=== PATIENT | female | born 1935 | race Caucasian/White ===

== ENCOUNTER 2016-12-17 15:59 | Emergency (ER) | payer MEDICARE ==
[~2016-12-17] VITALS: Ht 177.8 cm; Wt 80.3 kg
[~2016-12-17 15:59] MED LIST: DITROPAN XL15 MG PO; FISH OIL 1,2001 EACH PO; HYDROCHLOROTHIA25 MG PO; IBUPROFEN800 MG PO; LISINOPRIL20 MG PO; MACULAR VITAMI1 EACH PO; NORVASC5 MG PO; OXYCODONE HCL10 MG PO; PERCOCET 5-3251 EACH PO; VITAMIN D400 UNI1 PO; WARFARIN SODIUM5 MG PO
[2016-12-17] MEDS ORDERED: HYDROCHLOROTHIA25 MG PO (16:13)
[2016-12-17] MEDS ORDERED: KEFLEX500 MG PO (18:34)
== END 2016-12-17 18:55 | disposition home or self-care (01) ==
LOC: ED 15:59
DX: L03.116 Cellulitis of left lower limb (principal); I10 Essential (primary) hypertension; Z79.899 Other long term (current) drug therapy
CPT/HCPCS: 73590; 99283

== ENCOUNTER 2019-01-19 16:34 | Emergency (ER) | payer MEDICARE ==
[~2019-01-19] VITALS: Ht 177.8 cm; Wt 80.3 kg
--- OUTSIDE RECORDS SUMMARY | ~2019-01-19 | XMS | Encounter Summary ---
Demographics + + + | Address | [address] | | | [place] [address] | + + + | Home Phone | | + + + | Preferred Language | Unknown | + + + | Marital Status | Single | + + + | Pentecostal Affiliation | Unknown | + + + | Race | Unknown | + + + | Ethnic Group | Other Race | + + + Author + + + | Author | [facility] | + + + | Organization | [facility] | + + + | Address | Unknown | + + + | Phone | Unavailable | + + + Care Team Providers + +------+ + | Care Remedial Project Manager Name | Role | Phone | + +------+ + PCP | Unavailable | + +------+ + Encounter Details +--------+ + + + + | Date | Type | Department | Care Team | Description | +--------+ + + + + | 09/07/ | Pharmacy | [facility] | | | | 2014 | Visit | [address] | | | | [address] | [address] | | | | | | [place] [address] | | | | | | [phone] | | | +--------+ + + + + Social History + +-------+ +--------+------+ | Tobacco Use | Types | Packs/Day | Years | Date | | | | | Used | | + +-------+ +--------+------+ | Never Assessed | | | | | + +-------+ +--------+------+ + + + | Sex Assigned at [...] + + documented as of this encounter Plan of Treatment Not on filedocumented as of this encounter Visit Diagnoses Not on filedocumented in this encounter"
--- OUTSIDE RECORDS SUMMARY | ~2019-01-19 | XMS | Encounter Summary ---
Demographics + + + | Address | [address] | | | [place] [address] | + + + | Home Phone | | + + + | Preferred Language | Unknown | + + + | Marital Status | Single | + + + | Bahai Affiliation | Unknown | + + + | Race | Unknown | + + + | Ethnic Group | Other Race | + + + Author + + + | Author | [facility] | + + + | Organization | [facility] | + + + | Address | Unknown | + + + | Phone | Unavailable | + + + Care Team Providers + +------+ + | Care Technology Specialist Name | Role | Phone | + +------+ + PCP | Unavailable | + +------+ + Encounter Details +--------+ + + + + | Date | Type | Department | Care Team | Description | +--------+ + + + + | 07/17/ | Pharmacy | [facility] | | | | 2013 | Visit | [address] | | | | | | [place] [address] | | | | | | [phone] | | | +--------+ + + + [...]
--- OUTSIDE RECORDS SUMMARY | ~2019-01-19 | XMS | Encounter Summary ---
Demographics + + + | Address | [address] | | | [place] [address] | + + + | Home Phone | | + + + | Preferred Language | Unknown | + + + | Marital Status | Single | + + + | Adventist Affiliation | Unknown | + + + | Race | Unknown | + + + | Ethnic Group | Other Race | + + + Author + + + | Author | [facility] | + + + | Organization | [facility] | + + + | Address | Unknown | + + + | Phone | Unavailable | + + + Care Team Providers + +------+ + | Care Kitchen Mechanic Name | Role | Phone | + +------+ + PCP | Unavailable | + +------+ + Encounter Details +--------+ + + + + | Date | Type | Department | Care Team | Description | +--------+ + + + + | 10/02/ | Pharmacy | [facility] | | | | 2015 | Visit | [address] | [address] | | | | | | [place] [address] | | | | | | [phone] | | | +--------+ + + + [...]
--- OUTSIDE RECORDS SUMMARY | ~2019-01-19 | XMS | Encounter Summary ---
Demographics + + + | Address | [address] | | | [place] [address] | + + + | Home Phone | | + + + | Preferred Language | Unknown | + + + | Marital Status | Single | + + + | Caodaism Affiliation | Unknown | + + + | Race | Unknown | + + + | Ethnic Group | Other Race | + + + Author + + + | Author | [facility] | + + + | Organization | [facility] | + + + | Address | Unknown | + + + | Phone | Unavailable | + + + Care Team Providers + +------+ + | Care Test Analyst Name | Role | Phone | + +------+ + PCP | Unavailable | + +------+ + Encounter Details +--------+ + + + + | Date | Type | Department | Care Team | Description | +--------+ + + + + | 11/22/ | Pharmacy | [facility] | | | | 2013 | Visit | [address] | | | | | [address] | | | | | | [place] [address] | | | | | | [phone] | | | +--------+ + + + [...]
--- OUTSIDE RECORDS SUMMARY | ~2019-01-19 | XMS | Encounter Summary ---
Demographics + + + | Address | [address] | | | [place] [address] | + + + | Home Phone | | + + + | Preferred Language | Unknown | + + + | Marital Status | Single | + + + | Judaism Affiliation | Unknown | + + + | Race | Unknown | + + + | Ethnic Group | Other Race | + + + Author + + + | Author | [facility] | + + + | Organization | [facility] | + + + | Address | Unknown | + + + | Phone | Unavailable | + + + Care Team Providers + +------+ + | Care Judicial Law Clerk Name | Role | Phone | + +------+ + PCP | Unavailable | + +------+ + Encounter Details +--------+ + + + + | Date | Type | Department | Care Team | Description | +--------+ + + + + | 04/04/ | Pharmacy | [facility] | | | | 2014 | Visit | [address] | [address] | | [address] | | | | | | [place] [address] | | | | | | [phone] | | | +--------+ + + + [...]
--- OUTSIDE RECORDS SUMMARY | ~2019-01-19 | XMS | Clinical Summary ---
Demographics + + + | Address | [address] | | | [place] [address] | + + + | Home Phone | | + + + | Preferred Language | Unknown | + + + | Marital Status | | + + + | Yazdanism Affiliation | 1041 | + + + | Race | Unknown | + + + | Ethnic Group | Unknown | + + + Author + + + | Author | [facility] (Historical as of | | | 10-15-18) | + + + | Organization | [facility] (Historical as of | | | 10-15-18) | + + + | Address | Unknown | + + + | Phone | Unavailable | + + + Support + + + + + | Name | Relationship | Address | Phone | + + + + + | Jagdeep Girard | ECON | [address] | | | | | [address] [place], | | | | | [place] [address] | | + + + + + Care Team Providers + +------+ + | Care Generation Engineering Technologist Name | Role | Phone | + +------+ + | Dr. Ebonie | PP | Unavailable | + +------+ + Allergies No Known Allergies Current Medications + + +-------+---------+------+------+-------+ | Prescription | Sig. | Disp. | Refills | Star | End | Statu | | | | | | t | Date | s | | | | | | Date | | | + + +-------+---------+------+------+-------+ | lisinopril | Take 20 mg by mouth | | | | | Activ | | (PRINIVIL,ZESTRIL) | daily. | | | | | e | | 20 MG tablet | | | | | | | + + +-------+---------+------+------+-------+ | amlodipine | Take 5 mg by mouth | | | | | Activ | | (NORVASC) 10 MG | daily. | | | | | e | | tablet | | | | | | | + + +-------+---------+------+------+-------+ | oxybutynin | Take 15 mg by mouth | | | | | Activ | | (DITROPAN XL) 15 MG | daily. | | | | | e | | 24 hr tablet | | | | | | | + + +-------+---------+------+------+-------+ | Biotin 1000 MCG | Take 3,000 mcg by | | | | | Activ | | tablet | mouth daily. | | | | | e | + + +-------+---------+------+------+-------+ | fish oil-omega-3 | Take 2 g by mouth | | | | | Activ | | fatty acids 1000 MG | daily. | | | | | e | | capsule | | | | | | | + + +-------+---------+------+------+-------+ Active Problems No known active problems Social History + +-------+ +--------+ + | Tobacco Use | Types | Packs/Day | Years | Date | | | | | Used | | + +-------+ +--------+ + | Former Smoker | | | 25 | Quit: 11/08/1977 | + +-------+ +--------+ + + +---+---+---+ | Smokeless Tobacco: | | | | | Never Used | | | | + +---+---+---+ + + +---------+ + | Alcohol Use | Drinks/We | oz/Week | Comments | | | ek | | | + + +---------+ + | Yes | 1 | 0.6 | | | | Glasses | | | | | of wine | | | + + +---------+ + + + + | Sex Assigned at | Date Recorded | | | | + + + | Not on file | | + + + Last Filed Vital Signs + + + + | Vital Sign | Reading | Time Taken | + + + + | Blood Pressure | 132/73 | 11/25/2012 11:07 AM PDT | + + + + | Pulse | 88 | 11/25/2012 11:07 AM PDT | + + + + | Temperature | 37.7 C (99.9 F) | 11/25/2012 11:07 AM PDT | + + + + | Respiratory Rate | 18 | 11/25/2012 11:07 AM PDT | + + + + | Oxygen Saturation | 96% | 11/25/2012 11:07 AM PDT | + + + + | Inhaled Oxygen | - | - | | Concentration | | | + + + + | Weight | 78.7 kg (173 lb 8 | 11/08/2012 3:25 PM PDT | | | oz) | | + + + + | Height | 177.8 cm (5' 10") | 11/08/2012 3:25 PM PDT | + + + + | Body Mass Index | 24.89 | 11/08/2012 3:25 PM PDT | + + + + Plan of Treatment Not on file Implants + +------+------+ +--------+--------+--------+ | Implanted | Type | Area | Manufacture | Device | Expira | Model | | | | | r | | tion | / | | | | | | Identi | Date | Serial | | | | | | fier | | / Lot | + +------+------+ +--------+--------+--------+ | Global Standard Stem | | | | | 09/27/ | [id number] | | Implanted: Qty: 1 on | | | | | 2022 | 4-050 | | 11/22/2012 by Philip Garner, | | | | | | /[id number] | | MD | | | | | | 4050 | | | | | | | | /[id number] | | | | | | | | 2 | + +------+------+ +--------+--------+--------+ | Global Chester Peg | | | | | 05/28/ | [id number] | | GlenoidImplanted: Qty: 1 on | | | | | 2018 | -026 | | 11/22/2012 by Philip Garner, | | | | | | /[id number] | | MD | | | | | | 026 | | | | | | | | /[id number] | | | | | | | | 7 | + +------+------+ +--------+--------+--------+ | Global Eccentric | | | | | 06/28/ | [id number] | | HeadImplanted: Qty: 1 on | | | | | 2022 | 2-110 | | 11/22/2012 by Philip Garner, | | | | | | /[id number] | | MD | | | | | | 2110 | | | | | | | | /[id number] | | | | | | | | 1412 | + +------+------+ +--------+--------+--------+ Results Not on filefrom Last 3 Months Insurance + +--------+ +--------+-------+---------+ | Payer | Benefi | Subscriber | Type | Phone | Address | | | t Plan | ID | | | | | | / | | | | | | | Group | | | | | + +--------+ +--------+-------+---------+ | [place] - GENERIC | [place]-GEN | [id number] | Medica | | | | | [place] | | re | | | + +--------+ +--------+-------+---------+ + +--------+ +--------+ + + | Guarantor Name | Accoun | Relation to | Date | Phone | Billing Address | | | t Type | Patient | of | | | | | | | | | | + +--------+ +--------+ + + | JAGDEEP GIRARD | Person [birth year] Self [birth year] Home: | [address] | | | al/Fam | | 1936 | [phone] | | | [place] | | | [phone] | [place] | | | | | | | [phone] | + +--------+ +--------+ + +
--- OUTSIDE RECORDS SUMMARY | ~2019-01-19 | XMS | Encounter Summary ---
Demographics + + + | Address | [address] | | | [place] [address] | + + + | Home Phone [...] + + + | Author | [facility] | + + + | Organization | [facility] | + + + | Address | Unknown | + + + | Phone | Unavailable | + + + Care Team Providers + +------+ + | Care Director Trade Name | Role | Phone | + +------+ + PCP | Unavailable | + +------+ + Encounter Details +--------+ + + + + | Date | Type | Department | Care Team | Description | +--------+ + + + + | 10/20/ | Pharmacy | [facility] | | | | 2015 | Visit | [address] | | | | | | [place] [address] | | | | | | [phone] | | | +--------+ + + + [...]
--- OUTSIDE RECORDS SUMMARY | ~2019-01-19 | XMS | Encounter Summary ---
Demographics + + + | Address | [address] | | | [place] [address] | + + + | Home Phone | | + + + | Preferred Language | Unknown | + + + | Marital Status | | + + + | Sabianism Affiliation | 1041 | + + + | Race | Unknown | + + + | Ethnic Group | Unknown | + + + Author + + + | Author | [facility] | | | and [place] | + + + | Organization | [facility] | | | and [place] | + + + | Address | Unknown | + + + | Phone | Unavailable | + + + Support + + + + + | Name | Relationship | Address | Phone | + + + + + | Catrina Florez | ECON | [place] | | | | | [address] | | + + + + + Care Team Providers + +------+ + | Care Wheel Tuner Name | Role | Phone | + +------+ + | Tomas Cai DO | PCP | | + +------+ + Reason for Visit + + + | Reason | Comments | + + + | Hip Pain | left hip radiating down left leg | + + + Encounter Details +--------+---------+ + + + | Date | Type | Department | Care Team | Description | +--------+---------+ + + + | 06/18/ | Office | [facility] [place] | [place], | Left lumbar | | 2016 | Visit | PHYSIATRY [address] | [address] | radiculitis (Primary | | | | [place], | [address] [place], | Dx); Chronic | | | | [place] [address] | [place] [address] | bilateral low back | | | | [phone] | [phone] | pain with | | | | | | right-sided sciatica | +--------+---------+ + + + Social History [...] + + + | Blood Pressure | 157/89 | 06/18/2016 10:41 AM | | | | | PDT | | + + + + + | Pulse | 60 | 06/18/2016 10:41 AM | | | | | PDT | | + + + + + | Temperature | - | - | | + + + + + | Respiratory Rate | - | - | | + + + + + | Oxygen Saturation | - | - | | + + + + + | Inhaled Oxygen | - | - | | | Concentration | | | | + + + + + | Weight | 78.9 kg (174 lb) | 06/18/2016 10:41 AM | | | | | PDT | | + + + + + | Height | 177.8 cm (5' 10") | 06/18/2016 10:41 AM | | | | | PDT | | + + + + + | Body Mass Index | 24.97 | 06/18/2016 10:41 AM | | | | | PDT | | + + + + + documented in this encounter Patient Instructions Patient Instructions Maribel Acevedo PA-C - 06/18/2016 11:15 AM PDT1) Follow-up at the hospital thirty minutes before your scheduled procedure to allow for time to check in. You may eat and drink as usual on the day of the procedure. If you are scheduled for an epidural injection do not take any blood thinning medications f or at least 5-7 days prior to your procedure unless you have been instructed by another phys ician not to discontinue blood thinning medications. If you are having a procedure other than an epidural injection (i.e. facet injection, media l branch block, SI joint injection or other joint injection) it is not absolutely necessary to discontinue blood thinning medications but doing so will decrease the risk of bruising or bleeding. If you have had a prior stroke, DVT or PE or if you are taking blood thinning medication be cause you have atrial fibrillation, a prosthetic cardiac valve replacement or heart stenting do not stop taking your blood thinning medications unless you have permission from your car diologist or primary care provider. All other medications should be taken as usual on the day of the procedure. Common blood thinning medications include: Aspirin (a baby aspirin is o.k.) Ibuprofen (Advil or Motrin) Naproxen (Aleve) Nabumetone (Relafen) Clopidogrel (Plavix) Dipyridamole/ASA (Aggrenox) Warfarin (Coumadin) Dabigatran (Pradaxa) Rivaroxaban (Xarelto) There are many others. If you have questions about your medications and whether or not you should stop any medications please contact our office. If you are having an epidural injection or if you take any medication for relaxation/sedati on on the day of the procedure you must provide a rear load truck driver to take you home. For all procedur es it is recommended that someone else drive you home. documented in this encounter Progress Notes Maribel Acevedo PA-C - 06/18/2016 12:04 PM PDTFormatting of this note might be differe nt from the original. CHIEF COMPLAINT: Chief Complaint Patient presents with Hip Pain left hip radiating down left leg HISTORY OF PRESENT ILLNESS: The patient is a 81 y.o. female being seen today for follow up complaints of left sided low back pain with radiation into the left leg. She reports néstor knowles had this pain for over 20 years but it has always been intermittent. Her symptoms worsened after April of last year when she had a left total knee replacement. She has seen us in the past and under went a left SI joint injection, this was done 05/06/2016 and reports no im mediate or prison improvement of her symptoms. Since the symptoms began, she has noticed that symptoms have been stable and chronic. She d escribes the pain as a burning feeling to the left buttocks region and into the left lastero posterior thigh. She rates the pain as moderate. Her symptoms worsen with sitting, lying laura n, it wakes her at night, she states having this pain all the time. Her symptoms improve wi th changing positions, hanging her left leg over the recliner arm rest, standing and walking . The patient also describes leg symptoms that occur on her left side. The leg symptoms acco unt for 100% of her symptoms. The leg symptoms are constant and the symptoms travels from t he left buttocks down the posterior thigh following L5 and S1 distribution. The patient does describe numbness of the left lower leg but indicates this has been there since her knee surgery but describes it as following the L5 dermatome . She does not repor t weakness of the legs. She does not have bowel and bladder dysfunction. She does not hav e saddle anesthesia. She does have stress incontinence. Treatments for these complaints have included physical therapy, use of NSAIDS, gabapentin, occasional use of oxycodone. Patient's medications, allergies, past medical, surgical, social and family histories were reviewed and updated as appropriate. CURRENT MEDICATIONS: Current Outpatient Prescriptions Medication Sig Dispense Refill amLODIPine (NORVASC) 5 mg tablet Take 5 mg by mouth Daily. cholecalciferol (VITAMIN D-3) 1,000 units capsule Take 1,000 Units by mouth Daily. gabapentin (NEURONTIN) 100 mg capsule Take 100 mg by mouth 3 times daily. lisinopril (PRINIVIL, ZESTRIL) 20 mg tablet Take 20 mg by mouth Daily. melatonin 5 mg tablet Take 5 mg by mouth nightly. Multiple Vitamins-Minerals (PRESERVISION AREDS 2) CAPS Take by mouth. [place]-3 Fatty Acids (FISH OIL) 1200 MG CAPS Take 1,200 mg by mouth Daily. oxybutynin (DITROPAN XL) 15 MG 24 hr tablet Take 15 mg by mouth Daily. oxyCODONE (ROXICODONE) 5 mg tablet Take 5 mg by mouth every 4 hours as needed for Pain. UNCODED MEDICATION Diagnosis: Obstructive Sleep Apnea ICD-9: 327.23 Length of Need: 99 Months 1 Device 0 UNCODED MEDICATION Diagnosis: Obstructive Sleep Apnea ICD-9: 327.23 Length of Need: 99 Months (Patient taking differently: Diagnosis: Obstructive Sleep Apnea ICD-9: 327.23 Length of Need: 99 Months) 1 Device 0 UNCODED MEDICATION Wear at all times while sleeping. 1 Device 0 No current facility-administered medications for this visit. ALLERGIES: No Known Allergies REVIEW OF SYSTEMS: A multisystem review of system checklist was reviewed with the patient and shows only the p ain and/or parasthesias and other complaints as in HPI. All remaining review of systems was negative. PHYSICAL EXAMINATION: Filed Vitals: 06/18/16 1041 BP: 157/89 Pulse: 60 PainSc: 4 PainLoc: Back Body mass index is 24.97 kg/(m^2). GENERAL: The patient is well developed and well nourished. She does appear uncomfortable w hen seated. HEENT: HEAD/FACE: EYES: EARS: NASOPHARNYX: OROPHARNYX: Normocephalic and atraumatic. There are no areas of recent trauma. Normal sclerae without icterus. No drainage or tenderness. Clear without drainage. Clear without erythema. SKIN Limited skin exam shows no significant rashes or lesions. There are not scars in the lumbar region. CHEST: The patient is in no acute respiratory distress with unlabored respirations. HEART: There is not lower extremity edema. ABDOMEN: The patient is not overweight. NEUROLOGIC: The patient is awake, alert, and oriented to time, place, person. She follows simple and complex commands. Her speech is fluent. She comprehends speech well. She has no apparent deficits with short or termite control representative memory. She has appropriate fund of knowledge Cranial nerves 2-12 appear grossly intact. Sensory exam does show diminished sensation to light touch in the left lower extremities. MUSCULOSKELETAL There is no tenderness in the midline of the cervical or thoracic spine. T here is no major palpable deformity of the spine. Straight leg raise and slump-sit are negative but the stretch does feel good. Elias's ma neuver and impingement testing were negative for any groin pain. There was no tenderness t o palpation over the greater trochanters or sacral sulci. The patient localized the majorit y of the pain to the left buttocks region possibly were the L5 nerve root comes out of the s pine before it descends down the left. Lumbar facet loading was negative. Strength testing showed 5/5 strength throughout the lower extremities. The patient was able to heel and toe walk without difficulty. There was no redness, effusion, warmth or joint line tenderness i n the knees or ankles. RADIOGRAPHIC REVIEW: The patient's imaging was reviewed in detail with the patient today during the visit. Lumba r MRI from [facility] shows abnormal signal to the left pedicle which may be relate d to a pseudarthrosis. There is no high grade nerve root impingement or spinal stenosis. S he has really severe left L5/S1 facet arthritis they may be mimiking the pain too. ASSESSMENT: 1. Left lumbar radiculitis 2. Chronic bilateral low back pain with right-sided sciatica PLAN: 1. She is not improve from the left SI joint injection, she has no immediate relief or shazia g term relief. 2. Her MRI shows no high grade nerve root impingement, however her symptoms appear to be fo llowing the L5 dermatome with pain over the left buttocks and left lateral hip down the thig h and associated numbness to the front of the left lower leg and into the top of the left fo ot. I'd like to see how she responds to a left L5/S1 TFESI, this will serve both diagnostic and therapeutic purposes. 3. She will follow up in 3 weeks. She has tried PT, NSAIDS, gabapentin and oxycodone. ELECTRONICALLY SIGNED BY: Maribel Acevedo PA-C, 06/18/2016 CC: Ayala doc umented in this encounter Plan of Treatment Not on filedocumented as of this encounter Results [place] JHOANA Lumbar Transforaminal (07/07/2016 3:51 PM PDT) + + | Specimen | + + | | + + + + + | Narrative | Performed At | + + + | 07/07/2016 Transforaminal Epidural Steroid Injection Diagnosis: | [facility] | | Lumbar radiculopathy ICD-10 Code M54.16 Marianne Gomez | [facility] | | presents to the fluoroscopy suite for a fluoroscopically-guided [facility] | | L5-S1 transforaminal epidural steroid injection as part of | - IMAGING | | conservative management for chronic pain with lumbar radiculopathy | | | and degenerative disk disease. After informed consent was | | | obtained, the patient lay in the prone position on the fluoroscopy | | | table. The area was identified under fluoroscopic guidance. The | | | area was prepped and draped in sterile fashion. A 25-gauge, | | | 1.5-inch needle was inserted into this region and approximately 3 mL | | | of buffered 1% lidocaine was infused. Then, a 22-gauge spinal | | | needle was inserted into the posterior superior transforaminal space | | | and advanced into the epidural space under fluoroscopic guidance. | | | Confirmation into the epidural space was obtained with infusion of | | | approximately 1 mL of Omnipaque contrast which showed epidural flow | | | as well as nerve sheath flow. Then, a combination of 1.5 mL of | | | 1% lidocaine and 1.5 mL of 6 mg/mL Celestone was infused. The | | | patient tolerated the procedure well without complications. Pre- and | | | post-procedure blood pressures were stable. The patient was given | | | verbal as well as written follow-up instructions. Prior to | | | the start of the procedure, the following were performed and/or | | | verified, including correct patient identity, correct site/side marked | | | and visible, agreement on the procedure to be done, correct patient | | | positioning and an accurate procedure consent form. Any safety | | | precautions based on clinical history and/or medication use have been | | | addressed. I personally performed the procedure above. | | | Estimated blood loss: Minimal Complications: None Findings: As | | | expected Anesthesia: Local 1% Lidocaine | | + + + + + + + + | Performing | Address | City[facility] | Phone Number | | Organization | | | | + + + + + | [facility] | [address] | [place] | [phone] | | [facility] | | [address] | | | - IMAGING | | | | + + + + + documented in this encounter Visit Diagnoses + + | Diagnosis | + + | Left lumbar radiculitis - Primary Thoracic or lumbosacral neuritis or radiculitis, | | unspecified | + + | Chronic bilateral low back pain with right-sided sciatica | + + documented in this encounter
--- OUTSIDE RECORDS SUMMARY | ~2019-01-19 | XMS | Clinical Summary ---
Demographics + + + | Address | [address] | | | [place] [address] | + + + | Home Phone | | + + + | Preferred Language | Unknown | + + + | Marital Status | | + + + | Quaker Affiliation | 1041 | + + + | Race | Unknown | + + + | Ethnic Group | Unknown | + + + Author + + + | Author | [facility] (Historical as of | | | 10-15-18) | + + + | Organization | [facility] (Historical as of | | | 10-15-18) [...] [place], | | | | | [place] [address] | | + + + + + Care Team Providers + +------+ + | Care Snaker Driving Horses Name | Role | Phone | + [...] Garner, | | | | | | /[id number] | | MD | | | | | | 4050 | | | | | | | | /[address] | | | | | | | | 2 | + +------+------+ +--------+--------+--------+ | Global Elgin Peg | | | | | 05/28/ | 113-42 | | GlenoidImplanted: Qty: 1 on | | | | | 2018 | -026 | | 11/22/2012 by Philip Garner, | | | | | | /[id number] | | MD | | | | | | 026 | | | | | | | | /[address] | | | | | | | | 7 | + +------+------+ +--------+--------+--------+ | Global Eccentric | | | | | 06/28/ | 1128-5 | | HeadImplanted: Qty: 1 on | | | | | 2022 | 2-110 | | 11/22/2012 by Philip Garner, | | | | | | /[id number] | | MD | | | | [...] | MA - GENERIC | MA-GEN | [id number] | Medica | | | | | [...] | | | | | | | [address] | + +--------+ +--------+ + +
--- OUTSIDE RECORDS SUMMARY | ~2019-01-19 | XMS | Encounter Summary ---
Demographics + + + | Address | [address] | | | [place] [address] | + + + | Home Phone [...] Author + + + | Author | [facility] | + + + | Organization | [facility] | + + + | Address | Unknown | + + + | Phone | Unavailable | + + + Care Team Providers + +------+ + | Care Watch And Clock Maker And Repairer Name | Role | Phone | + +------+ + PCP | Unavailable | + +------+ + Encounter Details +--------+ + + + + | Date | Type | Department | Care Team | Description | +--------+ + + + + | 07/03/ | Pharmacy | [facility] | | | | 2016 | Visit | [address] | | | | | | [address] | | | | | | [place] [address] | | | | | | [phone] | | | +--------+ + + + [...]
--- OUTSIDE RECORDS SUMMARY | ~2019-01-19 | XMS | Encounter Summary ---
Demographics + + + | Address | [address] | | | [place] [address] | + + + | Home Phone | | + + + | Preferred Language | Unknown | + + + | Marital Status | Single | + + + | Jew Affiliation | Unknown | + + + | Race | Unknown | + + + | Ethnic Group | Other Race | + + + Author + + + | Author | [facility] | + + + | Organization | [facility] | + + + | Address | Unknown | + + + | Phone | Unavailable | + + + Care Team Providers + +------+ + | Care Poke In Name | Role | Phone | + +------+ + PCP | Unavailable | + +------+ + Encounter Details +--------+ + + + + | Date | Type | Department | Care Team | Description | +--------+ + + + + | 10/14/ | Pharmacy | [facility] | | | | 2016 | Visit | [address] | | | | | | [address] | | | | | | [place] [address] | | | | | | [phone] | | | +--------+ + + + [...]
--- OUTSIDE RECORDS SUMMARY | ~2019-01-19 | XMS | Encounter Summary ---
Demographics + + + | Address | [address] | | | [place] [address] | + + + | Home Phone | | + + + | Preferred Language | Unknown | + + + | Marital Status | | + + + | Jehovah'S Witness Affiliation | 1041 | + + + | Race | Unknown | + + + | Ethnic Group | Unknown | + + + Author + + + | Author | [facility] | | | and [place] | + + + | Organization | [facility] | | | and [place] | + + + | Address | Unknown | + + + | Phone | Unavailable | + + + Support + + + + + | Name | Relationship | Address | Phone | + + + + + | Catrina Florez | ECON | [place] | | | | | [address] | | + + + + + Care Team Providers + +------+ + | Care Reflow Operator Name | Role | Phone | + [...] | 02/23/ | Refill | [facility] | Boris Meza PA | Medication Refill | | 2011 | | SLEEP DISORDER 401 | [address] | | | | | [address] | [place] | | | | | [place] [address] | [id number] | | | | | [phone] | | | +--------+--------+ + + + [...]
--- OUTSIDE RECORDS SUMMARY | ~2019-01-19 | XMS | Encounter Summary ---
Demographics + + + | Address | [address] | | | [place] [address] | + + + | Home Phone | | + + + | Preferred Language | Unknown | + + + | Marital Status | | + + + | Presybeterian Affiliation | 1041 | + + + | Race | Unknown | + + + | Ethnic Group | Unknown | + + + Author + + + | Author | [facility] | | | and [place] | + + + | Organization | [facility] | | | and [place] | + + + | Address | Unknown | + + + | Phone | Unavailable | + + + Support + + + + + | Name | Relationship | Address | Phone | + + + + + | Catrina Florez | ECON | [place] | | | | | [address] | | + + + + + Care Team Providers + +------+ + | Care Compressor Station Chief Engineer Name | Role | Phone | + +------+ + | Tomas Cai DO | PCP | | + +------+ + Reason for Visit + + + | Reason | Comments | + + + | Back Pain | right sided low back pain | + + + Encounter Details +--------+---------+ + + + | Date | Type | Department | Care Team | Description | +--------+---------+ + + + | 05/13/ | Office | [facility] | [place], | Lumbar radiculopathy | | 2018 | Visit | PHYSIATRY [address] | [address] | (Primary Dx); Facet | | | | [place], | [facility], | arthritis of lumbar | | | | [place] [address] | [place] [address] | region ([facility]LY [facility]); | | | | [phone] | [phone] | Chronic right-sided | | | | | | low back pain | | | | | | without sciatica | +--------+---------+ + + + Social [...] + + + | Blood Pressure | 140/73 | 05/13/2017 8:49 AM | | | | | PDT | | + + + + + | Pulse | 59 | 05/13/2017 8:49 AM | | | [...] Weight | 78.9 kg (174 lb) | 05/13/2017 8:49 AM | | | | | PDT | | + + + + + | Height | 177.8 cm (5' 10") | 05/13/2017 8:49 AM | | | | | PDT | | + + + + + | Body Mass Index | 24.97 | 05/13/2017 8:49 AM | | | | | PDT | | + + + + + documented in this encounter Patient Instructions Patient Instructions Maribel Acevedo PA-C - 05/13/2017 8:40 AM PDTSteroid injection t argeting the right back facet joint, along with left sciatica Foraminal Stenosis/Radicular Pain: Foraminal stenosis is a narrowing of the spinal foramen, the hole through which passes a s amy nerve as it exits the spine. It is usually a form of degenerative spine disease which occurs slowly over time with wear and tear of the spinal column. Arthritic changes of the s pine, a herniated discs, soft tissue swelling and bony growth can all impinge on the formal foramen and compress the nerve. Because the narrowing (stenosis) of the foramen pinches a nerve, the primary symptoms relat ed to this disorder is directly related to that nerve which is affected. This obviously vari es depending on which foramina are involved. The pinched nerve can lead to basically two cl asses of symptoms. Symptoms include pain in the distribution of that nerve as well as numbne ss, tingling and or weakness can occur. Facet Pain: The facet joint is located when the vertebrae (bones of the spine) connect to each other. Pain occurs with extension and rotation of the spine (bending backwards and rotating), bend ing over and lifting a heavy load, standing, first things in the morning. Images of the spi ne show facet arthritis, fluid in the facet joints. Treatment included rest, anti-inflammat ories, physical therapy focusing on core strengthening, facet steroid injections. Steroids are a very strong anti-inflammatory, this helps reduce pain by reducing swelling. Complications of steroids are bleeding, infection, and an increase of blood sugars if you are diabetic. correction risk can lead to osteoporosis which is why we limited the number of injections to 3 times per year. Facet joints are located when the vertebrae (bones of the spine) connect to each other. Typically these joints can have arthritis in this and give a person centralized low back pain. The procedure takes about 20 minutes. You lie on your b ack and x-rays are taken. Once the region is localized, it is numbed and then injected with steroid. Follow-up at the hospital thirty minutes before [...] of the procedure you must provide a driver/merchandiser to take you home. For all procedur es it is recommended that someone else drive you home. documented in this encounter Progress Notes Maribel Acevedo PA-C - 05/13/2017 8:40 AM PDTFormatting of this note might be differe nt from the original. CHIEF COMPLAINT: Chief Complaint Patient presents with Back Pain right sided low back pain HISTORY OF PRESENT ILLNESS: The patient is a 82 y.o. female being seen today to follow-up on complaints of left sided low back pain with radiation into the left leg. She has seen us in the past. A left L5-S1 epidural steroid injection which was performed by Dr Zavala on 07/07/2016. She reports 50% relief after two weeks and after 3 months had even more improve ment. She reports the left leg symptoms returned somewhere around Thanksgiving giving her 6 months of relief. She also has right side low back pain, this is a chronic daily issue, wo rse with activity. She participated in physical therapy at [facility] [place] [facility] this actually worsened her pain, she did 4 visits. Her symptoms on the right worsen with bending, twisting and lifting. Her symptoms on the r ight improve with rest. Interestingly the pain on the left is worse when she is not active and improves with changing positions, standing and walking. The patient does describe leg symptoms that occur on her left side. The leg symptoms accou nt for only a small percentage of her current symptoms. The leg symptoms are intermittent a nd the symptoms travels from the left buttocks down the posterior thigh. The patient does describe numbness of the left lower leg but indicates this has been there since her knee surgery. It does follow an L5 dermatome or peroneal nerve distribution. Juan Antonio fowler does not report weakness of the legs. She does not have bowel and bladder dysfunction oth er than what sounds like stress incontinence. Treatments for these complaints have included physical therapy, use of NSAIDS, gabapentin, occasional use of oxycodone. She has also had the injections as above. Patient's medications, allergies, past medical, surgical, social and family histories were reviewed and updated as appropriate. CURRENT MEDICATIONS: Current Outpatient Prescriptions Medication Sig Dispense Refill cholecalciferol (VITAMIN D-3) 1,000 units capsule Take 1,000 Units by mouth Daily. gabapentin (NEURONTIN) 100 mg capsule Take 100 mg by mouth 3 times daily. hydroCHLOROthiazide (HYDRODIURIL) 12.5 MG tablet Take 12.5 mg by mouth Daily. lisinopril (PRINIVIL, ZESTRIL) 20 mg tablet Take 20 mg by mouth Daily. melatonin 5 mg tablet Take 5 mg by mouth nightly. Multiple Vitamins-Minerals (PRESERVISION AREDS 2) CAPS Take by mouth. [place]-3 Fatty Acids (FISH OIL) 1200 MG CAPS [...] review of systems was negative. PHYSICAL EXAMINATION: Vitals: 05/13/17 0849 BP: 140/73 Pulse: 59 PainSc: 2 PainLoc: Back Body mass index is 24.97 kg/m. GENERAL: The patient is well developed and well nourished. She does appear uncomfortable w hen seated. HEENT: HEAD/FACE: EYES: Normocephalic and atraumatic. There are no areas of recent trauma. Normal sclerae without icterus. SKIN Limited skin exam shows no significant rashes or lesions. There are not scars in the lumbar region. CHEST: The patient is in no acute respiratory distress with unlabored respirations. HEART: There is moderate lower extremity edema on the left. ABDOMEN: The patient is not overweight. NEUROLOGIC: The patient is awake, alert, and oriented to time, place, person. She follows simple and complex commands. Her speech is fluent. She comprehends speech well. She has no apparent deficits with short or correction memory. She has appropriate fund of knowledge Cranial nerves 2-12 appear grossly intact. Sensory exam does show diminished sensation to light touch in the left lower extremity foll owing a peroneal nerve or L5 distribution. MUSCULOSKELETAL There is no tenderness in the midline of the cervical or thoracic spine. T here is no major palpable deformity of the spine. Straight leg raise and slump-sit are negative. Elias's maneuver and impingement testing w ere negative for any groin pain. There was no tenderness to palpation over the greater tro chanters or sacral sulci. The patient localized the majority of the pain to the L5-S1 regio n on the right. Lumbar facet loading was positive on the right. Strength testing showed 5/ 5 strength throughout the lower extremities. The patient was able to heel and toe walk with out difficulty. There was no redness, effusion, warmth or joint line tenderness in the knee s or ankles. RADIOGRAPHIC REVIEW: The patient's imaging was reviewed in detail with the patient today during the visit. Lumba r MRI from [facility] shows transitional lumbosacral anatomy with what appears to b e severe arthritis in the left L5-S1 facet and lesser arthritis on the right. There is also abnormal signal to the left L5 pedicle which may be related to a pseudarthrosis. There is also a lytic appearing lesion in the left side of the sacrum. A CT scan shows these lesions as well which apparently are felt to be consistent with a hemangioma. There is no definite high grade nerve root impingement or spinal stenosis. According to the patient she is sched uled for repeat imaging to see how the lesions telephone exchange operator time. ASSESSMENT: 1. Lumbar radiculopathy 2. Facet arthritis of lumbar region (HCC) 3. Chronic right-sided low back pain without sciatica PLAN: 1. The patient has had significant conservative care including medications (NSAIDS and narc otics), PT (multiple sessions over the years) and care mgr. Unfortunately she frida nues to have significant discomfort. It appears to me that the pain is primarily coming fro m the right L5/S1 facet arthritic joint and the left foraminal stenosis at this same level. I did feel that she would be a good candidate for interventional procedures and I offered r ight L5/S1 facet steroid injection along with a left L5/S1 TFESI as this did help in the pas t. 2. Medications were discussed with the patient today. She is currently taking Advil and Ox ycodone as needed. She is also taking gabapentin 100 mg three times daily. She did not feel a need to change any of her medications at this time. 3. We discussed filling out the post injection pain log for the injection and follow up as needed. ELECTRONICALLY EDITED AND SIGNED BY: Maribel Acevedo PA-C, 05/13/2017 documented in t his encounter Plan of Treatment + +---------+--------+ + + | Name | Type | Priori | Associated Diagnoses | Order Schedule | | | | ty | | | + +---------+--------+ + + | FL JHOANA Lumbar | Imaging | Routin | Lumbar | Expected: | | Transforaminal | | e | radiculopathy | 05/13/2017, Expires: | | | | | | 05/14/2018 | + +---------+--------+ + + documented as of this encounter Results FL Facet Injection Lumbar Sacral (06/17/2017 10:24 AM PDT) + + | Specimen | + + | | + + + + -+ | Narrative | Performed At | + + -+ | 06/17/2017 | [facility] | | Lumbar Facet Steroid Injection Diagnosis: Lumbar Spondylosis ICD-10 | | | Code M47.816 Marianne Gomez presents to the fluoroscopy suite for | | | a fluoroscopically-guided right L5-S1 facet injection as part of | | | conservative management for chronic pain with lumbar spondylosis.Based | | | on the patient's history, physical examination and review of the | | | available imaging the patient has been diagnosed with pain coming | | | primarily from the lumbar facet joint. The patient's pain has been | | | moderate to severe, rated as a 6 or higher usually on a 0-10 scale. | | | The pain is impacting activities of daily living including any | | | activity that requires bending, lifting or twisting. The patient has | | | been dealing with this pain for more than 3 months and has failed | | | conservative treatment with NSAIDs, PT and a home exercise program | | | therefore a therapeutic facet injection was ordered today by Maribel | | | SREE Acevedo targeting the right L5-S1 facet joint. After | | | informed consent was obtained, the patient laid in the prone position | | | on the fluoroscopy table. The areas were identified under fluoroscopic | | | guidance. The area was prepped and draped in sterile fashion. A | | | 25-gauge, 1.5-inch needle was inserted into the region and | | | approximately 3 mL of buffered 1% lidocaine was infused. Then, a | | | 22-gauge spinal needle was inserted into the superior portion of the | | | facet under fluoroscopic guidance. Confirmation into the joint space | | | was obtained with infusion of approximately 0.25 mL of Omnipaque | | | contrast which showed outline of the facet joint. Then, a combination | | | of 0.5 mL of 1% lidocaine and 1 mL of 10 mg/mL dexamethasone was | | | infused into the joint. The patient tolerated the procedure well | | | without complications. Pre- and post-procedure blood pressures were | | | stable. The patient was given verbal as well as written follow-up | | | instructions. The patient was reexamined after the procedure. She | | | reported good improvement of her symptoms after the procedure. The | | | patient's symptoms were improved even with bending and twisting | | | maneuvers. The patient was instructed to keep a detailed pain diary of | | | the response to treatment and will return the pain diary to our | | | office 2 weeks after the procedure. Prior to the start of the | | | procedure, the following were performed and/or verified, including | | | correct patient identity, correct site/side marked and visible, | | | agreement on the procedure to be done, correct patient positioning and | | | an accurate procedure consent form. Any safety precautions based on | | | clinical history and/or medication use have been addressed. I | | | personally performed the procedure above. Estimated blood loss: | | | MinimalComplications: NoneFindings: As expectedAnesthesia: Local 1% | | | Lidocaine | | |the procedure. | | | | | |Prior to the start of the procedure, the following were performed and/or | | |verified, including correct patient identity, correct site/side marked and | | |visible, agreement on the procedure to be done, correct patient | | |positioning and an accurate procedure consent form. Any safety precautions | | |based on clinical history and/or medication use have been addressed. I | | |personally performed the procedure above. | | | | | | | | |Estimated blood loss: Minimal | | |Complications: None | | |Findings: As expected | | |Anesthesia: Local 1% Lidocaine | | | | | + + -+ + +---------+ + + | Performing | Address | City/State/Zipcode | Phone Number | | Organization | | | | + +---------+ + + | [facility] | | | | + +---------+ + + documented in this encounter Visit Diagnoses + + | Diagnosis | + + | Lumbar radiculopathy - Primary Thoracic or lumbosacral neuritis or radiculitis, | | unspecified | + + | Facet arthritis of lumbar region Lumbosacral spondylosis without myelopathy | + + | Chronic right-sided low back pain without sciatica | + + documented in this encounter
--- OUTSIDE RECORDS SUMMARY | ~2019-01-19 | XMS | Clinical Summary ---
Demographics + + + | Address | [address] | | | [place] [address] | + + + | Home Phone | | + + + | Preferred Language | Unknown | + + + | Marital Status | Single | + + + | Synagogue Affiliation | Unknown | + + + | Race | Unknown | + + + | Ethnic Group | Other Race | + + + Author + + + | Author | [facility] | + + + | Organization | NON REVENUE LOCATIONS | + + + | Address | Unknown | + + + | Phone | Unavailable | + + + Care Team Providers + +------+ + | Care Stewardesses Teacher Name | Role | Phone | + +------+ + PCP | Unavailable | + +------+ + Source Comments [facility] is fully live on both EpicCare Ambulatory and EpicCare InPatient.[facility] Allergies No Known Allergies Medications + + + +---------+------+------+-------+ | Medication | Sig | Dispensed | Refills | Star | End | Statu | | | | | | t | Date | s | | | | | | Date | | | + + + +---------+------+------+-------+ | oxybutynin CR 15 | Take 1 tablet by | 90 | 3 | 05/1 | | Activ | | mg oral tablet | mouth once daily. | tablet | | 6/20 | | e | | extended release | | | | 14 | | | | 24hr | | | | | | | + + + +---------+------+------+-------+ | lisinopril 20 mg | Take 1 tablet by | 90 | 4 | 08/0 | | Activ | | oral tablet | mouth once daily. | tablet | | 2/20 | | e | | | | | | 16 | | | + + + +---------+------+------+-------+ | amLODIPine 5 mg | Take 1 tablet by | 90 | 4 | 08/1 | | Activ | | oral tablet | mouth once daily. | tablet | | 6/20 | | e | | | | | | 16 | | | + + + +---------+------+------+-------+ Active Problems Not on file Social History + +-------+ +--------+------+ | Tobacco [...] | + + Last Filed Vital Signs Not on file Plan of Treatment + + + + + | Health Maintenance | Due Date | Last Done | Comments | + + + + + | Pneumococcal | | | | | vaccination (1 of 2 | 0 | | | | - PCV13) | | | | + + + + + | Influenza (Flu) | | | | | vaccination (#1) | 9 | | | + + + + + Results Not on filefrom Last 3 Months"
--- OUTSIDE RECORDS SUMMARY | ~2019-01-19 | XMS | Encounter Summary ---
Demographics + + + | Address | [address] | | | [place] [address] | + + + | Home Phone | | + + + | Preferred Language | Unknown | + + + | Marital Status | Single | + + + | Jainism Affiliation | Unknown | + + + [...] Team Providers + +------+ + | Care Exec. Creative Director Name | Role | Phone | + +------+ + PCP | Unavailable | + +------+ + Encounter Details +--------+ + + + + | Date | Type | Department | Care Team | Description | +--------+ + + + + | 01/06/ | Pharmacy | [facility] | | | | 2015 | Visit | [address] | | | | | | [address] | | | | | | [place] [address] | | | | | | [phone] | | | +--------+ + + + [...]
--- OUTSIDE RECORDS SUMMARY | ~2019-01-19 | XMS | Encounter Summary ---
Demographics + + + | Address | [address] | | | [place] [address] | + + + | Home Phone | | + + + | Preferred Language | Unknown | + + + | Marital Status | Single | + + + | Episcopal Affiliation | Unknown | + + + | Race | Unknown | + + + | Ethnic Group | Other Race | + + + Author + + + | Author | [facility] | + + + | Organization | [facility] | + + + | Address | Unknown | + + + | Phone | Unavailable | + + + Care Team Providers + +------+ + | Care Personnel Quality Assurance Auditor Name | Role | Phone | + +------+ + PCP | Unavailable | + +------+ + Encounter Details +--------+ + + + + | Date | Type | Department | Care Team | Description | +--------+ + + + + | 04/14/ | Pharmacy | [facility] | | | | 2013 | Visit | [address] | [address] | | | | | | [place] [address] | | | | | | [phone] | | | +--------+ + + + [...]
--- OUTSIDE RECORDS SUMMARY | ~2019-01-19 | XMS | Encounter Summary ---
Demographics + + + | Address | [address] | | | [place] [address] | + + + | Home Phone | | + + + | Preferred Language | Unknown | + + + | Marital Status | | + + + | Muslim Affiliation | 1041 | + + + | Race | Unknown | + + + | Ethnic Group | Unknown | + + + Author + + + | Author | [facility] | | | and [place] | + + + | Organization | [facility] | | | and [place] | + + + | Address | Unknown | + + + | Phone | Unavailable | + + + Support + + + + + | Name | Relationship | Address | Phone | + + + + + | Catrina Florez | ECON | [place] | | | | | [address] | | + + + + + Care Team Providers + +------+ + | Care Senior Manager Creative Services Name | Role | Phone | + +------+ + | Tomas Cai DO | PCP | | + +------+ + Reason for Visit + + + | Reason | Comments | + + + | Injections | | + + + Encounter Details +--------+ + + + + | Date | Type | Department | Care Team | Description | +--------+ + + + + | 06/15/ | Telephone | [facility] | Lamont Zavala | Injections | | 2018 | | [address]YSIATRY [address] | | | | | [place], | [place], [place] | | | | | [place] [address] | [address] | | | | | [phone] | | | +--------+ + + + [...]
--- OUTSIDE RECORDS SUMMARY | ~2019-01-19 | XMS | Encounter Summary ---
Demographics + + + | Address | [address] | | | [place] [address] | + + + | Home Phone | | + + + | Preferred Language | Unknown | + + + | Marital Status | | + + + | Scientology Affiliation | 1041 | + + + [...] [place] | | | | | [address] | | + + + + + Care Team Providers + +------+ + | Care Knowledge Analyst Name | Role | Phone | [...] | 02/23/ | Refill | [facility] | Boris Meza PA | Medication Refill | | 2011 | | SLEEP DISORDER [address] | [address] | | | | | [address] | [place] | | | | | [place] [address] | [id number] | | | | | [phone] | | | +--------+--------+ + + + [...]
--- OUTSIDE RECORDS SUMMARY | ~2019-01-19 | XMS | Encounter Summary ---
Demographics + + + | Address | [address] | | | [place] [address] | + + + | Home Phone | | + + + | Preferred Language | Unknown | + + + | Marital Status | Single | + + + | Gnosticist Affiliation | Unknown | + + + [...] Team Providers + +------+ + | Care Soda Room Operator Name | Role | Phone | + +------+ + PCP | Unavailable | + +------+ + Encounter Details +--------+ + + + + | Date | Type | Department | Care Team | Description | +--------+ + + + + | 07/10/ | Pharmacy | [facility] | | | | 2014 | Visit | [address] | [address] | | | | | | [place] [address] | | | | | | [phone] | | | +--------+ + + + [...]
--- OUTSIDE RECORDS SUMMARY | ~2019-01-19 | XMS | Encounter Summary ---
Demographics + + + | Address | [address] | | | [place] [address] | + + + | Home Phone | | + + + | Preferred Language | Unknown | + + + | Marital Status | Single | + + + | Cheondoism Affiliation | Unknown | + + + | Race | Unknown | + + + | Ethnic Group | Other Race | + + + Author + + + | Author | [facility] | + + + | Organization | [facility] | + + + | Address | Unknown | + + + | Phone | Unavailable | + + + Care Team Providers + +------+ + | Care Matchbook Maker Name | Role | Phone | + +------+ + PCP | Unavailable | + +------+ + Encounter Details +--------+ + + + + | Date | Type | Department | Care Team | Description | +--------+ + + + + | 01/06/ | Pharmacy | [facility] | | | | 2015 | Visit | [address] | [address] | [address] | | | | | | [place] [address] | | | | | | [phone] | | | +--------+ + + + [...]
--- OUTSIDE RECORDS SUMMARY | ~2019-01-19 | XMS | Encounter Summary ---
Demographics + + + | Address | [address] | | | [place] [address] | + + + | Home Phone | | + + + | Preferred Language | Unknown | + + + | Marital Status | Single | + + + | Moravian Affiliation | Unknown | + + + [...] Team Providers + +------+ + | Care Regulatory Associate Name | Role | Phone | + +------+ + PCP | Unavailable | + +------+ + Encounter Details +--------+ + + + + | Date | Type | Department | Care Team | Description | +--------+ + + + + | 11/20/ | Pharmacy | [facility] | | | | 2013 | Visit | [address] [facility] [address] [address] | | | | | [address] | | | | | | [place] [address] | | | | | | [phone] | | | +--------+ + + + [...]
--- OUTSIDE RECORDS SUMMARY | ~2019-01-19 | XMS | Encounter Summary ---
Demographics + + + | Address | [address] | | | [place] [address] | + + + | Home Phone | | + + + | Preferred Language | Unknown | + + + | Marital Status | | + + + | Orthodox Affiliation | 1041 | + + + [...] [place] | | | | | [address] | | + + + + + Care Team Providers + +------+ + | Care Wood Scrap Handler Name | Role | Phone | + +------+ + | Tomas Cai DO | PCP | | + +------+ + Reason for Visit +--------+ + | Reason | Comments | +--------+ + | Apnea | | +--------+ + Encounter Details +--------+---------+ + + + | Date | Type | Department | Care Team | Description | +--------+---------+ + + + | 02/03/ | Office | [facility] [place] | Zac Wells | DORA (obstructive | | 2011 | Visit | SLEEP DISORDER [address] | MD [address] | sleep apnea) | | | | [address] [place] | [address] [place] | (Primary Dx) | | | | [place] [address] | [place] [address] | | | | | [phone] | [phone] | | | | | | | [...] + + + | Blood Pressure | 178/72 | 02/04/2012 1:45 PM | | | | | PST | | + + + + + | Pulse | 72 | 02/04/2012 1:45 PM | | | | | PST | | + + + + + | Temperature | - | - | | + + + + + | Respiratory Rate | 14 | 02/04/2012 1:45 PM | | | | | PST | | + + + + + | Oxygen Saturation | - | - | | + + + + + | Inhaled Oxygen | - | - | | | Concentration | | | | + + + + + | Weight | 80.2 kg (176 lb 14.4 | 02/04/2012 1:45 PM | | | | oz) | PST | | + + + + + | Height | - | - | | + + + + + | Body Mass Index | 26.12 | 01/13/2012 2:17 PM | | | | | PST | | + + + + + documented in this encounter Progress Notes Zac Wells Jr., MD - 02/04/2012 2:00 PM PSTThe patient underwent PSG utilizing a spl it-night technique on 02/01/2012 which demonstrated a pretreatment RDI of 28.7 and a pretreat ment AHI of 19.9 and a pretreatment AI of 17.5 with a len oxygen saturation of 65%. She wa s titrated to CPAP of 8cm which excellent control of DORA and normalization of oxygen saturat ions. I've discussed this with her. A: 1) DORA - the patient has significant DORA which associated with oxygen desaturation. I've briefly reviewed the pathophysiology of DORA with her again. The mechanisms of action of CPA P in treating DORA were discussed in detail with the patient. I've discussed desensitization techniques as well as some imagery techniques that can be helpful. I've discussed the use of heated humidity. And I've discussed our PAP Compliance Clinic. P: CPAP 5-10cm is prescribed. F/u early next week in PAP compliance clinic. Today, 15 minutes was spent face to face with the patient; the majority of time was spent tamica gilliam. CC: Dr. Rahel Cai Tdocumented in this encounter Plan of Treatment Not on filedocumented as of this encounter Visit Diagnoses + + | Diagnosis | + + | DORA (obstructive sleep apnea) - Primary Obstructive sleep apnea (adult) (pediatric) | + + documented in this encounter"
--- OUTSIDE RECORDS SUMMARY | ~2019-01-19 | XMS | Encounter Summary ---
Demographics + + + | Address | [address] | | | [place] [address] | + + + | Home Phone | | + + + | Preferred Language | Unknown | + + + | Marital Status | | + + + | Voodoo Affiliation | 1041 | + + + | Race | Unknown | + + + | Ethnic Group | Unknown | + + + Author + + + | Author | [facility] | | | and [place] | + + + | Organization | [facility] | | | and [place] | + + + | Address | Unknown | + + + | Phone | Unavailable | + + + Support + + + + + | Name | Relationship | Address | Phone | + + + + + | Catrina Florez | ECON | [place] | | | | | [address] | | + + + + + Care Team Providers + +------+ + | Care Quill Fixer Name | Role | Phone | + [...] | | | bilateral | Maribel | [facility] | | | | | low back | PA-C [address] | [address] | | | | | pain with | [address] | AVE | | | | | left-sided | [place], [place] | [place], [place] | | | | | sciatica | [address] | [address] | | | | | Procedures | Phone: | Phone: | | | | | CT Pelvis w | [phone] | [phone] | | | | | wo Contrast | Fax: | Fax: | | | | | | [phone] | [phone] | +--------+--------+ + + + + Diagnostic/Screening [...] | | | bilateral | Maribel | [facility] | | | | | low back | PA-C [address] | [address] | | | | | pain with | [address] | AVE | | | | | left-sided | [place], [place] | [place], [place] | | | | | sciatica | [address] | [address] | | | | | Procedures | Phone: | Phone: | | | | | CT Lumbar | [phone] | [phone] | | | | | Spine w wo | Fax: | Fax: | | | | | Contrast | [phone] | [phone] | +--------+--------+ + + + + Reason [...] + + | 10/21/ | Office | [facility] [place] | Lidabustercz, | Chronic bilateral | | 2016 | Visit | PHYSIATRY [address] | [address] | low back pain with | | | | [place], | [address] [place], | left-sided sciatica | | | | [place] [address] | [place] [address] | (Primary Dx) | | | | [phone] | [phone] | | | | | | | [...] blood sugars if you a re diabetic. senior living risk can lead to osteoporosis which is [...] documented in this encounter Progress Notes Maribel Acveedo PA-C - 10/22/2015 3:10 PM PDTFormatting of [...] (PRESERVISION AREDS 2) CAPS Take by mouth. [place]-3 Fatty Acids (FISH OIL) 1200 MG CAPS Take 1,200 mg by mouth Daily. [place]-3 Fatty Acids (RA FISH OIL EXTRA STRENGTH) [...] has no apparent deficits with short or senior care memory. She has appropriate fund of knowledge Cranial nerves 2-12 appear grossly intact. Sensory exam does show diminished sensation to light touch in the left lower extremities. MUSCULOSKELETAL Physical exam was not performed today. RADIOGRAPHIC REVIEW: The patient's imaging was reviewed in detail with the patient today during the visit. Lumba r MRI from [facility] shows abnormal signal to the left pedicle [...] sacral CT scan to be done at [facility], but have asked that her PCP [...]
--- OUTSIDE RECORDS SUMMARY | ~2019-01-19 | XMS | Encounter Summary ---
Demographics + + + | Address | [address] | | | [place] [address] | + + + | Home Phone | | + + + | Preferred Language | Unknown | + + + | Marital Status | Single | + + + | Sikh Affiliation | Unknown | + + + | Race | Unknown | + + + | Ethnic Group | Other Race | + + + Author + + + | Author | [facility] | + + + | Organization | [facility] | + + + | Address | Unknown | + + + | Phone | Unavailable | + + + Care Team Providers + +------+ + | Care Inspectors And Regulatory Officers Name | Role | Phone | + +------+ + PCP | Unavailable | + +------+ + Encounter Details +--------+ + + + + | Date | Type | Department | Care Team | Description | +--------+ + + + + | 11/20/ | Pharmacy | [facility] | | | | 2013 | Visit | [address] | | | | | | Place [address] | | | | | | [place] [address] | | | | | | [phone] | | | +--------+ + + + [...]
--- OUTSIDE RECORDS SUMMARY | ~2019-01-19 | XMS | Encounter Summary ---
Demographics + + + | Address | [address] | | | [place] [address] | + + + | Home Phone | | + + + | Preferred Language | Unknown | + + + | Marital Status | | + + + | Methodist Affiliation | 1041 | + + + | Race | Unknown | + + + | Ethnic Group | Unknown | + + + Author + + + | Author | [facility] | | | and [place] | + + + | Organization | [facility] | | | and [place] | + + + | Address | Unknown | + + + | Phone | Unavailable | + + + Support + + + + + | Name | Relationship | Address | Phone | + + + + + | Catrina Florez | ECON | [place] | | | | | [address] | | + + + + + Care Team Providers + +------+ + | Care Parimutuel Ticket Checker Name | Role | Phone | + +------+ + | Tomas Cai DO | PCP | | + +------+ + Encounter Details +--------+ + + + + | Date | Type | Department | Care Team | Description | +--------+ + + + + | 11/08/ | Hospital | [facility] | Conversion | | | 2013 | Encounter | [facility] | Transaction, | | | | | CLINIC [address] | Provider Unknown | | | | | [place], [place] | | | | | | [address] | (Fax) | | | | | [phone] | | | +--------+ + + + [...] + + documented as of this encounter Medications at Time of Discharge [...] | Diagnosis: | 1 | 0 | 12/26/20 | | | MEDICATIONIndication | Obstructive Sleep [...] + + + +---------+ + + | aspirin (KOMAL | Take 325 mg by mouth | | 0 | | | | ASPIRIN) 325 mg | Daily. | | | | 4 | | tablet | | | | | | + + + +---------+ + + | | Take 1 tablet by | | 0 | | | | Ooksnau-Xgnuhqmfm-Dv | mouth Daily. | | | | 4 | | tamin D (CITRACAL | | | | | | | CALCIUM+D) | | | | | | | 600-40-500 | | | | | | | MG-MG-UNIT TB24 | | | | | | + + + +---------+ + + | | Take 1 tablet by | | 0 | | | | Glucosamine-Chondroi | mouth Daily. | | | | 4 | | tin (GLUCOSAMINE | | | | | | | CHONDR COMPLEX) | | | | | | | 500-400 MG CAPS | | | | | | + + + +---------+ + + | meloxicam (MOBIC) | Take 15 mg by mouth | | 0 | | | | 15 mg tablet | Daily. | | | | 4 | + + + +---------+ + + | Multiple | Take 1 tablet by | | 0 | | | | Vitamins-Minerals | mouth Daily. | | | | 5 | | (CENTRA-WANDER) TABS | | | | | | + + + +---------+ + + | Frederick-3 Fatty | Take 1 capsule by | | 0 | | | | Acids (RA FISH OIL | mouth Daily. | | | | 7 | | EXTRA STRENGTH) 870 | | | | | | | MG CAPS | | | | | | + + + +---------+ + + documented as of this encounter Plan of Treatment Not on filedocumented as of this encounter Procedures + +--------+ + + + | Procedure Name | Priori | Date/Time | Associated Diagnosis | Comments | | | ty | | | | + +--------+ + + + | MRSA NAAT | Timed | 11/08/2012 | | Results for this | | | | 3:30 PM | | procedure are in the | | | | PDT | | results section. | + +--------+ + + + documented in this encounter Results MRSA NAAT (11/08/2012 3:30 PM PDT) + + | Specimen | + + | | + + + + + | Narrative | Performed At | + + + | [facility]) | EXTERNAL LAB | | Testing performed at [facility];[address] [place] [address];[place] [address] MRSA PCR | | | NEGATIVE Testing performed at | | | [facility];[address] [place] [address];[place] [address] | | + + + + +---------+ + + | Performing | Address | City/State/Zipcode | Phone Number | | Organization | | | | + +---------+ + + | EXTERNAL LAB | | | | + +---------+ + + documented in this encounter Visit Diagnoses Not on filedocumented in this encounter"
--- OUTSIDE RECORDS SUMMARY | ~2019-01-19 | XMS | Encounter Summary ---
Demographics + + + | Address | [address] | | | [place] [address] | + + + | Home Phone [...] Author | [facility] | + + + | Organization | [facility] | + + + | Address | Unknown | + + + | Phone | Unavailable | + + + Care Team Providers + +------+ + | Care Leather Sprayer Name | Role | Phone | + +------+ + PCP | Unavailable | + +------+ + Encounter Details +--------+ + + + + | Date | Type | Department | Care Team | Description | +--------+ + + + + | 03/09/ | Pharmacy | [facility] | | | | 2014 | Visit | [address] | | | | | | [address] | | | | | | [place] [address] | | | | | | [phone] | | | +--------+ + + + [...]
--- OUTSIDE RECORDS SUMMARY | ~2019-01-19 | XMS | Encounter Summary ---
Demographics + + + | Address | [address] | | | [place] [address] | + + + | Home Phone | | + + + | Preferred Language | Unknown | + + + | Marital Status | | + + + | Restorationist Affiliation | 1041 | + + + | Race | Unknown | + + + | Ethnic Group | Unknown | + + + Author + + + | Author | [facility] | | | and [place] | + + + | Organization | [facility] | | | and [place] | + + + | Address | Unknown | + + + | Phone | Unavailable | + + + Support + + + + + | Name | Relationship | Address | Phone | + + + + + | Catrina Florez | ECON | [place] | | | | | [address] | | + + + + + Care Team Providers + +------+ + | Care English Composition Teacher Name | Role | Phone | [...] + + | 04/17/ | Office | [facility] | Boris Meza PA | DORA on CPAP (Primary | | 2015 | Visit | SLEEP DISORDER [address] | [address] | Dx) | | | | [address] [place] | [place] | | | | | [place] [address] | [address] | | | | | [phone] | | | +--------+---------+ + + + [...] Insomnia Severity Index Insomnia Severity Index 0 Argyle Sleepiness Scale Sitting and reading 2 Watching [...] pillows obtained from: [facility] [place] pressure is: 5-10 cm 95%: 7.4 cm [...] appr opiate paperwork. Fifteen minutes were spent coji-hh-nnde, with the majority of time spent in [...]
--- OUTSIDE RECORDS SUMMARY | ~2019-01-19 | XMS | Encounter Summary ---
Demographics + + + | Address | [address] | | | [place] [address] | + + + | Home Phone | | + + + | Preferred Language | Unknown | + + + | Marital Status | | + + + | Amish Affiliation | 1041 | + + + | Race | Unknown | + + + | Ethnic Group | Unknown | + + + Author + + + | Author | [facility] | | | and [place] | + + + | Organization | [facility] | | | and [place] | + + + | Address | Unknown | + + + | Phone | Unavailable | + + + Support + + + + + | Name | Relationship | Address | Phone | + + + + + | Catrina Florez | ECON | [place] | | | | | [address] | | + + + + + Care Team Providers + +------+ + | Care Filler In Name | Role | Phone | + +------+ + | Tomas Cai DO | PCP | | + +------+ + Reason for Visit +--------+ + | Reason | Comments | +--------+ + | LABS | | +--------+ + Encounter Details +--------+ + + + + | Date | Type | Department | Care Team | Description | +--------+ + + + + | 10/28/ | Telephone | [facility] [place] | [place], | LABS | | 2016 | | PHYSIATRY [address] | [address] | | | | | [place], | [place], | | | | | [place] [address] | [place] [address] | | | | | [phone] | | | | | | | | +--------+ + + + [...] as of this encounter Plan of Treatment + +------+--------+ + + | Name | Type | Priori | Associated Diagnoses | Order Schedule | | | | ty | | | + +------+--------+ + + | Renal Function Panel | Lab | Routin | Chronic bilateral | 1 Occurrences | | | | e | low back pain with | starting 10/29/2015 | | | | | right-sided sciatica | until 10/28/2016 | + +------+--------+ + + documented as of this encounter Visit Diagnoses + + | Diagnosis | + + | Chronic bilateral low back pain with right-sided sciatica - Primary | + + documented in this encounter"
--- OUTSIDE RECORDS SUMMARY | ~2019-01-19 | XMS | Encounter Summary ---
Demographics + + + | Address | [address] | | | [place] [address] | + + + | Home Phone | | + + + | Preferred Language | Unknown | + + + | Marital Status | | + + + | Mosque Affiliation | 1041 | + + + | Race | Unknown | + + + | Ethnic Group | Unknown | + + + Author + + + | Author | [facility] | | | and [place] | + + + | Organization | [facility] | | | and [place] | + + + | Address | Unknown | + + + | Phone | Unavailable | + + + Support + + + + + | Name | Relationship | Address | Phone | + + + + + | Catrina Florez | ECON | [place] | | | | | [address] | | + + + + + Care Team Providers + +------+ + | Care Fiberglass Roving Winder Name | Role | Phone | + [...] [address] | | | | | [place], | [place], | | | | | [place] [address] | [place] [address] | | | | | [phone] | [phone] | | | | | | | [...]
--- OUTSIDE RECORDS SUMMARY | ~2019-01-19 | XMS | Encounter Summary ---
Demographics + + + | Address | [address] | | | [place] [address] | + + + | Home Phone | | + + + | Preferred Language | Unknown | + + + | Marital Status | | + + + | Cheondoism Affiliation | 1041 | + + + | Race | Unknown | + + + | Ethnic Group | Unknown | + + + Author + + + | Author | [facility] | | | and [place] | + + + | Organization | [facility] | | | and [place] | + + + | Address | Unknown | + + + | Phone | Unavailable | + + + Support + + + + + | Name | Relationship | Address | Phone | + + + + + | Catrina Florez | ECON | [place] | | | | | [address] | | + + + + + Care Team Providers + +------+ + | Care Doctor Of Pharmacy Name | Role | Phone | + [...] | Lumbar | [place], | [address] | | | | | spondylosis | Lamont Bryan MD | [facility], | | | | | Procedures | [address] | [place] | | | | | [place] INJ | [address] [place] | [address] | | | | | DX/THER AGNT | [place], [place] | Phone: | | | | | [place] | [address] | [phone] | | | | | [place], | Phone: | Fax: | | | | | LUMBAR/SAC, | [phone] | [phone] | | | | | 1ST LEVEL | Fax: | | | | | | [place] | [phone] | | | | | | TRIAMCINOLON | | | | | | | E ACET INJ | | | | | | | NOS, 10 MG | | | | | | | Appt. 06/17 | | | | | | | Right L5/S1 | | | | | | | Facet | | | +--------+--------+ + + + + Encounter Details +--------+ + + + + | Date | Type | Department | Care Team | Description | +--------+ + + + + | 06/17/ | Hospital | [facility] | [place], | 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 [address] | [address] | lumbar region (HCC); | | | | [place] | [facility], | Chronic right-sided | | | | [place] [address] | [place] [address] | low back pain | | | | [phone] | [phone] | without sciatica; | | | | | | Lumbar | | | | | Maintenance ApprenticeMichael | radiculopathy; | | | | | | Spondylosis without | | | | | | myelopathy or | | | | | | radiculopathy, | | | | | | lumbar region | +--------+ + + + + Social [...] +---------+ + + | Blood Pressure | 156/75 | 06/17/2017 10:36 AM | | | | | PDT | | + +---------+ + + | Pulse | 61 | 06/17/2017 10:36 AM | | | | | PDT [...] + +---------+ + + | | Take 12.5 mg by | | 0 | | | | hydroCHLOROthiazide | mouth Daily. | | | | | | (HYDRODIURIL) 12.5 | | | [...] + + + +---------+ + + | Pearson-3 Fatty | Take 1,200 mg by | [...] of this encounter Plan of Treatment + +---------+--------+ + + | Name | Type | Priori | Associated Diagnoses | Order Schedule | | | | ty | | | + +---------+--------+ + + | FL JHOANA Lumbar | Imaging | Routin | Lumbar | 1 Occurrences | | Transforaminal | | e | radiculopathy | starting 06/17/2017 | | | | | | until 06/17/2017 | + +---------+--------+ + + documented as of this encounter Procedures + +--------+ + + + | Procedure Name | Priori | Date/Time | Associated Diagnosis | Comments | | | ty | | | | + +--------+ + + + | FL FACET INJECTION | Routin | 06/17/2017 | Facet arthritis of | Results for this | | LUMBAR SACRAL | e | 10:24 AM | lumbar region (HCC) | procedure are in the | | | | PDT | Chronic | results section. 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 | + + | Chronic right-sided low back pain without sciatica | + + | Lumbar radiculopathy Thoracic or lumbosacral neuritis or radiculitis, unspecified | + + | Spondylosis without myelopathy or radiculopathy, lumbar region | + + documented in this encounter Administered Medications + +--------+ +-------+------+------+ | Medication Order | MAR | Action | Dose | Rate | Site | | | Action | Date | | | | + +--------+ +-------+------+------+ | dexamethasone (PF) 10 mg/mL | Given | 06/18/19 | 10 mg | | | | injection 10 mg 10 mg, | | 18 10:35 | | | | | Intra-articular, ONCE, Yadira | | AM PDT | | | | | 06/17/17 at 1045, For 1 dose | | | | | | + +--------+ +-------+------+------+ +---+---+ | | | +---+---+ + +-------+ +-------+---+---+ | iohexol (OMNIPAQUE 300) 300 | Given | 06/18/19 | 4 mLs | | | | mg/mL injection 4 mL 4 mL, | | 18 10:30 | | | | | Other, ONCE, Yadira 06/17/17 at 1045, | | AM PDT | | | | | For 1 dose | | | | | | + +-------+ +-------+---+---+ +---+---+ | | | +---+---+ + +-------+ +-------+---+---+ | lidocaine (PF) 1% injection 2 | Given | 06/18/19 | 2 mLs | | | | mL 2 mL, Other, ONCE, Yadira | | 18 10:35 | | | | | 06/17/17 at 1045, For 1 dose, | | AM PDT | | | | | INTRAARTICULAR, | | | | | | + +-------+ +-------+---+---+ +---+---+ | | | +---+---+ + +-------+ +-------+---+---+ | lidocaine buffered 1.5% | Given | 06/18/19 | 3 mLs | | | | injection 3 mL 3 mL, Other, | | 18 10:25 | | | | | ONCE, [facility] 06/17/17 at 1045, For 1 | | AM PDT | | | | | dose | | | | | | + +-------+ +-------+---+---+ +---+---+ | | | +---+---+ documented in this encounter"
--- OUTSIDE RECORDS SUMMARY | ~2019-01-19 | XMS | Encounter Summary ---
Demographics + + + | Address | [address] | | | [place] [address] | + + + | Home Phone | | + + + | Preferred Language | Unknown | + + + | Marital Status | Single | + + + | Buddhist Affiliation | Unknown | + + + | Race | Unknown | + + + | Ethnic Group | Other Race | + + + Author + + + | Author | [facility] | + + + | Organization | [facility] | + + + | Address | Unknown | + + + | Phone | Unavailable | + + + Care Team Providers + +------+ + | Care Popcorn Candy Maker Name | Role | Phone | + +------+ + PCP | Unavailable | + +------+ + Encounter Details +--------+ + + + + | Date | Type | Department | Care Team | Description | +--------+ + + + + | 12/28/ | Pharmacy | [facility] | | | | 2014 | Visit | [address] | | | | | | [address] | | | | | | [place] [address] | | | | | | [phone] | | | +--------+ + + + [...]
--- OUTSIDE RECORDS SUMMARY | ~2019-01-19 | XMS | Encounter Summary ---
Demographics + + + | Address | [address] | | | [place] [address] | + + + | Home Phone | | + + + | Preferred Language | Unknown | + + + | Marital Status | | + + + | Mandaeism Affiliation | 1041 | + + + | Race | Unknown | + + + | Ethnic Group | Unknown | + + + Author + + + | Author | [facility] | | | and [place] | + + + | Organization | [facility] | | | and [place] | + + + | Address | Unknown | + + + | Phone | Unavailable | + + + Support + + + + + | Name | Relationship | Address | Phone | + + + + + | Catrina Florez | ECON | [place] | | | | | [address] | | + + + + + Care Team Providers + +------+ + | Care Lawn Sprinkler Installer Name | Role | Phone | + [...] + + | 02/09/ | Office | [facility] | Boris Meza PA | DORA on CPAP (Primary | | 2011 | Visit | SLEEP DISORDER [address] | [address] | Dx) | | | | [address] [place] | [place] | | | | | [place] [address] | [address] | | | | | [phone] | | | +--------+---------+ + + + [...] nasal obtained from: [facility] [place] pressure is: 5-10 cm 95%: 8.1 cm [...] dilan ropiate paperwork. Thirty minutes were spent nyum-je-ljyh, with the majority of time spent in [...]
--- OUTSIDE RECORDS SUMMARY | ~2019-01-19 | XMS | Encounter Summary ---
Demographics + + + | Address | [address] | | | [place] [address] | + + + | Home Phone | | + + + | Preferred Language | Unknown | + + + | Marital Status | Single | + + + | Catholic Affiliation | Unknown | + + + | Race | Unknown | + + + | Ethnic Group | Other Race | + + + Author + + + | Author | [facility] | + + + | Organization | [facility] | + + + | Address | Unknown | + + + | Phone | Unavailable | + + + Care Team Providers + +------+ + | Care Metal Sprayer Protective Coating Name | Role | Phone | + +------+ + PCP | Unavailable | + +------+ + Encounter Details +--------+ + + + + | Date | Type | Department | Care Team | Description | +--------+ + + + + | 07/14/ | Pharmacy | [facility] | | | | 2013 | Visit | [address] | | | | | | [address] | | | | | | [place] [address] | | | | | | [phone] | | | +--------+ + + + [...]
--- OUTSIDE RECORDS SUMMARY | ~2019-01-19 | XMS | Encounter Summary ---
Demographics + + + | Address | [address] | | | [place] [address] | + + + | Home Phone | | + + + | Preferred Language | Unknown | + + + | Marital Status | | + + + | Confucianist Affiliation | 1041 | + + + [...] | [place] | | | | | [address] | | + + + + + Care Team Providers + +------+ + | Care Receptionist Nurse Name | Role | Phone | + [...] + + | 06/18/ | Office | [facility] [place] | [place], | Left lumbar | | 2016 | Visit | [address]SIAT[address] | [address] | radiculitis (Primary | | | | [place], | [address] [place], | Dx); Chronic | | | | [place] [address] | [place] [address] | bilateral low back | | | | [phone] | [phone] | pain with | | | | [...] of the procedure you must provide a corrugated fastener driver to take you home. For all [...] 05/06/2016 and reports no im mediate or detention improvement of her symptoms. Since the symptoms [...] (PRESERVISION AREDS 2) CAPS Take by mouth. [place]-3 Fatty Acids (FISH OIL) 1200 MG CAPS [...] has no apparent deficits with short or exterminator memory. She has appropriate fund of knowledge [...] during the visit. Lumba r MRI from [facility] shows abnormal signal to the left [...] to the fluoroscopy suite for a fluoroscopically-guided [facility] | | L5-S1 transforaminal epidural steroid injection [...] + + | Performing | Address | City/State/[facility] | Phone Number | | Organization | | | | + + + + + | [facility] | [address] | [place] | [phone] | | [facility] | | [address] | | | - IMAGING | | [...]
--- OUTSIDE RECORDS SUMMARY | ~2019-01-19 | XMS | Encounter Summary ---
Demographics + + + | Address | [address] | | | [place] [address] | + + + | Home Phone | | + + + | Preferred Language | Unknown | + + + | Marital Status | Single | + + + | Oriental Orthodox Affiliation | Unknown | + + + [...] Team Providers + +------+ + | Care Exit Booth Agent Name | Role | Phone | + +------+ + PCP | Unavailable | + +------+ + Encounter Details +--------+ + + + + | Date | Type | Department | Care Team | Description | +--------+ + + + + | 06/14/ | Pharmacy | [facility] | | | | 2014 | Visit | [address] | | | | | | [address] | | | | | | [place] [address] | | | | | | [phone] | | | +--------+ + + + [...]
--- OUTSIDE RECORDS SUMMARY | ~2019-01-19 | XMS | Encounter Summary ---
Demographics + + + | Address | [address] | | | [place] [address] | + + + | Home Phone | | + + + | Preferred Language | Unknown | + + + | Marital Status | | + + + | Zoroastrianism Affiliation | 1041 | + + + | Race | Unknown | + + + | Ethnic Group | Unknown | + + + Author + + + | Author | [facility] | | | and [place] | + + + | Organization | [facility] | | | and [place] | + + + | Address | Unknown | + + + | Phone | Unavailable | + + + Support + + + + + | Name | Relationship | Address | Phone | + + + + + | Catrina Florez | ECON | [place] | | | | | [address] | | + + + + + Care Team Providers + +------+ + | Care Internal Control Consultant Name | Role | Phone | + [...] | Lumbar | [place], | [address] | | | | | radiculopath | Lamont Bryan MD | [place], | | | | | y | [address] | [place] | | | | | Procedures | [place] | [address] | | | | | [place] INJECT | [place] | Phone: | | | | | ANES/STEROID | [address] | [phone] | | | | | FORAMEN | Phone: | Fax: | | | | | LUMBAR/SACRA | [phone] | [phone] | | | | | L W IMG | Fax: | | | | | | GUIDE ,1 | [phone] | | | | | | LEVEL [place] | | | | | | | [...] + + | 07/07/ | Hospital | [facility] | [place], | Left lumbar | | 2017 | Encounter | MED CTR XRAY [address] | [address] | radiculitis; Chronic | | | | [address] [place] | ECHO [place], | bilateral low back | | | | [place] [address] | [place] [address] | pain with | | | | [phone] | [phone] | right-sided sciatica | | | | | | | | | | | Strip De[place]rer[place] | | +--------+ + + + + [...] + + + +---------+ + + | [place]-3 Fatty | Take 1,200 mg by | [...] radiculopathy ICD-10 Code M54.16 Marianne Gomez | [facility] | | presents to the fluoroscopy suite for a fluoroscopically-guided [facility] | | L5-S1 transforaminal epidural steroid injection [...] + + | Performing | Address | City/State/[facility] | Phone Number | | Organization | | | | + + + + + | [facility] | [address] | [place], [place] | [phone] | | [facility] | | [address] | | | - IMAGING | | [...]
--- OUTSIDE RECORDS SUMMARY | ~2019-01-19 | XMS | Encounter Summary ---
Demographics + + + | Address | [address] | | | [place] [address] | + + + | Home Phone | | + + + | Preferred Language | Unknown | + + + | Marital Status | Single | + + + | Baptism Affiliation | Unknown | + + + | Race | Unknown | + + + | Ethnic Group | Other Race | + + + Author + + + | Author | [facility] | + + + | Organization | [facility] | + + + | Address | Unknown | + + + | Phone | Unavailable | + + + Care Team Providers + +------+ + | Care Shredding Specialist Name | Role | Phone | + +------+ + PCP | Unavailable | + +------+ + Encounter Details +--------+ + + + + | Date | Type | Department | Care Team | Description | +--------+ + + + + | 04/13/ | Pharmacy | [facility] | | | | 2013 | Visit | [address] | | | | | | [address] | | | | | | [place] [address] | | | | | | [phone] | | | +--------+ + + + [...]
--- OUTSIDE RECORDS SUMMARY | ~2019-01-19 | XMS | Encounter Summary ---
Demographics + + + | Address | [address] | | | [place] [address] | + + + | Home Phone | | + + + | Preferred Language | Unknown | + + + | Marital Status | Single | + + + | Samaritan Affiliation | Unknown | + + + [...] Team Providers + +------+ + | Care Php Consultant Name | Role | Phone | + +------+ + PCP | Unavailable | + +------+ + Encounter Details +--------+ + + + + | Date | Type | Department | Care Team | Description | +--------+ + + + + | 11/21/ | Pharmacy | [facility] | | | | 2013 | Visit | [address] | | | | | [address] | | | | | | [place] [address] | | | | | | [phone] | | | +--------+ + + + [...]
--- OUTSIDE RECORDS SUMMARY | ~2019-01-19 | XMS | Encounter Summary ---
Demographics + + + | Address | [address] | | | [place] [address] | + + + | Home Phone [...] Author + + + | Author | [facility] | + + + | Organization | [facility] | + + + | Address | Unknown | + + + | Phone | Unavailable | + + + Care Team Providers + +------+ + | Care Music Typographer Name | Role | Phone | + +------+ + PCP | Unavailable | + +------+ + Encounter Details +--------+ + + + + | Date | Type | Department | Care Team | Description | +--------+ + + + + | 01/12/ | Pharmacy | [facility] | | | | 2012 | Visit | [address] | | | | | | [address] | | | | | | [place] [address] | | | | | | [phone] | | | +--------+ + + + [...]
--- OUTSIDE RECORDS SUMMARY | ~2019-01-19 | XMS | Encounter Summary ---
Demographics + + + | Address | [address] | | | [place] [address] | + + + | Home Phone [...] Author + + + | Author | [facility] | + + + | Organization | [facility] | + + + | Address | Unknown | + + + | Phone | Unavailable | + + + Care Team Providers + +------+ + | Care Transplanter Name | Role | Phone | + +------+ + PCP | Unavailable | + +------+ + Encounter Details +--------+ + + + + | Date | Type | Department | Care Team | Description | +--------+ + + + + | 09/06/ | Pharmacy | [facility] | | | | 2014 | Visit | [address] | | | | | | [address] | | | | | | [place] [address] | | | | | | [phone] | | | +--------+ + + + [...]
--- OUTSIDE RECORDS SUMMARY | ~2019-01-19 | XMS | Encounter Summary ---
Demographics + + + | Address | [address] | | | [place] [address] | + + + | Home Phone [...] + + | Author | [facility] | + + + | Organization | [facility] | + + + | Address | Unknown | + + + | Phone | Unavailable | + + + Care Team Providers + +------+ + | Care Workplace Relations Adviser Name | Role | Phone | + +------+ + PCP | Unavailable | + +------+ + Encounter Details +--------+ + + + + | Date | Type | Department | Care Team | Description | +--------+ + + + + | 12/31/ | Pharmacy | [facility] | | | | 2014 | Visit | [address] | | | | | | [address] | | | | | | [place] [address] | | | | | | [phone] | | | +--------+ + + + [...]
--- OUTSIDE RECORDS SUMMARY | ~2019-01-19 | XMS | Encounter Summary ---
Demographics + + + | Address | [address] | | | [place] [address] | + + + | Home Phone [...] Team Providers + +------+ + | Care R And D Lab Technician Name | Role | Phone | + +------+ + PCP | Unavailable | + +------+ + Encounter Details +--------+ + + + + | Date | Type | Department | Care Team | Description | +--------+ + + + + | 04/06/ | Pharmacy | [facility] | | | | 2014 | Visit | [address] | | | | | | [address] | | | | | | [place] [address] | | | | | | [phone] | | | +--------+ + + + [...]
--- OUTSIDE RECORDS SUMMARY | ~2019-01-19 | XMS | Encounter Summary ---
Demographics + + + | Address | [address] | | | [place] [address] | + + + | Home Phone | | + + + | Preferred Language | Unknown | + + + | Marital Status | | + + + | Congregation Affiliation | 1041 | + + + | Race | Unknown | + + + | Ethnic Group | Unknown | + + + Author + + + | Author | [facility] | | | and [place] | + + + | Organization | [facility] | | | and [place] | + + + | Address | Unknown | + + + | Phone | Unavailable | + + + Support + + + + + | Name | Relationship | Address | Phone | + + + + + | Catrina Florez | ECON | [place] | | | | | [address] | | + + + + + Care Team Providers + +------+ + | Care Business Process Modeler Name | Role | Phone | + [...] + + | 02/09/ | Office | [facility] | Boris Meza PA | DORA on CPAP (Primary | | 2011 | Visit | SLEEP DISORDER [address] | [address] | Dx) | | | | [address] [place] | [place] | | | | | [place] [address] | [address] | | | | | [phone] | | | +--------+---------+ + + + [...] nasal obtained from: [facility] pressure is: 5-10 cm 95%: 8.1 cm [...] dilan ropiate paperwork. Thirty minutes were spent styg-ez-wtsz, with the majority of time spent in [...]
--- OUTSIDE RECORDS SUMMARY | ~2019-01-19 | XMS | Encounter Summary ---
Demographics + + + | Address | [address] | | | [place] [address] | + + + | Home Phone | | + + + | Preferred Language | Unknown | + + + | Marital Status | | + + + | Sabianist Affiliation | 1041 | + + + | Race | Unknown | + + + | Ethnic Group | Unknown | + + + Author + + + | Author | [facility] | | | and [place] | + + + | Organization | [facility] | | | and [place] | + + + | Address | Unknown | + + + | Phone | Unavailable | + + + Support + + + + + | Name | Relationship | Address | Phone | + + + + + | Catrina Florez | ECON | [place] | | | | | [address] | | + + + + + Care Team Providers + +------+ + | Care Medical Sociologist Name | Role | Phone | + [...] | Lumbar | [place], | [address] | | | | | radiculopath | Lamont Bryan MD | [place], | | | | | y | [address] | [place] | | | | | Procedures | [place] | [address] | | | | | [place] INJECT | [place] | Phone: | | | | | ANES/STEROID | [address] | [phone] | | | | | FORAMEN | Phone: | Fax: | | | | | LUMBAR/SACRA | [phone] | [phone] | | | | | L W IMG | Fax: | | | | | | GUIDE ,1 | [phone] | | | | | | LEVEL [place] | | | | | | | [...] + + | 07/07/ | Hospital | [facility] | [place], | Left lumbar | | 2017 | Encounter | MED CTR XRAY [address] | [address] | radiculitis; Chronic | | | | [address] [place] | [address]CHO [place], | bilateral low back | | | | [place] [address] | [place] [address] | pain with | | | | [phone] | [phone] | right-sided sciatica | | | | | | | | | | | Club Lounge AttendantMonique | | +--------+ + + + + [...] + + + +---------+ + + | [place]-3 Fatty | Take 1,200 mg by | [...] radiculopathy ICD-10 Code M54.16 Marianne Gomez | [facility] | | presents to the fluoroscopy suite for a fluoroscopically-guided [facility] | | L5-S1 transforaminal epidural steroid [...] + + | Performing | Address | City/State/[facility] | Phone Number | | Organization | | | | + + + + + | [facility] | [address] | [place], [place] | [phone] | | [facility] | | [address] | | | - IMAGING | | [...]
--- OUTSIDE RECORDS SUMMARY | ~2019-01-19 | XMS | Encounter Summary ---
Demographics + + + | Address | [address] | | | [place] [address] | + + + | Home Phone | | + + + | Preferred Language | Unknown | + + + | Marital Status | Single | + + + | Methodist Affiliation | Unknown | + + + [...] Providers + +------+ + | Care Supervisor Name | Role | Phone | + +------+ + PCP | Unavailable | + +------+ + Encounter Details +--------+ + + + + | Date | Type | Department | Care Team | Description | +--------+ + + + + | 04/01/ | Pharmacy | [facility] | | | | 2015 | Visit | [address] | | | | | | [address] | | | | | | [place] [address] | | | | | | [phone] | | | +--------+ + + + [...]
--- OUTSIDE RECORDS SUMMARY | ~2019-01-19 | XMS | Encounter Summary ---
Demographics + + + | Address | [address] | | | [place] [address] | + + + | Home Phone | | + + + | Preferred Language | Unknown | + + + | Marital Status | | + + + | Anglican Affiliation | 1041 | + + + [...] [place] | | | | | [address] | | + + + + + Care Team Providers + +------+ + | Care Insurance Checker Name | Role | Phone | [...] + + | 04/30/ | Office | [facility] | [place]ri[place], | Chronic bilateral | | 2017 | Visit | [address]SIATRY [address] | [address] | low back pain with | | | | [place], | [address] [place], | right-sided sciatica | | | | [place] [address] | [place] [address] | (Primary Dx); | | | | [phone] | [phone] | Chronic left | | | | [...] blood sugars if you a re diabetic. snf risk can lead to osteoporosis which is [...] of the procedure you must provide a substitute bus driver to take you home. For all [...] (PRESERVISION AREDS 2) CAPS Take by mouth. [place]-3 Fatty Acids (FISH OIL) 1200 MG CAPS Take 1,200 mg by mouth Daily. [place]-3 Fatty Acids (RA FISH OIL EXTRA STRENGTH) [...] no apparent deficits with short or termite technician memory. She has appropriate fund of knowledge [...] during the visit. Lumba r MRI from [facility] shows abnormal signal to the left [...] Gomez presents to the fluoroscopy suite | [facility] | | for a fluoroscopically guided left sacroiliac joint steroid [facility] | | injection as part of conservative [...] + + | Performing | Address | City/State[facility] | Phone Number | | Organization | | | | + + + + + | [facility] | [address] 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
--- OUTSIDE RECORDS SUMMARY | ~2019-01-19 | XMS | Encounter Summary ---
Demographics + + + | Address | [address] | | | [place] [address] | + + + | Home Phone | | + + + | Preferred Language | Unknown | + + + | Marital Status | Single | + + + | Tenriism Affiliation | Unknown | + + + [...] Team Providers + +------+ + | Care Umbrella Tipper Name | Role | Phone | + +------+ + PCP | Unavailable | + +------+ + Encounter Details +--------+ + + + + | Date | Type | Department | Care Team | Description | +--------+ + + + + | 07/01/ | Pharmacy | [facility] | | | | 2016 | Visit | [address] | | | | | | [address] | | | | | | [place] [address] | | | | | | [phone] | | | +--------+ + + + [...]
--- OUTSIDE RECORDS SUMMARY | ~2019-01-19 | XMS | Encounter Summary ---
Demographics + + + | Address | [address] | | | [place] [address] | + + + | Home Phone | | + + + | Preferred Language | Unknown | + + + | Marital Status | Single | + + + | Zoroastrianism Affiliation | Unknown | + + + [...] Team Providers + +------+ + | Care Overedge Sewer Name | Role | Phone | + +------+ + PCP | Unavailable | + +------+ + Encounter Details +--------+ + + + + | Date | Type | Department | Care Team | Description | +--------+ + + + + | 10/31/ | Pharmacy | [facility] | | | | 2012 | Visit | [address] | | | | | | [address] | | | | | | [place] [address] | | | | | | [phone] | | | +--------+ + + + [...]
--- OUTSIDE RECORDS SUMMARY | ~2019-01-19 | XMS | Encounter Summary ---
Demographics + + + | Address | [address] | | | [place] [address] | + + + | Home Phone | | + + + | Preferred Language | Unknown | + + + | Marital Status | Single | + + + | Hindu Affiliation | Unknown | + + + | Race | Unknown | + + + | Ethnic Group | Other Race | + + + Author + + + | Author | [facility] | + + + | Organization | [facility] | + + + | Address | Unknown | + + + | Phone | Unavailable | + + + Care Team Providers + +------+ + | Care Technical Cable Jointer Name | Role | Phone | + +------+ + PCP | Unavailable | + +------+ + Encounter Details +--------+ + + + + | Date | Type | Department | Care Team | Description | +--------+ + + + + | 06/14/ | Pharmacy | [facility] | | | | 2014 | Visit | [address] | | | | | | [address] | | | | | | [place] [address] | | | | | | [phone] | | | +--------+ + + + [...]
--- OUTSIDE RECORDS SUMMARY | ~2019-01-19 | XMS | Encounter Summary ---
Demographics + + + | Address | [address] | | | [place] [address] | + + + | Home Phone | | + + + | Preferred Language | Unknown | + + + | Marital Status | | + + + | Mu-Ism Affiliation | 1041 | + + + [...] [place] | | | | | [address] | | + + + + + Care Team Providers + +------+ + | Care Code Enforcement Inspector Name | Role | Phone | [...] + + | 01/12/ | Office | [facility] | Zac Wells | Obstructive sleep | | 2011 | Visit | SLEEP DISORDER [address] | [address] | apnea (adult) | | | | [address] [place] | [address] [place] | (pediatric) (Primary | | | | [place] [address] | [place] [address] | Dx) | | | | [phone] | [phone] | | | | | | | [...] Insomnia Severity Index Insomnia Severity Index 11 [place] Sleepiness Scale Sitting and reading 3 Watching [...] might be different from the origi nal. [facility] [place] [address] Ref: Piero Garcia, * CC: Chief Complaint [...] tablet Take 15 mg by mouth Daily. Uufjblg-Ziipafial-Cmpybme D (CITRACAL CALCIUM+D) 600-40-500 MG-MG-UNIT TB24 Take 1 tabl et by mouth Daily. oxybutynin (DITROPAN XL) 15 MG 24 hr tablet Take 15 mg by mouth Daily. Multiple Vitamins-Minerals (CENTRA-WANDER) TABS Take 1 tablet by mouth Daily. aspirin (KOMAL ASPIRIN) 325 mg tablet Take 325 mg by mouth Daily. Glucosamine-Chondroitin (GLUCOSAMINE CHONDR COMPLEX) 500-400 MG CAPS Take 1 tablet by m outh Daily. [place]-3 Fatty Acids (RA FISH OIL EXTRA STRENGTH) [...] kg (177 lb 14.4 oz) | B HI 26.27 kg/m2 Gen: healthy, alert and not [...] strongly that this patient has clinically significant ODRA. I hav e discussed in detail the [...]
--- OUTSIDE RECORDS SUMMARY | ~2019-01-19 | XMS | Clinical Summary ---
Demographics + + + | Address | [address] | | | [place] [address] | + + + | Home Phone | | + + + | Preferred Language | Unknown | + + + | Marital Status | Single | + + + | Advent Affiliation | Unknown | + + + [...] Team Providers + +------+ + | Care Lease Picker Name | Role | Phone | + +------+ + PCP | Unavailable | + +------+ + Source Comments [facility] is fully live on both EpicCare Ambulatory and EpicCare InPatient.[facility] Allergies No Known Allergies Medications + + [...]
--- OUTSIDE RECORDS SUMMARY | ~2019-01-19 | XMS | Encounter Summary ---
Demographics + + + | Address | [address] | | | [place] [address] | + + + | Home Phone | | + + + | Preferred Language | Unknown | + + + | Marital Status | | + + + | Pentecostal Affiliation | 1041 | + + + | Race | Unknown | + + + | Ethnic Group | Unknown | + + + Author + + + | Author | [facility] | | | and [place] | + + + | Organization | [facility] | | | and [place] | + + + | Address | Unknown | + + + | Phone | Unavailable | + + + Support + + + + + | Name | Relationship | Address | Phone | + + + + + | Catrina Florez | ECON | [place] | | | | | [address] | | + + + + + Care Team Providers + +------+ + | Care Motor Assembler Name | Role | Phone | + +------+ + | Tomas Cai DO | PCP | | + +------+ + Encounter Details +--------+ + + + + | Date | Type | Department | Care Team | Description | +--------+ + + + + | 09/29/ | Abstract | [facility] | [place], | | | 2015 | | PH[address]SIATRY [address] | [address] | | | | | [place], | [place], | | | | | [place] [address] | [place] [address] | | | | | [phone] | [phone] | | | | | | | [...]
--- OUTSIDE RECORDS SUMMARY | ~2019-01-19 | XMS | Encounter Summary ---
Demographics + + + | Address | [address] | | | [place] [address] | + + + | Home Phone [...] Author + + + | Author | [facility] | + + + | Organization | [facility] | + + + | Address | Unknown | + + + | Phone | Unavailable | + + + Care Team Providers + +------+ + | Care Derrick Hand Name | Role | Phone | + +------+ + PCP | Unavailable | + +------+ + Encounter Details +--------+ + + + + | Date | Type | Department | Care Team | Description | +--------+ + + + + | 07/01/ | Pharmacy | [facility] | | | | 2016 | Visit | [address] | | | | | | [address] | | | | | | [place] [address] | | | | | | [phone] | | | +--------+ + + + [...]
--- OUTSIDE RECORDS SUMMARY | ~2019-01-19 | XMS | Encounter Summary ---
Demographics + + + | Address | [address] | | | [place] [address] | + + + | Home Phone | | + + + | Preferred Language | Unknown | + + + | Marital Status | | + + + | Christianity Affiliation | 1041 | + + + [...] | [place] | | | | | [address] | | + + + + + Care Team Providers + +------+ + | Care Housefellow Name | Role | Phone | + [...] | | | Sally, | [address] | | | | | Sacroiliitis | Lamont Bryan MD | [place], | | | | | ([facility]) | [address] | [place] | | | | | Procedures | [place] | [address] | | | | | [place] INJECT SI | [place] | Phone: | | | | | JOINT | [address] | [phone] | | | | | ARTHRGRPHY&/ | Phone: | Fax: | | | | | ANES/STEROID | [phone] | [phone] | | | | | W/IMAGE [place] | Fax: | | | | | | | [phone] | | | | | | TRIAMCINOLON [...] + + | 05/06/ | Hospital | [facility] | Curtis, | Chronic bilateral | | 2017 | Encounter | MED CTR XRAY [address] | [address] | low back pain with | | | | [address] [place] | ECHO NAJERA, | right-sided | | | | [place] [address] | [place] [address] | sciatica; Chronic | | | | [phone] | [phone] | left sacroiliac pain | | | | | | | | | | | Contact WorkerMonique | | +--------+ + + + + [...] + + + +---------+ + + | Amarillo-3 Fatty | Take 1,200 mg by | [...] + + + +---------+ + + | Amarillo-3 Fatty | Take 1 capsule by | [...] Gomez presents to the fluoroscopy suite | [facility] | | for a fluoroscopically guided left sacroiliac joint steroid [facility] | | injection as part of conservative [...] + + | Performing | Address | City/State/[facility] | Phone Number | | Organization | | | | + + + + + | [facility] | [address] | [place] | [phone] | | [facility] | | [address] | | | - IMAGING | | [...]
--- OUTSIDE RECORDS SUMMARY | ~2019-01-19 | XMS | Encounter Summary ---
Demographics + + + | Address | [address] | | | [place] [address] | + + + | Home Phone [...] Team Providers + +------+ + | Care Puppet Maker Name | Role | Phone | + +------+ + PCP | Unavailable | + +------+ + Encounter Details +--------+ + + + + | Date | Type | Department | Care Team | Description | +--------+ + + + + | 12/31/ | Pharmacy | [facility] | | | | 2014 | Visit | [address] | | | | | | [address] | | | | | | [place] [address] | | | | | | [phone] | | | +--------+ + + + [...]
--- OUTSIDE RECORDS SUMMARY | ~2019-01-19 | XMS | Encounter Summary ---
Demographics + + + | Address | [address] | | | [place] [address] | + + + | Home Phone [...] Team Providers + +------+ + | Care Regional Vice President Life Sales Name | Role | Phone | + +------+ + PCP | Unavailable | + +------+ + Encounter Details +--------+ + + + + | Date | Type | Department | Care Team | Description | +--------+ + + + + | 03/03/ | Pharmacy | [facility] | | | | 2013 | Visit | [address] | | | | | | [address] | | | | | | [place] [address] | | | | | | [phone] | | | +--------+ + + + [...]
--- OUTSIDE RECORDS SUMMARY | ~2019-01-19 | XMS | Encounter Summary ---
Demographics + + + | Address | [address] | | | [place] [address] | + + + | Home Phone | | + + + | Preferred Language | Unknown | + + + | Marital Status | Single | + + + | Taoist Affiliation | Unknown | + + + | Race | Unknown | + + + | Ethnic Group | Other Race | + + + Author + + + | Author | [facility] | + + + | Organization | [facility] | + + + | Address | Unknown | + + + | Phone | Unavailable | + + + Care Team Providers + +------+ + | Care Generation Manager Name | Role | Phone | + +------+ + PCP | Unavailable | + +------+ + Encounter Details +--------+ + + + + | Date | Type | Department | Care Team | Description | +--------+ + + + + | 09/07/ | Pharmacy | [facility] | | | | 2014 | Visit | [address] | | | | | | Place [address] | | | | | | [place] [address] | | | | | | [phone] | | | +--------+ + + + [...]
--- OUTSIDE RECORDS SUMMARY | ~2019-01-19 | XMS | Encounter Summary ---
Demographics + + + | Address | [address] | | | [place] [address] | + + + | Home Phone | | + + + | Preferred Language | Unknown | + + + | Marital Status | | + + + | Orthodoxy Affiliation | 1041 | + + + | Race | Unknown | + + + | Ethnic Group | Unknown | + + + Author + + + | Author | [facility] | | | and [place] | + + + | Organization | [facility] | | | and [place] | + + + | Address | Unknown | + + + | Phone | Unavailable | + + + Support + + + + + | Name | Relationship | Address | Phone | + + + + + | Catrina Florez | ECON | [place] | | | | | [address] | | + + + + + Care Team Providers + +------+ + | Care Government Gauger Name | Role | Phone | + [...] + + | 02/03/ | Office | [facility] | Zac Wells | DORA (obstructive | | 2011 | Visit | SLEEP DISORDER [address] | MD [address] | sleep apnea) | | | | [address] [place] | [address] [place] | (Primary Dx) | | | | [place] [address] | [place] [address] | | | | | [phone] | [phone] | | | | | | | [...]
--- OUTSIDE RECORDS SUMMARY | ~2019-01-19 | XMS | Encounter Summary ---
Demographics + + + | Address | [address] | | | [place] [address] | + + + | Home Phone [...] Team Providers + +------+ + | Care Dehydrogenation Operator Name | Role | Phone | + +------+ + PCP | Unavailable | + +------+ + Encounter Details +--------+ + + + + | Date | Type | Department | Care Team | Description | +--------+ + + + + | 04/04/ | Pharmacy | [facility] | | | | 2014 | Visit | [address] | | | | | | [address] | | | | | | [place] [address] | | | | | | [phone] | | | +--------+ + + + [...]
--- OUTSIDE RECORDS SUMMARY | ~2019-01-19 | XMS | Encounter Summary ---
Demographics + + + | Address | [address] | | | [place] [address] | + + + | Home Phone | | + + + | Preferred Language | Unknown | + + + | Marital Status | Single | + + + | Orthodox Affiliation | Unknown | + + + | Race | Unknown | + + + | Ethnic Group | Other Race | + + + Author + + + | Author | [facility] | + + + | Organization | [facility] | + + + | Address | Unknown | + + + | Phone | Unavailable | + + + Care Team Providers + +------+ + | Care Poly Area Supervisor Name | Role | Phone | + +------+ + PCP | Unavailable | + +------+ + Encounter Details +--------+ + + + + | Date | Type | Department | Care Team | Description | +--------+ + + + + | 09/06/ | Pharmacy | [facility] | | | | 2014 | Visit | [address] | | | | | | [address] | | | | | | [place] [address] | | | | | | [phone] | | | +--------+ + + + [...]
--- OUTSIDE RECORDS SUMMARY | ~2019-01-19 | XMS | Encounter Summary ---
Demographics + + + | Address | [address] | | | [place] [address] | + + + | Home Phone | | + + + | Preferred Language | Unknown | + + + | Marital Status | | + + + | Mormon Affiliation | 1041 | + + + | Race | Unknown | + + + | Ethnic Group | Unknown | + + + Author + + + | Author | [facility] | | | and [place] | + + + | Organization | [facility] | | | and [place] | + + + | Address | Unknown | + + + | Phone | Unavailable | + + + Support + + + + + | Name | Relationship | Address | Phone | + + + + + | Catrina Florez | ECON | [place] | | | | | [address] | | + + + + + Care Team Providers + +------+ + | Care Computer Hardware Engineer Name | Role | Phone | [...] | Boris Meza | | | | Director Digital Strategy / | Obstructive | DO Tomas | D, PA [address] | | | | Sleep | sleep apnea | [address] | [address] | | | | Medicine | (adult) | Florencio Ovalle | [place], | | | | | (pediatric) | [address] | [place] [address] | | | | | 2 YR DIVINA | [place], | Phone: | | | | | [address] | [place] | [phone] | | | | | Procedures | [address] | Fax: | | | | | OFFICE | Phone: | [phone] | | | | | VISIT | [phone] | | | | | | EXTENDED | Fax: | | | | | | | [phone] | | +--------+--------+ + + + + Encounter Details +--------+---------+ + + + | Date | Type | Department | Care Team | Description | +--------+---------+ + + + | 06/09/ | Office | [facility] | Boris Meza PA | DORA on CPAP (Primary | | 2019 | Visit | SLEEP DISORDER [address] | [address] | Dx) | | | | [address] [place] | [place] | | | | | [place] [address] | [address] | | | | | [phone] | | | +--------+---------+ + + + [...] nasal pillows DME: [facility] [place] pressure: 5-10 cm Median: 5.8 cm 95%: [...] Exam Assessment: Problem #1: OBSTRUCTIVE SLEEP APNEA ([id number]-D42.33) This is controlled with CPAP. Her CPAP usage is going well. Plan: 1. She is to continue with CPAP indefinitely. 2. I have recommended that she touch base with her medical supplier twice per year to ensu re that her equipment is satisfactory. I will follow up again in 2 years, sooner prn. Fifteen minutes were spent [id number]-za-rzvd, wi th the majority of time spent [...]
--- OUTSIDE RECORDS SUMMARY | ~2019-01-19 | XMS | Encounter Summary ---
Demographics + + + | Address | [address] | | | [place] [address] | + + + | Home Phone | | + + + | Preferred Language | Unknown | + + + | Marital Status | | + + + | Mosque Affiliation | 1041 | + + + | Race | Unknown | + + + | Ethnic Group | Unknown | + + + Author + + + | Author | [facility] | | | and [place] | + + + | Organization | [facility] | | | and [place] | + + + | Address | Unknown | + + + | Phone | Unavailable | + + + Support + + + + + | Name | Relationship | Address | Phone | + + + + + | Catrina Florez | ECON | [place] | | | | | [address] | | + + + + + Care Team Providers + +------+ + | Care Bill Recapitulation Clerk Name | Role | Phone | [...] + + | 04/30/ | Office | [facility] | Lorriecz, | Chronic bilateral | | 2017 | Visit | PH[address]SIATRY [address] | [address] | low back pain with | | | | [place], | [address], | right-[place]atic[place] | | | | [place] [address] | [place] [address] | (Primary Dx); | | | | [phone] | [phone] | Chronic left | | | | [...] of the procedure you must provide a solo truck driver to take you home. For [...] (PRESERVISION AREDS 2) CAPS Take by mouth. Madison-3 Fatty Acids (FISH OIL) 1200 MG CAPS Take 1,200 mg by mouth Daily. Madison-3 Fatty Acids (RA FISH OIL EXTRA STRENGTH) [...] has no apparent deficits with short or dedicated intermodal truck driver memory. She has appropriate fund of knowledge [...] during the visit. Lumba r MRI from [facility] shows abnormal signal to the [...] Gomez presents to the fluoroscopy suite | [facility] | | for a fluoroscopically guided left sacroiliac joint steroid [facility] | | injection as part of conservative [...] + + | Performing | Address | City/State[facility] | Phone Number | | Organization | | | | + + + + + | [facility] | [address] | [place] | [phone] | | [facility] | | [address] | | | - IMAGING | | | | + + + + + documented in this encounter Visit Diagnoses + + | Diagnosis | + + | Chronic bilateral low back pain with right-sided sciatica - Primary | + + | Chronic left sacroiliac pain Disorders of sacrum | + + documented in this encounter
--- OUTSIDE RECORDS SUMMARY | ~2019-01-19 | XMS | Encounter Summary ---
Demographics + + + | Address | [address] | | | [place] [address] | + + + | Home Phone | | + + + | Preferred Language | Unknown | + + + | Marital Status | | + + + | Sikhism Affiliation | 1041 | + + + | Race | Unknown | + + + | Ethnic Group | Unknown | + + + Author + + + | Author | [facility] | | | and [place] | + + + | Organization | [facility] | | | and [place] | + + + | Address | Unknown | + + + | Phone | Unavailable | + + + Support + + + + + | Name | Relationship | Address | Phone | + + + + + | Catrina Florez | ECON | [place] | | | | | [address] | | + + + + + Care Team Providers + +------+ + | Care Seo Manager Name | Role | Phone | [...] + + | 01/12/ | Office | [facility] | Zac Wells | Obstructive sleep | | 2011 | Visit | SLEEP DISORDER [address] | MD [address] | apnea (adult) | | | | [address] [place] | [address] [place] | (pediatric) (Primary | | | | [place] [address] | [place] [address] | Dx) | | | | [phone] | [phone] | | | | | | | [...] Insomnia Severity Index Insomnia Severity Index 11 Corcoran Sleepiness Scale Sitting and reading 3 Watching [...] might be different from the origi nal. [facility] [place] [address] Ref: Piero Garcia, * CC: Chief Complaint [...] tablet Take 15 mg by mouth Daily. Mjtqvag-Mkulifnof-Vzqkeri D (CITRACAL CALCIUM+D) 600-40-500 MG-MG-UNIT TB24 Take 1 tabl et by mouth Daily. oxybutynin (DITROPAN XL) 15 MG 24 hr tablet Take 15 mg by mouth Daily. Multiple Vitamins-Minerals (CENTRA-WANDER) TABS Take 1 tablet by mouth Daily. aspirin (KOMAL ASPIRIN) 325 mg tablet Take 325 mg by mouth Daily. Glucosamine-Chondroitin (GLUCOSAMINE CHONDR COMPLEX) 500-400 MG CAPS Take 1 tablet by m outh Daily. Alvord-3 Fatty Acids (RA FISH OIL EXTRA STRENGTH) [...] kg (177 lb 14.4 oz) | B [place] 26.27 kg/m2 Gen: healthy, alert and not [...]
--- OUTSIDE RECORDS SUMMARY | ~2019-01-19 | XMS | Encounter Summary ---
Demographics + + + | Address | [address] | | | [place] [address] | + + + | Home Phone [...] Team Providers + +------+ + | Care Tricot Knitter Name | Role | Phone | + +------+ + PCP | Unavailable | + +------+ + Encounter Details +--------+ + + + + | Date | Type | Department | Care Team | Description | +--------+ + + + + | 10/02/ | Pharmacy | [facility] | | | | 2015 | Visit | [address] | | | | | | [address] | | | | | | [place] [address] | | | | | | [phone] | | | +--------+ + + + [...]
--- OUTSIDE RECORDS SUMMARY | ~2019-01-19 | XMS | Encounter Summary ---
Demographics + + + | Address | [address] | | | [place] [address] | + + + | Home Phone | | + + + | Preferred Language | Unknown | + + + | Marital Status | Single | + + + | Mormonism Affiliation | Unknown | + + + | Race | Unknown | + + + | Ethnic Group | Other Race | + + + Author + + + | Author | [facility] | + + + | Organization | [facility] | + + + | Address | Unknown | + + + | Phone | Unavailable | + + + Care Team Providers + +------+ + | Care Museum Educator Name | Role | Phone | + +------+ + PCP | Unavailable | + +------+ + Encounter Details +--------+ + + + + | Date | Type | Department | Care Team | Description | +--------+ + + + + | 01/12/ | Pharmacy | [facility] | | | | 2012 | Visit | [address] | | | | | | [address] | | | | | | [place] [address] | | | | | | [phone] | | | +--------+ + + + [...]
--- OUTSIDE RECORDS SUMMARY | ~2019-01-19 | XMS | Encounter Summary ---
Demographics + + + | Address | [address] | | | [place] [address] | + + + | Home Phone | | + + + | Preferred Language | Unknown | + + + | Marital Status | | + + + | Synagogue Affiliation | 1041 | + + + [...] [place] | | | | | [address] | | + + + + + Care Team Providers + +------+ + | Care Shoe Dyer Name | Role | Phone | + [...] | Boris Meza | | | | Document Imaging Specialist / | Obstructive | DO Tomas | D, [place] [address] | | | | Sleep | sleep apnea | [address] | [address] | | | | Medicine | (adult) | Florencio Ovalle | [place], | | | | | (pediatric) | [address] | [place] [address] | | | | | [address] YR DIVINA | [place], | Phone: | | | | | [address] | [place] | [phone] | | | | | Procedures | [address] | Fax: | | | | | OFFICE | Phone: | [phone] | | | | | VISIT | [phone] | | | | | | EXTENDED | Fax: | | | | | | | [phone] | | +--------+--------+ + + + + Encounter Details +--------+---------+ + + + | Date | Type | Department | Care Team | Description | +--------+---------+ + + + | 06/09/ | Office | [facility] | Boris Meza PA | DORA on CPAP (Primary | | 2019 | Visit | SLEEP DISORDER [address] | [address] | Dx) | | | | [address] [place] | [place] | | | | | [place] [address] | [address] | | | | | [phone] | | | +--------+---------+ + + + [...] nasal pillows DME: [facility] [place] pressure: 5-10 cm Median: 5.8 cm 95%: [...] Exam Assessment: Problem #1: OBSTRUCTIVE SLEEP APNEA ([id number]-C40.33) This is controlled with CPAP. Her CPAP usage is going well. Plan: 1. She is to continue with CPAP indefinitely. 2. I have recommended that she touch base with her medical supplier twice per year to ensu re that her equipment is satisfactory. I will follow up again in 2 years, sooner prn. Fifteen minutes were spent arke-gg-paeu, wi th the majority of time spent [...]
--- OUTSIDE RECORDS SUMMARY | ~2019-01-19 | XMS | Encounter Summary ---
Demographics + + + | Address | [address] | | | [place] [address] | + + + | Home Phone | | + + + | Preferred Language | Unknown | + + + | Marital Status | Single | + + + | Sabianist Affiliation | Unknown | + + + [...] Team Providers + +------+ + | Care Coke Worker Name | Role | Phone | + +------+ + PCP | Unavailable | + +------+ + Encounter Details +--------+ + + + + | Date | Type | Department | Care Team | Description | +--------+ + + + + | 09/30/ | Pharmacy | [facility] | | | | 2015 | Visit | [address] | | | | | | [address] | | | | | | [place] [address] | | | | | | [phone] | | | +--------+ + + + [...]
--- OUTSIDE RECORDS SUMMARY | ~2019-01-19 | XMS | Encounter Summary ---
Demographics + + + | Address | [address] | | | [place] [address] | + + + | Home Phone [...] Team Providers + +------+ + | Care Research Quality Assurance Analyst Name | Role | Phone | + +------+ + PCP | Unavailable | + +------+ + Encounter Details +--------+ + + + + | Date | Type | Department | Care Team | Description | +--------+ + + + + | 10/29/ | Pharmacy | [facility] | | | | 2012 | Visit | [address] | [address] | | | | | | [place] [address] | | | | | | [phone] | | | +--------+ + + + [...]
--- OUTSIDE RECORDS SUMMARY | ~2019-01-19 | XMS | Encounter Summary ---
Demographics + + + | Address | [address] | | | [place] [address] | + + + | Home Phone [...] Author + + + | Author | [facility] | + + + | Organization | [facility] | + + + | Address | Unknown | + + + | Phone | Unavailable | + + + Care Team Providers + +------+ + | Care Pin Cleaner Name | Role | Phone | + +------+ + PCP | Unavailable | + +------+ + Encounter Details +--------+ + + + + | Date | Type | Department | Care Team | Description | +--------+ + + + + | 04/13/ | Pharmacy | [facility] | | | | 2013 | Visit | [address] | | | | | | [address] | | | | | | [place] [address] | | | | | | [phone] | | | +--------+ + + + [...]
--- OUTSIDE RECORDS SUMMARY | ~2019-01-19 | XMS | Encounter Summary ---
Demographics + + + | Address | [address] | | | [place] [address] | + + + | Home Phone [...] Team Providers + +------+ + | Care Repairer Welding Equipment Name | Role | Phone | + +------+ + PCP | Unavailable | + +------+ + Encounter Details +--------+ + + + + | Date | Type | Department | Care Team | Description | +--------+ + + + + | 03/09/ | Pharmacy | [facility] | | | | 2014 | Visit | [address] | | | | | | [address] | | | | | | [place] [address] | | | | | | [phone] | | | +--------+ + + + [...]
--- OUTSIDE RECORDS SUMMARY | ~2019-01-19 | XMS | Encounter Summary ---
Demographics + + + | Address | [address] | | | [place] [address] | + + + | Home Phone | | + + + | Preferred Language | Unknown | + + + | Marital Status | | + + + | Gnosticist Affiliation | 1041 | + + + | Race | Unknown | + + + | Ethnic Group | Unknown | + + + Author + + + | Author | [facility] | | | and [place] | + + + | Organization | [facility] | | | and [place] | + + + | Address | Unknown | + + + | Phone | Unavailable | + + + Support + + + + + | Name | Relationship | Address | Phone | + + + + + | Catrina Florez | ECON | [place] | | | | | [address] | | + + + + + Care Team Providers + +------+ + | Care Adjunct Spanish Instructor Name | Role | Phone | + [...] + + | 05/13/ | Office | [facility] | Curtis, | Lumbar radiculopathy | | 2018 | Visit | [address]SIATRY [address] | [address] | (Primary Dx); Facet | | | | [address] [place], | [facility], | arthritis of lumbar | | | | [place] [address] | [place] [address] | region ([facility]); | | | | [phone] | [phone] | Chronic right-sided | | | | [...] of blood sugars if you are diabetic. penitentiary risk can lead to osteoporosis which is [...] of the procedure you must provide a starting gate driver to take you home. For all [...] activity. She participated in physical therapy at [facility] [place] and [facility] this actually worsened her pain, she did [...] (PRESERVISION AREDS 2) CAPS Take by mouth. Llewellyn-3 Fatty Acids (FISH OIL) 1200 MG CAPS [...] has no apparent deficits with short or penitentiary memory. She has appropriate fund of knowledge [...] during the visit. Lumba r MRI from [facility] shows transitional lumbosacral anatomy with what [...] repeat imaging to see how the lesions change control analyst time. ASSESSMENT: 1. Lumbar radiculopathy 2. Facet arthritis of lumbar region (HCC) 3. Chronic right-sided low back pain without sciatica PLAN: 1. The patient has had significant conservative care including medications (NSAIDS and narc otics), PT (multiple sessions over the years) and home care and home health aides teacher. Unfortunately she frida nues to have significant [...]
--- OUTSIDE RECORDS SUMMARY | ~2019-01-19 | XMS | Clinical Summary ---
Demographics + + + | Address | [address] | | | [place] [address] | + + + | Home Phone | | + + + | Preferred Language | Unknown | + + + | Marital Status | | + + + | Church Affiliation | 1041 | + + + | Race | Unknown | + + + | Ethnic Group | Unknown | + + + Author + + + | Author | [facility] | | | and [place] | + + + | Organization | [facility] | | | and [place] | + + + | Address | Unknown | + + + | Phone | Unavailable | + + + Support + + + + + | Name | Relationship | Address | Phone | + + + + + | Catrina Florez | ECON | [place] | | | | | [address] | | + + + + + Care Team Providers + +------+ + | Care Rn Triage Name | Role | Phone | + [...] | | | + + +--------+---+------+---+-------+ | [place]-3 Fatty | Take 1,200 mg by | [...] 11/22/2012 | | | | | | /[address]208 | | | | | | | | 4050 | | | | | | | | /[address] | | | | | | | | 2 | + +------+------+ +--------+--------+--------+ | Global [place] Peg | | | | | 05/28/ | 113-42 | | GlenoidImplanted: Qty: 1 on | | | | | 2018 | -026 | | 11/22/2012 | | | | | | /90202 | | | | | | | | 026 | | | | | | | | /15085 | | | | | | | | 7 | + +------+------+ +--------+--------+--------+ | Global Eccentric | | | | | 06/28/ | 1128-5 | | HeadImplanted: Qty: 1 on | | | | | 2022 | 2-110 | | 11/22/2012 | | | | | | /85766 | | | | | | | [...] | [employer] | MODA | [id number] | 03/01/19 | | | Medica | [...] | | 7 (Home) | [place] [address] | + +--------+ +--------+ + + Advance Directives + + + + + | Type | Date Recorded | Patient | Explanation | | | | Respiratory Support Technician | | + + + + + | Power of | | | | | Blender Conveyor Operator | | | | + + + + + | Advance | | | | | Directive | | | | + + + + +
--- OUTSIDE RECORDS SUMMARY | ~2019-01-19 | XMS | Encounter Summary ---
Demographics + + + | Address | [address] | | | [place] [address] | + + + | Home Phone | | + + + | Preferred Language | Unknown | + + + | Marital Status | Single | + + + | Gnosticism Affiliation | Unknown | + + + [...] Team Providers + +------+ + | Care Tree Puller Name | Role | Phone | + +------+ + PCP | Unavailable | + +------+ + Encounter Details +--------+ + + + + | Date | Type | Department | Care Team | Description | +--------+ + + + + | 11/22/ | Pharmacy | [facility] | | | | 2013 | Visit | [address] [facility] | | | | | | Place [address] | | | | | | [place] [address] | | | | | | [phone] | | | +--------+ + + + [...]
--- OUTSIDE RECORDS SUMMARY | ~2019-01-19 | XMS | Encounter Summary ---
Demographics + + + | Address | [address] | | | [place] [address] | + + + | Home Phone | | + + + | Preferred Language | Unknown | + + + | Marital Status | Single | + + + | Rastafarian Affiliation | Unknown | + + + | Race | Unknown | + + + | Ethnic Group | Other Race | + + + Author + + + | Author | [facility] | + + + | Organization | [facility] | + + + | Address | Unknown | + + + | Phone | Unavailable | + + + Care Team Providers + +------+ + | Care Director Work Name | Role | Phone | + +------+ + PCP | Unavailable | + +------+ + Encounter Details +--------+ + + + + | Date | Type | Department | Care Team | Description | +--------+ + + + + | 11/21/ | Pharmacy | [facility] | | | | 2013 | Visit | [address] [facility] | | | | | | Place [address] | | | | | | [place] [address] | | | | | | [phone] | | | +--------+ + + + [...]
--- OUTSIDE RECORDS SUMMARY | ~2019-01-19 | XMS | Encounter Summary ---
Demographics + + + | Address | [address] | | | [place] [address] | + + + | Home Phone | | + + + | Preferred Language | Unknown | + + + | Marital Status | | + + + | Evangelical Affiliation | 1041 | + + + | Race | Unknown | + + + | Ethnic Group | Unknown | + + + Author + + + | Author | [facility] | | | and [place] | + + + | Organization | [facility] | | | and [place] | + + + | Address | Unknown | + + + | Phone | Unavailable | + + + Support + + + + + | Name | Relationship | Address | Phone | + + + + + | Catrina Florez | ECON | [place] | | | | | [address] | | + + + + + Care Team Providers + +------+ + | Care Weigh Tank Operator Name | Role | Phone | [...] | Lumbar | [place], | [address] | | | | | spondylosis | Lamont Bryan MD | [place], | | | | | Procedures | [address] | [place] | | | | | [place] INJ | [place] | [address] | | | | | DX/THER AGNT | [place], [place] | Phone: | | | | | [place] | [address] | [phone] | | | | | [place], | Phone: | Fax: | | | | | LUMBAR/SAC, | [phone] | [phone] | | | | | 1ST LEVEL | Fax: | | | | | | [place] | [phone] | | | | | | TRIAMCINOLON [...] + + | 06/17/ | Hospital | [facility] | [place], | 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 [address] | [address] | lumbar region (HCC); | | | | [place] | [facility], | Chronic right-sided | | | | [place] [address] | [place] [address] | low back pain | | | | [phone] | [phone] | without sciatica; | | | | | | Lumbar | | | | | Orthodontic Technician AssistantMichael | radiculopathy; | | | | | [...] + + + +---------+ + + | [place]-3 Fatty | Take 1,200 mg by | [...] 10:25 | | | | | ONCE, [facility] 06/17/17 at 1045, For 1 | | AM PDT | | | | | dose | | | | | | + +-------+ +-------+---+---+ +---+---+ | | | +---+---+ documented in this encounter"
--- OUTSIDE RECORDS SUMMARY | ~2019-01-19 | XMS | Encounter Summary ---
Demographics + + + | Address | [address] | | | [place] [address] | + + + | Home Phone [...] + + + | Author | [facility] | + + + | Organization | [facility] | + + + | Address | Unknown | + + + | Phone | Unavailable | + + + Care Team Providers + +------+ + | Care Hearing Aid Assembly Supervisor Name | Role | Phone | + +------+ + PCP | Unavailable | + +------+ + Encounter Details +--------+ + + + + | Date | Type | Department | Care Team | Description | +--------+ + + + + | 07/10/ | Pharmacy | [facility] | | | | 2014 | Visit | [address] | | | | | | [address] | | | | | | [place] [address] | | | | | | [phone] | | | +--------+ + + + [...]
--- OUTSIDE RECORDS SUMMARY | ~2019-01-19 | XMS | Encounter Summary ---
Demographics + + + | Address | [address] | | | [place] [address] | + + + | Home Phone | | + + + | Preferred Language | Unknown | + + + | Marital Status | Single | + + + | Christianity Affiliation | Unknown | + + + [...] Providers + +------+ + | Care Manager Of Engineering Name | Role | Phone | + +------+ + PCP | Unavailable | + +------+ + Encounter Details +--------+ + + + + | Date | Type | Department | Care Team | Description | +--------+ + + + + | 04/14/ | Pharmacy | [facility] | | | | 2013 | Visit | [address] | | | | | | [address] | | | | | | [place] [address] | | | | | | [phone] | | | +--------+ + + + [...]
--- OUTSIDE RECORDS SUMMARY | ~2019-01-19 | XMS | Encounter Summary ---
Demographics + + + | Address | [address] | | | [place] [address] | + + + | Home Phone | | + + + | Preferred Language | Unknown | + + + | Marital Status | | + + + | Yarsani Affiliation | 1041 | + + + | Race | Unknown | + + + | Ethnic Group | Unknown | + + + Author + + + | Author | [facility] | | | and [place] | + + + | Organization | [facility] | | | and [place] | + + + | Address | Unknown | + + + | Phone | Unavailable | + + + Support + + + + + | Name | Relationship | Address | Phone | + + + + + | Catrina Folrez | ECON | [place] | | | | | [address] | | + + + + + Care Team Providers + +------+ + | Care Talent Director Name | Role | Phone | [...] + + | 04/12/ | Office | [facility] | Boris Meza PA | DORA on CPAP (Primary | | 2012 | Visit | SLEEP DISORDER [address] | [address] | Dx) | | | | [address] [place] | [place] | | | | | [place] [address] | [address] | | | | | [phone] | | | +--------+---------+ + + + [...] Insomnia Severity Index Insomnia Severity Index 6 [place] Sleepiness Scale Sitting and reading 1 Watching [...] pillows obtained from: [facility] [place] pressure is: 5-10 cm 95%: 8.3 cm [...] appro piate paperwork. Fifteen minutes were spent [id number], with the majority of time spent i [...]
--- OUTSIDE RECORDS SUMMARY | ~2019-01-19 | XMS | Encounter Summary ---
Demographics + + + | Address | [address] | | | [place] [address] | + + + | Home Phone | | + + + | Preferred Language | Unknown | + + + | Marital Status | Single | + + + | Yazdanism Affiliation | Unknown | + + + [...] Team Providers + +------+ + | Care Social Worker Aide Name | Role | Phone | + +------+ + PCP | Unavailable | + +------+ + Encounter Details +--------+ + + + + | Date | Type | Department | Care Team | Description | +--------+ + + + + | 10/29/ | Pharmacy | [facility] | | | | 2012 | Visit | [address] | [address] | | | | | | [place] [address] | | | | | | [phone] | | | +--------+ + + + [...]
--- OUTSIDE RECORDS SUMMARY | ~2019-01-19 | XMS | Encounter Summary ---
Demographics + + + | Address | [address] | | | [place] [address] | + + + | Home Phone | | + + + | Preferred Language | Unknown | + + + | Marital Status | | + + + | Sabianism Affiliation | 1041 | + + + | Race | Unknown | + + + | Ethnic Group | Unknown | + + + Author + + + | Author | [facility] | | | and [place] | + + + | Organization | [facility] | | | and [place] | + + + | Address | Unknown | + + + | Phone | Unavailable | + + + Support + + + + + | Name | Relationship | Address | Phone | + + + + + | Catrina Flroez | ECON | [place] | | | | | [address] | | + + + + + Care Team Providers + +------+ + | Care Scientologist Name | Role | Phone | + [...] | | | bilateral | [place] | [facility] | | | | | low back | PA-C [address] | [address] | | | | | pain with | [address] | AVE | | | | | left-sided | [place], [place] | [place], [place] | | | | | sciatica | [address] | [address] | | | | | Procedures | Phone: | Phone: | | | | | CT Pelvis w | [phone] | [phone] | | | | | wo Contrast | Fax: | Fax: | | | | | | [phone] | [phone] | +--------+--------+ + + + + Diagnostic/Screening [...] | | | bilateral | Maribel | [facility] | | | | | low back | PA-C [address] | [address] | | | | | pain with | [address] | AVE | | | | | left-sided | [place], [place] | [place], [place] | | | | | sciatica | [address] | [address] | | | | | Procedures | Phone: | Phone: | | | | | CT Lumbar | [phone] | [phone] | | | | | Spine w wo | Fax: | Fax: | | | | | Contrast | [phone] | [phone] | +--------+--------+ + + + + Reason [...] + + | 10/21/ | Office | [facility] [place] | Lidabustercz, | Chronic bilateral | | 2016 | Visit | PHYSIATRY [address] | [address] | low back pain with | | | | [place], | [address] [place], | left-sided sciatica | | | | [place] [address] | [place] [address] | (Primary Dx) | | | | [phone] | [phone] | | | | | | | [...] blood sugars if you a re diabetic. care home risk can lead to osteoporosis which is [...] (PRESERVISION AREDS 2) CAPS Take by mouth. [place]-3 Fatty Acids (FISH OIL) 1200 MG CAPS Take 1,200 mg by mouth Daily. [place]-3 Fatty Acids (RA FISH OIL EXTRA STRENGTH) [...] has no apparent deficits with short or halfway memory. She has appropriate fund of knowledge Cranial nerves 2-12 appear grossly intact. Sensory exam does show diminished sensation to light touch in the left lower extremities. MUSCULOSKELETAL Physical exam was not performed today. RADIOGRAPHIC REVIEW: The patient's imaging was reviewed in detail with the patient today during the visit. Lumba r MRI from [facility] shows abnormal signal to the [...] sacral CT scan to be done at [facility], but have asked that her PCP [...]
--- OUTSIDE RECORDS SUMMARY | ~2019-01-19 | XMS | Encounter Summary ---
Demographics + + + | Address | [address] | | | [place] [address] | + + + | Home Phone [...] Providers + +------+ + | Care Business Department Chair Name | Role | Phone | + +------+ + PCP | Unavailable | + +------+ + Encounter Details +--------+ + + + + | Date | Type | Department | Care Team | Description | +--------+ + + + + | 07/17/ | Pharmacy | [facility] | | | | 2013 | Visit | [address] | | | | [address] | [address] | | | | | | [place] [address] | | | | | | [phone] | | | +--------+ + + + [...]
--- OUTSIDE RECORDS SUMMARY | ~2019-01-19 | XMS | Encounter Summary ---
Demographics + + + | Address | [address] | | | [place] [address] | + + + | Home Phone | | + + + | Preferred Language | Unknown | + + + | Marital Status | | + + + | Adventist Affiliation | 1041 | + + + [...] [place] | | | | | [address] | | + + + + + Care Team Providers + +------+ + | Care Social Media Marketing Specialist Name | Role | Phone | [...] [address] | | | | | [place], | [place], | | | | | [place] [address] | [place] [address] | | | | | [phone] | [phone] | | | | | | | [...]
--- OUTSIDE RECORDS SUMMARY | ~2019-01-19 | XMS | Encounter Summary ---
Demographics + + + | Address | [address] | | | [place] [address] | + + + | Home Phone | | + + + | Preferred Language | Unknown | + + + | Marital Status | | + + + | Buddhism Affiliation | 1041 | + + + [...] [place] | | | | | [address] | | + + + + + Care Team Providers + +------+ + | Care Cobol Application Developer Name | Role | Phone [...] + + | 06/11/ | Office | [facility] | Boris Meza PA | DORA on CPAP (Primary | | 2017 | Visit | SLEEP DISORDER [address] | [address] | Dx) | | | | [address] [place] | [place] | | | | | [place] [address] | [address] | | | | | [phone] | | | +--------+---------+ + + + [...] Insomnia Severity Index Insomnia Severity Index 0 [place] Sleepiness Scale Sitting and reading 1 Watching [...] nasal pillows DME: [facility] [place] pressure: 5-10 cm Median: 6.0 cm 95%: [...] Exam Assessment: Problem #1: OBSTRUCTIVE SLEEP APNEA ([id number]) This is controlled with CPAP. Her CPAP [...] dilan ropiate paperwork. Fifteen minutes were spent [id number], with the majority of time spen t [...]
--- OUTSIDE RECORDS SUMMARY | ~2019-01-19 | XMS | Encounter Summary ---
Demographics + + + | Address | [address] | | | [place] [address] | + + + | Home Phone | | + + + | Preferred Language | Unknown | + + + | Marital Status | Single | + + + | Evangelical Affiliation | Unknown | + + + [...] Team Providers + +------+ + | Care Cna Name | Role | Phone | + +------+ + PCP | Unavailable | + +------+ + Encounter Details +--------+ + + + + | Date | Type | Department | Care Team | Description | +--------+ + + + + | 10/31/ | Pharmacy | [facility] | | | | 2012 | Visit | [address] | | | | | | [address] | | | | | | [place] [address] | | | | | | [phone] | | | +--------+ + + + [...]
--- OUTSIDE RECORDS SUMMARY | ~2019-01-19 | XMS | Encounter Summary ---
Demographics + + + | Address | [address] | | | [place] [address] | + + + | Home Phone [...] Team Providers + +------+ + | Care Rail Washer Name | Role | Phone | + +------+ + PCP | Unavailable | + +------+ + Encounter Details +--------+ + + + + | Date | Type | Department | Care Team | Description | +--------+ + + + + | 10/20/ | Pharmacy | [facility] | | | | 2015 | Visit | [address] | | | | | | [address] | | | | | | [place] [address] | | | | | | [phone] | | | +--------+ + + + [...]
--- OUTSIDE RECORDS SUMMARY | ~2019-01-19 | XMS | Encounter Summary ---
Demographics + + + | Address | [address] | | | [place] [address] | + + + | Home Phone | | + + + | Preferred Language | Unknown | + + + | Marital Status | | + + + | Adventist Affiliation | 1041 | + + + | Race | Unknown | + + + | Ethnic Group | Unknown | + + + Author + + + | Author | [facility] | | | and [place] | + + + | Organization | [facility] | | | and [place] | + + + | Address | Unknown | + + + | Phone | Unavailable | + + + Support + + + + + | Name | Relationship | Address | Phone | + + + + + | Catrina Florez | ECON | [place] | | | | | [address] | | + + + + + Care Team Providers + +------+ + | Care Arson Investigator Name | Role | Phone | + [...] + + | 06/11/ | Office | [facility] | Boris Meza PA | DORA on CPAP (Primary | | 2017 | Visit | SLEEP DISORDER [address] | [address] | Dx) | | | | [address] [place] | [place] | | | | | [place] [address] | [address] | | | | | [phone] | | | +--------+---------+ + + + [...] Insomnia Severity Index Insomnia Severity Index 0 [place] Sleepiness Scale Sitting and reading 1 Watching [...] nasal pillows DME: [facility] [place] pressure: 5-10 cm Median: 6.0 cm 95%: [...] Exam Assessment: Problem #1: OBSTRUCTIVE SLEEP APNEA ([id number]) This is controlled with CPAP. Her CPAP [...] dilan ropiate paperwork. Fifteen minutes were spent [id number], with the majority of time spen t [...]
--- OUTSIDE RECORDS SUMMARY | ~2019-01-19 | XMS | Encounter Summary ---
Demographics + + + | Address | [address] | | | [place] [address] | + + + | Home Phone [...] Team Providers + +------+ + | Care Plate Shear Operator Name | Role | Phone | + +------+ + PCP | Unavailable | + +------+ + Encounter Details +--------+ + + + + | Date | Type | Department | Care Team | Description | +--------+ + + + + | 07/03/ | Pharmacy | [facility] | | | | 2016 | Visit | [address] | | | | | | [address] | | | | | | [place] [address] | | | | | | [phone] | | | +--------+ + + + [...]
--- OUTSIDE RECORDS SUMMARY | ~2019-01-19 | XMS | Encounter Summary ---
Demographics + + + | Address | [address] | | | [place] [address] | + + + | Home Phone [...] + + + | Author | [facility] | + + + | Organization | [facility] | + + + | Address | Unknown | + + + | Phone | Unavailable | + + + Care Team Providers + +------+ + | Care Certified Drug Counselor Name | Role | Phone | + +------+ + PCP | Unavailable | + +------+ + Encounter Details +--------+ + + + + | Date | Type | Department | Care Team | Description | +--------+ + + + + | 04/02/ | Pharmacy | [facility] | | | | 2015 | Visit | [address] | | | | | | [address] | | | | | | [place] [address] | | | | | | [phone] | | | +--------+ + + + [...]
--- OUTSIDE RECORDS SUMMARY | ~2019-01-19 | XMS | Encounter Summary ---
Demographics + + + | Address | [address] | | | [place] [address] | + + + | Home Phone [...] Team Providers + +------+ + | Care Outsole Cutter Machine Name | Role | Phone | + +------+ + PCP | Unavailable | + +------+ + Encounter Details +--------+ + + + + | Date | Type | Department | Care Team | Description | +--------+ + + + + | 12/28/ | Pharmacy | [facility] | | | | 2014 | Visit | [address] | | | | | | [address] | | | | | | [place] [address] | | | | | | [phone] | | | +--------+ + + + [...]
--- OUTSIDE RECORDS SUMMARY | ~2019-01-19 | XMS | Encounter Summary ---
Demographics + + + | Address | [address] | | | [place] [address] | + + + | Home Phone [...] | [place] | | | | | [address] | | + + + + + Care Team Providers + +------+ + | Care Accreditation Coordinator Name | Role | Phone | [...] | | | [place], | [address] | | | | | Sacroiliitis | Lamont Bryan MD | [place], | | | | | ([facility]) | [address] | [place] | | | | | Procedures | [place] | [address] | | | | | [place] INJECT SI | [place], [place] | Phone: | | | | | [place] | [address] | [phone] | | | | | ARTHRGRPHY&/ | Phone: | Fax: | | | | | ANES/STEROID | [phone] | [phone] | | | | | W/IMAGE MA | Fax: | | | | | | | [phone] | | | | | | TRIAMCINOLON [...] + + | 05/06/ | Hospital | [facility] | [place], | Chronic bilateral | | 2017 | Encounter | MED CTR XRAY [address] | [address] | low back pain with | | | | [address] [place] | [place], | right-sided | | | | [place] [address] | [place] [address] | sciatica; Chronic | | | | [phone] | [phone] | left sacroiliac pain | | | | | | | | | | | [place] Customs [employer] Border OfficerMonique | | +--------+ + + + + [...] + + + +---------+ + + | [place]-3 Fatty | Take 1,200 mg by | [...] + + + +---------+ + + | [place]-3 Fatty | Take 1 capsule by | [...] Gomez presents to the fluoroscopy suite | [facility] | | for a fluoroscopically guided left sacroiliac joint steroid [facility] | | injection as part of [...] + + | Performing | Address | City[facility] | Phone Number | | Organization | | | | + + + + + | [facility] | [address] | [place] | [phone] | | [facility] | | [address] | | | - IMAGING | | [...]
--- OUTSIDE RECORDS SUMMARY | ~2019-01-19 | XMS | Encounter Summary ---
Demographics + + + | Address | [address] | | | [place] [address] | + + + | Home Phone | | + + + | Preferred Language | Unknown | + + + | Marital Status | Single | + + + | Denominational Affiliation | Unknown | + + + [...] Team Providers + +------+ + | Care Hospitality Aide Name | Role | Phone | + +------+ + PCP | Unavailable | + +------+ + Encounter Details +--------+ + + + + | Date | Type | Department | Care Team | Description | +--------+ + + + + | 09/30/ | Pharmacy | [facility] | | | | 2015 | Visit | [address] | | | | | | [address] | | | | | | [place] [address] | | | | | | [phone] | | | +--------+ + + + [...]
--- OUTSIDE RECORDS SUMMARY | ~2019-01-19 | XMS | Encounter Summary ---
Demographics + + + | Address | [address] | | | [place] [address] | + + + | Home Phone | | + + + | Preferred Language | Unknown | + + + | Marital Status | | + + + | Baptist Affiliation | 1041 | + + + | Race | Unknown | + + + | Ethnic Group | Unknown | + + + Author + + + | Author | [facility] | | | and [place] | + + + | Organization | [facility] | | | and [place] | + + + | Address | Unknown | + + + | Phone | Unavailable | + + + Support + + + + + | Name | Relationship | Address | Phone | + + + + + | Catrina Florez | ECON | [place] | | | | | [address] | | + + + + + Care Team Providers + +------+ + | Care Manager Transition Name | Role | Phone | + [...] | | | | | Spondylosis | [address] | [address] | | | | | without | Phone: | Phone: | | | | | myelopathy | [phone] | [phone] | | | | | or | Fax: | Fax: | | | | | radiculopath | [phone] | [phone] | | | | | y, lumbar [...] + + | 09/09/ | Office | [facility] | Lamont Zavala | Chronic bilateral | | 2016 | Visit | [address]SIATRY [address] | [address] | low back pain | | | | [place], | [place], [place] | without sciatica; | | | | [place] [address] | [address] | Spondylosis without | | | | [phone] | | myelopathy or | | | [...] of the procedure you must provide a transportation driver to take you home. For all [...] 05/06/2016. Unfortunately she reports no immediate or intermediate improvement of her symptoms. She was se [...] (PRESERVISION AREDS 2) CAPS Take by mouth. [place]-3 Fatty Acids (FISH OIL) 1200 MG CAPS [...] has no apparent deficits with short or intermediate memory. She has appropriate fund of knowledge [...] the visit. Lumba r MRI from [facility] shows transitional lumbosacral anatomy with what [...] imaging to see how the lesions exchange administrator time. ASSESSMENT: 1. Chronic bilateral low back [...]
--- OUTSIDE RECORDS SUMMARY | ~2019-01-19 | XMS | Encounter Summary ---
Demographics + + + | Address | [address] | | | [place] [address] | + + + | Home Phone | | + + + | Preferred Language | Unknown | + + + | Marital Status | | + + + | Pentecostalism Affiliation | 1041 | + + + | Race | Unknown | + + + | Ethnic Group | Unknown | + + + Author + + + | Author | [facility] | | | and [place] | + + + | Organization | [facility] | | | and [place] | + + + | Address | Unknown | + + + | Phone | Unavailable | + + + Support + + + + + | Name | Relationship | Address | Phone | + + + + + | Catrina Florez | ECON | [place] | | | | | [address] | | + + + + + Care Team Providers + +------+ + | Care Eeg Tech Name | Role | Phone | + +------+ + | Tomas Cai DO | PCP | | + +------+ + Encounter Details +--------+ + + + + | Date | Type | Department | Care Team | Description | +--------+ + + + + | 11/08/ | Hospital | [facility] | Conversion | | | 2013 | Encounter | [facility] | Transaction, | | | | | CLINIC [address] | Provider Unknown | | | | | [place], [place] | | | | | | [address] | (Fax) | | | | | [phone] | | | +--------+ + + + [...] | | 0 | | | | Xuslzki-[id number]-Gb | mouth Daily. | | | | [...] + + + +---------+ + + | [place]-3 Fatty | Take 1 capsule by | [...] EXTERNAL LAB | | Testing performed at [facility] [place] [address];[place] [address] MRSA PCR | | | NEGATIVE Testing performed at | | | [facility];[address] [place] [address];[place] [address] | | + + + + +---------+ + + | Performing | Address | City/State/Zipcode | Phone Number | | Organization | | | | + +---------+ + + | EXTERNAL LAB | | | | + +---------+ + + documented in this encounter Visit Diagnoses Not on filedocumented in this encounter"
--- OUTSIDE RECORDS SUMMARY | ~2019-01-19 | XMS | Encounter Summary ---
Demographics + + + | Address | [address] | | | [place] [address] | + + + | Home Phone [...] + + + | Author | [facility] | | | and [place] | + + + | Organization | [facility] | | | and [place] | + + + | Address | Unknown | + + + | Phone | Unavailable | + + + Support + + + + + | Name | Relationship | Address | Phone | + + + + + | Catrina Florez | ECON | [place] | | | | | [address] | | + + + + + Care Team Providers + +------+ + | Care Ventilating Engineer Name | Role | Phone | [...] | 06/15/ | Telephone | [facility] | Lamont Zavala | Injections | | 2018 | | [address]YSIATRY [address] | [address] | | | | | [place], | [place], [place] | | | | | [place] [address] | [address] | | | | | [phone] | | | +--------+ + + + [...]
--- OUTSIDE RECORDS SUMMARY | ~2019-01-19 | XMS | Encounter Summary ---
Demographics + + + | Address | [address] | | | [place] [address] | + + + | Home Phone | | + + + | Preferred Language | Unknown | + + + | Marital Status | | + + + | Pentecostalism Affiliation | 1041 | + + + | Race | Unknown | + + + | Ethnic Group | Unknown | + + + Author + + + | Author | [facility] | | | and [place] | + + + | Organization | [facility] | | | and [place] | + + + | Address | Unknown | + + + | Phone | Unavailable | + + + Support + + + + + | Name | Relationship | Address | Phone | + + + + + | Catrina Florez | ECON | [place] | | | | | [address] | | + + + + + Care Team Providers + +------+ + | Care Chiller Technician Name | Role | Phone | [...] [place] | | | | | | [place], | [address] Phone: | | | | | | [place] | [phone] | | | | | | [address] | Fax: | | | | | | Phone: | [phone] | | | | | | [phone] | | | | | | | Fax: | | | | | | | [phone] | | +--------+--------+ + + + + [...] back pain with | | | | [place], | [address] [place], | left-sided sciatica | | | | [place] [address] | [place] [address] | (Primary Dx) | | | | [phone] | [phone] | | | | | | | [...] PDT1) Lumbar xray and MRI done at [facility] 2) Depending on what images show, [...] of blood sugars if you are diabetic. [facility] risk can lead to osteoporosis which is [...] (PRESERVISION AREDS 2) CAPS Take by mouth. [place]-3 Fatty Acids (FISH OIL) 1200 MG CAPS Take 1,200 mg by mouth Daily. [place]-3 Fatty Acids (RA FISH OIL EXTRA STRENGTH) [...] has no apparent deficits with short or usp memory. She has appropriate fund of knowledge [...] xray and MRI to be done at [facility]. 2. We discussed possible treatment options [...]
--- OUTSIDE RECORDS SUMMARY | ~2019-01-19 | XMS | Encounter Summary ---
Demographics + + + | Address | [address] | | | [place] [address] | + + + | Home Phone | | + + + | Preferred Language | Unknown | + + + | Marital Status | | + + + | Adventism Affiliation | 1041 | + + + | Race | Unknown | + + + | Ethnic Group | Unknown | + + + Author + + + | Author | [facility] | | | and [place] | + + + | Organization | [facility] | | | and [place] | + + + | Address | Unknown | + + + | Phone | Unavailable | + + + Support + + + + + | Name | Relationship | Address | Phone | + + + + + | Catrina Florez | ECON | [place] | | | | | [address] | | + + + + + Care Team Providers + +------+ + | Care Environmental Geologist Name | Role | Phone | + [...] + + | 04/12/ | Office | [facility] | Boris Meza PA | DORA on CPAP (Primary | | 2012 | Visit | SLEEP DISORDER [address] | [address] | Dx) | | | | [address] [place] | [place] | | | | | [place] [address] | [address] | | | | | [phone] | | | +--------+---------+ + + + [...] Insomnia Severity Index Insomnia Severity Index 6 [place] Sleepiness Scale Sitting and reading 1 Watching [...] pillows obtained from: [facility] [place] pressure is: 5-10 cm 95%: 8.3 cm [...] appro piate paperwork. Fifteen minutes were spent [id number], with the majority of time spent i [...]
--- OUTSIDE RECORDS SUMMARY | ~2019-01-19 | XMS | Encounter Summary ---
Demographics + + + | Address | [address] | | | [place] [address] | + + + | Home Phone | | + + + | Preferred Language | Unknown | + + + | Marital Status | Single | + + + | Latter-Day Affiliation | Unknown | + + + | Race | Unknown | + + + | Ethnic Group | Other Race | + + + Author + + + | Author | [facility] | + + + | Organization | [facility] | + + + | Address | Unknown | + + + | Phone | Unavailable | + + + Care Team Providers + +------+ + | Care Tool Coordinator Name | Role | Phone | + +------+ + PCP | Unavailable | + +------+ + Encounter Details +--------+ + + + + | Date | Type | Department | Care Team | Description | +--------+ + + + + | 08/29/ | Pharmacy | [facility] | | | | 2013 | Visit | [address] | [address] | | | | [address] | | | | | | [place] [address] | | | | | | [phone] | | | +--------+ + + + [...]
--- OUTSIDE RECORDS SUMMARY | ~2019-01-19 | XMS | Encounter Summary ---
Demographics + + + | Address | [address] | | | [place] [address] | + + + | Home Phone [...] Team Providers + +------+ + | Care Jewelry Casting Model Maker Name | Role | Phone | + +------+ + PCP | Unavailable | + +------+ + Encounter Details +--------+ + + + + | Date | Type | Department | Care Team | Description | +--------+ + + + + | 04/06/ | Pharmacy | [facility] | | | | 2014 | Visit | [address] | | | | | | [address] | | | | | | [place] [address] | | | | | | [phone] | | | +--------+ + + + [...]
--- OUTSIDE RECORDS SUMMARY | ~2019-01-19 | XMS | Encounter Summary ---
Demographics + + + | Address | [address] | | | [place] [address] | + + + | Home Phone [...] Team Providers + +------+ + | Care Category Planner Name | Role | Phone | + +------+ + PCP | Unavailable | + +------+ + Encounter Details +--------+ + + + + | Date | Type | Department | Care Team | Description | +--------+ + + + + | 04/02/ | Pharmacy | [facility] | | | | 2015 | Visit | [address] | | | | | | [address] | | | | | | [place] [address] | | | | | | [phone] | | | +--------+ + + + [...]
--- OUTSIDE RECORDS SUMMARY | ~2019-01-19 | XMS | Encounter Summary ---
Demographics + + + | Address | [address] | | | [place] [address] | + + + | Home Phone [...] Team Providers + +------+ + | Care Loom Fixer Apprentice Name | Role | Phone | + +------+ + PCP | Unavailable | + +------+ + Encounter Details +--------+ + + + + | Date | Type | Department | Care Team | Description | +--------+ + + + + | 08/29/ | Pharmacy | [facility] | | | | 2013 | Visit | [address] | | | | | | [place] [address] | | | | | | [phone] | | | +--------+ + + + [...]
--- OUTSIDE RECORDS SUMMARY | ~2019-01-19 | XMS | Encounter Summary ---
Demographics + + + | Address | [address] | | | [place] [address] | + + + | Home Phone | | + + + | Preferred Language | Unknown | + + + | Marital Status | | + + + | Mormon Affiliation | 1041 | + + + | Race | Unknown | + + + | Ethnic Group | Unknown | + + + Author + + + | Author | [facility] | | | and [place] | + + + | Organization | [facility] | | | and [place] | + + + | Address | Unknown | + + + | Phone | Unavailable | + + + Support + + + + + | Name | Relationship | Address | Phone | + + + + + | Catrina Florez | ECON | [place] | | | | | [address] | | + + + + + Care Team Providers + +------+ + | Care Lobby Porter Name | Role | Phone | + [...] + + | 04/11/ | Office | [facility] | Boris Meza PA | DORA on CPAP (Primary | | 2013 | Visit | SLEEP DISORDER [address] | [address] | Dx) | | | | [address] [place] | [place] | | | | | [place] [address] | [address] | | | | | [phone] | | | +--------+---------+ + + + [...] Insomnia Severity Index Insomnia Severity Index 2 [place] Sleepiness Scale Sitting and reading 2 Watching [...] pillows obtained from: [facility] [place] pressure is: 5-10 cm 95%: 7.6 cm [...] appro piate paperwork. Fifteen minutes were spent [id number], with the majority of time spent i [...]
--- OUTSIDE RECORDS SUMMARY | ~2019-01-19 | XMS | Encounter Summary ---
Demographics + + + | Address | [address] | | | [place] [address] | + + + | Home Phone | | + + + | Preferred Language | Unknown | + + + | Marital Status | | + + + | Yazidism Affiliation | 1041 | + + + | Race | Unknown | + + + | Ethnic Group | Unknown | + + + Author + + + | Author | [facility] | | | and [place] | + + + | Organization | [facility] | | | and [place] | + + + | Address | Unknown | + + + | Phone | Unavailable | + + + Support + + + + + | Name | Relationship | Address | Phone | + + + + + | Catrina Florez | ECON | [place] | | | | | [address] | | + + + + + Care Team Providers + +------+ + | Care Drum Sprayer Name | Role | Phone | [...] [place] | | | | | | [place], | [address] Phone: | | | | | | [place] | [phone] | | | | | | [address] | Fax: | | | | | | Phone: | [phone] | | | | | | [phone] | | | | | | | Fax: | | | | | | | [phone] | | +--------+--------+ + + + + [...] back pain with | | | | [place], | [address] [place], | left-sided sciatica | | | | [place] [address] | [place] [address] | (Primary Dx) | | | | [phone] | [phone] | | | | | | | [...] PDT1) Lumbar xray and MRI done at [facility] 2) Depending on what images show, [...] of blood sugars if you are diabetic. snf risk can lead to osteoporosis [...] (PRESERVISION AREDS 2) CAPS Take by mouth. [place]-3 Fatty Acids (FISH OIL) 1200 MG CAPS Take 1,200 mg by mouth Daily. [place]-3 Fatty Acids (RA FISH OIL EXTRA STRENGTH) [...] has no apparent deficits with short or detention memory. She has appropriate fund of knowledge [...] xray and MRI to be done at [facility]. 2. We discussed possible treatment options [...]
--- OUTSIDE RECORDS SUMMARY | ~2019-01-19 | XMS | Encounter Summary ---
Demographics + + + | Address | [address] | | | [place] [address] | + + + | Home Phone [...] Team Providers + +------+ + | Care Tv Technician Name | Role | Phone | + +------+ + PCP | Unavailable | + +------+ + Encounter Details +--------+ + + + + | Date | Type | Department | Care Team | Description | +--------+ + + + + | 04/01/ | Pharmacy | [facility] | | | | 2015 | Visit | [address] | | | | | | [address] | | | | | | [place] [address] | | | | | | [phone] | | | +--------+ + + + [...]
--- OUTSIDE RECORDS SUMMARY | ~2019-01-19 | XMS | Encounter Summary ---
Demographics + + + | Address | [address] | | | [place] [address] | + + + | Home Phone | | + + + | Preferred Language | Unknown | + + + | Marital Status | | + + + | Mosque Affiliation | 1041 | + + + | Race | Unknown | + + + | Ethnic Group | Unknown | + + + Author + + + | Author | [facility] | | | and [place] | + + + | Organization | [facility] | | | and [place] | + + + | Address | Unknown | + + + | Phone | Unavailable | + + + Support + + + + + | Name | Relationship | Address | Phone | + + + + + | Catrina Florez | ECON | [place] | | | | | [address] | | + + + + + Care Team Providers + +------+ + | Care Winder Contort Operator Name | Role | Phone | [...] + + | 04/11/ | Office | [facility] | Boris Meza PA | DORA on CPAP (Primary | | 2013 | Visit | SLEEP DISORDER [address] | [address] | Dx) | | | | [address] [place] | [place] | | | | | [place] [address] | [address] | | | | | [phone] | | | +--------+---------+ + + + [...] Insomnia Severity Index Insomnia Severity Index 2 [place] Sleepiness Scale Sitting and reading 2 Watching [...] pillows obtained from: [facility] [place] pressure is: 5-10 cm 95%: 7.6 cm [...] appro piate paperwork. Fifteen minutes were spent [id number], with the majority of time spent i [...]
--- OUTSIDE RECORDS SUMMARY | ~2019-01-19 | XMS | Clinical Summary ---
Demographics + + + | Address | [address] | | | [place] [address] | + + + | Home Phone [...] [place] | | | | | [address] | | + + + + + Care Team Providers + +------+ + | Care Warehouse Administrative Assistant Name | Role | Phone | + [...] | | | + + +--------+---+------+---+-------+ | [place]-3 Fatty | Take 1,200 mg by [...] 11/22/2012 | | | | | | /[id number] | | | | | | | | 4050 | | | | | | | | /[id number] | | | | | | | | 2 | + +------+------+ +--------+--------+--------+ | [employer] [place] Peg | | | | | 05/28/ | 113-42 | | GlenoidImplanted: Qty: 1 on | | | | | 2018 | -026 | | 11/22/2012 | | | | | | /[id number] | | | | | | | | 026 | | | | | | | | /40611 | | | | | | | | 7 | + +------+------+ +--------+--------+--------+ | Global Eccentric | | | | | 06/28/ | 1128-5 | | HeadImplanted: Qty: 1 on | | | | | 2022 | 2-110 | | 11/22/2012 | | | | | | /[id number] | | | | | | | [...] | [employer] | [employer] | [id number] | 03/01/19 | | | [employer]ica | [...] | | 7 (Home) | [place] [address] | + +--------+ +--------+ + + Advance Directives + + + + + | Type | Date Recorded | Patient | Explanation | | | | Presetter Operator | | + + + + + | Power of | | | | | Customer Marketing Intern | | | | + + + + + | Advance | | | | | Directive | | | | + + + + +
--- OUTSIDE RECORDS SUMMARY | ~2019-01-19 | XMS | Encounter Summary ---
Demographics + + + | Address | [address] | | | [place] [address] | + + + | Home Phone [...] Team Providers + +------+ + | Care Wick Tender Name | Role | Phone | + +------+ + PCP | Unavailable | + +------+ + Encounter Details +--------+ + + + + | Date | Type | Department | Care Team | Description | +--------+ + + + + | 01/11/ | Pharmacy | [facility] | | | | 2012 | Visit | [address] | | | | | | [address] | | | | | | [place] [address] | | | | | | [phone] | | | +--------+ + + + [...]
--- OUTSIDE RECORDS SUMMARY | ~2019-01-19 | XMS | Encounter Summary ---
Demographics + + + | Address | [address] | | | [place] [address] | + + + | Home Phone | | + + + | Preferred Language | Unknown | + + + | Marital Status | | + + + | Protestant Affiliation | 1041 | + + + | Race | Unknown | + + + | Ethnic Group | Unknown | + + + Author + + + | Author | [facility] | | | and [place] | + + + | Organization | [facility] | | | and [place] | + + + | Address | Unknown | + + + | Phone | Unavailable | + + + Support + + + + + | Name | Relationship | Address | Phone | + + + + + | Catrina Florez | ECON | [place] | | | | | [address] | | + + + + + Care Team Providers + +------+ + | Care Calenderer Name | Role | Phone | + [...] + + | 04/17/ | Office | [facility] | Boris Meza PA | DORA on CPAP (Primary | | 2015 | Visit | SLEEP DISORDER [address] | [address] | Dx) | | | | [address] [place] | [place] | | | | | [place] [address] | [address] | | | | | [phone] | | | +--------+---------+ + + + [...] Insomnia Severity Index Insomnia Severity Index 0 [place] Sleepiness Scale Sitting and reading 2 Watching [...] pillows obtained from: [facility] [place] pressure is: 5-10 cm 95%: 7.4 cm [...] appr opiate paperwork. Fifteen minutes were spent [id number], with the majority of time spent in [...]
--- OUTSIDE RECORDS SUMMARY | ~2019-01-19 | XMS | Encounter Summary ---
Demographics + + + | Address | [address] | | | [place] [address] | + + + | Home Phone [...] [place] | | | | | [address] | | + + + + + Care Team Providers + +------+ + | Care Time Motion Analyst Name | Role | Phone | + +------+ + | Tomas Cai DO | PCP | | + +------+ + Encounter Details +--------+ + + + + | Date | Type | Department | Care Team | Description | +--------+ + + + + | 11/22/ | Hospital | [facility] | Rock Garner MD | | | 2013 - | Encounter | CENTER SURGICAL [address] | | [address] | [address] [place], [place] | | | 11/25/ | | [place], [place] | [address] | | | 2012 | | [address] | | | | | | [phone] | | | +--------+ + + + [...] Date of Service: 11/25/12 124 Status: Signed Therapeutic Assistant: Rock Garner MD (Physician) [facility] Service: Orthopedic Surgery Discharge Summary Date of [...] - TOTAL; Surgeon: Rock Garner MD; Location: [facility] MAIN OR; Servi ce: Orthopedics; Laterality: Right; [...] avoid external rotation beyond 30 degrees Disposition: group home Condition: Stable Code Status: Full Code No discharge procedures on file. Follow up: Rock Garner MD [address] [place] [address] Schedule an appointment as soon [...] | | 0 | | | | Tvjsgez-Hauzdrybb-Id | mouth Daily. | | | | [...] + + + +---------+ + + | Baker-3 Fatty | Take 1 capsule by | [...] Case Management by DEAN Hammond at 11/25/12 8777 Author: DEAN Hammond Service: (none) Author Type: Metal Roofer Filed: 11/25/12 171 Date of Service: 11/25/121709 Status: Signed Therapeutic Assistant: DEAN Hammond (Metal Roofer) Pt dc'd to [facility] to resume PT/OT/SNR consult. Pt was transported to SNF b y her family. 11/25/12 1600 Discharge Planning Evaluation Living Arrangements Alone Support Systems Children Type of Residence Private residence House type House-1 [facility] Home Care Services No Mental Status Oriented Resources Financial concerns No Transportation issues No Patient/Family concerns No Prescription Plan Yes Anticipated Disposition Facility Type assisted facility Retirement Facility Other (comment) [employer] Name and Phone Number (Pat [phone]) Nursing Unit Adult Unit Nursing Unit onver lennox Cifuentesaction, Provider Unknown - 11/25/2012 10:44 AM PDT Progress Notes by MAGUI Zamudio at 11/25/121043 Author: MAGUI Zamudio Service: (none) Author Type: Massage Therapist Filed: 11/25/121043 Date of Service: 11/25/121043 Status: Signed Therapeutic Assistant: MAGUI Zamudio (Massage Therapist) 11/25/121043 Massage Therapy Interventions Locations Back Massage Therapy Technique Effleurage;Deep tissue;Petrissage;Divehi massage;Trigger point Response to treatment Decreased pain;Decreased muscle tension Goals Short Term Goal #1 Decreased muscle tension;Decreased pain;Increase comfort;Increased relax ation Rock Keating - 11/25/2012 8:15 AM PDTFormatting of this note might be different from the origin al. Progress Notes by Rock Garner MD at 11/25/12814 Author: Rock Garner MD Service: (none) Author Type: Physician Filed: 11/25/12818 Date of Service: 11/25/12814 Status: Signed Therapeutic Assistant: Rock Garner MD (Physician) [facility] Service: Orthopedic Surgery Progress Note Hospital Day: [...] kg/m2 | SpO2 96% | ? No {EXTENDEDVITALS:20515 Physical Exam Ortho Exam NV exam normal [...] Author: ROSIE Lugo Service: (none) Author Type: Jig Builder Filed: 11/24/121826 Date of Service: 11/24/121826 Status: Signed Therapeutic Assistant: ROSIE Lugo (Jig Builder) 11/24/12 1355 Time Calculation Start Time 1355 Stop Time 1355 Time Calculation (min) 0 min OT Therapy Visit Not available (pt eating lunch) onver lennox Transaction, Provider Unknown - 11/24/2012 5:18 PM PDT Progress Notes by MAGUI Rob at 11/24/121717 Author: MAGUI Rob Service: (none) Author Type: Massage Therapist Filed: 11/24/121717 Date of Service: 11/24/121717 Status: Signed Therapeutic Assistant: MAGUI Rob (Massage Therapist) 11/24/121699 Massage Therapy Interventions Locations RLE;LLE;Back;Neck;Shoulder Massage Therapy Technique Effleurage;Petrissage;Divehi massage;Trigger point Response to treatment Decreased pain;Decreased muscle tension Goals Short Term Goal #1 Decreased muscle tension;Decreased pain;Increase comfort;Increased relax ation onver lennox Watson, Cynthia Unknown - 11/24/2012 5:15 PM PDT Case Management by DEAN Hammond at 11/24/121714 Author: DEAN Hammond Service: (none) Author Type: Metal Roofer Filed: 11/24/121716 Date of Service: 11/24/121714 Status: Signed Therapeutic Assistant: DEAN Hammond (Metal Roofer) Per MD's order for pt to f/u with SNF. CM faxed referral to [facility] for rehab c onsult. CM will continue to provide care as needed and plan for dc. 11/24/121699 Discharge Planning Evaluation Living Arrangements Alone Support Systems Children House type House-1 [facility]ary Home Care Services No Mental Status Oriented Resources Financial concerns No Transportation issues No Patient/Family concerns No Prescription Plan Yes ock Garner - 11/24/2012 8:22 AM PDTFormatting of this note might be different from the origin al. Progress Notes by Rock Garner MD at 11/24/12821 Author: Rock Garner MD Service: (none) Author Type: Physician Filed: 11/24/12824 Date of Service: 11/24/12821 Status: Signed Therapeutic Assistant: Rock Garner MD (Physician) [facility] Service: Orthopedic Surgery Progress Note Hospital Day: [...] | BMI 24.89 kg/m2 | SpO2 92% {EXTENDEDVITALS:59304 Physical Exam Ortho Exam NV exam normal [...] (none) Author Type: Occupational Therapist Filed: 11/23/12 1115 Date of Service: 11/23/12 1020 Status: Signed Therapeutic Assistant: LARS Glover (Occupational Therapist) 11/23/12 1020 Precautions [...] Home Equipment None Prior Function Level of [place] Independent with functional mobility;Independent with ADLs;Independe nt with IADLs;Driving in community Lives With Alone Receives Help From Family;Friend(s) ADL Assistance Independent Home ADL's Independent 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;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 [...] 11/23/1245 Date of Service: 11/23/12841 Status: Signed Therapeutic Assistant: Rock Garner MD (Physician) [facility] Service: Orthopedic Surgery Progress Note Hospital Day: [...] Oral Daily DISCONTD: ceFAZolin 2 g Intravenous Serging Machine Operator Automatic to OR Continuous Infusions dextrose 5% lactated [...] | BMI 24.89 kg/m2 | SpO2 96% {EXTENDEDVITALS:62605 Physical Exam Ortho Exam NV exam normal [...] 11/22/121946 Date of Service: 11/22/121944 Status: Signed Therapeutic Assistant: Chele Solorio RN (Registered Nurse) Pt is currently no having any pain and has not used any of the dilaudid PROGRAM COORDINATOR FOR RESIDENCE LIFE. Pt would like to try going straight to oral pain medicine when it is needed. We got an oral pain medicin e in place for when the time comes. PROGRAM COORDINATOR FOR RESIDENCE LIFE is currently unhooked from pt. SUSANNAH Grigsby 1947 Don Quan LMT - 11/22/2012 3:28 PM PDT Progress Notes by MAGUI Carlos at 11/22/121527 Author: MAGUI Carlos Service: (none) Author Type: Massage Therapist Filed: 11/22/121527 Date of Service: 11/22/121527 Status: Signed Therapeutic Assistant: MAGUI Carlos (Massage Therapist) Worked on pt's low back 11/22/12 1500 $$ Massage Therapy Massage Therapy Level 1 Don Grijalva LMT - 11/22/2012 3:27 PM PDT Progress Notes by MAGUI Carlos at 11/22/121526 Author: MAGUI Carlos Service: (none) Author Type: Massage Therapist Filed: 11/22/12 1528 Date of Service: 11/22/121526 Status: Signed Therapeutic Assistant: MAGUI Carlos (Massage Therapist) Worked on pt's low back. onversion Transac tion, Provider Unknown - 11/22/2012 7:42 AM PDTFormatting of this note might be different f rom the original. Progress Notes by Heri Ho RPH at 11/22/12741 Author: Heri Ho RPH Service: (none) Author Type: Pharmacist Filed: 11/22/12741 Date of Service: 11/22/12741 Status: Signed Therapeutic Assistant: Heri Ho RPH (Pharmacist) Clinical Pharmacy Note: Renal Monitoring Marianne Gomez 77 y.o. female Ht Readings from Last 1 Encounters: 11/08/12 1.778 m (5' 10") Wt Readings from Last 1 Encounters: 11/08/12 78.7 kg (173 lb 8 oz) CREATININE Date Value Range Status 11/08/2012 0.70 0.50 - 1.00 mg/dL Final Testing performed at [facility], [address] [place] [address] Creatinine clearance cannot be calculated - Pharmacy [...]
--- OUTSIDE RECORDS SUMMARY | ~2019-01-19 | XMS | Encounter Summary ---
Demographics + + + | Address | [address] | | | [place] [address] | + + + | Home Phone | | + + + | Preferred Language | Unknown | + + + | Marital Status | Single | + + + | Mu-Ism Affiliation | Unknown | + + + [...] Team Providers + +------+ + | Care Income Tax Preparer Name | Role | Phone | + +------+ + PCP | Unavailable | + +------+ + Encounter Details +--------+ + + + + | Date | Type | Department | Care Team | Description | +--------+ + + + + | 01/11/ | Pharmacy | [facility] | | | | 2012 | Visit | [address] | | | | | | [address] | | | | | | [place] [address] | | | | | | [phone] | | | +--------+ + + + [...]
--- OUTSIDE RECORDS SUMMARY | ~2019-01-19 | XMS | Encounter Summary ---
Demographics + + + | Address | [address] | | | [place] [address] | + + + | Home Phone [...] Team Providers + +------+ + | Care Information Systems Consultant Name | Role | Phone | + +------+ + PCP | Unavailable | + +------+ + Encounter Details +--------+ + + + + | Date | Type | Department | Care Team | Description | +--------+ + + + + | 03/03/ | Pharmacy | [facility] | | | | 2013 | Visit | [address] | | | | | | [place] [address] | | | | | | [phone] | | | +--------+ + + + [...]
--- OUTSIDE RECORDS SUMMARY | ~2019-01-19 | XMS | Encounter Summary ---
Demographics + + + | Address | [address] | | | [place] [address] | + + + | Home Phone [...] Team Providers + +------+ + | Care Fork Repairer Name | Role | Phone | + +------+ + PCP | Unavailable | + +------+ + Encounter Details +--------+ + + + + | Date | Type | Department | Care Team | Description | +--------+ + + + + | 10/14/ | Pharmacy | [facility] | | | | 2016 | Visit | [address] | [address] | | | | | | [place] [address] | | | | | | [phone] | | | +--------+ + + + [...]
--- OUTSIDE RECORDS SUMMARY | ~2019-01-19 | XMS | Encounter Summary ---
Demographics + + + | Address | [address] | | | [place] [address] | + + + | Home Phone | | + + + | Preferred Language | Unknown | + + + | Marital Status | | + + + | Sikhism Affiliation | 1041 | + + + | Race | Unknown | + + + | Ethnic Group | Unknown | + + + Author + + + | Author | [facility] | | | and [place] | + + + | Organization | [facility] | | | and [place] | + + + | Address | Unknown | + + + | Phone | Unavailable | + + + Support + + + + + | Name | Relationship | Address | Phone | + + + + + | Catrina Florez | ECON | [place] | | | | | [address] | | + + + + + Care Team Providers + +------+ + | Care Gun Barrel Finisher Name | Role | Phone | [...] | | | | | Spondylosis | [address] | [address] | | | | | without | Phone: | Phone: | | | | | myelopathy | [phone] | [phone] | | | | | or | Fax: | Fax: | | | | | radiculopath | [phone] | [phone] | | | | | y, lumbar [...] + + | 09/09/ | Office | [facility] | Lamont Zavala | Chronic bilateral | | 2016 | Visit | PHYSIATRY [address] | low back pain | | | | [place], | [place], [place] | without sciatica; | | | | [place] [address] | [address] | Spondylosis without | | | | [phone] | | myelopathy or | | | [...] of the procedure you must provide a dray truck driver to take you home. For [...] 05/06/2016. Unfortunately she reports no immediate or detention improvement of her symptoms. She was se [...] (PRESERVISION AREDS 2) CAPS Take by mouth. [place]-3 Fatty Acids (FISH OIL) 1200 MG CAPS [...] during the visit. Lumba r MRI from [facility] shows transitional lumbosacral anatomy with [...] repeat imaging to see how the lesions mold changer time. ASSESSMENT: 1. Chronic bilateral low [...]
--- OUTSIDE RECORDS SUMMARY | ~2019-01-19 | XMS | Encounter Summary ---
Demographics + + + | Address | [address] | | | [place] [address] | + + + | Home Phone | | + + + | Preferred Language | Unknown | + + + | Marital Status | | + + + | Christianity Affiliation | 1041 | + + + | Race | Unknown | + + + | Ethnic Group | Unknown | + + + Author + + + | Author | [facility] | | | and [place] | + + + | Organization | [facility] | | | and [place] | + + + | Address | Unknown | + + + | Phone | Unavailable | + + + Support + + + + + | Name | Relationship | Address | Phone | + + + + + | Catrina Florez | ECON | [place] | | | | | [address] | | + + + + + Care Team Providers + +------+ + | Care Drama Teacher Name | Role | Phone | + +------+ + | Tomas Cai DO | PCP | | + +------+ + Encounter Details +--------+ + + + + | Date | Type | Department | Care Team | Description | +--------+ + + + + | 11/22/ | Hospital | [facility] | Rock Garner MD | | | 2013 - | Encounter | CENTER SURGICAL [address] | [address] | | | [address] | [address] [place], [place] | | | 11/25/ | | [place], [place] | [address] | | | 2012 | | [address] | | | | | | [phone] | | | +--------+ + + + [...] Date of Service: 11/25/12 124 Status: Signed Engineer/Conductor: Rock Garner MD (Physician) [facility] Service: Orthopedic Surgery Discharge Summary Date [...] - TOTAL; Surgeon: Rock Garner MD; Location: [facility] MAIN OR; Servi ce: Orthopedics; Laterality: [...] avoid external rotation beyond 30 degrees Disposition: intermediate Condition: Stable Code Status: Full Code No discharge procedures on file. Follow up: Rock Garner MD [address] [place] [address] Schedule an appointment as soon [...] | | 0 | | | | Uyammel-Rfgkzdvfc-Yo | mouth Daily. | | | | [...] + + + +---------+ + + | [place]-3 Fatty | Take 1 capsule by | [...] Case Management by DEAN Hammond at 11/25/12 5288 Author: DEAN Hammond Service: (none) Author Type: Interceptor Operator Filed: 11/25/12 171 Date of Service: 11/25/121709 Status: Signed Engineer/Conductor: DEAN Hammond (Interceptor Operator) Pt dc'd to [facility] to resume PT/OT/SNR consult. Pt was transported to SNF b y her family. 11/25/12 1600 Discharge Planning Evaluation Living Arrangements Alone Support Systems Children Type of Residence Private residence House type House-1 [place] [facility] Services No Mental Status Oriented Resources Financial concerns No Transportation issues No Patient/Family concerns No Prescription Plan Yes Anticipated Disposition Facility Type [facility] facility Nursing Home Facility Other (comment) Employee Benefits Specialist Name and Phone Number (Pat [phone]) Nursing Unit Adult Unit Nursing Unit onver lennox Cifuentesaction, Provider Unknown - 11/25/2012 10:44 AM PDT Progress Notes by MAGUI Zamudio at 11/25/121043 Author: MAGUI Zamudio Service: (none) Author Type: Massage Therapist Filed: 11/25/121043 Date of Service: 11/25/121043 Status: Signed Engineer/Conductor: MAGUI Zamudio (Massage Therapist) 11/25/121043 Massage Therapy Interventions Locations Back Massage Therapy Technique Effleurage;Deep tissue;Petrissage;Albanian massage;Trigger point Response to treatment Decreased pain;Decreased muscle tension Goals Short Term Goal #1 Decreased muscle tension;Decreased pain;Increase comfort;Increased relax ation Rock Keating - 11/25/2012 8:15 AM PDTFormatting of this note might be different from the origin al. Progress Notes by Rock Garner MD at 11/25/12814 Author: Rock Garner MD Service: (none) Author Type: Physician Filed: 11/25/12818 Date of Service: 11/25/12814 Status: Signed Engineer/Conductor: Rock Garner MD (Physician) [facility] Service: Orthopedic Surgery Progress Note Hospital [...] kg/m2 | SpO2 96% | ? No {EXTENDEDVITALS:31846 Physical Exam Ortho Exam NV exam normal [...] Author: ROSIE Lugo Service: (none) Author Type: Brake Repairer Railroad Filed: 11/24/121826 Date of Service: 11/24/121826 Status: Signed Engineer/Conductor: ROSIE Lugo (Brake Repairer Railroad) 11/24/12 1355 Time Calculation Start Time 1355 Stop Time 1355 Time Calculation (min) 0 min OT Therapy Visit Not available (pt eating lunch) onver lennox Transaction, Provider Unknown - 11/24/2012 5:18 PM PDT Progress Notes by MAGUI Rob at 11/24/121717 Author: MAGUI Rob Service: (none) Author Type: Massage Therapist Filed: 11/24/121717 Date of Service: 11/24/121717 Status: Signed Engineer/Conductor: MAGUI Rob (Massage Therapist) 11/24/121699 Massage Therapy Interventions Locations RLE;LLE;Back;Neck;Shoulder Massage Therapy Technique Effleurage;Petrissage;Albanian massage;Trigger point Response to treatment Decreased pain;Decreased muscle tension Goals Short Term Goal #1 Decreased muscle tension;Decreased pain;Increase comfort;Increased relax ation onver lennox Watson, Cynthia Unknown - 11/24/2012 5:15 PM PDT Case Management by DEAN Hammond at 11/24/121714 Author: DEAN Hammond Service: (none) Author Type: Interceptor Operator Filed: 11/24/121716 Date of Service: 11/24/121714 Status: Signed Engineer/Conductor: DEAN Hammond (Interceptor Operator) Per MD's order for pt to f/u with SNF. CM faxed referral to [facility] for rehab c onsult. CM will continue to provide care as needed and plan for dc. 11/24/121699 Discharge Planning Evaluation Living Arrangements Alone Support Systems Children House type House-1 [place] Home Care Services No Mental Status Oriented Resources Financial concerns No Transportation issues No Patient/Family concerns No Prescription Plan Yes ock Garner - 11/24/2012 8:22 AM PDTFormatting of this note might be different from the origin al. Progress Notes by Rock Garner MD at 11/24/12821 Author: Rock Garner MD Service: (none) Author Type: Physician Filed: 11/24/12824 Date of Service: 11/24/12821 Status: Signed Engineer/Conductor: Rock Garner MD (Physician) [facility] Service: Orthopedic Surgery Progress Note Hospital [...] | BMI 24.89 kg/m2 | SpO2 92% {EXTENDEDVITALS:03721 Physical Exam Ortho Exam NV exam normal [...] (none) Author Type: Occupational Therapist Filed: 11/23/12 1116 Date of Service: 11/23/12 1020 Status: Signed Engineer/Conductor: LARS Glover (Occupational Therapist) 11/23/12 1020 Precautions [...] Home Equipment None Prior Function Level of [place] Independent with functional mobility;Independent with ADLs;Independe nt with IADLs;Driving in community Lives With Alone Receives Help From Family;Friend(s) ADL Assistance Independent Home ADL's Independent 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 KINDAR GloverR/Priyanka 11/23/12 Rock Keating 11/23/2012 8:42 AM PDTFormatting of this note might be different from the origin al. Progress Notes by Rock Garner MD at 11/23/12 0842 Author: Rock Garner MD Service: (none) Author Type: Physician Filed: 11/23/1245 Date of Service: 11/23/12841 Status: Signed Engineer/Conductor: Rock Garner MD (Physician) [facility] Service: Orthopedic Surgery Progress Note Hospital [...] Oral Daily DISCONTD: ceFAZolin 2 g Intravenous Clinical Data Research to [place] Continuous Infusions dextrose 5% lactated [...] | BMI 24.89 kg/m2 | SpO2 96% {EXTENDEDVITALS:09719 Physical Exam Ortho Exam NV exam normal [...] 11/22/121946 Date of Service: 11/22/121944 Status: Signed Engineer/Conductor: Chele Solorio RN (Registered Nurse) Pt is currently no having any pain and has not used any of the dilaudid MANAGEMENT AND BUDGET ANALYST. Pt would like to try going straight to oral pain medicine when it is needed. We got an oral pain medicin e in place for when the time comes. MANAGEMENT AND BUDGET ANALYST is currently unhooked from pt. SUSANNAH Grigsby 1947 Don Quan LMT - 11/22/2012 3:28 PM PDT Progress Notes by MAGUI Carlos at 11/22/121527 Author: MAGUI Carlos Service: (none) Author Type: Massage Therapist Filed: 11/22/121527 Date of Service: 11/22/121527 Status: Signed Engineer/Conductor: MAGUI Carlos (Massage Therapist) Worked on pt's low back 11/22/12 1500 $$ Massage Therapy Massage Therapy Level 1 Don Grijalva LMT - 11/22/2012 3:27 PM PDT Progress Notes by MAGUI Carlos at 11/22/121526 Author: MAGUI Carlos Service: (none) Author Type: Massage Therapist Filed: 11/22/12 1528 Date of Service: 11/22/121526 Status: Signed Engineer/Conductor: MAGUI Carlos (Massage Therapist) Worked on pt's low back. onversion Transac tion, Provider Unknown - 11/22/2012 7:42 AM PDTFormatting of this note might be different f rom the original. Progress Notes by Heri Ho RPH at 11/22/12741 Author: Heri Ho RPH Service: (none) Author Type: Pharmacist Filed: 11/22/12741 Date of Service: 11/22/12741 Status: Signed Engineer/Conductor: Heri Ho RPH (Pharmacist) Clinical Pharmacy Note: Renal Monitoring Marianne Gomez 77 y.o. female Ht Readings from Last 1 Encounters: 11/08/12 1.778 m (5' 10") Wt Readings from Last 1 Encounters: 11/08/12 78.7 kg (173 lb 8 oz) CREATININE Date Value Range Status 11/08/2012 0.70 0.50 - 1.00 mg/dL Final Testing performed at [facility], [address] [place] [address] Creatinine clearance cannot be calculated - Pharmacy [...]
--- OUTSIDE RECORDS SUMMARY | ~2019-01-19 | XMS | Encounter Summary ---
Demographics + + + | Address | [address] | | | [place] [address] | + + + | Home Phone [...] Team Providers + +------+ + | Care Photograph Inspector Name | Role | Phone | + +------+ + PCP | Unavailable | + +------+ + Encounter Details +--------+ + + + + | Date | Type | Department | Care Team | Description | +--------+ + + + + | 07/14/ | Pharmacy | [facility] | | | | 2013 | Visit | [address] | | | | | | [place] [address] | | | | | | [phone] | | | +--------+ + + + [...]
[~2019-01-19 16:34] MED LIST changes: +KEFLEX500 MG PO
[2019-01-19] MEDS ORDERED: OXYCODONE HCL5 MG PO (18:15)
== END 2019-01-19 18:57 | disposition home or self-care (01) ==
LOC: ED 16:34
DX: S42.032A Displaced fracture of lateral end of left clavicle, initial encounter for closed fracture (principal); Z87.891 Personal history of nicotine dependence; Z79.899 Other long term (current) drug therapy; W01.0XXA Fall on same level from slipping, tripping and stumbling without subsequent striking against object, initial encounter
CPT/HCPCS: 73030; 99283-25

== ENCOUNTER 2019-01-22 10:43 | Emergency (ER) | payer MEDICARE ==
[~2019-01-22] VITALS: Ht 177.8 cm; Wt 78.9 kg
--- OUTSIDE RECORDS SUMMARY | ~2019-01-22 | XMS | Encounter Summary ---
Demographics + + + | Address | [address] | | | [place] [address] | + + + | Home Phone | | + + + | Preferred Language | Unknown | + + + | Marital Status | | + + + | Shinto Affiliation | 1041 | + + + | Race | Unknown | + + + | Ethnic Group | Unknown | + + + Author + + + | Author | [facility] | | | and [place] | + + + | Organization | [facility] | | | and [place] | + + + | Address | Unknown | + + + | Phone | Unavailable | + + + Support + + + + + | Name | Relationship | Address | Phone | + + + + + | Catrina Florez | ECON | [place] | | | | | [address] | | + + + + + Care Team Providers + +------+ + | Care Plug And Mold Finisher Name | Role | Phone | + +------+ + | Tomas Cai DO | PCP | | + +------+ + Reason for Visit +--------+ + | Reason | Comments | +--------+ + | Other | | +--------+ + Encounter Details +--------+---------+ + + + | Date | Type | Department | Care Team | Description | +--------+---------+ + + + | 02/09/ | Office | [facility] | Boris Meza PA | DORA on CPAP (Primary | | 2011 | Visit | SLEEP DISORDER [address] | [address] | Dx) | | | | [address] | [place] | | | | | [place] [phone] | [address] | | | | | [phone] | | | +--------+---------+ + + + Social History + +-------+ +--------+------+ | Tobacco Use | Types | Packs/Day | Years | Date | | | | | Used | | + +-------+ +--------+------+ | Never Smoker | | | | | + +-------+ +--------+------+ + +---+---+---+ | Smokeless Tobacco: | | | | | Never Used | | | | + +---+---+---+ + + +---------+ + | Alcohol Use | Drinks/Week | oz/Week | Comments | + + +---------+ + | Yes | 5 Standard drinks | 4.2 | | | | or equivalent | | | + + +---------+ + + + + | Sex Assigned at | Date Recorded | | | | + + + | Not on file | | + + + + + + + | Job Start Date | Occupation | Industry | + + + + | Not on file | Not on file | Not on file | + + + + + + + + | Travel History | Travel Start | Travel End | + + + + + + | No recent travel history available. | + + documented as of this encounter Last Filed Vital Signs + + + + + | Vital Sign | Reading | Time Taken | Comments | + + + + + | Blood Pressure | 126/68 | 02/10/2012 9:39 AM | | | | | PST | | + + + + + | Pulse | 85 | 02/10/2012 9:39 AM | | | | | PST | | + + + + + | Temperature | - | - | | + + + + + | Respiratory Rate | 14 | 02/10/2012 9:39 AM | | | | | PST | | + + + + + | Oxygen Saturation | - | - | | + + + + + | Inhaled Oxygen | - | - | | | Concentration | | | | + + + + + | Weight | 78.3 kg (172 lb 9.6 | 02/10/2012 9:39 AM | | | | oz) | PST | | + + + + + | Height | - | - | | + + + + + | Body Mass Index | 25.49 | 01/13/2012 2:17 PM | | | | | PST | | + + + + + documented in this encounter Progress Notes Boris Meza PA - 02/10/2012 9:40 AM PST Subjective: Patient ID: Marianne Gomez is a 76 y.o. female. HPI last office visit was: 02/04/2012 date of split-night polysomnography: 02/01/2012 AHI: 19.9 RDI: 28.7 O2%: 65% with 6.4 minutes below 88% Machine type: ResMed S9 with nasal obtained from: [facility] [place] pressure is: 5-10 cm 95%: 8.1 cm maxium: 9.9 cm CPAP download shows CPAP useage # nights: 08/04 average usage (all nights): 5:37 average usage (nights used): 5:37 Marianne Zuñiga has had one good night with her CPAP. She says that the other five nights someth ing has gone wrong with the mask or the pressure. She has had some problems getting her mas k to fit properly during the night. Sometimes her attempts to fix any problems she has with the mask are not successful. Her mask is put together improperly today. I have corrected this and have shown her how it is supposed to go together. She feels that the pressure is f ine when she starts the night, but it is too high during the middle of the night. Her mouth is filling up with air, which is very uncomfortable for her. We went through each of the settings on the CPAP, to ensure that there is a good understand ing of how to make changes to temperature, humidity and/or the ramp. She is comfortable wit h the current settings and now feels that she will be able to make adjustments, if necessary . I have discussed the download in detail. This shows that her sleep apnea is well controlle d, with an AHI of 1.3 It also shows that her leaks are well controlled. Review of Systems Objective: Physical Exam Assessment: This is well controlled with CPAP. Her CPAP compliance is going well, but the pressure fee ls too high for her during the middle of the night. Plan: She is to continue with CPAP indefinitely. I have recommended that if she wakes during the night and the pressure is too high that she reset the ramp by turning her CPAP off and back on. I will follow up again in 2 months, sooner prn. At that time we will reassess with all dilan ropiate paperwork. Thirty minutes were spent [id number], with the majority of time spent in counseling. Boris Meza PA-C cc: Dr. Tomas Cai documented in this enco unter Plan of Treatment Not on filedocumented as of this encounter Visit Diagnoses + + | Diagnosis | + + | DORA on CPAP - Primary Obstructive sleep apnea (adult) (pediatric) | + + documented in this encounter"
--- OUTSIDE RECORDS SUMMARY | ~2019-01-22 | XMS | Encounter Summary ---
Demographics + + + | Address | [address] | | | [place] [address] | + + + | Home Phone | | + + + | Preferred Language | Unknown | + + + | Marital Status | Single | + + + | Episcopalian Affiliation | Unknown | + + + | Race | Unknown | + + + | Ethnic Group | Other Race | + + + Author + + + | Author | [facility] | + + + | Organization | [facility] | + + + | Address | Unknown | + + + | Phone | Unavailable | + + + Care Team Providers + +------+ + | Care Brick Wheeler Name | Role | Phone | + +------+ + PCP | Unavailable | + +------+ + Encounter Details +--------+ + + + + | Date | Type | Department | Care Team | Description | +--------+ + + + + | 10/14/ | Pharmacy | [facility] | | | | 2016 | Visit | [address] | | | | | | [address] | | | | | | [place] [address] | | | | | | [phone] | | | +--------+ + + + [...]
--- OUTSIDE RECORDS SUMMARY | ~2019-01-22 | XMS | Encounter Summary ---
Demographics + + + | Address | [address] | | | [place] [address] | + + + | Home Phone | | + + + | Preferred Language | Unknown | + + + | Marital Status | Single | + + + | Protestant Affiliation | Unknown | + + + | Race | Unknown | + + + | Ethnic Group | Other Race | + + + Author + + + | Author | [facility] | + + + | Organization | [facility] | + + + | Address | Unknown | + + + | Phone | Unavailable | + + + Care Team Providers + +------+ + | Care Bibliographic Services Specialist Name | Role | Phone | + +------+ + PCP | Unavailable | + +------+ + Encounter Details +--------+ + + + + | Date | Type | Department | Care Team | Description | +--------+ + + + + | 12/31/ | Pharmacy | [facility] | | | | 2014 | Visit | [address] | | | [address] | | | | | | [place] [address] | | | | | | [phone] | | | +--------+ + + + [...]
--- OUTSIDE RECORDS SUMMARY | ~2019-01-22 | XMS | Encounter Summary ---
Demographics + + + | Address | [address] | | | [place] [address] | + + + | Home Phone | | + + + | Preferred Language | Unknown | + + + | Marital Status | | + + + | Baptist Affiliation | 1041 | + + + | Race | Unknown | + + + | Ethnic Group | Unknown | + + + Author + + + | Author | [facility] | | | and [place] | + + + | Organization | [facility] | | | and [place] | + + + | Address | Unknown | + + + | Phone | Unavailable | + + + Support + + + + + | Name | Relationship | Address | Phone | + + + + + | Catrina Florez | ECON | [place] | | | | | [address] | | + + + + + Care Team Providers + +------+ + | Care Pharmacy Coordinator Name | Role | Phone | + +------+ + | Tomas Cai DO | PCP | | + +------+ + Reason for Visit +--------+ + | Reason | Comments | +--------+ + | Apnea | | +--------+ + Encounter Details +--------+---------+ + + + | Date | Type | Department | Care Team | Description | +--------+---------+ + + + | 04/17/ | Office | [facility] | Boris Meza PA | DORA on CPAP (Primary | | 2015 | Visit | SLEEP DISORDER [address] | [address] | Dx) | | | | [address] | [place] | | | | | [place] [phone] | [address] | | | | | [phone] | | | +--------+---------+ + + + [...] + + + | Blood Pressure | 130/66 | 04/17/2014 11:35 AM | | | | | PST | | + + + + + | Pulse | 62 | 04/17/2014 11:35 AM | | | | | PST | | + + + + + | Temperature | - | - | | + + + + + | Respiratory Rate | 14 | 04/17/2014 11:35 AM | | | | | PST | | + + + + + | Oxygen Saturation | 98% | 04/17/2014 11:35 AM | | | | | PST | | + + + + + | Inhaled Oxygen | - | - | | | Concentration | | | | + + + + + | Weight | 82.1 kg (181 lb) | 04/17/2014 11:35 AM | | | | | PST | | + + + + + | Height | - | - | | + + + + + | Body Mass Index | 26.73 | 01/13/2012 2:17 PM | | | | | PST | | + + + + + documented in this encounter Progress Notes Fina Isaac, Master of Arts - 04/17/2014 11:35 AM PSTFormatting of this note might be di fferent from the original. 04/17/14 1100 [place] Depression Inventory-II Depression Score 7 - Minimal depression Insomnia Severity Index Insomnia Severity Index 0 [place] Sleepiness Scale Sitting and reading 2 Watching TV 1 Sitting, inactive in a public place (e.g. a theatre or a meeting) 0 As a passenger in a car for an hour without a break 0 Lying down to rest in the afternoon when circumstances permit 3 Sitting and talking to someone 0 Sitting quietly after a lunch without alcohol 1 In a car, while stopped for a few minutes in traffic 0 Total score 7 SF-36v2 Score PF 33.88 RP 37.26 BP 33.38 GH 55.32 VT 48.97 SF 56.85 RE 55.88 MH 58.46 PCS 31.67 MCS 65.07 Boris Felix PA - 10:56 AM PST Subjective: Patient ID: Marianne Gomez is a 78 y.o. female. HPI last office visit was: 04/11/2013 date of split-night polysomnography: 02/01/2012 AHI: 19.9 RDI: 28.7 O2%: 65% with 6.4 minutes below 88% Machine type: ResMed S9 with nasal pillows obtained from: [facility] [place] pressure is: 5-10 cm 95%: 7.4 cm maxium: 8.5 cm CPAP download shows CPAP useage # nights: 363/365 % of nights >4 hours: 99% average usage (all nights): 7:49 average usage (nights used): 7:52 AHI: 1.4 Marianne Zuñiga comes in for CPAP compliance. She is wearing it on a nightly basis for the durat ion of the night. She does not consider sleeping without it. She does not have any questio ns or concerns about her CPAP or her equipment. I have discussed the download and results of the paperwork in detail. She is unchanged or improved in nearly all categories, with no areas of concern. The download shows that her sl eep apnea is well controlled, with an AHI of 1.4. It also shows that her leaks are well con trolled. Review of Systems Objective: Physical Exam Assessment: Problem #1: OBSTRUCTIVE SLEEP APNEA (327.23) This is well controlled with CPAP. Her CPAP compliance is going well. Plan: She is to continue with CPAP indefinitely. I have recommended that she touch base with her medical supplier twice per year to ensure that her equipment is satisfactory. I will follow up again in 2 years, sooner prn. At that time we will reassess with all appr opiate paperwork. Fifteen minutes were spent [id number], with the majority of time spent in [...]
--- OUTSIDE RECORDS SUMMARY | ~2019-01-22 | XMS | Encounter Summary ---
Demographics + + + | Address | [address] | | | [place] [address] | + + + | Home Phone | | + + + | Preferred Language | Unknown | + + + | Marital Status | Single | + + + | Mosque Affiliation | Unknown | + + + | Race | Unknown | + + + | Ethnic Group | Other Race | + + + Author + + + | Author | [facility] | + + + | Organization | [facility] | + + + | Address | Unknown | + + + | Phone | Unavailable | + + + Care Team Providers + +------+ + | Care Observer Electrical Prospecting Name | Role | Phone | + +------+ + PCP | Unavailable | + +------+ + Encounter Details +--------+ + + + + | Date | Type | Department | Care Team | Description | +--------+ + + + + | 07/01/ | Pharmacy | [facility] | | | | 2016 | Visit | [address] | [address] | | [address] | | | | | | [place] [address] | | | | | | [phone] | | | +--------+ + + + [...]
--- OUTSIDE RECORDS SUMMARY | ~2019-01-22 | XMS | Encounter Summary ---
Demographics + + + | Address | [address] | | | [place] [address] | + + + | Home Phone | | + + + | Preferred Language | Unknown | + + + | Marital Status | Single | + + + | Jewish Affiliation | Unknown | + + + | Race | Unknown | + + + | Ethnic Group | Other Race | + + + Author + + + | Author | [facility] | + + + | Organization | [facility] | + + + | Address | Unknown | + + + | Phone | Unavailable | + + + Care Team Providers + +------+ + | Care Recruitment Internship Name | Role | Phone | + +------+ + PCP | Unavailable | + +------+ + Encounter Details +--------+ + + + + | Date | Type | Department | Care Team | Description | +--------+ + + + + | 04/04/ | Pharmacy | [facility] | | | | 2014 | Visit | [address] | [address] | | | | | | [place] [address] | | | | | | [phone] | | | +--------+ + + + [...]
--- OUTSIDE RECORDS SUMMARY | ~2019-01-22 | XMS | Encounter Summary ---
Demographics + + + | Address | [address] | | | [place] [address] | + + + | Home Phone | | + + + | Preferred Language | Unknown | + + + | Marital Status | | + + + | Moravian Affiliation | 1041 | + + + | Race | Unknown | + + + | Ethnic Group | Unknown | + + + Author + + + | Author | [facility] | | | and [place] | + + + | Organization | [facility] | | | and [place] | + + + | Address | Unknown | + + + | Phone | Unavailable | + + + Support + + + + + | Name | Relationship | Address | Phone | + + + + + | Catrina Florez | ECON | [place] | | | | | [address] | | + + + + + Care Team Providers + +------+ + | Care Supervisor Welding Equipment Repairer Name | Role | Phone | + +------+ + | Tomas Cai DO | PCP | | + +------+ + Reason for Visit +--------+ + | Reason | Comments | +--------+ + | Apnea | | +--------+ + Encounter Details +--------+---------+ + + + | Date | Type | Department | Care Team | Description | +--------+---------+ + + + | 01/12/ | Office | [facility] | Zac Wells | Obstructive sleep | | 2011 | Visit | SLEEP DISORDER [address] | MD [address] | apnea (adult) | | | | [address] [place] | [address] [place] | (pediatric) (Primary | | | | [place] [address] | [place] [address] | Dx) | | | | [phone] | [phone] | | | | | | | | +--------+---------+ + + + [...] + + + | Blood Pressure | 138/74 | 01/13/2012 2:17 PM | | | | | PST | | + + + + + | Pulse | 60 | 01/13/2012 2:17 PM | | | | | PST | | + + + + + | Temperature | - | - | | + + + + + | Respiratory Rate | 14 | 01/13/2012 2:17 PM | | | | | PST | | + + + + + | Oxygen Saturation | - | - | | + + + + + | Inhaled Oxygen | - | - | | | Concentration | | | | + + + + + | Weight | 80.7 kg (177 lb 14.4 | 01/13/2012 2:17 PM | | | | oz) | PST | | + + + + + | Height | 175.3 cm (5' 9") | 01/13/2012 2:17 PM | | | | | PST | | + + + + + | Body Mass Index | 26.27 | 01/13/2012 2:17 PM | | | | | PST | | + + + + + documented in this encounter Progress Notes Fina Isaac - 01/13/2012 3:22 PM PST 01/13/12 1400 Fragoso Depression Inventory-II Depression Score 2 Insomnia Severity Index Insomnia Severity Index 11 [place] Sleepiness Scale Sitting and reading 3 Watching TV 3 Sitting, inactive in a public place (e.g. a theatre or a meeting) 1 As a passenger in a car for an hour without a break 2 Lying down to rest in the afternoon when circumstances permit 3 Sitting and talking to someone 0 Sitting quietly after a lunch without alcohol 0 In a car, while stopped for a few minutes in traffic 0 Total score 12 SF-36v2 Score PF 50.72 RP 47.06 BP 37.18 GH 41.02 VT 39.6 SF 56.85 RE 55.88 MH 50.01 PCS 41.48 MCS 53.53 Orthostatic VS BP standing 148/80 mmHg HR standing 60 imon, Zac Billy Jr., MD - 01/13/2012 2:39 PM PSTFormatting of this note might be different from the origi nal. [facility] [place] [address] Ref: Piero Garcia, * CC: Chief Complaint Patient presents with Apnea History of the Present Illness:Bedtime is typically about 11:30pm and rise time is about 6: 30 with a radio. It is easy to awaken but she doesn't always feel well rested. On weekends s he will sleep in until 8am. She estimates a latency to sleep onset of about 15 minutes. She has nocturia once a night and she gets back to sleep easily. She denies night sweats. She de nies nocturnal heartburn. She does always awaken with a dry mouth and nasal congestion. She denies morning headaches. She dreams in her sleep but not immediately. Her (who in ) told her that sh e snored but never told her that she seemed to act out dreams in her sleep. She doesn't walk in her sleep. She has had a couple of episodes of sleep paralysis in life. She occasionally has a problem with pain in her left leg at night which can occasionally ke ep her from sleeping. She also gets foot cramps at night. She doesn't have a restless feelin g in her legs at night. She is known to snore loudly and she has done this for many years. She has awakened herself with her snoring and she has awakened a couple of times gasping for air and short of breath . Her daughter shared a room with her on vacation and she noticed that the patient snored an d stopped breathing at night. In the daytime the patient can fall asleep at the drop of a hat. She doesn't fall asleep dr ochoa. She doesn't fall asleep at work. She does fall asleep reading and watching TV. She de nies cataplexy. She drinks 8 cups of coffee a day. She consumes no other sources of caffeine. She drinks he r consumes her last cup of coffee as late as 8pm. Past Medical History: has a past medical history of Pneumonia (1950); Urinary incontinence ; Osteopenia; and HBP (high blood pressure). has past surgical history that includes Tonsillectomy and adenoidectomy (1951) and Wrist f racture surgery (1994). No Known Allergies Current Outpatient Prescriptions Medication Sig Dispense Refill amLODIPine (NORVASC) 5 mg tablet Take 5 mg by mouth Daily. meloxicam (MOBIC) 15 mg tablet Take 15 mg by mouth Daily. Hzivazs-Ospwvgimr-Nzfkpdc D (CITRACAL CALCIUM+D) 600-40-500 MG-MG-UNIT TB24 Take 1 tabl et by mouth Daily. oxybutynin (DITROPAN XL) 15 MG 24 hr tablet Take 15 mg by mouth Daily. Multiple Vitamins-Minerals (CENTRA-WANDER) TABS Take 1 tablet by mouth Daily. aspirin (KOMAL ASPIRIN) 325 mg tablet Take 325 mg by mouth Daily. Glucosamine-Chondroitin (GLUCOSAMINE CHONDR COMPLEX) 500-400 MG CAPS Take 1 tablet by m outh Daily. Fleetwood-3 Fatty Acids (RA FISH OIL EXTRA STRENGTH) 870 MG CAPS Take 1 capsule by mouth Da rodrigo. Family Medical History: family history includes Heart disease in her father and mother; Hig h blood pressure in her father and mother; and Other (See Comment) in her sister. indicated that her mother is . She indicated that her father is . She indic ated that only one of her two sisters is alive. She indicated that her brother is alive. She indicated that her daughter is alive. She indicated that her son is alive. Social History: reports that she has never smoked. She has never used smokeless tobacco. S he reports that she drinks about 2.5 ounces of alcohol per week. She reports that she does n ot use illicit drugs. Review of Systems: Constitutional: Denies unexplained fevers, chills, sweats, significant recent weight tamayo ge. Eyes:Denies sudden loss of vision, diplopia, blurred vision. ENT: Denies loss of hearing, vertigo, nasal or sinus congestion, bleeding gums. Some diff iculty swallowing food occasionally (bread, cake). She wears dentures (complete uppers and p artial lowers). Card:Denies exertional substernal chest heaviness, leg pain. Denies palpitations, orthopn ea, ankle edema, presyncope. Resp: Denies cough, wheezing, asthma, hemoptysis GI: Denies nausea, vomiting, abdominal pain, diarrhea, constipation, hematochezia. : Denies dysuria, pyuria, hematuria, frequency. Positive for incontinence and nocturia. MS: Bilateral shoulder discomfort. She can't raise her arms above the horizontal. Attribu pradeep to arthritis. Neuro: Denies seizures, strokes, loss of consciousness, dysesthesias or paresthesias, syn cope, concussions. Psych: Denies: depression, anxiety, panic, past history physical or sexual abuse, severe traumatic experiences Endocrine: Denies heat or cold intolerance Heme: Denies easy bruising or prolonged bleeding. No history of transfusions Allergic/Immunologic: Denies seasonal allergies PE: BP 138/74 | Pulse 60 | Resp 14 | Ht 1.753 m (5' 9") | Wt 80.695 kg (177 lb 14.4 oz) | B SC 26.27 kg/m2 Gen: healthy, alert and not in acute distress HEENT:Head: Normocephalic, no lesions, without obvious abnormality. Eye: Normal external eye, conjunctiva, lids cornea, FABRICIO. Nose: Normal external nose, mucus membranes and septum. Pharynx: Dental Hygiene adequate. Normal buccal mucosa. Normal pharynx. False upper teeth. Shallow and narrow posterior oropharynx. Pulm: breath sounds equal and symmetric Card: regular rate and rhythm, S1, S2 normal, no murmur, click, rub or gallop GI: soft : Not examined Rectal: Not Examined Ext: peripheral pulses normal, no pedal edema, no clubbing or cyanosis. Can't lift right a rm above the horizontal because of pain. Skin:not examined Neuro:Oriented x 3. Cranial 2-12 intact. Gait and station or normal. Psych:age appropriate and casually dressedoriented to time, place and person, mood and aff ect are within normal limits, pt is a good historian; no memory problems were noted Heme: No cervical adenopathy Assessment: I suspect very strongly that this patient has clinically significant DORA. I hav e discussed in detail the pathophysiology of Obstructive Sleep Apnea with the patient. I've discussed that during NREM sleep the skeletal muscles relax and in REM sleep the skeletal mu scles are paralyzed. The muscles that support the back of the throat (the tongue in particul ar) also relax during NREM sleep and are paralyzed in REM sleep and when this occurs, the ba ck of the throat collapses some. In some patients with a smaller back of the throat, this ca n result in obstruction to the flow of air. This is fundamentally what occurs in DORA. This c an cause repetitive obstruction to the flow of air all night long cause a person with DORA to awaken repeatedly at night to "open" the back of the throat. If airflow is significantly re stricted, blood oxygen levels can fall. The combination of the repetitive awakenings at nigh t and low oxygen levels lead to numerous other physiologic abnormalities which can result in nocturia, nocturnal heartburn, night sweats, morning dry mouth, morning headache, and dayti me fatigue/sleepiness. Additionally, DORA can cause hypertension and it dramatically increase s the risk of heart disease, heart attack, and stroke. It may play a causative role in obesi ty and AODM. Untreated DORA also dramatically increases the risk of fall asleep car accidents . Treatment can help with all of these issues. The various forms of treatment of DORA were discussed with the patient including 1) Conserva tive therapy which typically includes weight loss, avoidance of sleep deprivation, avoidance of alcohol, avoidance of sedative medications, avoidance of smoking, and positional therapy (non-supine sleeping); 2) Positive Airway Pressure therapy (which is effective in the vast majority of patients but compliance can be an issue); 3) Dental Appliance Therapy (which is effective for some patients, typically with mild DORA, but compliance is typically good) - h owever because she has no upper teeth she really isn't a candidate for this therapy.; 4) Exp iratory Positive Airway Pressure - which involves passively increasing EPAP pressures applyi ng a "one-way" valve type device (that looks like a "bandaid") over the nares at night which can be effective for very mild DORA; and 5) Surgical intervention - including Phase I surger y (which typically involves T&A, UPPP, Genioglossus Advancement, Hyoid Suspension) and Phase II surgery (Bimandibular-Maxillary Facial Advancement). The surgical solution to DORA is com plicated and typically involves several operations. Basically CPAP therapy is the best for t his patient. Because she is otherwise healthy and doesn't have significant complicating serious comorbid disorders, I think that she is a good candidate for a home screening study rather than full PSG. Plan: Home, unattended, multiparameter, sleep apnea screening study with f/u thereafter. Today, 60 minutes was spent face to face with the patient; the majority of time was spent tamica gilliam. documented in th is encounter Plan of Treatment Not on filedocumented as of this encounter Visit Diagnoses + + | Diagnosis | + + | Obstructive sleep apnea (adult) (pediatric) - Primary | + + documented in this encounter
--- OUTSIDE RECORDS SUMMARY | ~2019-01-22 | XMS | Encounter Summary ---
Demographics + + + | Address | [address] | | | [place] [address] | + + + | Home Phone | | + + + | Preferred Language | Unknown | + + + | Marital Status | Single | + + + | Yazidism Affiliation | Unknown | + + + | Race | Unknown | + + + | Ethnic Group | Other Race | + + + Author + + + | Author | [facility] | + + + | Organization | [facility] | + + + | Address | Unknown | + + + | Phone | Unavailable | + + + Care Team Providers + +------+ + | Care Rodeo Clown Name | Role | Phone | + +------+ + PCP | Unavailable | + +------+ + Encounter Details +--------+ + + + + | Date | Type | Department | Care Team | Description | +--------+ + + + + | 10/31/ | Pharmacy | [facility] | | | | 2012 | Visit | [address] | | | | | | [address] | | | | | | [place] [address] | | | | | | [phone] | | | +--------+ + + + [...]
--- OUTSIDE RECORDS SUMMARY | ~2019-01-22 | XMS | Encounter Summary ---
Demographics + + + | Address | [address] | | | [place] [address] | + + + | Home Phone | | + + + | Preferred Language | Unknown | + + + | Marital Status | | + + + | Zoroastrianism Affiliation | 1041 | + + + | Race | Unknown | + + + | Ethnic Group | Unknown | + + + Author + + + | Author | [facility] | | | and [place] | + + + | Organization | [facility] | | | and [place] | + + + | Address | Unknown | + + + | Phone | Unavailable | + + + Support + + + + + | Name | Relationship | Address | Phone | + + + + + | Catrina Florez | ECON | [place] | | | | | [address] | | + + + + + Care Team Providers + +------+ + | Care Manager Product Management Name | Role | Phone | + +------+ + | Tomas Cai DO | PCP | | + +------+ + Reason for Visit + + + | Reason | Comments | + + + | CPAP Follow Up | | + + + Evaluate & Treat (Routine) +--------+--------+ + + + + | Status | Reason | Specialty | Diagnoses / | Referred By | Referred To | | | | | Procedures | Contact | Contact | +--------+--------+ + + + + | Closed | | Physician | Diagnoses | Ayala, | Boris Meza | | | | Graphotype Operator / | Obstructive | DO Tomas | D, PA [address] | | | | Sleep | sleep apnea | [address] | [address] | | | | Medicine | (adult) | Florenc[address] [place] | [place], | | | | | (pediatric) | [address] | [place] [address] | | | | | 2 YR DIVINA | [place], | Phone: | | | | | [address] | [place] | [phone] | | | | | Procedures | [address] | Fax: | | | | | OFFICE | Phone: | [phone] | | | | | VISIT | [phone] | | | | | | EXTENDED | Fax: | | | | | | | [phone] | | +--------+--------+ + + + + Encounter Details +--------+---------+ + + + | Date | Type | Department | Care Team | Description | +--------+---------+ + + + | 06/09/ | Office | [facility] | Boris Meza PA | DORA on CPAP (Primary | | 2019 | Visit | SLEEP DISORDER [address] | [address] | Dx) | | | | [address] [place] | [place] | | | | | [place] [address] | [address] | | | | | [phone] | | | +--------+---------+ + + + Social History + +-------+ +--------+ + | Tobacco Use | Types | Packs/Day | Years | Date | | | | | Used | | + +-------+ +--------+ + | Former Smoker | | | 25 | Quit: 03/01/1975 | + +-------+ +--------+ + + +---+---+---+ | Smokeless Tobacco: | | | | | Never Used | | | | + +---+---+---+ + + +---------+ + | Alcohol Use | Drinks/Week | oz/Week | Comments | + + +---------+ + | Yes | 5 Standard drinks | 5.0 | | | | or equivalent | [...] + + + | Blood Pressure | 140/70 | 06/09/2018 9:59 AM | | | | | PDT | | + + + + + | Pulse | 71 | 06/09/2018 9:59 AM | | | | | PDT | | + + + + + | Temperature | - | - | | + + + + + | Respiratory Rate | 16 | 06/09/2018 9:59 AM | | | | | PDT | | + + + + + | Oxygen Saturation | 98% | 06/09/2018 9:59 AM | | | | | PDT | | + + + + + | Inhaled Oxygen | - | - | | | Concentration | | | | + + + + + | Weight | 81.2 kg (179 lb 0.2 | 06/09/2018 9:59 AM | | | | oz) | PDT | | + + + + + | Height | - | - | | + + + + + | Body Mass Index | 25.69 | 05/13/2017 8:49 AM | | | | | PDT | | + + + + + documented in this encounter Progress Notes Boris Meza PA - 06/09/2018 10:00 AM PDT Subjective: Patient ID: Marianne Gomez is a 83 y.o. female. HPI last office visit: 06/11/2016 date of split-night polysomnography: 02/01/2012 AHI: 19.9 RDI: 28.7 O2%: 65% with 6.4 minutes below 88% Machine type: ResMed S9 Mask type: nasal pillows DME: [facility] [place] pressure: 5-10 cm Median: 5.8 cm 95%: 7.4 cm maxium: 8.6 cm Nights using CPAP: 363/365 % of nights >4 hours: 98% average usage (all nights): 7:49 average usage (nights used): 7:51 AHI: 1.1 Marianne Zuñiga comes in for CPAP compliance. She is wearing it on a nightly basis for the dura tion of the night. Her CPAP has become a regular part of her sleep routine. She does not consider sleeping without it. She is due for a new machine, but feels that her S9 is still working well for her. We discussed when she is able to replace her equipment. We also dis cussed the recommended cleaning schedule for her equipment. She does not have any questions or concerns. I have discussed the download in detail. The download shows that her sleep apnea is contro lled, with an AHI of 1.1. It also shows that her leaks are controlled. BP 140/70 | Pulse 71 | Resp 16 | Wt 81.2 kg (179 lb 0.2 oz) | SpO2 98% | BMI 25.69 kg/ m Review of Systems Objective: Physical Exam Assessment: Problem #1: OBSTRUCTIVE SLEEP APNEA ([id number]) This is controlled with CPAP. Her CPAP usage is going well. Plan: 1. She is to continue with CPAP indefinitely. 2. I have recommended that she touch base with her medical supplier twice per year to ensu re that her equipment is satisfactory. I will follow up again in 2 years, sooner prn. Fifteen minutes were spent [id number], wi th the majority of time spent in counseling. Boris Meza PA-C cc: Tomas Cai MD documented in this enco unter Plan of Treatment Not on filedocumented as of this encounter Visit Diagnoses + + | Diagnosis | + + | DORA on CPAP - Primary Obstructive sleep apnea (adult) (pediatric) | + + documented in this encounter"
--- OUTSIDE RECORDS SUMMARY | ~2019-01-22 | XMS | Encounter Summary ---
Demographics + + + | Address | [address] | | | [place] [address] | + + + | Home Phone | | + + + | Preferred Language | Unknown | + + + | Marital Status | Single | + + + | Buddhism Affiliation | Unknown | + + + | Race | Unknown | + + + | Ethnic Group | Other Race | + + + Author + + + | Author | [facility] | + + + | Organization | [facility] | + + + | Address | Unknown | + + + | Phone | Unavailable | + + + Care Team Providers + +------+ + | Care National Van Truck Driver Name | Role | Phone | + +------+ + PCP | Unavailable | + +------+ + Encounter Details +--------+ + + + + | Date | Type | Department | Care Team | Description | +--------+ + + + + | 09/30/ | Pharmacy | [facility] | | | | 2015 | Visit | [address] | | | | | | [address] | | | | | | [place] [address] | | | | | | [phone] | | | +--------+ + + + [...]
--- OUTSIDE RECORDS SUMMARY | ~2019-01-22 | XMS | Encounter Summary ---
Demographics + + + | Address | [address] | | | [place] [address] | + + + | Home Phone | | + + + | Preferred Language | Unknown | + + + | Marital Status | Single | + + + | Baptist Affiliation | Unknown | + + + | Race | Unknown | + + + | Ethnic Group | Other Race | + + + Author + + + | Author | [facility] | + + + | Organization | [facility] | + + + | Address | Unknown | + + + | Phone | Unavailable | + + + Care Team Providers + +------+ + | Care Zoo Veterinarian Name | Role | Phone | + +------+ + PCP | Unavailable | + +------+ + Encounter Details +--------+ + + + + | Date | Type | Department | Care Team | Description | +--------+ + + + + | 04/02/ | Pharmacy | [facility] | | | | 2015 | Visit | [address] | [address] | | | | | | [place] [address] | | | | | | [phone] | | | +--------+ + + + [...]
--- OUTSIDE RECORDS SUMMARY | ~2019-01-22 | XMS | Clinical Summary ---
Demographics + + + | Address | [address] | | | [place] [address] | + + + | Home Phone | | + + + | Preferred Language | Unknown | + + + | Marital Status | | + + + | Anabaptist Affiliation | 1041 | + + + | Race | Unknown | + + + | Ethnic Group | Unknown | + + + Author + + + | Author | [facility] | | | and [place] | + + + | Organization | [facility] | | | and [place] | + + + | Address | Unknown | + + + | Phone | Unavailable | + + + Support + + + + + | Name | Relationship | Address | Phone | + + + + + | Catrian Florez | ECON | [place] | | | | | [address] | | + + + + + Care Team Providers + +------+ + | Care Medical Education Manager Name | Role | Phone | + +------+ + | Tomas Cai DO | PCP | | + +------+ + Allergies No Known Allergies Medications + + + +---------+------+------+-------+ | Medication | Sig | Dispensed | Refills | Star | End | Statu | | | | | | t | Date | s | | | | | | Date | | | + + + +---------+------+------+-------+ | oxybutynin | Take 15 mg by mouth | | 0 | | | Activ | | (DITROPAN XL) 15 MG | Daily. | | | | | e | | 24 hr tablet | | | | | | | + + + +---------+------+------+-------+ | UNCODED | Wear at all times | 1 | 0 | 12/0 | | Activ | | MEDICATIONIndication | while sleeping. | Device | | 6/20 | | e | | s: DORA (obstructive | | | | 12 | | | | sleep apnea) | | | | | | | + + + +---------+------+------+-------+ | UNCODED | Diagnosis: | 1 | 0 | 12/2 | | Activ | | MEDICATIONIndication | Obstructive Sleep | Device | | 6/20 | | e | | s: Obstructive sleep | ApneaICD-9: | | | 12 | | | | apnea (adult) | 327.23Length of | | | | | | | (pediatric) | Need: 99 Months | | | | | | + + + +---------+------+------+-------+ +---+ + | | Additional | | | informationPatient | | | taking differently: | | | Diagnosis: | | | Obstructive Sleep | | | ApneaICD-9: | | | 327.23Length of | | | Need: 99 Months, | | | Reported on 04/30/2016 | | | 3:04 PM | +---+ + + + +--------+---+------+---+-------+ | lisinopril | Take 20 mg by mouth | | 0 | | | Activ | | (PRINIVIL, ZESTRIL) | Daily. | | | | | e | | 20 mg tablet | | | | | | | + + +--------+---+------+---+-------+ | UNCODED MEDICATION | Diagnosis: | 1 | 0 | 02/1 | | Activ | | | Obstructive Sleep | Device | | 03/20 | | e | | | ApneaICD-9: | | | 14 | | | | | 327.23Length of | | | | | | | | Need: 99 Months | | | | | | + + +--------+---+------+---+-------+ | [place]-3 Fatty | Take 1,200 mg by | | 0 | | | Activ | | Acids (FISH OIL) | mouth Daily. | | | | | e | | 1200 MG CAPS | | | | | | | + + +--------+---+------+---+-------+ | Multiple | Take by mouth. | | 0 | | | Activ | | Vitamins-Minerals | | | | | | e | | (PRESERVISION AREDS | | | | | | | | 2) CAPS | | | | | | | + + +--------+---+------+---+-------+ | cholecalciferol | Take 1,000 Units by | | 0 | | | Activ | | (VITAMIN D-3) 1,000 | mouth Daily. | | | | | e | | units capsule | | | | | | | + + +--------+---+------+---+-------+ | oxyCODONE | Take 5 mg by mouth | | 0 | | | Activ | | (ROXICODONE) 5 mg | every 4 hours as | | | | | e | | tablet | needed for Pain. | | | | | | + + +--------+---+------+---+-------+ | melatonin 5 mg | Take 5 mg by mouth | | 0 | | | Activ | | tablet | nightly. | | | | | e | + + +--------+---+------+---+-------+ | gabapentin | Take 100 mg by mouth | | 0 | | | Activ | | (NEURONTIN) 100 mg | 3 times daily. | | | | | e | | capsule | | | | | | | + + +--------+---+------+---+-------+ | | Take 12.5 mg by | | 0 | | | Activ | | hydroCHLOROthiazide | mouth Daily. | | | | | e | | (HYDRODIURIL) 12.5 | | | | | | | | MG tablet | | | | | | | + + +--------+---+------+---+-------+ | | | | 0 | 04/0 | | Activ | | lisinopril-hydrochlo | | | | 9/20 | | e | | rothiazide | | | | 19 | | | | (PRINZIDE,ZESTORETIC | | | | | | | | ) 20-25 MG per | | | | | | | | tablet | | | | | | | + + +--------+---+------+---+-------+ | ciprofloxacin | TK 1 T PO BID | | 0 | 02/0 | | Activ | | (CIPRO) 250 mg | | | | 3/20 | | e | | tablet | | | | 19 | | | + + +--------+---+------+---+-------+ | etodolac (LODINE) | | | 0 | 02/0 | | Activ | | 400 mg tablet | | | | 6/20 | | e | | | | | | 19 | | | + + +--------+---+------+---+-------+ | oxybutynin | oxybutynin chloride | | 0 | | | Activ | | (DITROPAN XL) 15 MG | ER 15 mg | | | | | e | | 24 hr tablet | tablet,extended | | | | | | | | release 24 hr | | | | | | + + +--------+---+------+---+-------+ Active Problems + + + | Problem | Noted Date | + + + | Facet arthritis of lumbar region | 05/13/2017 | + + + | Lumbar radiculopathy | 09/09/2016 | + + + | Spondylosis without myelopathy or radiculopathy, lumbar region | 09/09/2016 | + + + | Chronic left sacroiliac pain | 04/30/2016 | + + + | Chronic right-sided low back pain without sciatica | 10/02/2015 | + + + | Obstructive sleep apnea (adult) (pediatric) | 01/13/2012 | + + + + + | Overview: ICD-10 Record update | + + + +---+ | DORA (obstructive sleep apnea) | | + +---+ + + | Overview: AHI 19.9 with O2 desat to 65% | + + Family History + + +------+ + | Medical History | Relation | Name | Comments | + + +------+ + | Heart disease | Father | | | + + +------+ + | High blood pressure | Father | | | + + +------+ + | Heart disease | Mother | | | + + +------+ + | High blood pressure | Mother | | | + + +------+ + | Other (see comment) | Sister | | snores mildly | + + +------+ + + +------+ + + | Relation | Name | Status | Comments | + +------+ + + | Brother | | Alive | | + +------+ + + | Daughter | | Alive | HTN | + +------+ + + | Father | | | of possible heart disease. | | | | (Age | | | | | 89) | | + +------+ + + | Mother | | | Kidney failure | | | | (Age | | | | | 89) | | + +------+ + + | Sister | | | Myeldysplasia and myelofibrosis | | | | (Age | | | | | 71) | | + +------+ + + | Sister | | Alive | | + +------+ + + | Son | | Alive | asthma | + +------+ + + Social History + +-------+ +--------+ [...] recent travel history available. | + + Last Filed Vital Signs + [...] Height | 177.8 cm (5' 10") | 05/13/2017 8:49 AM | | | | | PDT | | + + + + + | Body Mass Index | 25.69 | 05/13/2017 8:49 AM | | | | | PDT | | + + + + + Plan of Treatment + + + + + | Health Maintenance | Due Date | Last Done | Comments | + + + + + | Vaccine: | | | | | Pneumococcal 65+ (1 | 0 | | | | of 2 - PCV13) | | | | + + + + + | Vaccine: Zoster (2 | | 10/12/2006, 03/01/2006 | | | of 3) | 3 | | | + + + + + | Adult Annual | | | | | Wellness Visit | 5 | | | + + + + + | Vaccine: Influenza | | 11/19/2017, 01/08/2017, | | | (#1) | 9 | 03/01/2012, Additional history | | | | | exists | | + + + + + | Vaccine: | | 12/08/2011 | | | Dtap/Tdap/Td (2 - | 2 | | | | Td) | | | | + + + + + Implants + +------+------+ +--------+--------+--------+ | Implanted | Type | Area | Manufacture | Device | Shelf | Model | | | | | r | | Expira | / | | | | | | Identi | tion | Serial | | | | | | fier | Date | / Lot | + +------+------+ +--------+--------+--------+ | Global Standard | | | | | 09/27/ | [id number] | | StemImplanted: Qty: 1 on | | | | | 2022 | 4-050 | | 11/22/2012 | | | | | | /[id number] | | | | | | | | 4050 | | | | | | | | /[id number] | | | | | | | | 2 | + +------+------+ +--------+--------+--------+ | Global [place] Peg | | | | | 05/28/ | 113-42 | | GlenoidImplanted: Qty: 1 on | | | | | 2018 | -026 | | 11/22/2012 | | | | | | /[id number] | | | | | | | | 026 | | | | | | | | /[id number] | | | | | | | | 7 | + +------+------+ +--------+--------+--------+ | Global Eccentric | | | | | 06/28/ | [id number] | | HeadImplanted: Qty: 1 on | | | | | 2022 | 2-110 | | 11/22/2012 | | | | | | /[id number] | | | | | | | | 2110 | | | | | | | | /[id number] | | | | | | | | 1412 | + +------+------+ +--------+--------+--------+ Results Not on filefrom Last 3 Months Insurance + +--------+ +--------+-------+---------+--------+ | Payer | Benefi | Subscriber | Effect | Phone | Address | Type | | | t Plan | ID | colin | | | | | | / | | Dates | | | | | | Group | | | | | | + +--------+ +--------+-------+---------+--------+ | [employer] | [employer] | [id number] | 03/01/19 | | | Medica | | | HEALTH | | 18-Pre | | | re | | | MDCR | | sent | | | | + +--------+ +--------+-------+---------+--------+ + +--------+ +--------+ + + | Guarantor Name | Accoun | Relation to | Date | Phone | Billing Address | | | t Type | Patient | of | | | | | | | | | | + +--------+ +--------+ + + | Marianne Gomez | Person | Self [birth year] | [address] | | | al/Fam | | 1936 | [phone] | | | [place] | | | [address] (Home) | [place] [address] | + +--------+ +--------+ + + Advance Directives + + + + + | Type | Date Recorded | Patient | Explanation | | | | Floor Clerk | | + + + + + | Power of | | | | | Spray Rig Operator | | | | + + + + + | Advance | | | | | Directive | | | | + + + + +
--- OUTSIDE RECORDS SUMMARY | ~2019-01-22 | XMS | Encounter Summary ---
Demographics + + + | Address | [address] | | | [place] [address] | + + + | Home Phone | | + + + | Preferred Language | Unknown | + + + | Marital Status | Single | + + + | Amish Affiliation | Unknown | + + + | Race | Unknown | + + + | Ethnic Group | Other Race | + + + Author + + + | Author | [facility] | + + + | Organization | [facility] | + + + | Address | Unknown | + + + | Phone | Unavailable | + + + Care Team Providers + +------+ + | Care Wallpaper Printer Helper Name | Role | Phone | + +------+ + PCP | Unavailable | + +------+ + Encounter Details +--------+ + + + + | Date | Type | Department | Care Team | Description | +--------+ + + + + | 04/01/ | Pharmacy | [facility] | | | | 2015 | Visit | [address] | | | | | | [address] | | | | | | [place] [address] | | | | | | [phone] | | | +--------+ + + + [...]
--- OUTSIDE RECORDS SUMMARY | ~2019-01-22 | XMS | Encounter Summary ---
Demographics + + + | Address | [address] | | | [place] [address] | + + + | Home Phone | | + + + | Preferred Language | Unknown | + + + | Marital Status | Single | + + + | Congregational Affiliation | Unknown | + + + [...] Team Providers + +------+ + | Care Product Assurance Engineer Name | Role | Phone | + +------+ + PCP | Unavailable | + +------+ + Encounter Details +--------+ + + + + | Date | Type | Department | Care Team | Description | +--------+ + + + + | 12/28/ | Pharmacy | [facility] | | | | 2014 | Visit | [address] | | | | | | [address] | | | | | | [place] [address] | | | | | | [phone] | | | +--------+ + + + [...]
--- OUTSIDE RECORDS SUMMARY | ~2019-01-22 | XMS | Encounter Summary ---
Demographics + + + | Address | [address] | | | [place] [address] | + + + | Home Phone | | + + + | Preferred Language | Unknown | + + + | Marital Status | Single | + + + | Quaker Affiliation | Unknown | + + + | Race | Unknown | + + + | Ethnic Group | Other Race | + + + Author + + + | Author | [facility] | + + + | Organization | [facility] | + + + | Address | Unknown | + + + | Phone | Unavailable | + + + Care Team Providers + +------+ + | Care Physician Representative Name | Role | Phone | + +------+ + PCP | Unavailable | + +------+ + Encounter Details +--------+ + + + + | Date | Type | Department | Care Team | Description | +--------+ + + + + | 07/01/ | Pharmacy | [facility] | | | | 2016 | Visit | [address] | | | | [address] | [address] | | | | | | [place] [address] | | | | | | [phone] | | | +--------+ + + + [...]
--- OUTSIDE RECORDS SUMMARY | ~2019-01-22 | XMS | Encounter Summary ---
Demographics + + + | Address | [address] | | | [place] [address] | + + + | Home Phone [...] + + + | Author | [facility] | + + + | Organization | [facility] | + + + | Address | Unknown | + + + | Phone | Unavailable | + + + Care Team Providers + +------+ + | Care Funeral Director/Embalmer/Owner Name | Role | Phone | + +------+ + PCP | Unavailable | + +------+ + Encounter Details +--------+ + + + + | Date | Type | Department | Care Team | Description | +--------+ + + + + | 11/20/ | Pharmacy | [facility] | | | | 2013 | Visit | [address] | | | | | | [address] | | | | | | [place] [address] | | | | | | [phone] | | | +--------+ + + + [...]
--- OUTSIDE RECORDS SUMMARY | ~2019-01-22 | XMS | Encounter Summary ---
Demographics + + + | Address | [address] | | | [place] [address] | + + + | Home Phone | | + + + | Preferred Language | Unknown | + + + | Marital Status | | + + + | Jainism Affiliation | 1041 | + + + | Race | Unknown | + + + | Ethnic Group | Unknown | + + + Author + + + | Author | [facility] | | | and [place] | + + + | Organization | [facility] | | | and [place] | + + + | Address | Unknown | + + + | Phone | Unavailable | + + + Support + + + + + | Name | Relationship | Address | Phone | + + + + + | Catrina Florez | ECON | [place] | | | | | [address] | | + + + + + Care Team Providers + +------+ + | Care Digital Marketing Executive Name | Role | Phone | + +------+ + | Tomas Cai DO | PCP | | + +------+ + Reason for Visit + + + | Reason | Comments | + + + | Medication Refill | | + + + Encounter Details +--------+--------+ + + + | Date | Type | Department | Care Team | Description | +--------+--------+ + + + | 02/23/ | Refill | [facility] | Boris Meza PA | Medication Refill | | 2011 | | SLEEP DISORDER [address] | [address] | | | | | [address] | [place] | | | | | [place] [address] | [address] | | | | | [phone] | | | +--------+--------+ + + + Social History + +-------+ [...] Primary | + + documented in this encounter"
--- OUTSIDE RECORDS SUMMARY | ~2019-01-22 | XMS | Encounter Summary ---
Demographics + + + | Address | [address] | | | [place] [address] | + + + | Home Phone [...] + + | Author | [facility] | + + + | Organization | [facility] | + + + | Address | Unknown | + + + | Phone | Unavailable | + + + Care Team Providers + +------+ + | Care Clam Dredger Name | Role | Phone | + +------+ + PCP | Unavailable | + +------+ + Encounter Details +--------+ + + + + | Date | Type | Department | Care Team | Description | +--------+ + + + + | 09/07/ | Pharmacy | [facility] | | | | 2014 | Visit | [address] | [address] | [address] | [address] | | | | | | [place] [address] | | | | | | [phone] | | | +--------+ + + + [...]
--- OUTSIDE RECORDS SUMMARY | ~2019-01-22 | XMS | Encounter Summary ---
Demographics + + + | Address | [address] | | | [place] [address] | + + + | Home Phone | | + + + | Preferred Language | Unknown | + + + | Marital Status | | + + + | Denominational Affiliation | 1041 | + + + | Race | Unknown | + + + | Ethnic Group | Unknown | + + + Author + + + | Author | [facility] | | | and [place] | + + + | Organization | [facility] | | | and [place] | + + + | Address | Unknown | + + + | Phone | Unavailable | + + + Support + + + + + | Name | Relationship | Address | Phone | + + + + + | Catrina Florez | ECON | [place] | | | | | [address] | | + + + + + Care Team Providers + +------+ + | Care Auto Transmission Technician Name | Role | Phone | + [...] + + | 02/09/ | Office | [facility] | Boris Meza PA | DORA on CPAP (Primary | | 2011 | Visit | SLEEP DISORDER [address] | [address] | Dx) | | | | [address] | [place] | | | | | [place] [id number] | [address] | | | | | [phone] | | | +--------+---------+ + + + [...] nasal obtained from: [facility] [place] pressure is: 5-10 cm 95%: 8.1 cm [...] dilan ropiate paperwork. Thirty minutes were spent [id number], with the majority of time spent in [...]
--- OUTSIDE RECORDS SUMMARY | ~2019-01-22 | XMS | Encounter Summary ---
Demographics + + + | Address | [address] | | | [place] [address] | + + + | Home Phone | | + + + | Preferred Language | Unknown | + + + | Marital Status | | + + + | Lutheran Affiliation | 1041 | + + + | Race | Unknown | + + + | Ethnic Group | Unknown | + + + Author + + + | Author | [facility] | | | and [place] | + + + | Organization | [facility] | | | and [place] | + + + | Address | Unknown | + + + | Phone | Unavailable | + + + Support + + + + + | Name | Relationship | Address | Phone | + + + + + | Catrina Florez | ECON | [place] | | | | | [address] | | + + + + + Care Team Providers + +------+ + | Care Computing Services Director Name | Role | Phone | + +------+ + | Tomas Cai DO | PCP | | + +------+ + Reason for Referral Diagnostic/Screening (Routine) +--------+--------+ + + + + | Status | Reason | Specialty | Diagnoses / | Referred By | Referred To | | | | | Procedures | Contact | Contact | +--------+--------+ + + + + | Closed | | | Diagnoses | | OP ST | | | | | Chronic | Curtis, | MEG | | | | | bilateral | Maribel | [facility] | | | | | low back | PA-C [address] | [address] | | | | | pain with | [address] | [address] | | | | | left-sided | [place], [place] | [place], [place] | | | | | sciatica | [address] | [address] | | | | | Procedures | Phone: | Phone: | | | | | CT Pelvis w | [phone] | [phone] | | | | | wo Contrast | Fax: | Fax: | | | | | | [phone] | [phone] | +--------+--------+ + + + + Diagnostic/Screening (Routine) +--------+--------+ + + + + | Status | Reason | Specialty | Diagnoses / | Referred By | Referred To | | | | | Procedures | Contact | Contact | +--------+--------+ + + + + | Closed | | Radiology | Diagnoses | | [address] | | | | | Chronic | Curtis, | MEG | | | | | bilateral | Maribel | [facility] | | | | | low back | PA-C [address] | [address] | | | | | pain with | [address] | [address]VE | | | | | left-sided | [place], [place] | [place], [place] | | | | | sciatica | [address] | [address] | | | | | Procedures | Phone: | Phone: | | | | | CT Lumbar | [phone] | [phone] | | | | | Spine w wo | Fax: | Fax: | | | | | Contrast | [phone] | [phone] | +--------+--------+ + + + + Reason for Visit + + + | Reason | Comments | + + + | Back Pain | low left sided back pain radiating into left knee | + + + Encounter Details +--------+---------+ + + + | Date | Type | Department | Care Team | Description | +--------+---------+ + + + | 10/21/ | Office | [facility] [place] | Lidabustercz, | Chronic bilateral | | 2016 | Visit | PHYSIATRY [address] | [address] | low back pain with | | | | [place], | [address] [place], | left-sided sciatica | | | | [place] [address] | [place] [address] | (Primary Dx) | | | | [phone] | [phone] | | | | | | | [...] + + + | Blood Pressure | 145/87 | 10/22/2015 3:06 PM | | | | | PDT | | + + + + + | Pulse | 63 | 10/22/2015 3:06 PM | | | | | PDT | [...] + + + + | Weight | 74.8 kg (165 lb) | 10/22/2015 3:06 PM | | | | | PDT | | + + + + + | Height | 177.8 cm (5' 10") | 10/22/2015 3:06 PM | | | | | PDT | | + + + + + | Body Mass Index | 23.68 | 10/22/2015 3:06 PM | | | | | PDT | | + + + + + documented in this encounter Patient Instructions Patient Instructions Maribel Acevedo PA-C - 10/22/2015 3:22 PM PDT1) Follow up with y our primary care doctor to get CT scan of the lumbar and sacral spine, along with blood work to make sure non-cancerous 2) If everything checks out okay, we can do a steroid injection to the sacroiliac joint Sacroiliitis: This is the term used to describe sacroiliac joint pain which connect the sacrum (very end of the spine) and pelvic bone. It occurs when there is movement of one pelvic bone on the other or a decrease in joint mobility with bending and twisting movements, mis-stepping, or when there is a leg length discrepancy. There can be pain to the buttocks region, into the groin or posterior thigh. Treatment consists of rest, physical therapy, Sacroiliac Belt, karely roid joint injections into the sacroiliac joint. Steroids are a very strong anti-inflammatory, this helps reduce pain by reducing swelling. Complications of steroids are bleeding, infection, and an increase of blood sugars if you a re diabetic. prison risk can lead to osteoporosis which is why we limited the number of injections to 3 times per year. With a sacroiliac joint injection, the steroid is placed i nside this joint. The procedure is about 20 minutes long. You will lie on your back while x-rays are taken. Once the region is marked, it is numbed and then injected with steroids. documented in this encounter Progress Notes Maribel Acevedo PA-C - 10/22/2015 3:10 PM PDTFormatting of this note might be differe nt from the original. CHIEF COMPLAINT: Chief Complaint Patient presents with Back Pain low left sided back pain radiating into left knee HISTORY OF PRESENT ILLNESS: The patient is a 80 y.o. female being seen today for complaint s of left sided low back pain with radiation into the left leg. She saw me in the past and it was recommended she get a lumbar MRI. This was done and she is here today to discuss the results. Since the symptoms began, she has noticed that symptoms have been worsening. She describes the pain as a burning feeling to the left buttocks. She rates the pain as moderate. Her symp toms worsen with sitting, lying down, it wakes her at night, she states having this pain all the time. Her symptoms improve with changing positions, hanging her left leg over the recl iner arm rest, standing and walking. The patient also describes leg symptoms that [...] has been there since her knee surgery . She does not report weakness of the legs. She does not have mary l and bladder dysfunction. She does not have saddle anesthesia. She does have stress incon tinence. Treatments for these complaints have included nothing to date. Patient's medications, allergies, past medical, surgical, social and family histories were reviewed and updated as appropriate. CURRENT MEDICATIONS: Current Outpatient Prescriptions Medication Sig Dispense Refill amLODIPine (NORVASC) 5 mg tablet Take 5 mg by mouth Daily. cholecalciferol (VITAMIN D-3) 1,000 units capsule Take 1,000 Units by mouth Daily. lisinopril (PRINIVIL, ZESTRIL) 20 mg tablet Take 20 mg by mouth Daily. melatonin 5 mg tablet Take 5 mg by mouth nightly. Multiple Vitamins-Minerals (PRESERVISION AREDS 2) CAPS Take by mouth. [place]-3 Fatty Acids (FISH OIL) 1200 MG CAPS Take 1,200 mg by mouth Daily. [place]-3 Fatty Acids (RA FISH OIL EXTRA STRENGTH) 870 MG CAPS Take 1 capsule by mouth Da rodrigo. oxybutynin (DITROPAN XL) 15 MG 24 hr [...] 99 Months 1 Device 0 UNCODED MEDICATION Wear at all times while sleeping. 1 Device 0 warfarin (COUMADIN) 5 mg tablet Take 5 mg by mouth Daily. No current facility-administered medications for this visit. ALLERGIES: No Known Allergies REVIEW OF SYSTEMS: A multisystem review of system checklist was reviewed with the patient and shows only the p ain and/or parasthesias and other complaints as in HPI. All remaining review of systems was negative. PHYSICAL EXAMINATION: Filed Vitals: 10/22/15 1506 BP: 145/87 Pulse: 63 PainSc: 4 PainLoc: Back Body mass index is 23.68 kg/(m^2). GENERAL: The patient is well developed [...] has no apparent deficits with short or care home memory. She has appropriate fund of knowledge Cranial nerves 2-12 appear grossly intact. Sensory exam does show diminished sensation to light touch in the left lower extremities. MUSCULOSKELETAL Physical exam was not performed today. RADIOGRAPHIC REVIEW: The patient's imaging was reviewed in detail with the patient today during the visit. Lumba r MRI from [facility] shows abnormal signal to the left pedicle which may be relate d to a pseudarthrosis. In the left side of the sacrum, abnormal signal follows the characte ristics of fluid. There is an equivocal fracture here which can be related to neoplasm or m etastatic disease. ASSESSMENT: 1. Chronic bilateral low back pain with left-sided sciatica 2. 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 We reviewed the patients MRI in detail, she has possible neoplasms or metastatic diseas e to the sacrum. I have advised her to follow up with her PCP for a lumbar AND sacral CT sc an to further evaluate this pathology. 2. We discussed if further workup is negative for metastatic disease we can perform a left SI joint injection. ELECTRONICALLY SIGNED BY: Maribel Acevedo PA-C, 10/22/2015 CC: Ayala I called Dr. Cai office and the doctor is out of the office until October 27. I have g one ahead and ordered a lumbar CT scan along with a sacral CT scan to be done at [facility], but have asked that her PCP follow up with this issue. documented in this encounter Plan of Treatment + +---------+--------+ + + | Name | Type | Priori | Associated Diagnoses | Order Schedule | | | | ty | | | + +---------+--------+ + + | CT Lumbar Spine w wo | Imaging | Routin | Chronic bilateral | Expected: | | Contrast | | e | low back pain with | 10/22/2015, Expires: | | | | | left-sided sciatica | 10/21/2016 | + +---------+--------+ + + | CT Pelvis w wo | Imaging | Routin | Chronic bilateral | Expected: | | Contrast | | e | low back pain with | 10/22/2015, Expires: | | | | | left-sided sciatica | 10/21/2016 | + +---------+--------+ + + documented as of this encounter Procedures + +--------+ + + + | Procedure Name | Priori | Date/Time | Associated Diagnosis | Comments | | | ty | | | | + +--------+ + + + | LABS - EXTERNAL SCAN | | 11/05/2015 | | Results for this | | | | 12:00 AM | | procedure are in the | | | | PDT | | results section. | + +--------+ + + + documented in this encounter Results LABS - EXTERNAL SCAN (11/05/2015 12:00 AM PDT) + + + | Narrative | Performed At | + + + | Ordered by an | | | unspecified provider. | | + + + documented in this encounter Visit Diagnoses + + | Diagnosis | + + | Chronic bilateral low back pain with left-sided sciatica - Primary | + + documented in this encounter
--- OUTSIDE RECORDS SUMMARY | ~2019-01-22 | XMS | Encounter Summary ---
Demographics + + + | Address | [address] | | | [place] [address] | + + + | Home Phone | | + + + | Preferred Language | Unknown | + + + | Marital Status | | + + + | Sabianism Affiliation | 1041 | + + + | Race | Unknown | + + + | Ethnic Group | Unknown | + + + Author + + + | Author | [facility] | | | and [place] | + + + | Organization | [facility] | | | and [place] | + + + | Address | Unknown | + + + | Phone | Unavailable | + + + Support + + + + + | Name | Relationship | Address | Phone | + + + + + | Catrina Florez | ECON | [place] | | | | | [address] | | + + + + + Care Team Providers + +------+ + | Care Provider Relations Rep Name | Role | Phone | + +------+ + | Tomas Cai DO | PCP | | + +------+ + Reason for Visit + + + | Reason | Comments | + + + | Back Pain | left leg | + + + Encounter Details +--------+---------+ + + + | Date | Type | Department | Care Team | Description | +--------+---------+ + + + | 04/30/ | Office | [facility] | [place]ri[place]z, | Chronic bilateral | | 2017 | Visit | PH[address]SIATRY [address] | [address] | low back pain with | | | | [place], | [address] [place], | right-sided sciatica | | | | [place] [address] | [place] [address] | (Primary Dx); | | | | [phone] | [phone] | Chronic left | | | | | | sacroiliac pain | +--------+---------+ + + + Social History [...] + + + | Blood Pressure | 125/70 | 04/30/2016 3:04 PM | | | | | PST | | + + + + + | Pulse | 60 | 04/30/2016 3:04 PM | | | | | PST [...] Weight | 74.8 kg (165 lb) | 04/30/2016 3:04 PM | | | | | PST | | + + + + + | Height | 177.8 cm (5' 10") | 04/30/2016 3:04 PM | | | | | PST | | + + + + + | Body Mass Index | 23.68 | 04/30/2016 3:04 PM | | | | | PST | | + + + + + documented in this encounter Patient Instructions Patient Instructions Maribel Acevedo PA-C - 04/30/2016 3:28 PM PST1) Left sacroiliac joint injection with Dr. Zavala Sacroiliitis: This is the term used to [...] blood sugars if you a re diabetic. correction risk can lead to osteoporosis [...] is numbed and then injected with steroids. Follow-up at the hospital thirty minutes before [...] of the procedure you must provide a armored truck driver to take you home. For all procedur es it is recommended that someone else drive you home. documented in this encounter Progress Notes Maribel Acevedo PA-C - 04/30/2016 3:41 PM PSTFormatting of this note might be differe nt from the original. CHIEF COMPLAINT: Chief Complaint Patient presents with Back Pain left leg HISTORY OF PRESENT ILLNESS: The patient is a 80 y.o. female being seen today for follow up complaints of left sided low back pain with radiation into the left leg. She reports néstor knowles had this pain for over 20 years but it has always been intermittent. 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 She saw me in the past, an MRI was done which showed a lytic lesion, she lion s had work up for this that has been inconclusive. She is hoping for a steroid injection to reduce the pain. Since the symptoms began, she has noticed that symptoms have been worsening. She describes the pain as a burning feeling to the left buttocks region and into the left thigh. She rates the pain as moderate. Her symptoms worsen with sitting, lying down, it wakes her at night, she states having this pain all the time. Her symptoms improve with changing positions, siegel ging her left leg over the recliner arm rest, standing and walking. The patient also describes leg symptoms that occur on her left side. The leg symptoms acco unt for 100% of her symptoms. The leg symptoms are constant and the symptoms travels from t he left buttocks down the posterior thigh following L5 and S1 distribution. The patient does describe numbness of the left 100%lower leg but indicates this has been th ere since her knee surgery . She does not report weakness of the legs. She does not have bowel and bladder dysfunction. She does not have saddle anesthesia. She does have stress i ncontinence. Treatments for these complaints have included nothing [...] (PRESERVISION AREDS 2) CAPS Take by mouth. [place]-3 Fatty Acids (FISH OIL) 1200 MG CAPS Take 1,200 mg by mouth Daily. [place]-3 Fatty Acids (RA FISH OIL EXTRA STRENGTH) [...] systems was negative. PHYSICAL EXAMINATION: Filed Vitals: 04/30/16 1504 BP: 125/70 Pulse: 60 PainSc: 2 PainLoc: Back Body mass index is 23.68 [...] has no apparent deficits with short or salvage determiner memory. She has appropriate fund of knowledge Cranial nerves 2-12 appear grossly intact. Sensory exam does show diminished sensation to light touch in the left lower extremities. REFLEX: RIGHT LEFT PATELLAR 0 0 ACHILLES 2+ 2+ MUSCULOSKELETAL There is no tenderness in the [...] of the pain to the left buttocks region. Lumbar facet loading was negative. Strength henrry ting showed 5/5 strength throughout the lower extremities. The patient was able to heel and toe walk without difficulty. There was no redness, effusion, warmth or joint line tenderne ss in the knees or ankles. RADIOGRAPHIC REVIEW: The patient's imaging was reviewed in detail with the patient today during the visit. Lumba r MRI from [facility] shows abnormal signal to the left pedicle which may be relate d to a pseudarthrosis. There is no high grade nerve root impingement or spinal stenosis. S he has really severe left L5/S1 facet arthritis they may be mimiking the pain too. ASSESSMENT: 1. Chronic bilateral low back pain with right-sided sciatica 2. Chronic left sacroiliac pain PLAN: 1. We discussed the location of her pain, she has no high grade nerve root impingement or spinal stenosis that would be contributing to her pain. She does have a left L5/S1 facet ar thritis/hypertrophy, but I think at this time her pain is more related to the sacroiliac toi n which would explain the radicular pain to the left thigh. I offered her a left SI joint i njection, stressed the importance of filling out post injection pain log and if she continue s to have pain after maybe a left L5/S1 facet joint injection would be appropriate. 2. We discussed possible treatment options to include PT, steroid injections and neuropathi c pain medications. She has tried gabapentin in the past without any relief. 3. She will follow up in 3 weeks. ELECTRONICALLY SIGNED BY: Maribel Acevedo PA-C, 04/30/2016 CC: Ayala doc umented in this encounter Plan of Treatment Not on filedocumented as of this encounter Results [place] Sacroiliac Injection Left (05/06/2016 3:48 PM PST) + + | Specimen | + + | | + + + + + | Narrative | Performed At | + + + | 05/06/2016 Sacroiliac Joint Injection Clinical History: Sacroiliitis | [facility] | | ICD-10 M46.1 Marianne Gomez presents to the fluoroscopy suite | [facility] | | for a fluoroscopically guided left sacroiliac joint steroid [facility] | | injection as part of conservative management for chronic pain with | - IMAGING | | sacroiliitis. After informed consent was obtained the patient laid | | | in the prone position on the fluoroscopy table. The left sacroiliac | | | joint was identified under fluoroscopic guidance. The area was | | | prepped and draped in sterile fashion. A 25 gauge 1-1/2 inch needle | | | was inserted into this region and approximately 3 mL of buffered 1% | | | lidocaine was infused. Then a 22 gauge spinal needle was inserted | | | into the inferior joint space under fluoroscopic guidance. | | | Confirmation into the sacroiliac joint was obtained with infusion of | | | approximately 1 mL of Omnipaque contrast which showed flow within | | | the joint space. Then a combination of 1 mL 1% lidocaine and 1 mL of | | | 40 mg per milliliter Kenalog was infused. The patient tolerated the | | | procedure well without complications. Pre- and post procedure blood | | | pressures were stable. The patient was given verbal as well as | | | written followup instructions. Prior to the start of the | | | procedure the following were performed and verified including | | | correct patient identity, correct site/side marked and visible, | | | agreement of the procedure to be done, correct patient positioning | | | and an accurate procedure consent form. Any safety precautions based | | | on clinical history and/or medications have been addressed. I | | | personally performed the procedure above. Estimated blood loss: | | | Minimal Complications: None Findings: As expected Anesthesia: | | | Local 1% Lidocaine | | + + + + + + + + | Performing | Address | City/State/[place] | Phone Number | | Organization | | | | + + + + + | [facility] | [address] | [place] | [phone] | | [facility] | | [address] | | | - IMAGING | | | | + + + + + documented in this encounter Visit Diagnoses + + | Diagnosis | + + | Chronic bilateral low back pain with right-sided sciatica - Primary | + + | Chronic left sacroiliac pain Disorders of sacrum | + + documented in this encounter
--- OUTSIDE RECORDS SUMMARY | ~2019-01-22 | XMS | Encounter Summary ---
Demographics + + + | Address | [address] | | | [place] [address] | + + + | Home Phone | | + + + | Preferred Language | Unknown | + + + | Marital Status | Single | + + + | Confucianist Affiliation | Unknown | + + + | Race | Unknown | + + + | Ethnic Group | Other Race | + + + Author + + + | Author | [facility] | + + + | Organization | [facility] | + + + | Address | Unknown | + + + | Phone | Unavailable | + + + Care Team Providers + +------+ + | Care Power Transformer Assembler Name | Role | Phone | + +------+ + PCP | Unavailable | + +------+ + Encounter Details +--------+ + + + + | Date | Type | Department | Care Team | Description | +--------+ + + + + | 11/21/ | Pharmacy | [facility] | | | | 2013 | Visit | [address] | | | | | | [place] [address] | | | | | | [phone] | | | +--------+ + + + [...]
--- OUTSIDE RECORDS SUMMARY | ~2019-01-22 | XMS | Encounter Summary ---
Demographics + + + | Address | [address] | | | [place] [address] | + + + | Home Phone | | + + + | Preferred Language | Unknown | + + + | Marital Status | | + + + | Hoahaoism Affiliation | 1041 | + + + | Race | Unknown | + + + | Ethnic Group | Unknown | + + + Author + + + | Author | [facility] | | | and [place] | + + + | Organization | [facility] | | | and [place] | + + + | Address | Unknown | + + + | Phone | Unavailable | + + + Support + + + + + | Name | Relationship | Address | Phone | + + + + + | Catrina Florez | ECON | [place] | | | | | [address] | | + + + + + Care Team Providers + +------+ + | Care Sub Prior Name | Role | Phone | + +------+ + | Tomas Cai DO | PCP | | + +------+ + Reason for Visit +--------+ + | Reason | Comments | +--------+ + | Apnea | | +--------+ + Encounter Details +--------+---------+ + + + | Date | Type | Department | Care Team | Description | +--------+---------+ + + + | 04/12/ | Office | [facility] | Boris Meza PA | DORA on CPAP (Primary | | 2012 | Visit | SLEEP DISORDER 401 | [address] | Dx) | | | | [address] [place] | [place] | | | | | [place] [address] | [address] | | | | | [phone] | | | +--------+---------+ + + + [...] + + + | Blood Pressure | 148/88 | 04/12/2012 10:37 AM | | | | | PST | | + + + + + | Pulse | 68 | 04/12/2012 10:37 AM | | | | | PST | | + + + + + | Temperature | - | - | | + + + + + | Respiratory Rate | 14 | 04/12/2012 10:37 AM | | | | | PST | | + + + + + | Oxygen Saturation | - | - | | + + + + + | Inhaled Oxygen | - | - | | | Concentration | | | | + + + + + | Weight | 80.5 kg (177 lb 6.4 | 04/12/2012 10:37 AM | | | | oz) | PST | | + + + + + | Height | - | - | | + + + + + | Body Mass Index | 26.2 | 01/13/2012 2:17 PM | | | | | PST | | + + + + + documented in this encounter Progress Notes Fina Isaac - 04/12/2012 10:35 AM PST 04/12/12 1000 [address] Depression Inventory-II Depression Score 0 Insomnia Severity Index Insomnia Severity Index 6 [place] Sleepiness Scale Sitting and reading 1 Watching TV 1 Sitting, inactive in a public place (e.g. a theatre or a meeting) 0 As a passenger in a car for an hour without a break 1 Lying down to rest in the afternoon when circumstances permit 2 Sitting and talking to someone 0 Sitting quietly after a lunch without alcohol 1 In a car, while stopped for a few minutes in traffic 0 Total score 6 SF-36v2 Score PF 48.61 RP 47.06 BP 41.41 GH 55.32 VT 52.09 SF 56.85 RE 55.88 MH 61.27 PCS 43.37 MCS 61.79 EYCoBoris razo PA - 10:24 AM PST Subjective: Patient ID: Marianne Gomez is a 76 y.o. female. HPI last office visit was: 02/10/2012 date of split-night polysomnography: 02/01/2012 AHI: 19.9 RDI: 28.7 O2%: 65% with 6.4 minutes below 88% Machine type: ResMed S9 with nasal pillows obtained from: [facility] pressure is: 5-10 cm 95%: 8.3 cm maxium: 9.7 cm CPAP download shows CPAP useage # nights: 62 average usage (all nights): 7:34 average usage (nights used): 7:34 Marianne Zuñiga is falling asleep with her CPAP without any problem, but is waking during the nig ht because of her mask coming off and leaking severely. The noise from the air leaking and the discomfort from the straps of the mask are waking her. She is then able to get back to sleep. This is happening many times during the night. This is very frustrating for her, bu t she continues to wear her CPAP for the duration of her sleep. She has tried different mas ks, but continues have the same problems. She has a size large for her nasal pillows, but s he hasn't used it yet. She is hopeful that this will work better. In spite of the problems with her mask coming off, she is feeling more rested and has more energy during the day. I have discussed the download and results of the paperwork in detail. She is unchanged or improved in nearly all categories, with no areas of concern. Her insomnia has worsened, but this is due to the problems with her mask waking her during the night. The download shows that her sleep apnea is well controlled, with an AHI of 0.5. It also shows that her leaks a re well controlled. Review of Systems Objective: Physical Exam Assessment: Problem #1: OBSTRUCTIVE SLEEP APNEA (327.23) This is well controlled with CPAP. Her CPAP compliance is going well, but she has had prob lems with her mask coming off during the night. Plan: She is to continue with CPAP indefinitely. I have recommended that she try using the size large nasal pillows. I have recommended that she touch base with her medical supplier twice per year to ensure that her equipment is satisfactory. I will follow up again in 1 year, sooner prn. At that time we will reassess with all appro piate paperwork. Fifteen minutes were spent [id number], with the majority of time spent i n counseling. Boris Meza PA-C cc: Dr. Tomas Cai documented in this enco unter Plan of Treatment Not on filedocumented as of this encounter Visit Diagnoses + + | Diagnosis | + + | DORA on CPAP - Primary Obstructive sleep apnea (adult) (pediatric) | + + documented in this encounter"
--- OUTSIDE RECORDS SUMMARY | ~2019-01-22 | XMS | Encounter Summary ---
Demographics + + + | Address | [address] | | | [place] [address] | + + + | Home Phone [...] + + + | Author | [facility] | + + + | Organization | [facility] | + + + | Address | Unknown | + + + | Phone | Unavailable | + + + Care Team Providers + +------+ + | Care Bandsaw Operator Name | Role | Phone | + +------+ + PCP | Unavailable | + +------+ + Encounter Details +--------+ + + + + | Date | Type | Department | Care Team | Description | +--------+ + + + + | 08/29/ | Pharmacy | [facility] | | | | 2013 | Visit | [address] | | | | | | [place] [address] | | | | | | [phone] | | | +--------+ + + + [...]
--- OUTSIDE RECORDS SUMMARY | ~2019-01-22 | XMS | Encounter Summary ---
Demographics + + + | Address | [address] | | | [place] [address] | + + + | Home Phone | | + + + | Preferred Language | Unknown | + + + | Marital Status | | + + + | Voodoo Affiliation | 1041 | + + + | Race | Unknown | + + + | Ethnic Group | Unknown | + + + Author + + + | Author | [facility] | | | and [place] | + + + | Organization | [facility] | | | and [place] | + + + | Address | Unknown | + + + | Phone | Unavailable | + + + Support + + + + + | Name | Relationship | Address | Phone | + + + + + | Catrina Florez | ECON | [place] | | | | | [address] | | + + + + + Care Team Providers + +------+ + | Care Manager System Name | Role | Phone | + +------+ + | Tomas Cai DO | PCP | | + +------+ + Reason for Visit Service/Procedure (Routine) +--------+--------+ + + + + | Status | Reason | Specialty | Diagnoses / | Referred By | Referred To | | | | | Procedures | Contact | Contact | +--------+--------+ + + + + | Closed | | Radiology | Diagnoses | | [facility] | | | | | Lumbar | [place], | [address] | | | | | radiculopath | Lamont Bryan MD | [place], | | | | | y | [address] | [place] | | | | | Procedures | [place] | [address] | | | | | [place] INJECT | [place], [place] | Phone: | | | | | ANES/STEROID | [address] | [phone] | | | | | FORAMEN | Phone: | Fax: | | | | | LUMBAR/SACRA | [phone] | [phone] | | | | | L W IMG | Fax: | | | | | | GUIDE ,1 | [phone] | | | | | | LEVEL [place] | | | | | | | TRIAMCINOLON | | | | | | | E ACET INJ | | | | | | | NOS, 10 MG | | | | | | | Appt 07/07- Lt | | | | | | | L5-S1 TFESI | | | +--------+--------+ + + + + Encounter Details +--------+ + + + + | Date | Type | Department | Care Team | Description | +--------+ + + + + | 07/07/ | Hospital | [facility] | [place], | Left lumbar | | 2017 | Encounter | MED CTR XRAY [address] | [address] | radiculitis; Chronic | | | | [address] [place] | ECHO [place], | bilateral low back | | | | [place] [address] | [place] [address] | pain with | | | | [phone] | [phone] | right-sided sciatica | | | | | | | | | | | [place] | | +--------+ + + + + [...] this encounter Last Filed Vital Signs + +---------+ + + | Vital Sign | Reading | Time Taken | Comments | + +---------+ + + | Blood Pressure | 163/74 | 07/07/2016 4:00 PM | | | | | PDT | | + +---------+ + + | Pulse | 58 | 07/07/2016 4:00 PM | | | | | PDT | | + +---------+ + + | Temperature | - | - | | + +---------+ + + | Respiratory Rate | - | - | | + +---------+ + + | Oxygen Saturation | - | - | | + +---------+ + + | Inhaled Oxygen | - | - | | | Concentration | | | | + +---------+ + + | Weight | - | - | | + +---------+ + + | Height | - | - | | + +---------+ + + | Body Mass Index | - | - | | + +---------+ + + documented in this encounter Medications at Time of Discharge + + + +---------+ + + | Medication | Sig | Dispensed | Refills | Start | End Date | | | | | | Date | | + + + +---------+ + + | cholecalciferol | Take 1,000 Units by | | 0 | | | | (VITAMIN D-3) 1,000 | mouth Daily. | | | | | | units capsule | | | | | | + + + +---------+ + + | gabapentin | Take 100 mg by mouth | | 0 | | | | (NEURONTIN) 100 mg | 3 times daily. | | | | | | capsule | | | | | | + + + +---------+ + + | lisinopril | Take 20 mg by mouth | | 0 | | | | (PRINIVIL, ZESTRIL) | Daily. | | | | | | 20 mg tablet | | | | | | + + + +---------+ + + | melatonin 5 mg | Take 5 mg by mouth | | 0 | | | | tablet | nightly. | | | | | + + + +---------+ + + | Multiple | Take by mouth. | | 0 | | | | Vitamins-Minerals | | | | | | | (PRESERVISION AREDS | | | | | | | 2) CAPS | | | | | | + + + +---------+ + + | [place]-3 Fatty | Take 1,200 mg by | | 0 | | | | Acids (FISH OIL) | mouth Daily. | | | | | | 1200 MG CAPS | | | | | | + + + +---------+ + + | oxybutynin | Take 15 mg by mouth | | 0 | | | | (DITROPAN XL) 15 MG | Daily. | | | | | | 24 hr tablet | | | | | | + + + +---------+ + + | oxyCODONE | Take 5 mg by mouth | | 0 | | | | (ROXICODONE) 5 mg | every 4 hours as | | | | | | tablet | needed for Pain. | | | | | + + + +---------+ + + | UNCODED MEDICATION | Diagnosis: | 1 | 0 | 04/11/19 | | | | Obstructive Sleep | Device | | 14 | | | | ApneaICD-9: | | | | | | | 327.23Length of | | | | | | | Need: 99 Months | | | | | + + + +---------+ + + | UNCODED | Diagnosis: | 1 | 0 | 02/24/20 | | | MEDICATIONIndication | Obstructive Sleep | Device | | 12 | | | s: Obstructive sleep | ApneaICD-9: | | | | | | apnea (adult) | 327.23Length of | | | | | | (pediatric) | Need: 99 Months | | | | | + + + +---------+ + + | UNCODED | Wear at all times | 1 | 0 | 02/04/20 | | | MEDICATIONIndication | while sleeping. | Device | | 12 | | | s: DORA (obstructive | | | | | | | sleep apnea) | | | | | | + + + +---------+ + + | amLODIPine | Take 5 mg by mouth | | 0 | | | | (NORVASC) 5 mg | Daily. | | | | 7 | | tablet | | | | | | + + + +---------+ + + documented as of this encounter Plan of Treatment Not on filedocumented as of this encounter Procedures + +--------+ + + + | Procedure Name | Priori | Date/Time | Associated Diagnosis | Comments | | | ty | | | | + +--------+ + + + | FL EPIDURAL STEROID | Routin | 07/07/2016 | Left lumbar | Results for this | | INJECTION LUMBAR | e | 3:51 PM | radiculitis Chronic | procedure are in the | | TRANSFORAMINAL | | PDT | bilateral low back | results section. | | | | | pain with | | | | | | right-sided sciatica | | + +--------+ + + + documented in this encounter Results FL JHOANA Lumbar Transforaminal (07/07/2016 3:51 PM PDT) + + | Specimen | + + | | + + + + + | Narrative | Performed At | + + + | 07/07/2016 Transforaminal Epidural Steroid Injection Diagnosis: | [facility] | | Lumbar radiculopathy ICD-10 Code M54.16 Marianne Gomez | [facility] | | presents to the fluoroscopy suite for a fluoroscopically-guided [facility] | | L5-S1 transforaminal epidural steroid injection [...] + + | Performing | Address | City[facility]State[facility] | Phone Number | | Organization | | | | + + + + + | [facility] | [address] | [place], [place] | [phone] | | [facility] | | [address] | | | - IMAGING | | | | + + + + + documented in this encounter Visit Diagnoses + + | Diagnosis | + + | Left lumbar radiculitis Thoracic or lumbosacral neuritis or radiculitis, unspecified | + + | Chronic bilateral low back pain with right-sided sciatica | + + documented in this encounter Administered Medications + +--------+ +------+------+------+ | Medication Order | MAR | Action | Dose | Rate | Site | | | Action | Date | | | | + +--------+ +------+------+------+ | betamethasone (CELESTONE | Given | 07/08/19 | 9 mg | | | | SOLUSPAN) injection 9 mg 9 mg, | | 17 4:01 | | | | | Other, ONCE, 07/07/16 at 1600, | | PM PDT | | | | | For 1 dose, Miguelito well. Not for | | | | | | | IV use., | | | | | | + +--------+ +------+------+------+ +---+---+ | | | +---+---+ + +-------+ +-------+---+---+ | iohexol (OMNIPAQUE 300) 300 | Given | 07/08/19 | 4 mLs | | | | mg/mL injection 4 mL 4 mL, | | 17 3:59 | | | | | Other, ONCE, 07/07/16 at 1600, | | PM PDT | | | | | For 1 dose | | | | | | + +-------+ +-------+---+---+ +---+---+ | | | +---+---+ + +-------+ +-------+---+---+ | lidocaine (PF) 1% injection 2 | Given | 07/08/19 | 2 mLs | | | | mL 2 mL, Other, ONCE, 07/07/16 | | 17 4:01 | | | | | at 1600, For 1 dose | | PM PDT | | | | + +-------+ +-------+---+---+ +---+---+ | | | +---+---+ + +-------+ +-------+---+---+ | lidocaine buffered 1% injection | Given | 07/08/19 | 5 mLs | | | | 5 mL 5 mL, Other, ONCE, Tue | | 17 3:57 | | | | | 07/07/16 at 1600, For 1 dose | | PM PDT | | | | + +-------+ +-------+---+---+ +---+---+ | | | +---+---+ documented in this encounter"
--- OUTSIDE RECORDS SUMMARY | ~2019-01-22 | XMS | Encounter Summary ---
Demographics + + + | Address | [address] | | | [place] [address] | + + + | Home Phone [...] Author + + + | Author | [facility] | + + + | Organization | [facility] | + + + | Address | Unknown | + + + | Phone | Unavailable | + + + Care Team Providers + +------+ + | Care Independent Film Maker Name | Role | Phone | + +------+ + PCP | Unavailable | + +------+ + Encounter Details +--------+ + + + + | Date | Type | Department | Care Team | Description | +--------+ + + + + | 06/14/ | Pharmacy | [facility] | | | | 2014 | Visit | [address] | | | | | | [address] | | | | | | [place] [address] | | | | | | [phone] | | | +--------+ + + + [...]
--- OUTSIDE RECORDS SUMMARY | ~2019-01-22 | XMS | Encounter Summary ---
Demographics + + + | Address | [address] | | | [place] [address] | + + + | Home Phone | | + + + | Preferred Language | Unknown | + + + | Marital Status | Single | + + + | Muslim Affiliation | Unknown | + + + | Race | Unknown | + + + | Ethnic Group | Other Race | + + + Author + + + | Author | [facility] | + + + | Organization | [facility] | + + + | Address | Unknown | + + + | Phone | Unavailable | + + + Care Team Providers + +------+ + | Care Fish And Wildlife Technician Name | Role | Phone | + +------+ + PCP | Unavailable | + +------+ + Encounter Details +--------+ + + + + | Date | Type | Department | Care Team | Description | +--------+ + + + + | 09/06/ | Pharmacy | [facility] | | | | 2014 | Visit | [address] | | | | | [address] | | | | | | [place] [address] | | | | | | [phone] | | | +--------+ + + + [...]
--- OUTSIDE RECORDS SUMMARY | ~2019-01-22 | XMS | Encounter Summary ---
Demographics + + + | Address | [address] | | | [place] [address] | + + + | Home Phone [...] Team Providers + +------+ + | Care Tire Design Engineer Name | Role | Phone | + +------+ + PCP | Unavailable | + +------+ + Encounter Details +--------+ + + + + | Date | Type | Department | Care Team | Description | +--------+ + + + + | 12/28/ | Pharmacy | [facility] | | | | 2014 | Visit | [address] | | | | | | [address] | | | | | | [place] [address] | | | | | | [phone] | | | +--------+ + + + [...]
--- OUTSIDE RECORDS SUMMARY | ~2019-01-22 | XMS | Encounter Summary ---
Demographics + + + | Address | [address] | | | [place] [address] | + + + | Home Phone | | + + + | Preferred Language | Unknown | + + + | Marital Status | | + + + | Congregational Affiliation | 1041 | + + + | Race | Unknown | + + + | Ethnic Group | Unknown | + + + Author + + + | Author | [facility] | | | and [place] | + + + | Organization | [facility] | | | and [place] | + + + | Address | Unknown | + + + | Phone | Unavailable | + + + Support + + + + + | Name | Relationship | Address | Phone | + + + + + | Catrina Florez | ECON | [place] | | | | | [address] | | + + + + + Care Team Providers + +------+ + | Care Telecom Coordinator Name | Role | Phone | [...] + + | 05/13/ | Office | [facility] | [place], | Lumbar radiculopathy | | 2018 | Visit | PHYSIATRY [address] | [address] | (Primary Dx); Facet | | | | [place], | ECHO [facility], | arthritis of lumbar | | | | [place] [address] | [place] [address] | region ([facility]); | | | | [phone] | [phone] | Chronic right-sided | | | | [...] of the procedure you must provide a special events driver to take you home. For all [...] activity. She participated in physical therapy at [facility] in [place] and [facility] this actually worsened her pain, she [...] (PRESERVISION AREDS 2) CAPS Take by mouth. [place]-3 Fatty Acids (FISH OIL) 1200 MG CAPS [...] has no apparent deficits with short or nursing home memory. She has appropriate fund of [...] r MRI from [facility] shows transitional lumbosacral anatomy with what appears [...] repeat imaging to see how the lesions exchange operator time. ASSESSMENT: 1. Lumbar radiculopathy 2. Facet arthritis of lumbar region (HCC) 3. Chronic right-sided low back pain without sciatica PLAN: 1. The patient has had significant conservative care including medications (NSAIDS and narc otics), PT (multiple sessions over the years) and palliative care nurse practitioner. Unfortunately she frida nues to have significant [...]
--- OUTSIDE RECORDS SUMMARY | ~2019-01-22 | XMS | Encounter Summary ---
Demographics + + + | Address | [address] | | | [place] [address] | + + + | Home Phone | | + + + | Preferred Language | Unknown | + + + | Marital Status | | + + + | Judaism Affiliation | 1041 | + + + [...] [place] | | | | | [address] | | + + + + + Care Team Providers + +------+ + | Care Lab Pack Chemist Name | Role | Phone | + [...] + + | 01/12/ | [facility] | [facility] | [place]ac [place] | Obstructive sleep | | 2011 | Visit | SLEEP DISORDER [address] | [address] | apnea (adult) | | | | [address] [place] | [address] [place] | (pediatric) (Primary | | | | [place] [address] | [place] [address] | Dx) | | | | [phone] | [phone] | | | | | | | [...] Insomnia Severity Index Insomnia Severity Index 11 [place] Sleepiness Scale Sitting and reading 3 Watching [...] might be different from the origi nal. [facility] [place] [address] Ref: Piero Garcia, * CC: Chief Complaint [...] tablet Take 15 mg by mouth Daily. Xshbktl-Ueathelrg-Dwclpue D (CITRACAL CALCIUM+D) 600-40-500 MG-MG-UNIT TB24 Take 1 tabl et by mouth Daily. oxybutynin (DITROPAN XL) 15 MG 24 hr tablet Take 15 mg by mouth Daily. Multiple Vitamins-Minerals (CENTRA-WANDER) TABS Take 1 tablet by mouth Daily. aspirin (KOMAL ASPIRIN) 325 mg tablet Take 325 mg by mouth Daily. Glucosamine-Chondroitin (GLUCOSAMINE CHONDR COMPLEX) 500-400 MG CAPS Take 1 tablet by m outh Daily. [place]-3 Fatty Acids (RA FISH OIL EXTRA STRENGTH) [...] kg (177 lb 14.4 oz) | B [place] 26.27 kg/m2 Gen: healthy, alert and not [...]
--- OUTSIDE RECORDS SUMMARY | ~2019-01-22 | XMS | Encounter Summary ---
Demographics + + + | Address | [address] | | | [place] [address] | + + + | Home Phone | | + + + | Preferred Language | Unknown | + + + | Marital Status | Single | + + + | Nondenominational Affiliation | Unknown | + + + | Race | Unknown | + + + | Ethnic Group | Other Race | + + + Author + + + | Author | [facility] | + + + | Organization | [facility] | + + + | Address | Unknown | + + + | Phone | Unavailable | + + + Care Team Providers + +------+ + | Care Boiler House Mechanic Name | Role | Phone | + +------+ + PCP | Unavailable | + +------+ + Encounter Details +--------+ + + + + | Date | Type | Department | Care Team | Description | +--------+ + + + + | 03/03/ | Pharmacy | [facility] | | | | 2013 | Visit | [address] | | | | | | [address] | | | | | | [place] [address] | | | | | | [phone] | | | +--------+ + + + [...]
--- OUTSIDE RECORDS SUMMARY | ~2019-01-22 | XMS | Encounter Summary ---
Demographics + + + | Address | [address] | | | [place] [address] | + + + | Home Phone [...] Author + + + | Author | [facility] | + + + | Organization | [facility] | + + + | Address | Unknown | + + + | Phone | Unavailable | + + + Care Team Providers + +------+ + | Care Compliance Representative Name | Role | Phone | + +------+ + PCP | Unavailable | + +------+ + Encounter Details +--------+ + + + + | Date | Type | Department | Care Team | Description | +--------+ + + + + | 07/10/ | Pharmacy | [facility] | | | | 2014 | Visit | [address] | | | | [address] | | | | | | [place] [address] | | | | | | [phone] | | | +--------+ + + + [...]
--- OUTSIDE RECORDS SUMMARY | ~2019-01-22 | XMS | Encounter Summary ---
Demographics + + + | Address | [address] | | | [place] [address] | + + + | Home Phone | | + + + | Preferred Language | Unknown | + + + | Marital Status | Single | + + + | Rastafari Affiliation | Unknown | + + + | Race | Unknown | + + + | Ethnic Group | Other Race | + + + Author + + + | Author | [facility] | + + + | Organization | [facility] | + + + | Address | Unknown | + + + | Phone | Unavailable | + + + Care Team Providers + +------+ + | Care Director Of Group Counseling Program Name | Role | Phone | + +------+ + PCP | Unavailable | + +------+ + Encounter Details +--------+ + + + + | Date | Type | Department | Care Team | Description | +--------+ + + + + | 04/06/ | Pharmacy | [facility] | | | | 2014 | Visit | [address] | | | | [address] | [address] | | | | | | [place] [address] | | | | | | [phone] | | | +--------+ + + + [...]
--- OUTSIDE RECORDS SUMMARY | ~2019-01-22 | XMS | Encounter Summary ---
Demographics + + + | Address | [address] | | | [place] [address] | + + + | Home Phone | | + + + | Preferred Language | Unknown | + + + | Marital Status | Single | + + + | Taoism Affiliation | Unknown | + + + | Race | Unknown | + + + | Ethnic Group | Other Race | + + + Author + + + | Author | [facility] | + + + | Organization | [facility] | + + + | Address | Unknown | + + + | Phone | Unavailable | + + + Care Team Providers + +------+ + | Care Property Caretaker Name | Role | Phone | + +------+ + PCP | Unavailable | + +------+ + Encounter Details +--------+ + + + + | Date | Type | Department | Care Team | Description | +--------+ + + + + | 04/13/ | Pharmacy | [facility] | | | | 2013 | Visit | [address] | | | | | | [place] [address] | | | | | | [phone] | | | +--------+ + + + [...]
--- OUTSIDE RECORDS SUMMARY | ~2019-01-22 | XMS | Encounter Summary ---
Demographics + + + | Address | [address] | | | [place] [address] | + + + | Home Phone | | + + + | Preferred Language | Unknown | + + + | Marital Status | | + + + | Rastafarian Affiliation | 1041 | + + + | Race | Unknown | + + + | Ethnic Group | Unknown | + + + Author + + + | Author | [facility] | | | and [place] | + + + | Organization | [facility] | | | and [place] | + + + | Address | Unknown | + + + | Phone | Unavailable | + + + Support + + + + + | Name | Relationship | Address | Phone | + + + + + | Catrina Florez | ECON | [place] | | | | | [address] | | + + + + + Care Team Providers + +------+ + | Care Dental Laboratory Supervisor Name | Role | Phone | + +------+ + | Tomas Cai DO | PCP | | + +------+ + Encounter Details +--------+ + + + + | Date | Type | Department | Care Team | Description | +--------+ + + + + | 11/08/ | Hospital | [facility] | Conversion | | | 2013 | Encounter | [facility] | Transaction, | | | | | CLINIC [address] | Provider Unknown | | | | | [place], [place] | | | | | | [phone] | (Fax) | | | | | [phone] | | | +--------+ + + + [...] | | 0 | | | | Urljuzu-Iifficmtx-Jb | mouth Daily. | | | | [...] + + + +---------+ + + | Mccaulley-3 Fatty | Take 1 capsule by | [...] EXTERNAL LAB | | Testing performed at [facility];[address] [place] [address];[place] [address] MRSA PCR | | | NEGATIVE Testing performed at | | | [facility];[address] [place] [address];[place] [address] | | + + + + +---------+ + + | Performing | Address | City/State/Zipcode | Phone Number | | Organization | | | | + +---------+ + + | EXTERNAL LAB | | | | + +---------+ + + documented in this encounter Visit Diagnoses Not on filedocumented in this encounter"
--- OUTSIDE RECORDS SUMMARY | ~2019-01-22 | XMS | Encounter Summary ---
Demographics + + + | Address | [address] | | | [place] [address] | + + + | Home Phone | | + + + | Preferred Language | Unknown | + + + | Marital Status | Single | + + + | Church Affiliation | Unknown | + + + | Race | Unknown | + + + | Ethnic Group | Other Race | + + + Author + + + | Author | [facility] | + + + | Organization | [facility] | + + + | Address | Unknown | + + + | Phone | Unavailable | + + + Care Team Providers + +------+ + | Care Cosmetics Presser Name | Role | Phone | + +------+ + PCP | Unavailable | + +------+ + Encounter Details +--------+ + + + + | Date | Type | Department | Care Team | Description | +--------+ + + + + | 01/12/ | Pharmacy | [facility] | | | | 2012 | Visit | [address] | | | | | | [address] | | | | | | [place] [address] | | | | | | [phone] | | | +--------+ + + + [...]
--- OUTSIDE RECORDS SUMMARY | ~2019-01-22 | XMS | Encounter Summary ---
Demographics + + + | Address | [address] | | | [place] [address] | + + + | Home Phone | | + + + | Preferred Language | Unknown | + + + | Marital Status | | + + + | Quaker Affiliation | 1041 | + + + | Race | Unknown | + + + | Ethnic Group | Unknown | + + + Author + + + | Author | [facility] | | | and [place] | + + + | Organization | [facility] | | | and [place] | + + + | Address | Unknown | + + + | Phone | Unavailable | + + + Support + + + + + | Name | Relationship | Address | Phone | + + + + + | Catrina Florez | ECON | [place] | | | | | [address] | | + + + + + Care Team Providers + +------+ + | Care Irrigator Head Name | Role | Phone | + [...] | | | bilateral | Maribel | [facility] | | | | | low back | PA-C [address] | [address] | | | | | pain with | [address] | [address]VE | | | | | left-sided | [place], [place] | [place], [place] | | | | | sciatica | [address] | [address] | | | | | Procedures | Phone: | Phone: | | | | | CT Pelvis w | [phone] | [phone] | | | | | wo Contrast | Fax: | Fax: | | | | | | [phone] | [phone] | +--------+--------+ + + + + Diagnostic/Screening [...] | | | bilateral | Maribel | [facility] | | | | | low back | PA-C [address] | [address] | | | | | pain with | [address] | AVE | | | | | left-sided | [place], [place] | [place], [place] | | | | | sciatica | [address] | [address] | | | | | Procedures | Phone: | Phone: | | | | | CT Lumbar | [phone] | [phone] | | | | | Spine w wo | Fax: | Fax: | | | | | Contrast | [phone] | [phone] | +--------+--------+ + + + + Reason [...] + + | 10/21/ | Office | [facility] [place] | Lidabustercz, | Chronic bilateral | | 2016 | Visit | [address]AT[address] | [address] | low back pain with | | | | [place], | [address] [place], | left-sided sciatica | | | | [place] [address] | [place] [address] | (Primary Dx) | | | | [phone] | [phone] | | | | | | | [...] blood sugars if you a re diabetic. halfway risk can lead to osteoporosis which is [...] (PRESERVISION AREDS 2) CAPS Take by mouth. [place]-3 Fatty Acids (FISH OIL) 1200 MG CAPS Take 1,200 mg by mouth Daily. [place]-3 Fatty Acids (RA FISH OIL EXTRA STRENGTH) [...] has no apparent deficits with short or shelter memory. She has appropriate fund of knowledge Cranial nerves 2-12 appear grossly intact. Sensory exam does show diminished sensation to light touch in the left lower extremities. MUSCULOSKELETAL Physical exam was not performed today. RADIOGRAPHIC REVIEW: The patient's imaging was reviewed in detail with the patient today during the visit. Lumba r MRI from [facility] shows abnormal signal to the [...] sacral CT scan to be done at [facility], but have asked that her PCP [...]
--- OUTSIDE RECORDS SUMMARY | ~2019-01-22 | XMS | Encounter Summary ---
Demographics + + + | Address | [address] | | | [place] [address] | + + + | Home Phone | | + + + | Preferred Language | Unknown | + + + | Marital Status | Single | + + + | Spiritism Affiliation | Unknown | + + + | Race | Unknown | + + + | Ethnic Group | Other Race | + + + Author + + + | Author | [facility] | + + + | Organization | [facility] | + + + | Address | Unknown | + + + | Phone | Unavailable | + + + Care Team Providers + +------+ + | Care Recruiting Specialist Name | Role | Phone | + +------+ + PCP | Unavailable | + +------+ + Encounter Details +--------+ + + + + | Date | Type | Department | Care Team | Description | +--------+ + + + + | 11/21/ | Pharmacy | [facility] | | | | 2013 | Visit | [address] | | | | | | [address] | | | | | | [place] [address] | | | | | | [phone] | | | +--------+ + + + [...]
--- OUTSIDE RECORDS SUMMARY | ~2019-01-22 | XMS | Clinical Summary ---
Demographics + + + | Address | [address] | | | [place] [address] | + + + | Home Phone | | + + + | Preferred Language | Unknown | + + + | Marital Status | Single | + + + | Anabaptism Affiliation | Unknown | + + + [...] Team Providers + +------+ + | Care Switchboard Manager Name | Role | Phone | + +------+ + PCP | Unavailable | + +------+ + Source Comments [facility] is fully live on both EpicCare Ambulatory and EpicCare InPatient.[facility] Allergies No Known Allergies Medications + + [...]
--- OUTSIDE RECORDS SUMMARY | ~2019-01-22 | XMS | Encounter Summary ---
Demographics + + + | Address | [address] | | | [place] [address] | + + + | Home Phone [...] Team Providers + +------+ + | Care J2Ee Application Developer Name | Role | Phone | + +------+ + PCP | Unavailable | + +------+ + Encounter Details +--------+ + + + + | Date | Type | Department | Care Team | Description | +--------+ + + + + | 10/29/ | Pharmacy | [facility] | | | | 2012 | Visit | [address] | | | | | | [address] | | | | | | [place] [address] | | | | | | [phone] | | | +--------+ + + + [...]
--- OUTSIDE RECORDS SUMMARY | ~2019-01-22 | XMS | Encounter Summary ---
Demographics + + + | Address | [address] | | | [place] [address] | + + + | Home Phone | | + + + | Preferred Language | Unknown | + + + | Marital Status | Single | + + + | Alevism Affiliation | Unknown | + + + [...] Team Providers + +------+ + | Care Cost Accounting Manager Name | Role | Phone | + +------+ + PCP | Unavailable | + +------+ + Encounter Details +--------+ + + + + | Date | Type | Department | Care Team | Description | +--------+ + + + + | 07/03/ | Pharmacy | [facility] | | | | 2016 | Visit | [address] | | | | | | [address] | | | | | | [place] [address] | | | | | | [phone] | | | +--------+ + + + [...]
--- OUTSIDE RECORDS SUMMARY | ~2019-01-22 | XMS | Encounter Summary ---
Demographics + + + | Address | [address] | | | [place] [address] | + + + | Home Phone | | + + + | Preferred Language | Unknown | + + + | Marital Status | | + + + | Nondenominational Affiliation | 1041 | + + + | Race | Unknown | + + + | Ethnic Group | Unknown | + + + Author + + + | Author | [facility] | | | and [place] | + + + | Organization | [facility] | | | and [place] | + + + | Address | Unknown | + + + | Phone | Unavailable | + + + Support + + + + + | Name | Relationship | Address | Phone | + + + + + | Catrina Florez | ECON | [place] | | | | | [address] | | + + + + + Care Team Providers + +------+ + | Care Excel Developer Name | Role | Phone | [...] | 06/15/ | Telephone | [facility] | Lamont Zavala | Injections | | 2018 | | [address] | | | | | [place], | [place], [place] | | | | | [place] [address] | [address] | | | | | [phone] | | | +--------+ + + + [...]
--- OUTSIDE RECORDS SUMMARY | ~2019-01-22 | XMS | Encounter Summary ---
Demographics + + + | Address | [address] | | | [place] [address] | + + + | Home Phone | | + + + | Preferred Language | Unknown | + + + | Marital Status | | + + + | Church Affiliation | 1041 | + + + [...] [place] | | | | | [address] | | + + + + + Care Team Providers + +------+ + | Care Supervisor Locomotive Name | Role | Phone | + [...] [address] | | | | | [place], | [place], | | | | | [place] [address] | [place] [address] | | | | | [phone] | [phone] | | | | | | | [...]
--- OUTSIDE RECORDS SUMMARY | ~2019-01-22 | XMS | Encounter Summary ---
Demographics + + + | Address | [address] | | | [place] [address] | + + + | Home Phone | | + + + | Preferred Language | Unknown | + + + | Marital Status | Single | + + + | Mormon Affiliation | Unknown | + + + | Race | Unknown | + + + | Ethnic Group | Other Race | + + + Author + + + | Author | [facility] | + + + | Organization | [facility] | + + + | Address | Unknown | + + + | Phone | Unavailable | + + + Care Team Providers + +------+ + | Care Field Test Engineer Name | Role | Phone | + +------+ + PCP | Unavailable | + +------+ + Encounter Details +--------+ + + + + | Date | Type | Department | Care Team | Description | +--------+ + + + + | 10/20/ | Pharmacy | [facility] | | | | 2015 | Visit | [address] | | | | | | [address] | | | | | | [place] [address] | | | | | | [phone] | | | +--------+ + + + [...]
--- OUTSIDE RECORDS SUMMARY | ~2019-01-22 | XMS | Encounter Summary ---
Demographics + + + | Address | [address] | | | [place] [address] | + + + | Home Phone | | + + + | Preferred Language | Unknown | + + + | Marital Status | Single | + + + | Hinduism Affiliation | Unknown | + + + | Race | Unknown | + + + | Ethnic Group | Other Race | + + + Author + + + | Author | [facility] | + + + | Organization | [facility] | + + + | Address | Unknown | + + + | Phone | Unavailable | + + + Care Team Providers + +------+ + | Care Discotheque Dancer Name | Role | Phone | + +------+ + PCP | Unavailable | + +------+ + Encounter Details +--------+ + + + + | Date | Type | Department | Care Team | Description | +--------+ + + + + | 07/03/ | Pharmacy | [facility] | | | | 2016 | Visit | [address] | | | | | [address] | | | | | | [place] [address] | | | | | | [phone] | | | +--------+ + + + [...]
--- OUTSIDE RECORDS SUMMARY | ~2019-01-22 | XMS | Encounter Summary ---
Demographics + + + | Address | [address] | | | [place] [address] | + + + | Home Phone | | + + + | Preferred Language | Unknown | + + + | Marital Status | Single | + + + | Presybeterian Affiliation | Unknown | + + + | Race | Unknown | + + + | Ethnic Group | Other Race | + + + Author + + + | Author | [facility] | + + + | Organization | [facility] | + + + | Address | Unknown | + + + | Phone | Unavailable | + + + Care Team Providers + +------+ + | Care Bird Keeper Name | Role | Phone | + +------+ + PCP | Unavailable | + +------+ + Encounter Details +--------+ + + + + | Date | Type | Department | Care Team | Description | +--------+ + + + + | 04/06/ | Pharmacy | [facility] | | | | 2014 | Visit | [address] | | | | | | [address] | | | | | | [place] [address] | | | | | | [phone] | | | +--------+ + + + [...]
--- OUTSIDE RECORDS SUMMARY | ~2019-01-22 | XMS | Encounter Summary ---
Demographics + + + | Address | [address] | | | [place] [address] | + + + | Home Phone | | + + + | Preferred Language | Unknown | + + + | Marital Status | Single | + + + | Orthodoxy Affiliation | Unknown | + + + [...] Team Providers + +------+ + | Care Oven Stripper Name | Role | Phone | + +------+ + PCP | Unavailable | + +------+ + Encounter Details +--------+ + + + + | Date | Type | Department | Care Team | Description | +--------+ + + + + | 04/14/ | Pharmacy | [facility] | | | | 2013 | Visit | [address] | | | | | | [place] [address] | | | | | | [phone] | | | +--------+ + + + [...]
--- OUTSIDE RECORDS SUMMARY | ~2019-01-22 | XMS | Encounter Summary ---
Demographics + + + | Address | [address] | | | [place] [address] | + + + | Home Phone | | + + + | Preferred Language | Unknown | + + + | Marital Status | | + + + | Sabianism Affiliation | 1041 | + + + | Race | Unknown | + + + | Ethnic Group | Unknown | + + + Author + + + | Author | [facility] | | | and [place] | + + + | Organization | [facility] | | | and [place] | + + + | Address | Unknown | + + + | Phone | Unavailable | + + + Support + + + + + | Name | Relationship | Address | Phone | + + + + + | Catrina Florez | ECON | [place] | | | | | [address] | | + + + + + Care Team Providers + +------+ + | Care Director Of Entertainment Name | Role | Phone | + +------+ + | Tomas Cai DO | PCP | | + +------+ + Reason for Referral Evaluate & Treat (Routine) +--------+ + + + + + | Status | Reason | Specialty | Diagnoses / | Referred By | Referred To | | | | | Procedures | Contact | Contact | +--------+ + + + + + | Closed | Specialty | Physical | Diagnoses | | [facility] | | | Services | Therapy | Chronic | Sally, | [facility] | | | Required | | bilateral | Lamont Bryan MD | HOSPITAL | | | | | low back | [address] | [address] | | | | | pain without | [address] [place] | [address]VE | | | | | sciatica | [place], [place] | [place], [place] | | | | | Spondylosis | [address] | [address] | | | | | without | Phone: | Phone: | | | | | myelopathy | [phone] | [phone] | | | | | or | Fax: | Fax: | | | | | radiculopath | [phone] | [phone] | | | | | y, lumbar | | | | | | | region | | | | | | | Procedures | | | | | | | Faxed 09/16 | | | +--------+ + + + + + Reason for Visit + + + | Reason | Comments | + + + | Follow-up | Post injection follow up visit | + + + Encounter Details +--------+---------+ + + + | Date | Type | Department | Care Team | Description | +--------+---------+ + + + | 09/09/ | Office | [facility] | Lamont Zavala | Chronic bilateral | | 2016 | Visit | [address] | [address] | low back pain | | | | [place], | [place], [place] | without sciatica; | | | | [place] [address] | [address] | Spondylosis without | | | | [phone] | | myelopathy or | | | | | | radiculopathy, | | | | | | lumbar region | +--------+---------+ + + + Social History [...] + + + | Blood Pressure | 143/76 | 09/09/2016 10:05 AM | | | | | PDT | | + + + + + | Pulse | 71 | 09/09/2016 10:05 AM | | | | | PDT [...] Weight | 78.9 kg (174 lb) | 09/09/2016 10:05 AM | | | | | PDT | | + + + + + | Height | 177.8 cm (5' 10") | 09/09/2016 10:05 AM | | | | | PDT | | + + + + + | Body Mass Index | 24.97 | 09/09/2016 10:05 AM | | | | | PDT | | + + + + + documented in this encounter Patient Instructions Patient Instructions Renea Appiah CMA - 09/09/2016 10:00 AM PDT Follow-up at the hospital thirty minutes before [...] of the procedure you must provide a city route driver to take you home. For all procedur es it is recommended that someone else drive you home. documented in this encounter Progress Notes Lamont Zavala MD - 09/09/2016 10:00 AM PDT CHIEF COMPLAINT: Chief Complaint Patient presents with Follow-up Post injection follow up visit HISTORY OF PRESENT ILLNESS: The patient is a 81 y.o. female being seen today to follow-up on complaints of left sided low back pain with radiation into the left leg. She reports hav ing had this pain for over 20 years but it has always been intermittent. Her symptoms worsen ed in April of last year after she had a left total knee replacement. She has seen for t in the past and initially underwent a left SI joint injection. This was done 05/06/2016. Unfortunately she reports no immediate or half-way improvement of her symptoms. She was se en in the office again by my PA Maribel who recommended a trial of a left L5-S1 epidural ster oid injection which was performed by me on 07/07/2016. The patient is here to follow up on the results of that injection. She reports that immediately after the injection she had no impr ovement in her symptoms for the first 4 days and then reports getting approximately 25% impr ovement afterwards. The patient reports that as of now she feels that she is even more impro jack than that but feels that is related to multiple things including the prior injection and a change in activity. She reports that she actually feels better when she is a little more active. The patient does also report that she has pain on the right side of the lower back which is now a more significant daily issue for her. That pain stays in the back and does not radia te down the leg. Her symptoms on the right worsen with [...] (PRESERVISION AREDS 2) CAPS Take by mouth. [place]-3 Fatty Acids (FISH OIL) 1200 MG CAPS [...] of systems was negative. PHYSICAL EXAMINATION: Vitals: 09/09/16 1005 BP: 143/76 Pulse: 71 PainSc: 1 Body mass index is 24.97 kg/m. GENERAL: [...] has no apparent deficits with short or half-way memory. She has appropriate fund of knowledge [...] the visit. Lumba r MRI from [facility] shows transitional lumbosacral anatomy with [...] repeat imaging to see how the lesions interchange agent time. ASSESSMENT: 1. Chronic bilateral low back pain without sciatica 2. Spondylosis without myelopathy or radiculopathy, lumbar region PLAN: 1. It is not completely clear how much relief she got from the most recent injection. She reports to me today that she is actually feeling fairly well right now with regard to the le ft side and does not feel a need for any additional intervention on that side. She reports that increased activity recently seems to have actually made her better. 2. In regards to the pain on the right side that is more concerning to her. It appears th at pain is located in the region of the right L5-S1 facet. Physical therapy was discussed i n detail with the patient today. I felt that would be a good place for her to start with reg gricelda to that pain and she was willing to pursue that. A referral to PT was placed today. 3. Medications were discussed with the patient today. She is currently taking Advil and Oxy codone as needed. She is also taking gabapentin 100 mg three times daily. She did not feel a need to change any of her medications at this time. 4. We did discuss a trial of an injection on the right side. I would offer a right L5-S1 facet joint injection as the next step if she continues to have significant discomfort after the PT has been completed. I, Dr. Lamont Zavala, personally performed the services described in this documentatio n, as scribed by DELONTE Hatch in my presence, and it is both accurate and complete. ELECTRONICALLY EDITED AND SIGNED BY: Lamont Zavala MD, 09/11/2016 documented in this encounter Plan of Treatment + + +--------+ + + | Name | Type | Priori | Associated Diagnoses | Order Schedule | | | | ty | | | + + +--------+ + + | External Physical | Outpatient | Routin | Chronic bilateral | Ordered: 09/11/2016 | | Therapy - AMB | Referral | e | low back pain | | | Referral | | | without sciatica | | | | | | Spondylosis without | | | | | | myelopathy or | | | | | | radiculopathy, | | | | | | lumbar region | | + + +--------+ + + documented as of this encounter Visit Diagnoses + + | Diagnosis | + + | Chronic bilateral low back pain without sciatica | + + | Spondylosis without myelopathy or radiculopathy, lumbar region | + + documented in this encounter
--- OUTSIDE RECORDS SUMMARY | ~2019-01-22 | XMS | Encounter Summary ---
Demographics + + + | Address | [address] | | | [place] [address] | + + + | Home Phone | | + + + | Preferred Language | Unknown | + + + | Marital Status | Single | + + + | Religion Affiliation | Unknown | + + + | Race | Unknown | + + + | Ethnic Group | Other Race | + + + Author + + + | Author | [facility] | + + + | Organization | [facility] | + + + | Address | Unknown | + + + | Phone | Unavailable | + + + Care Team Providers + +------+ + | Care Astronaut Mission Specialist Name | Role | Phone | + +------+ + PCP | Unavailable | + +------+ + Encounter Details +--------+ + + + + | Date | Type | Department | Care Team | Description | +--------+ + + + + | 04/02/ | Pharmacy | [facility] | | | | 2015 | Visit | [address] | | | | | | [address] | | | | | | [place] [address] | | | | | | [phone] | | | +--------+ + + + [...]
--- OUTSIDE RECORDS SUMMARY | ~2019-01-22 | XMS | Encounter Summary ---
Demographics + + + | Address | [address] | | | [place] [address] | + + + | Home Phone [...] Team Providers + +------+ + | Care Ultrasonic Cleaner Name | Role | Phone | + +------+ + PCP | Unavailable | + +------+ + Encounter Details +--------+ + + + + | Date | Type | Department | Care Team | Description | +--------+ + + + + | 01/06/ | Pharmacy | [facility] | | | | 2015 | Visit | [address] | | | | | | [address] | | | | | | [place] [address] | | | | | | [phone] | | | +--------+ + + + [...]
--- OUTSIDE RECORDS SUMMARY | ~2019-01-22 | XMS | Encounter Summary ---
Demographics + + + | Address | [address] | | | [place] [address] | + + + | Home Phone [...] Team Providers + +------+ + | Care Land Leveler Name | Role | Phone | + +------+ + PCP | Unavailable | + +------+ + Encounter Details +--------+ + + + + | Date | Type | Department | Care Team | Description | +--------+ + + + + | 03/09/ | Pharmacy | [facility] | | | | 2014 | Visit | [address] | | | | | | [address] | | | | | | [place] [address] | | | | | | [phone] | | | +--------+ + + + [...]
--- OUTSIDE RECORDS SUMMARY | ~2019-01-22 | XMS | Clinical Summary ---
Demographics + + + | Address | [address] | | | [place] [address] | + + + | Home Phone | | + + + | Preferred Language | Unknown | + + + | Marital Status | | + + + | Quaker Affiliation | 1041 | + + + | Race | Unknown | + + + | Ethnic Group | Unknown | + + + Author + + + | Author | [facility] (Historical as of | | | 10-15-18) | + + + | Organization | [facility] [employer] (Historical as of | | | 10-15-18) [...] [place], | | | | | [place] [address] | | + + + + + Care Team Providers + +------+ + | Care Force Variation Equipment Tender Name | Role | Phone | + [...] Garner, | | | | | | /[id number] | | MD | | | | | | 4050 | | | | | | | | /[id number] | | | | | | | | 2 | + +------+------+ +--------+--------+--------+ | Global [place] Peg | | | | | 05/28/ | 113-42 | | GlenoidImplanted: Qty: 1 on | | | | | 2018 | -026 | | 11/22/2012 by Philip Garner, | | | | | | /[id number] | | MD | | | | | | 026 | | | | | | | | /[id number] | | | | | | | | 7 | + +------+------+ +--------+--------+--------+ | Global Eccentric | | | | | 06/28/ | 1128-5 | | HeadImplanted: Qty: 1 on | | | | | 2022 | 2-110 | | 11/22/2012 by Philip Garner, | | | | | | /[id number] | | MD | | | | [...] | MA - GENERIC | MA-GEN | [id number] | Med[employer] | | | | | [...] | | | | | | | [address] | + +--------+ +--------+ + +
--- OUTSIDE RECORDS SUMMARY | ~2019-01-22 | XMS | Encounter Summary ---
Demographics + + + | Address | [address] | | | [place] [address] | + + + | Home Phone | | + + + | Preferred Language | Unknown | + + + | Marital Status | | + + + | Latter-Day Affiliation | 1041 | + + + | Race | Unknown | + + + | Ethnic Group | Unknown | + + + Author + + + | Author | [facility] | | | and [place] | + + + | Organization | [facility] | | | and [place] | + + + | Address | Unknown | + + + | Phone | Unavailable | + + + Support + + + + + | Name | Relationship | Address | Phone | + + + + + | Catrina Florez | ECON | [place] | | | | | [address] | | + + + + + Care Team Providers + +------+ + | Care Setter Up Name | Role | Phone | + [...] | Lumbar | [place], | [address] | | | | | spondylosis | Lamont Bryan MD | [place], | | | | | Procedures | [address] | [place] | | | | | [place] INJ | [place] | [address] | | | | | DX/THER AGNT | [place], [place] | Phone: | | | | | [place] | [address] | [phone] | | | | | FACET [place], | Phone: | Fax: | | | | | LUMBAR/SAC, | [phone] | [phone] | | | | | 1ST LEVEL | Fax: | | | | | | [place] | [phone] | | | | | | TRIAMCINOLON [...] + + | 06/17/ | Hospital | [facility] | [place], | 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
--- OUTSIDE RECORDS SUMMARY | ~2019-01-22 | XMS | Encounter Summary ---
Demographics + + + | Address | [address] | | | [place] [address] | + + + | Home Phone | | + + + | Preferred Language | Unknown | + + + | Marital Status | Single | + + + | Sikhism Affiliation | Unknown | + + + | Race | Unknown | + + + | Ethnic Group | Other Race | + + + Author + + + | Author | [facility] | + + + | Organization | [facility] | + + + | Address | Unknown | + + + | Phone | Unavailable | + + + Care Team Providers + +------+ + | Care Vacuum Tank Tender Name | Role | Phone | + +------+ + PCP | Unavailable | + +------+ + Encounter Details +--------+ + + + + | Date | Type | Department | Care Team | Description | +--------+ + + + + | 07/14/ | Pharmacy | [facility] | | | | 2013 | Visit | [address] | | | | | | [place] [address] | | | | | | [phone] | | | +--------+ + + + [...]
--- OUTSIDE RECORDS SUMMARY | ~2019-01-22 | XMS | Encounter Summary ---
Demographics + + + | Address | [address] | | | [place] [address] | + + + | Home Phone | | + + + | Preferred Language | Unknown | + + + | Marital Status | | + + + | Advent Affiliation | 1041 | + + + | Race | Unknown | + + + | Ethnic Group | Unknown | + + + Author + + + | Author | [facility] | | | and [place] | + + + | Organization | [facility] | | | and [place] | + + + | Address | Unknown | + + + | Phone | Unavailable | + + + Support + + + + + | Name | Relationship | Address | Phone | + + + + + | Catrina Florez | ECON | [place] | | | | | [address] | | + + + + + Care Team Providers + +------+ + | Care Centerless Grinder Tender Name | Role | Phone | [...] [facility] | | | | | | [place], | [address] | | | | | Sacroiliitis | Lamont Bryan MD | [place], | | | | | ([facility]) | [address] | [place] | | | | | Procedures | [place] | [address] | | | | | [place] INJECT SI | [place], [place] | Phone: | | | | | [place] | [address] | [phone] | | | | | ARTHRGRPHY&/ | Phone: | Fax: | | | | | ANES/STEROID | [phone] | [phone] | | | | | W/IMAGE [place] | Fax: | | | | | | | [phone] | | | | | | TRIAMCINOLON | | | | | | | E ACET INJ | | | | | | | NOS, 10 MG | | | | | | | Appt 05/06- | | | | | | | Left SI | | | +--------+--------+ + + + + Encounter Details +--------+ + + + + | Date | Type | Department | Care Team | Description | +--------+ + + + + | 05/06/ | Hospital | [facility] | [place], | Chronic bilateral | | 2017 | Encounter | MED CTR XRAY [address] | [address] | low back pain with | | | | [address] [place] | ECHO [place], | right-sided | | | | [place] [address] | [place] [address] | sciatica; Chronic | | | | [phone] | [phone] | left sacroiliac pain | | | | | | | | | | | Chief CruiserMonique | | +--------+ + + + + [...] +---------+ + + | Blood Pressure | 159/70 | 05/06/2016 3:58 PM | | | | | PST | | + +---------+ + + | Pulse | 74 | 05/06/2016 3:58 PM | | | | | PST | | + +---------+ + + | [...] + + + +---------+ + + | [place]-3 Fatty | Take 1,200 mg by | [...] + + + +---------+ + + | [place]-3 Fatty | Take 1 capsule by | [...] + +--------+ + + + | [place] SACROILIAC | Routin | 05/06/2016 | Chronic bilateral | Results for this | | INJECTION LEFT | e | 3:48 PM | low back pain with | procedure are in the | | | | PST | right-sided sciatica | results section. | | | | | Chronic left | | | | | | sacroiliac pain | | + +--------+ + + + documented in this encounter Results [place] Sacroiliac Injection Left (05/06/2016 3:48 PM PST) + + | Specimen | + + | | + + + + + | Narrative | Performed At | + + + | 05/06/2016 Sacroiliac Joint Injection Clinical History: Sacroiliitis | [facility] | | ICD-10 M46.1 Marianne Gomez presents to the fluoroscopy suite | [facility] | | for a fluoroscopically guided left sacroiliac joint steroid [facility] | | injection as part of [...] + + | Performing | Address | City/State/[facility] | Phone Number | | Organization | | | | + + + + + | [facility] | [address] | [place] | [phone] | | [facility] | | [address] | | | - IMAGING | | | | + + + + + documented in this encounter Visit Diagnoses + + | Diagnosis | + + | Chronic bilateral low back pain with right-sided sciatica | + + | Chronic left sacroiliac pain Disorders of sacrum | + + documented in this encounter Administered Medications + +--------+ +-------+------+------+ | Medication Order | MAR | Action | Dose | Rate | Site | | | Action | Date | | | | + +--------+ +-------+------+------+ | iohexol (OMNIPAQUE 300) 300 | Given | 05/07/19 | 4 mLs | | | | mg/mL injection 4 mL 4 mL, | | 17 3:55 | | | | | Other, ONCE, Wed05/06/16 at 1615, | | PM PST | | | | | For 1 dose | | | | | | + +--------+ +-------+------+------+ +---+---+ | | | +---+---+ + +-------+ +-------+---+---+ | lidocaine 1% injection 2 mL 2 | Given | 05/07/19 | 2 mLs | | | | mL, Other, ONCE, Wed05/06/16 at | | 17 4:00 | | | | | 1615, For 1 dose | | PM PST | | | | + +-------+ +-------+---+---+ +---+---+ | | | +---+---+ + +-------+ +-------+---+---+ | lidocaine buffered 1% injection | Given | 05/07/19 | 5 mLs | | | | 5 mL 5 mL, Other, ONCE, Wed | | 17 3:50 | | | | | 05/06/16 at 1615, For 1 dose | | PM PST | | | | + +-------+ +-------+---+---+ +---+---+ | | | +---+---+ + +-------+ +-------+---+---+ | triamcinolone acetonide | Given | 05/07/19 | 40 mg | | | | (KENALOG-40) 40 mg/mL injection | | 17 4:00 | | | | | 40 mg 40 mg, Other, ONCE, Wed | | PM PST | | | | | 05/06/16 at 1615, For 1 dose, Shake | | | | | | | well. Not for IV use., | | | | | | + +-------+ +-------+---+---+ +---+---+ | | | +---+---+ documented in this encounter"
--- OUTSIDE RECORDS SUMMARY | ~2019-01-22 | XMS | Encounter Summary ---
Demographics + + + | Address | [address] | | | [place] [address] | + + + | Home Phone | | + + + | Preferred Language | Unknown | + + + | Marital Status | | + + + | Anabaptism Affiliation | 1041 | + + + [...] [place] | | | | | [address] | | + + + + + Care Team Providers + +------+ + | Care Manager Customer Service Name | Role | Phone | + +------+ + | Tomas Cai DO | PCP | | + +------+ + Encounter Details +--------+ + + + + | Date | Type | Department | Care Team | Description | +--------+ + + + + | 11/08/ | Hospital | [facility] | Conversion | | | 2013 | Encounter | [facility] | Transaction, | | | | | CLINIC [address] | Provider Unknown | | | | | [place], [place] | | | | | | [address] | (Fax) | | | | | [phone] | | | +--------+ + + + [...] | | 0 | | | | Twlcuvl-Lshejuqzt-Br | mouth Daily. | | | | [...] + + + +---------+ + + | [place]-3 Fatty | Take 1 capsule by | [...] EXTERNAL LAB | | Testing performed at [facility];[address] [place] [address];[place] [address] MRSA PCR | | | NEGATIVE Testing performed at | | | [facility];[address] [place] [address];[place] [address] | | + + + + +---------+ + + | Performing | Address | City/State/Zipcode | Phone Number | | Organization | | | | + +---------+ + + | EXTERNAL LAB | | | | + +---------+ + + documented in this encounter Visit Diagnoses Not on filedocumented in this encounter"
--- OUTSIDE RECORDS SUMMARY | ~2019-01-22 | XMS | Encounter Summary ---
Demographics + + + | Address | [address] | | | [place] [address] | + + + | Home Phone | | + + + | Preferred Language | Unknown | + + + | Marital Status | | + + + | Alevism Affiliation | 1041 | + + + [...] [place] | | | | | [address] | | + + + + + Care Team Providers + +------+ + | Care Shift Nurse Manager Name | Role | Phone | + +------+ + | Tomas Cai DO | PCP | | + +------+ + Reason for Visit + + + | Reason | Comments | + + + | CPAP Follow Up | | + + + Encounter Details +--------+---------+ + + + | Date | Type | Department | Care Team | Description | +--------+---------+ + + + | 06/11/ | Office | [facility] | Boris Meza PA | DORA on CPAP (Primary | | 2017 | Visit | SLEEP DISORDER [address] | [address] | Dx) | | | | [address] [place] | [place] | | | | | [place] [address] | [address] | | | | | [phone] | | | +--------+---------+ + + + [...] + + + | Blood Pressure | 152/78 | 06/11/2016 11:05 AM | | | | | PDT | | + + + + + | Pulse | 65 | 06/11/2016 11:05 AM | | | | | PDT | | + + + + + | Temperature | - | - | | + + + + + | Respiratory Rate | 16 | 06/11/2016 11:05 AM | | | | | PDT | | + + + + + | Oxygen Saturation | 93% | 06/11/2016 11:05 AM | | | | | PDT | | + + + + + | Inhaled Oxygen | - | - | | | Concentration | | | | + + + + + | Weight | 79.2 kg (174 lb 9.6 | 06/11/2016 11:05 AM | | | | oz) | PDT | | + + + + + | Height | - | - | | + + + + + | Body Mass Index | 25.05 | 04/30/2016 3:04 PM | | | | | PST | | + + + + + documented in this encounter Progress Mimi Ordaz CNA - 06/11/2016 10:55 AM PDT 06/11/16 [address] Depression Inventory-II Depression Score 9 - Minimal depression Insomnia Severity Index Insomnia Severity Index 0 [place] Sleepiness Scale Sitting and reading 1 Watching TV 1 Sitting, inactive in a public place (e.g. a theatre or a meeting) 0 As a passenger in a car for an hour without a break 1 Lying down to rest in the afternoon when circumstances permit 1 Sitting and talking to someone 0 Sitting quietly after a lunch without alcohol 0 In a car, while stopped for a few minutes in traffic 0 Total score 4 SF-36v2 Score PF 36.49 RP 32.46 BP 38.21 GH 60.32 VT 43.69 SF 57.34 RE 56.17 MH 58.72 PCS 33.6 MCS 63.65 oram, FLORESITA Lau - 10:37 AM PDT Subjective: Patient ID: Marianne Gomez is a 81 y.o. female. HPI last office visit: 04/17/2014 date of split-night polysomnography: 02/01/2012 AHI: 19.9 RDI: 28.7 O2%: 65% with 6.4 minutes below 88% Machine type: ResMed S9 Mask type: nasal pillows DME: [facility] [place] pressure: 5-10 cm Median: 6.0 cm 95%: 7.9 cm maxium: 9.1 cm Nights using CPAP: 365/365 % of nights >4 hours: 98% average usage (all nights): 7:55 average usage (nights used): 7:55 AHI: 1.4 Marianne Zuñiga comes in for CPAP compliance. She is wearing it on a nightly basis for the dura tion of the night. Her CPAP has become a regular part of her sleep routine. She does not consider sleeping without it. She does not have any questions or concerns. I have discussed the download and results of the paperwork in detail. The download shows t hat her sleep apnea is controlled, with an AHI of 1.4. It also shows that her leaks are co ntrolled. BP 152/78 mmHg | Pulse 65 | Resp 16 | Wt 79.198 kg (174 lb 9.6 oz) | SpO2 93% Review of Systems Objective: Physical Exam Assessment: Problem #1: OBSTRUCTIVE SLEEP APNEA ([id number]-L35.33) This is controlled with CPAP. Her CPAP compliance is going well. Plan: 1. She is to continue with CPAP indefinitely. 2. I have recommended that she touch base with her medical supplier twice per year to ensu re that her equipment is satisfactory. I will follow up again in 2 years, sooner prn. At that time we will reassess with all dilan ropiate paperwork. Fifteen minutes were spent [id number], with the majority of time spen t in counseling. Boris Meza PA-C cc: Tomas Cai MD documented in this enco unter Plan of Treatment Not on filedocumented as of this encounter Visit Diagnoses + + | Diagnosis | + + | DORA on CPAP - Primary Obstructive sleep apnea (adult) (pediatric) | + + documented in this encounter"
--- OUTSIDE RECORDS SUMMARY | ~2019-01-22 | XMS | Encounter Summary ---
Demographics + + + | Address | [address] | | | [place] [address] | + + + | Home Phone [...] + | Catrina Florez | E[place] | [place] | | | | | [address] | | + + + + + Care Team Providers + +------+ + | Care Development Officer Name | Role | Phone | + +------+ + | Tomas Cai DO | PCP | | + +------+ + Encounter Details +--------+ + + + + | Date | Type | Department | Care Team | Description | +--------+ + + + + | 11/22/ | Hospital | [facility] | Rock Garner MD | | | 2013 - | Encounter | [facility] [address] | | | | [address] | [address] [place], [place] | | | 11/25/ | | [place], [place] | [address] | | | 2012 | | [id number] | | | | | | [phone] | | | +--------+ + + + [...] + + documented as of this encounter Discharge Summaries Rock Garner - 11/25/2012 12:43 PM PDT Discharge Summaries by Rock Garner MD at 11/25/12 1243 Author: Rock Garner MD Service: (none) Author Type: Physician Filed: 11/25/12 1249 Date of Service: 11/25/12 124 Status: Signed Body Shop Mechanic: Rock Garner MD (Physician) [facility] Service: Orthopedic Surgery Discharge Summary Date of Admission: 11/22/2012 Date of Discharge: 11/25/2012 Discharge Physician: ROCK GARNER MD Treatment Team: Admitting Provider: Rock Garner MD Discharge Diagnoses: Right shoulder osteoarthritis, S/P right total shoulder arthroplasty Procedures: Procedure(s) with comments: SHOULDER - TOTAL - depuy component S BRIEF HISTORY OF PRESENTATION: Marianne Gomez is a 77 y.o. female who had a right total shoulder arthroplasty for he r arthritis after failing conservative measures HOSPITAL COURSE: She was admitted to the hospital and underwent the above mentioned surgery. She began to tolerate oral fluids and nutrition and oral pain meds. She had knee pain from arthritis a nd she received steroid injections in both knees Past Medical History Diagnosis Date Hypertension Sleep apnea cpap Neuromuscular disorder Past Surgical History Procedure Date Tonsillectomy Colonoscopy Shoulder surgery 11/22/2012 Procedure: SHOULDER - TOTAL; Surgeon: Rock Garner MD; Location: [facility]; Servi ce: Orthopedics; Laterality: Right; depuy component No Known Allergies Prescriptions prior to admission Medication Sig Dispense Refill amlodipine (NORVASC) 10 MG tablet Take 5 mg by mouth daily. Biotin 1000 MCG tablet Take 3,000 mcg by mouth daily. fish oil-omega-3 fatty acids 1000 MG capsule Take 2 g by mouth daily. lisinopril (PRINIVIL,ZESTRIL) 20 MG tablet Take 20 mg by mouth daily. oxybutynin (DITROPAN XL) 15 MG 24 hr tablet Take 15 mg by mouth daily. DISCONTD: HYDROcodone-acetaminophen (NORCO) 5-325 MG per tablet Take 1 tablet by mouth every 6 (six) hours as needed. DISCONTD: diphenhydrAMINE (BENADRYL) 25 MG tablet Take 25 mg by mouth every 6 (six) calvin rs as needed. DISCHARGE EXAM Vital Signs: BP 132/73 | Pulse 88 | Temp 99.9 F (37.7 C) (Oral) | Resp 18 | Ht 1.778 m (5' 10") | Wt 78.7 kg (173 lb 8 oz) | BMI 24.89 kg/m2 | SpO2 96% | ? No Physical Exam NV exam normal right hand, dressing intact, arm in sling Ortho Exam PLAN Activity: PROM with PT only, avoid external rotation beyond 30 degrees Disposition: [facility] Condition: Stable Code Status: Full Code No discharge procedures on file. Follow up: Rock Garner MD [address] [place] [address] Schedule an appointment as soon as possible for a visit in 2 weeks Current Discharge Medication List START taking these medications Details acetaminophen 650 MG TABS Take 650 mg by mouth every 6 (six) hours as needed for Pain or F ever (for pain scale 1 to 3, or fever. Give suppository if patient unable to tolerate oral.) . Qty: 60 tablet, Refills: 0 hydrOXYzine (VISTARIL) 25 MG capsule Take 1 capsule by mouth 3 (three) times daily as need ed for Itching. Qty: 60 capsule, Refills: 0 Multiple Vitamins-Minerals (MULTIVITAMIN WITH MINERALS) tablet Take 1 tablet by mouth fredo y. Qty: 30 tablet, Refills: 11 oxyCODONE 10 MG TABS Take 10 mg by mouth every 4 (four) hours as needed for Pain (1/2 to 1 tab q 4 hours prn pain). Qty: 80 tablet, Refills: 0 CONTINUE these medications which have NOT CHANGED Details amlodipine (NORVASC) 10 MG tablet Take 5 mg by mouth daily. Biotin 1000 MCG tablet Take 3,000 mcg by mouth daily. fish oil-omega-3 fatty acids 1000 MG capsule Take 2 g by mouth daily. lisinopril (PRINIVIL,ZESTRIL) 20 MG tablet Take 20 mg by mouth daily. oxybutynin (DITROPAN XL) 15 MG 24 hr tablet Take 15 mg by mouth daily. STOP taking these medications HYDROcodone-acetaminophen (NORCO) 5-325 MG per tablet Comments: Reason for Stopping: diphenhydrAMINE (BENADRYL) 25 MG tablet Comments: Reason for Stopping: Discharge took 20 minutes, to include final examination, discussion of admission, and prepa ration of prescriptions, instructions for on-going care, follow-up and documentation of disc harge summary. ROCK GARNER MD 11/25/2012 Makenzie houser in this encounter Medications at Time of [...] | | 0 | | | | Eeaorzz-Kgatebfrp-It | mouth Daily. | | | | [...] + + + +---------+ + + | [place]-3 Fatty | Take 1 capsule by | | 0 | | | | Acids (RA FISH OIL | mouth Daily. | | | | 7 | | EXTRA STRENGTH) 870 | | | | | | | MG CAPS | | | | | | + + + +---------+ + + documented as of this encounter Progress Notes Conversion Transaction, Provider Unknown - 11/25/2012 5:10 PM PDTFormatting of this note m ight be different from the original. Case Management by DEAN Hammond at 11/25/12 3320 Author: DEAN Hammond Service: (none) Author Type: Chiropractic Practice Manager Filed: 11/25/12 171 Date of Service: 11/25/121709 Status: Signed Body Shop Mechanic: DEAN Hammond (Chiropractic Practice Manager) Pt dc'd to [facility] to resume PT/OT/SNR consult. Pt was transported to SNF b y her family. 11/25/12 1600 Discharge Planning Evaluation Living Arrangements Alone Support Systems Children Type of Residence Private residence House type House-1 [place] [facility] No Mental Status Oriented Resources Financial concerns No Transportation issues No Patient/Family concerns No Prescription Plan Yes Anticipated Disposition Facility Type prison facility [facility] Facility Other (comment) Attractions Associate Name and Phone Number (Pat [phone]) Nursing Unit Adult Unit Nursing Unit onver lennox Cifuentesaction, Provider Unknown - 11/25/2012 10:44 AM PDT Progress Notes by MAGUI Zamudio at 11/25/121043 Author: MAGUI Zamudio Service: (none) Author Type: Massage Therapist Filed: 11/25/121043 Date of Service: 11/25/121043 Status: Signed Body Shop Mechanic: MAGUI Zamudio (Massage Therapist) 11/25/121043 Massage Therapy Interventions Locations Back Massage Therapy Technique Effleurage;Deep tissue;Petrissage;Tajik massage;Trigger point Response to treatment Decreased pain;Decreased muscle tension Goals Short Term Goal #1 Decreased muscle tension;Decreased pain;Increase comfort;Increased relax ation Rock Keating - 11/25/2012 8:15 AM PDTFormatting of this note might be different from the origin al. Progress Notes by Rock Garner MD at 11/25/12814 Author: Rock Garner MD Service: (none) Author Type: Physician Filed: 11/25/12818 Date of Service: 11/25/12814 Status: Signed Body Shop Mechanic: Rock Garner MD (Physician) [facility] Service: Orthopedic Surgery Progress Note Hospital Day: LOS: 3 days Post-Op Day: 3 Days Post-Op SUBJECTIVE Patient Summary: Pain under control, knees more painful than shoulder, will give ster oid injections in knees today Scheduled Medications amlodipine 5 mg Oral Daily ascorbic acid 500 mg Oral Daily lisinopril 20 mg Oral Daily multivitamin with minerals 1 tablet Oral Daily oxybutynin 15 mg Oral Daily Continuous Infusions PRN Medications acetaminophen, acetaminophen, hydrOXYzine, naloxone, ondansetron, ondansetron, oxyCODONE, o xyCODONE, oxyCODONE, polyethylene glycol, zolpidem, DISCONTD: HYDROmorphone OBJECTIVE Vital Signs: BP 143/69 | Pulse 75 | Temp 98.4 F (36.9 C) (Oral) | Resp 18 | Ht 1.778 m (5' 10") | Wt 78.7 kg (173 lb 8 oz) | BMI 24.89 kg/m2 | SpO2 96% | ? No {EXTENDEDVITALS:56651 Physical Exam Ortho Exam NV exam normal right hand, arm in sling, dressing intact. Both knees with effusion and tenderness, but no erythema, arthritis flare up. PROBLEM LIST S/P right TSA Bilateral knee OA flare up ASSESSMENT & PLAN 2.5ml of depo-medrol given in each knee joint. Disposition: SNF today most likely Code Status: Full Code ROCK GARNER MD 11/25/2012 onversio n Transaction, Provider Unknown - 11/24/2012 6:27 PM PDTFormatting of this note might be di fferent from the original. Progress Notes by ROSIE Lugo at 11/24/121826 Author: ROSIE Lugo Service: (none) Author Type: Self Defense Instructor Filed: 11/24/121826 Date of Service: 11/24/121826 Status: Signed Body Shop Mechanic: ROSIE Lugo (Self Defense Instructor) 11/24/12 1355 Time Calculation Start Time 1355 Stop Time 1355 Time Calculation (min) 0 min OT Therapy Visit Not available (pt eating lunch) onver lennox Transaction, Provider Unknown - 11/24/2012 5:18 PM PDT Progress Notes by MAGUI Rob at 11/24/121717 Author: MAGUI Rob Service: (none) Author Type: Massage Therapist Filed: 11/24/121717 Date of Service: 11/24/121717 Status: Signed Body Shop Mechanic: MAGUI Rbo (Massage Therapist) 11/24/121699 Massage Therapy Interventions Locations RLE;LLE;Back;Neck;Shoulder Massage Therapy Technique Effleurage;Petrissage;Tajik massage;Trigger point Response to treatment Decreased pain;Decreased muscle tension Goals Short Term Goal #1 Decreased muscle tension;Decreased pain;Increase comfort;Increased relax ation onver lennox Watson, Cynthia Unknown - 11/24/2012 5:15 PM PDT Case Management by DEAN Hammond at 11/24/121714 Author: DEAN Hammond Service: (none) Author Type: Chiropractic Practice Manager Filed: 11/24/121716 Date of Service: 11/24/121714 Status: Signed Body Shop Mechanic: DEAN Hammond (Chiropractic Practice Manager) Per MD's order for pt to f/u with SNF. CM faxed referral to [facility] for rehab c onsult. CM will continue to provide care as needed and plan for dc. 11/24/121699 Discharge Planning Evaluation Living Arrangements Alone Support Systems Children House type House-1 [place] [facility] No Mental Status Oriented Resources Financial concerns No Transportation issues No Patient/Family concerns No Prescription Plan Yes ock Garner - 11/24/2012 8:22 AM PDTFormatting of this note might be different from the origin al. Progress Notes by Rock Garner MD at 11/24/12821 Author: Rock Garner MD Service: (none) Author Type: Physician Filed: 11/24/12824 Date of Service: 11/24/12821 Status: Signed Body Shop Mechanic: Rock Garner MD (Physician) [facility] Service: Orthopedic Surgery Progress Note Hospital Day: LOS: 2 days Post-Op Day: 2 Days Post-Op SUBJECTIVE Patient Summary: patients's pain is under control, she is stable, but she does not hav e help at home right now. Events Overnight: none Scheduled Medications amlodipine 5 mg Oral Daily ascorbic acid 500 mg Oral Daily lisinopril 20 mg Oral Daily multivitamin with minerals 1 tablet Oral Daily oxybutynin 15 mg Oral Daily Continuous Infusions DISCONTD: dextrose 5% lactated ringers 75 mL/hr at 11/22/12 1551 DISCONTD: sodium chloride PRN Medications acetaminophen, acetaminophen, HYDROmorphone, hydrOXYzine, naloxone, ondansetron, ondansetro n, oxyCODONE, oxyCODONE, oxyCODONE, polyethylene glycol, zolpidem OBJECTIVE Vital Signs: BP 134/70 | Pulse 106 | Temp 99.4 F (37.4 C) (Oral) | Resp 16 | Ht 1.778 m (5' 10") | W t 78.7 kg (173 lb 8 oz) | BMI 24.89 kg/m2 | SpO2 92% {EXTENDEDVITALS:03047 Physical Exam Ortho Exam NV exam normal right hand 5 digits, dressing intact PROBLEM LIST Active Problems: * No active hospital problems. * ASSESSMENT & PLAN Disposition: She needs discharge planning for a SNF most likely since she does not have an y support at home right now. Code Status: Full Code ROCK GARNER MD 11/24/2012 onversio n Transaction, Provider Unknown - 11/23/2012 10:20 AM PDTFormatting of this note might be di fferent from the original. Progress Notes by LARS Glover at 11/23/12 1020 Author: LARS Glover Service: (none) Author Type: Occupational Therapist Filed: 11/23/12 1112 Date of Service: 11/23/12 1020 Status: Signed Body Shop Mechanic: LARS Glover (Occupational Therapist) 11/23/12 1020 Precautions UE Precaution(s) RUE (TSR) Precautions/WB RUE NWB;No ER greater than 30 degrees;No active shoulder abduction;No active shoulder flexion;Sling Home Environment Type of Home Home one story Home Exterior Layout 4-6 steps;Rail none (5 steps to the sidewalk; 1 step up to front door) Home Interior Layout Lives on main level with bedroom/bathroom Bathroom Shower/Tub Shower unit with threshold Bathroom Toilet Standard Bathroom Equipment (no equipment) Home Equipment None Prior Function Level of [place] Independent with functional mobility;Independent with ADLs;Independe nt with IADLs;Driving in community Lives With Alone Receives Help From Family;Friend(s) ADL Assistance Independent Home ADL's Independent 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 with AE handout and recommendations to increase safety and independence, as well as reinforce restrictions with R UE. Pt. educ. on no active movement to R UE; supported elbow, pt. is able to perform AROM. Educ. pt. on proper technique in doff ing/donning UE sling-with assist. Pt. recommended to have caregiver within the home to reagan t with ADLs/IADLs. Pt. stated she is going with her daughter for 5 days, and then headed [place] alone. Pt. would benefit from cont. skilled OT services to cont. educated in restrictions during ADLs/IADLs, AROM from elbow to hand, and cont. education in safety and independence i n ADLs/IADLs. Pain Screening Currently in Pain Yes Pain Assessment 0-10 Pain Score 8 Pain Type Surgical pain Pain Location Shoulder Pain Orientation Right Pain Intervention(s) (pt.'s nurse aware, per pt. report) Vision-Basic Assessment Current Vision Wears glasses Cognition Overall Cognitive Status WFL Orientation Level Oriented Sensation Light Touch No apparent deficits RUE Assessment RUE Assessment X LUE Assessment LUE Assessment WFL Hand Function Gross Grasp Functional Functional Gross Grasp Able to grasp objects without difficulty Coordination Functional (pt. is right handed) ADL Goals Pt Will Perform All ADL's (pt. will verbalize how to doff/don UE sling) Pt Will Perform UE Dressing (Pt. will verbalize how to don/doff shirt and/or practice w/) Pt Will Perform LE Dressing (min-mod A) Arm Goals Pt Will Perform AROM R UE;2 sets;10 reps;Maintaining ROM/orthopedic restrictions (STG: intro/review HEP; LTG: supervised w/handout) OT evaluation completed--POC to include self care activities, adaptive equipment training, reinforce precautions during ADLs/IADLs, AROM from elbow to hand. Pt. stated willingness to participate in OT and the above stated POC/goals. Pt. left in room with call light within r each. KINDRA GloverR/Priyanka 11/23/12 Rock Keating 11/23/2012 8:42 AM PDTFormatting of this note might be different from the origin al. Progress Notes by Rock Garner MD at 11/23/12 0842 Author: Rock Garner MD Service: (none) Author Type: Physician Filed: 11/23/1245 Date of Service: 11/23/12841 Status: Signed Body Shop Mechanic: Rock Garner MD (Physician) [facility] Service: Orthopedic Surgery Progress Note Hospital Day: LOS: 1 day Post-Op Day: 1 Day Post-Op SUBJECTIVE Patient Summary: Trying oral pain meds today. Pain under control this morning Scheduled Medications amlodipine 5 mg Oral Daily ascorbic acid 500 mg Oral Daily ceFAZolin 1 g Intravenous Q8H lisinopril 20 mg Oral Daily multivitamin with minerals 1 tablet Oral Daily oxybutynin 15 mg Oral Daily DISCONTD: ceFAZolin 2 g Intravenous Bath Tester to OR Continuous Infusions dextrose 5% lactated ringers 75 mL/hr at 11/22/12 1551 sodium chloride DISCONTD: electrolyte-A 30 mL/hr at 11/22/12 0813 PRN Medications acetaminophen, acetaminophen, HYDROmorphone, naloxone, ondansetron, ondansetron, oxyCODONE, oxyCODONE, oxyCODONE, polyethylene glycol, sodium chloride, zolpidem, DISCONTD: fentaNYL, D ISCONTD: fentaNYL, DISCONTD: HYDROmorphone, DISCONTD: HYDROmorphone, DISCONTD: labetalol, DI SCONTD: meperidine, DISCONTD: morphine, DISCONTD: morphine, DISCONTD: naloxone, DISCONTD: on dansetron, DISCONTD: promethazine OBJECTIVE Vital Signs: BP 123/67 | Pulse 66 | Temp 97 F (36.1 C) (Oral) | Resp 16 | Ht 1.778 m (5' 10") | Wt 7 8.7 kg (173 lb 8 oz) | BMI 24.89 kg/m2 | SpO2 96% {EXTENDEDVITALS:84820 Physical Exam Ortho Exam NV exam normal right upper extremity Dressing intact PROBLEM LIST Active Problems: * No active hospital problems. * ASSESSMENT & PLAN Disposition: Will continue oral pain meds today and expect DC to home tomorrow. Code Status: Full Code ROCK GARNER MD 11/23/2012 onversio n Transaction, Provider Unknown - 11/22/2012 7:45 PM PDTFormatting of this note might be di fferent from the original. Progress Notes by Chele Solorio RN at 11/22/121944 Author: Chele Solorio RN Service: (none) Author Type: Registered Nurse Filed: 11/22/121946 Date of Service: 11/22/121944 Status: Signed Body Shop Mechanic: Chele Solorio RN (Registered Nurse) Pt is currently no having any pain and has not used any of the dilaudid VP GENETIC. Pt would like to try going straight to oral pain medicine when it is needed. We got an oral pain medicin e in place for when the time comes. VP GENETIC is currently unhooked from pt. SUSANNAH Grigsby 1947 Don Quan LMT - 11/22/2012 3:28 PM PDT Progress Notes by MAGUI Carlos at 11/22/121527 Author: MAGUI Carlos Service: (none) Author Type: Massage Therapist Filed: 11/22/121527 Date of Service: 11/22/121527 Status: Signed Body Shop Mechanic: MAGUI Carlos (Massage Therapist) Worked on pt's low back 11/22/12 1500 $$ Massage Therapy Massage Therapy Level 1 Don Grijalva LMT - 11/22/2012 3:27 PM PDT Progress Notes by MAGUI Carlos at 11/22/121526 Author: MAGUI Carlos Service: (none) Author Type: Massage Therapist Filed: 11/22/12 1528 Date of Service: 11/22/121526 Status: Signed Body Shop Mechanic: MAGUI Carlos (Massage Therapist) Worked on pt's low back. onversion Transac tion, Provider Unknown - 11/22/2012 7:42 AM PDTFormatting of this note might be different f rom the original. Progress Notes by Heri Ho RPH at 11/22/12741 Author: Heri Ho RPH Service: (none) Author Type: Pharmacist Filed: 11/22/12741 Date of Service: 11/22/12741 Status: Signed Body Shop Mechanic: Heri Ho RPH (Pharmacist) Clinical Pharmacy Note: Renal Monitoring Marianne Gomez 77 y.o. female Ht Readings from Last 1 Encounters: 11/08/12 1.778 m (5' 10") Wt Readings from Last 1 Encounters: 11/08/12 78.7 kg (173 lb 8 oz) CREATININE Date Value Range Status 11/08/2012 0.70 0.50 - 1.00 mg/dL Final Testing performed at [facility], [address] [place] [address] Creatinine clearance cannot be calculated - Pharmacy dosing for renal function per Dr. Cespedes. Currently, there are no medications needing to be adjusted. Pharmacy will continue to monit or for changes in medication orders and in renal function and adjust accordingly. Heri Ho RPh 11/22/2012 7:42 AM docume nted in this encounter Plan of Treatment Not on filedocumented as of this encounter Procedures + +--------+ + + + | Procedure Name | Priori | Date/Time | Associated Diagnosis | Comments | | | ty | | | | + +--------+ + + + | FL C ARM > 1 HOUR | Routin | 11/22/2012 | | Results for this | | | e | 10:40 AM | | procedure are in the | | | | PDT | | results section. | + +--------+ + + + documented in this encounter Results FL C-Arm > 1 Hour (11/22/2012 10:40 AM PDT) + + | Specimen | + + | | + + + + + | Narrative | Performed At | + + + | This is a non-reportable procedure without a radiologist report and | | | is used for image storage only. Please review the OR procedure | | | report for details on the procedure. | | + + + + + | Procedure Note | + + | Dmitry Mchugh - 10/21/2018 6:38 PM PDT This is a non-reportable procedure | | without a radiologist report and isused for image storage only.Please review the OR | | procedure report for details on the procedure. | + + documented in this encounter Visit Diagnoses Not on filedocumented in this encounter
--- OUTSIDE RECORDS SUMMARY | ~2019-01-22 | XMS | Encounter Summary ---
Demographics + + + | Address | [address] | | | [place] [address] | + + + | Home Phone | | + + + | Preferred Language | Unknown | + + + | Marital Status | | + + + | Latter Day Affiliation | 1041 | + + + | Race | Unknown | + + + | Ethnic Group | Unknown | + + + Author + + + | Author | [facility] | | | and [place] | + + + | Organization | [facility] | | | and [place] | + + + | Address | Unknown | + + + | Phone | Unavailable | + + + Support + + + + + | Name | Relationship | Address | Phone | + + + + + | Catrina Florez | ECON | [place] | | | | | [address] | | + + + + + Care Team Providers + +------+ + | Care Non Profit Job Titles Name | Role | Phone | + +------+ + | Tomas Cai DO | PCP | | + +------+ + Reason for Visit + + + | Reason | Comments | + + + | Back Pain | low back radiating down left leg | + + + Evaluate & Treat (Routine) +--------+--------+ + + + + | Status | Reason | Specialty | Diagnoses / | Referred By | Referred To | | | | | Procedures | Contact | Contact | +--------+--------+ + + + + | Closed | | Physical | Diagnoses | Ayala, | Sally, | | | | Medicine and | Sciatica, | DO Tomas | Lamont Bryan MD | | | | Rehabilitatikyra | left side | [address] | [address] | | | | n | | [address] | [address] [place] | | | | | | [address] | [place], [place] | | | | | | [place], | [address] Phone: | | | | | | [place] | [phone] | | | | | | [address] | Fax: | | | | | | Phone: | [phone] | | | | | | [phone] | | | | | | | Fax: | | | | | | | [phone] | | +--------+--------+ + + + + Encounter Details +--------+---------+ + + + | Date | Type | Department | Care Team | Description | +--------+---------+ + + + | 10/01/ | Office | [facility] | Curtis, | Chronic bilateral | | 2015 | Visit | PHYSIATRY [address] | [address] | low back pain with | | | | [place], | [address] [place], | left-sided sciatica | | | | [place] [id number] | [place] [id number] | (Primary Dx) | | | | [phone] | [phone] | | | | | | | [...] + + + | Blood Pressure | 137/74 | 10/02/2015 10:15 AM | | | | | PDT | | + + + + + | Pulse | 64 | 10/02/2015 10:15 AM | | | | | PDT [...] Weight | 74.8 kg (165 lb) | 10/02/2015 10:15 AM | | | | | PDT | | + + + + + | Height | 177.8 cm (5' 10") | 10/02/2015 10:15 AM | | | | | PDT | | + + + + + | Body Mass Index | 23.68 | 10/02/2015 10:15 AM | | | | | PDT | | + + + + + documented in this encounter Patient Instructions Patient Instructions Maribel Acevedo PA-C - 10/02/2015 10:38 AM PDT1) Lumbar xray and MRI done at [facility] 2) Depending on what images show, options of physical therapy, steroid injections and neuro pathic pain medications Foraminal Stenosis/Radicular Pain: Foraminal stenosis is a [...] ss, tingling and or weakness can occur. Steroids are a very strong anti-inflammatory, this helps reduce pain by reducing swelling. Complications of steroids are bleeding, infection, and an increase of blood sugars if you are diabetic. FPC risk can lead to osteoporosis which is why we limited the number of injections to 3 times per year. With an epidural injection, the nerve root that comes out of the spine and travels down your leg is targeted. The procedure is about 20 minutes long . You will lie on your back while x-rays are taken. Once the region is marked, it is numbe d and then injected with steroids. documented in this encounter Progress Notes Maribel Acevedo PA-C - 10/02/2015 9:59 AM PDTFormatting of this note might be differe nt from the original. CHIEF COMPLAINT: Chief Complaint Patient presents with Back Pain low back radiating down left leg HISTORY OF PRESENT ILLNESS: The patient is a 80 y.o. female being seen today for complaint s of left sided low back pain with radiation into the left leg. She reports having had this pain for over 20 years but it has always been intermittent. In April of this year she r eceived a left total knee replacement and since this surgery her left leg pain has been cons tant. Since the symptoms began, she has noticed that symptoms have been worsening. She describes the pain as a burning feeling. She rates the pain as moderate. Her symptoms worsen with sitt ing, lying down, it wakes her at night, she states having this pain all the time. Her sympt oms improve with changing positions, hanging her left leg over the recliner arm rest, standi ng and walking. The patient also describes leg [...] histories were reviewed and updated as appropriate. PAST MEDICAL HISTORY: Past Medical History Diagnosis Date Pneumonia 1950 Urinary incontinence Osteopenia HTN (hypertension) DORA on CPAP 2011 AHI 19.9 with O2 desat to 65% Left sided sciatica Impaired fasting glucose Allergy Shingles Primary insomnia Hypertensive arteriosclerotic cardiovascular disease Acute deep vein thrombosis (DVT) of femoral vein of left lower extremity (HCC) Chronic anticoagulation Chronic bilateral low back pain with sciatica 10/02/2015 PAST SURGICAL HISTORY: Past Surgical History Procedure Laterality Date Tonsillectomy and adenoidectomy 1951 Wrist fracture surgery Left 1994 left wrist fracture skiing Colonoscopy 2004 Shoulder surgery Right Bladder suspension Total knee arthroplasty 12/11/2014 Total knee arthroplasty Left 04/23/2015 CURRENT MEDICATIONS: Current Outpatient Prescriptions Medication Sig Dispense Refill amLODIPine (NORVASC) 5 mg tablet Take 5 mg by mouth Daily. cholecalciferol (VITAMIN D-3) 1,000 units capsule Take 1,000 Units by mouth Daily. lisinopril (PRINIVIL, ZESTRIL) 20 mg tablet Take 20 mg by mouth Daily. Multiple Vitamins-Minerals (PRESERVISION AREDS 2) CAPS Take by mouth. [place]-3 Fatty Acids (FISH OIL) 1200 MG CAPS Take 1,200 mg by mouth Daily. [place]-3 Fatty Acids (RA FISH OIL EXTRA STRENGTH) 870 MG CAPS Take 1 capsule by mouth Da rodrigo. oxybutynin (DITROPAN XL) 15 MG 24 hr tablet Take 15 mg by mouth Daily. UNCODED MEDICATION Diagnosis: Obstructive Sleep Apnea ICD-9: [...] for this visit. ALLERGIES: No Known Allergies SOCIAL HISTORY: The patient reports that she quit smoking about 40 years ago. She has never used smokeless tobacco. She reports that she drinks about 3.0 oz of alcohol per week. She reports that she does not use illicit drugs. FAMILY HISTORY: Family History Problem Relation Age of Onset High blood pressure Mother Heart disease Mother High blood pressure Father Heart disease Father Other (see comment) Sister snores mildly REVIEW OF SYSTEMS: GENERALLY: No fever, chills, no night sweats, no weight gain, no weight loss, no anemia, no fatigue. EYES: No eye problems, no impaired sight, + eye glasses/contacts, no eye injury, no double vision, no transient blindness. EARS, NOSE, THROAT and MOUTH: No change in sense taste/smell, no hearing difficulty, no ri nging in ears, no drainage from ears, no ear injury, no dizziness, no voice change, no diffi culty swallowing, no snoring, + sleep apnea/CPAP, no sinus trouble,+ dental work. NEUROMUSCULAR: No numbness/pain of arms, + numbness/pain of legs, + awake with numbness/pa in, no weakness, no muscle aching, no coordination difficulty, no change in walk, no head in jury, no neck injury, no back injury, no pain in neck, no pain in back, no stroke, no fainti ng spells, no loss of consciousness, no tremor/shaking, no seizures, no headaches, no migrai vinay, no memory loss, no speech difficulty, no confusion, no numbness of face. PSYCHIATRIC: No depression, + difficulty sleeping, no anxiety, no bipolar disorder. CARDIOVASCULAR/PULMONARY: No heart attack, no heart murmur, no fluttering heart, no shortn ess of breath, no cough, no Tuberculosis, no chest pain, no swelling ankles, no bloody cough ing, no asthma, no COPD/emphysema. GASTROINTESTINAL: No bowel disease, no nausea/vomiting, no rectal bleeding/hemorroids, no constipation, no fecal/stool incontinence, no liver/gallbladder disease, no abdominal pain. KIDNEY DISEASE: No frequent urination, no painful/difficult with urination, + urinary incon tinence, no bladder problems, no impotence, no irregular period, no vaginal discharge. ENDOCRINE: No diabetes, no thyroid disease, no osteoporosis/osteopenia, no drainage from br easts. INTEGUMENTARY/SKIN: No lump in breasts, no skin disease or skin changes, no rash/itch. HEMATOLOGIC: No enlarged lymph nodes, no ease or unusual bleeding, no cancer. RHEUMATOLOGIC: No joint pain/arthritis, no Rheumatoid Arthritis PHYSICAL EXAMINATION: Filed Vitals: 10/02/15 1015 BP: 137/74 Pulse: 64 PainSc: 5 PainLoc: Back Body mass index is 23.68 [...] spine. Straight leg raise and slump-sit are positive on the left. Elias's maneuver and impingem ent testing were negative for any groin pain. There was no tenderness to palpation over th e greater trochanters or sacral sulci. The patient localized the majority of the pain to th e left buttocks region. Lumbar facet loading was negative. Strength testing showed 5/5 str ength throughout the lower extremities. The patient was able to heel and toe walk without d ifficulty. There was no redness, effusion, warmth or joint line tenderness in the knees or ankles. RADIOGRAPHIC REVIEW: The patient's imaging was reviewed in detail with the patient today during the visit. There are no images of the lumbar spine to review. ASSESSMENT: 1. Chronic bilateral low back pain with left-sided sciatica PLAN: 1. The patient has symptoms consistant with nerve pain, she does not have any images of th e lumbar spine at this time. I have ordered both a lumbar xray and MRI to be done at [facility]. 2. We discussed possible treatment options to include PT, steroid injections and neuropathi c pain medications. She has tried gabapentin in the past without any relief. 3. She will follow up once images are back. ELECTRONICALLY SIGNED BY: Maribel Acevedo PA-C, 10/02/2015 CC: Ayala docu mented in this encounter Plan of Treatment Not on filedocumented as of this encounter Visit Diagnoses + + | Diagnosis | + + | Chronic bilateral low back pain with left-sided sciatica - Primary | + + documented in this encounter
--- OUTSIDE RECORDS SUMMARY | ~2019-01-22 | XMS | Encounter Summary ---
Demographics + + + | Address | [address] | | | [place] [address] | + + + | Home Phone [...] [place] | | | | | [address] | | + + + + + Care Team Providers + +------+ + | Care Import/Export Freight Forwarder Name | Role | Phone | + +------+ + | Tomas Cai DO | PCP | | + +------+ + Encounter Details +--------+ + + + + | Date | Type | Department | Care Team | Description | +--------+ + + + + | 11/22/ | Hospital | [facility] | Rock Garner MD | | | 2013 - | Encounter | [facility] [address] | | | [address] | [address] [place], [place] | | | 11/25/ | | [place], [place] | [address] | | | 2012 | | [address] | | | | | | [phone] | | | +--------+ + + + [...] Date of Service: 11/25/12 124 Status: Signed Beam Dyer Operator: Rock Garner MD (Physician) [facility] Service: Orthopedic Surgery Discharge Summary Date of [...] - TOTAL; Surgeon: Rock Garner MD; Location: [facility] OR; Servi ce: Orthopedics; [...] file. Follow up: Rock Garner MD [address] [place] [address] Schedule an appointment as soon [...] | | 0 | | | | Kzkhjda-Uswfhtqah-Yh | mouth Daily. | | | | [...] + + + +---------+ + + | [place]-3 Fatty | Take 1 capsule by | [...] Case Management by DEAN Hammond at 11/25/12 9604 Author: DEAN Hammond Service: (none) Author Type: Injury/Safety Hazard Assessment Filed: 11/25/12 171 Date of Service: 11/25/121709 Status: Signed Beam Dyer Operator: DEAN Hammond (Injury/Safety Hazard Assessment) Pt dc'd to [facility] to resume PT/OT/SNR consult. Pt was transported to SNF b y her family. 11/25/12 1600 Discharge Planning Evaluation Living Arrangements Alone Support Systems Children Type of Residence Private residence House type House-[facility] [place] [facility] No Mental Status Oriented Resources Financial concerns No Transportation issues No Patient/Family concerns No Prescription Plan Yes Anticipated Disposition Facility Type [facility] facility Longterm Facility Other (comment) [facility] Name and Phone Number (Pat [phone]) Nursing Unit Adult Unit Nursing Unit onver lennox Cifuentesaction, Provider Unknown - 11/25/2012 10:44 AM PDT Progress Notes by MAGUI Zamudio at 11/25/121043 Author: MAGUI Zamudio Service: (none) Author Type: Massage Therapist Filed: 11/25/121043 Date of Service: 11/25/121043 Status: Signed Beam Dyer Operator: MAGUI Zamudio (Massage Therapist) 11/25/121043 Massage Therapy Interventions Locations Back Massage Therapy Technique Effleurage;Deep tissue;Petrissage;Persian massage;Trigger point Response to treatment Decreased pain;Decreased muscle tension Goals Short Term Goal #1 Decreased muscle tension;Decreased pain;Increase comfort;Increased relax ation Rock Keating - 11/25/2012 8:15 AM PDTFormatting of this note might be different from the origin al. Progress Notes by Rock Garner MD at 11/25/12814 Author: Rock Garner MD Service: (none) Author Type: Physician Filed: 11/25/12818 Date of Service: 11/25/12814 Status: Signed Beam Dyer Operator: Rock Garner MD (Physician) [facility] Service: Orthopedic Surgery Progress Note Hospital Day: [...] kg/m2 | SpO2 96% | ? No {EXTENDEDVITALS:50955 Physical Exam Ortho Exam NV exam normal [...] Author: ROSIE Lugo Service: (none) Author Type: Store Leader Filed: 11/24/121826 Date of Service: 11/24/121826 Status: Signed Beam Dyer Operator: ROSIE Lugo (Store Leader) 11/24/12 1355 Time Calculation Start Time 1355 Stop Time 1355 Time Calculation (min) 0 min OT Therapy Visit Not available (pt eating lunch) onver lennox Transaction, Provider Unknown - 11/24/2012 5:18 PM PDT Progress Notes by MAGUI Rob at 11/24/121717 Author: MAGUI Rob Service: (none) Author Type: Massage Therapist Filed: 11/24/121717 Date of Service: 11/24/121717 Status: Signed Beam Dyer Operator: MAGUI Rob (Massage Therapist) 11/24/121699 Massage Therapy Interventions Locations RLE;LLE;Back;Neck;Shoulder Massage Therapy Technique Effleurage;Petrissage;Persian massage;Trigger point Response to treatment Decreased pain;Decreased muscle tension Goals Short Term Goal #1 Decreased muscle tension;Decreased pain;Increase comfort;Increased relax ation onver lennox Watson, Cynthia Unknown - 11/24/2012 5:15 PM PDT Case Management by DEAN Hammond at 11/24/121714 Author: DEAN Hammond Service: (none) Author Type: Injury/Safety Hazard Assessment Filed: 11/24/121716 Date of Service: 11/24/121714 Status: Signed Beam Dyer Operator: DEAN Hammond (Injury/Safety Hazard Assessment) Per MD's order for pt to f/u with SNF. CM faxed referral to [facility] for rehab c onsult. CM will continue to provide care as needed and plan for dc. 11/24/121699 Discharge Planning Evaluation Living Arrangements Alone Support Systems Children House type [facility] [place] [facility] No Mental Status Oriented Resources Financial concerns No Transportation issues No Patient/Family concerns No Prescription Plan Yes ock Garner - 11/24/2012 8:22 AM PDTFormatting of this note might be different from the origin al. Progress Notes by Rock Garner MD at 11/24/12821 Author: Rock Garner MD Service: (none) Author Type: Physician Filed: 11/24/12824 Date of Service: 11/24/12821 Status: Signed Beam Dyer Operator: Rock Garner MD (Physician) [facility] Service: Orthopedic Surgery Progress Note Hospital Day: [...] | BMI 24.89 kg/m2 | SpO2 92% {EXTENDEDVITALS:91786 Physical Exam Ortho Exam NV exam normal [...] (none) Author Type: Occupational Therapist Filed: 11/23/12 1117 Date of Service: 11/23/12 1020 Status: Signed Beam Dyer Operator: LARS Glover (Occupational Therapist) 11/23/12 1020 Precautions [...] Home Equipment None Prior Function Level of [place] Independent with functional mobility;Independent with ADLs;Independe nt with IADLs;Driving in community Lives With Alone Receives Help From Family;Friend(s) ADL Assistance Independent Home ADL's Independent 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;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 [...] 11/23/1245 Date of Service: 11/23/12841 Status: Signed Beam Dyer Operator: Rock Garner MD (Physician) [facility] Service: Orthopedic Surgery Progress Note Hospital Day: [...] Oral Daily DISCONTD: ceFAZolin 2 g Intravenous Personal Care Service Provider to [place] Continuous Infusions dextrose 5% lactated [...] | BMI 24.89 kg/m2 | SpO2 96% {EXTENDEDVITALS:62558 Physical Exam Ortho Exam NV exam normal [...] 11/22/121946 Date of Service: 11/22/121944 Status: Signed Beam Dyer Operator: Chele Solorio RN (Registered Nurse) Pt is currently no having any pain and has not used any of the dilaudid LIVE TRUCK OPERATOR. Pt would like to try going straight to oral pain medicine when it is needed. We got an oral pain medicin e in place for when the time comes. LIVE TRUCK OPERATOR is currently unhooked from pt. SUSANNAH Grigsby 1947 Don Quan LMT - 11/22/2012 3:28 PM PDT Progress Notes by MAGUI Carlos at 11/22/121527 Author: MAGUI Carlos Service: (none) Author Type: Massage Therapist Filed: 11/22/121527 Date of Service: 11/22/121527 Status: Signed Beam Dyer Operator: MAGUI Carlos (Massage Therapist) Worked on pt's low back 11/22/12 1500 $$ Massage Therapy Massage Therapy Level 1 Don Grijalva LMT - 11/22/2012 3:27 PM PDT Progress Notes by MAGUI Carlos at 11/22/121526 Author: MAGUI Carlos Service: (none) Author Type: Massage Therapist Filed: 11/22/12 1528 Date of Service: 11/22/121526 Status: Signed Beam Dyer Operator: MAGUI Carlos (Massage Therapist) Worked on pt's low back. onversion Transac tion, Provider Unknown - 11/22/2012 7:42 AM PDTFormatting of this note might be different f rom the original. Progress Notes by Heri Ho RPH at 11/22/12741 Author: Heri Ho RPH Service: (none) Author Type: Pharmacist Filed: 11/22/12741 Date of Service: 11/22/12741 Status: Signed Beam Dyer Operator: Heri Ho RPH (Pharmacist) Clinical Pharmacy Note: Renal Monitoring Marianne Gomze 77 y.o. female Ht Readings from Last 1 Encounters: 11/08/12 1.778 m (5' 10") Wt Readings from Last 1 Encounters: 11/08/12 78.7 kg (173 lb 8 oz) CREATININE Date Value Range Status 11/08/2012 0.70 0.50 - 1.00 mg/dL Final Testing performed at [facility], [address] [place] [address] Creatinine clearance cannot be calculated - Pharmacy [...]
--- OUTSIDE RECORDS SUMMARY | ~2019-01-22 | XMS | Encounter Summary ---
Demographics + + + | Address | [address] | | | [place] [address] | + + + | Home Phone [...] Author + + + | Author | [facility] | + + + | Organization | [facility] | + + + | Address | Unknown | + + + | Phone | Unavailable | + + + Care Team Providers + +------+ + | Care Machine Scallop Cutter Name | Role | Phone | + +------+ + PCP | Unavailable | + +------+ + Encounter Details +--------+ + + + + | Date | Type | Department | Care Team | Description | +--------+ + + + + | 11/22/ | Pharmacy | [facility] | | | | 2013 | Visit | [address] | | | | | [address] | | | | | | [place] [address] | | | | | | [phone] | | | +--------+ + + + [...]
--- OUTSIDE RECORDS SUMMARY | ~2019-01-22 | XMS | Encounter Summary ---
Demographics + + + | Address | [address] | | | [place] [address] | + + + | Home Phone [...] Author + + + | Author | [facility] | + + + | Organization | [facility] | + + + | Address | Unknown | + + + | Phone | Unavailable | + + + Care Team Providers + +------+ + | Care Horse And Wagon Driver Name | Role | Phone | + +------+ + PCP | Unavailable | + +------+ + Encounter Details +--------+ + + + + | Date | Type | Department | Care Team | Description | +--------+ + + + + | 04/01/ | Pharmacy | [facility] | | | | 2015 | Visit | [address] | [address] | | [address] | [address] | | | | | | [place] [address] | | | | | | [phone] | | | +--------+ + + + [...]
--- OUTSIDE RECORDS SUMMARY | ~2019-01-22 | XMS | Encounter Summary ---
Demographics + + + | Address | [address] | | | [place] [address] | + + + | Home Phone | | + + + | Preferred Language | Unknown | + + + | Marital Status | Single | + + + | Islam Affiliation | Unknown | + + + | Race | Unknown | + + + | Ethnic Group | Other Race | + + + Author + + + | Author | [facility] | + + + | Organization | [facility] | + + + | Address | Unknown | + + + | Phone | Unavailable | + + + Care Team Providers + +------+ + | Care Temperature Control Inspector Name | Role | Phone | + +------+ + PCP | Unavailable | + +------+ + Encounter Details +--------+ + + + + | Date | Type | Department | Care Team | Description | +--------+ + + + + | 07/10/ | Pharmacy | [facility] | | | | 2014 | Visit | [address] | [address] | | | | | | [place] [address] | | | | | | [phone] | | | +--------+ + + + [...]
--- OUTSIDE RECORDS SUMMARY | ~2019-01-22 | XMS | Clinical Summary ---
Demographics + + + | Address | [address] | | | [place] [address] | + + + | Home Phone | | + + + | Preferred Language | Unknown | + + + | Marital Status | | + + + | Bahai Affiliation | 1041 | + + + | Race | Unknown | + + + | Ethnic Group | Unknown | + + + Author + + + | Author | [facility] | | | and [place] | + + + | Organization | [facility] | | | and [place] | + + + | Address | Unknown | + + + | Phone | Unavailable | + + + Support + + + + + | Name | Relationship | Address | Phone | + + + + + | Catrina Florez | ECON | [place] | | | | | [address] | | + + + + + Care Team Providers + +------+ + | Care Tool Design Drafter Name | Role | Phone | + [...] | | | + + +--------+---+------+---+-------+ | [place]-3 Fatty | Take 1,200 mg by | [...] 11/22/2012 | | | | | | /36026 | | | | | | | | 4050 | | | | | | | | /[address]95 | | | | | | | | 2 | + +------+------+ +--------+--------+--------+ | Global Forsan Peg | | | | | 05/28/ | 113-42 | | GlenoidImplanted: Qty: 1 on | | | | | 2018 | -026 | | 11/22/2012 | | | | | | /[id number] | | | | | | | | 026 | | | | | | | | /[id number] | | | | | | | | 7 | + +------+------+ +--------+--------+--------+ | Global Eccentric | | | | | 06/28/ | 1128-5 | | HeadImplanted: Qty: 1 on | | | | | 2022 | 2-110 | | 11/22/2012 | | | | | | /[id number] | | | | | | | [...] | [employer] | [employer] | [id number] | 03/01/19 | | | [employer] | [...] | | [address] (Home) | [place] [address] | + +--------+ +--------+ + + Advance Directives + + + + + | Type | Date Recorded | Patient | Explanation | | | | Assistant Chief Nursing Officer | | + + + + + | Power of | | | | | Rotary Driller Prospecting | | | | + + + + + | Advance | | | | | Directive | | | | + + + + +
--- OUTSIDE RECORDS SUMMARY | ~2019-01-22 | XMS | Encounter Summary ---
Demographics + + + | Address | [address] | | | [place] [address] | + + + | Home Phone | | + + + | Preferred Language | Unknown | + + + | Marital Status | | + + + | Scientology Affiliation | 1041 | + + + | Race | Unknown | + + + | Ethnic Group | Unknown | + + + Author + + + | Author | [facility] | | | and [place] | + + + | Organization | [facility] | | | and [place] | + + + | Address | Unknown | + + + | Phone | Unavailable | + + + Support + + + + + | Name | Relationship | Address | Phone | + + + + + | Catrina Florez | ECON | [place] | | | | | [address] | | + + + + + Care Team Providers + +------+ + | Care Laser Systems Engineer Name | Role | Phone | [...] + + | 06/11/ | Office | [facility] | Boris Meza PA | DORA on CPAP (Primary | | 2017 | Visit | SLEEP DISORDER [address] | [address] | Dx) | | | | [address] [place] | [place] | | | | | [place] [address] | [address] | | | | | [phone] | | | +--------+---------+ + + + [...] Insomnia Severity Index Insomnia Severity Index 0 Arcade Sleepiness Scale Sitting and reading 1 Watching [...] nasal pillows DME: [facility] [place] pressure: 5-10 cm Median: 6.0 cm 95%: [...] Exam Assessment: Problem #1: OBSTRUCTIVE SLEEP APNEA ([id number]-D08.33) This is controlled with CPAP. Her CPAP [...] dilan ropiate paperwork. Fifteen minutes were spent [id number], with the majority of time spen t [...]
--- OUTSIDE RECORDS SUMMARY | ~2019-01-22 | XMS | Encounter Summary ---
Demographics + + + | Address | [address] | | | [place] [address] | + + + | Home Phone | | + + + | Preferred Language | Unknown | + + + | Marital Status | | + + + | Jehovah'S Witness Affiliation | 1041 | + + + | Race | Unknown | + + + | Ethnic Group | Unknown | + + + Author + + + | Author | [facility] | | | and [place] | + + + | Organization | [facility] | | | and [place] | + + + | Address | Unknown | + + + | Phone | Unavailable | + + + Support + + + + + | Name | Relationship | Address | Phone | + + + + + | Catrina Florez | ECON | [place] | | | | | [address] | | + + + + + Care Team Providers + +------+ + | Care Manager Maintenance Name | Role | Phone | + [...] | 06/15/ | Telephone | [facility] [place] | Lamont Zavala | Injections | | 2018 | | PHYSIATRY [address] | [address], [address] | | | | | [place], | [place], [place] | | | | | [place] [address] | [address] | | | | | [phone] | | | +--------+ + + + [...]
--- OUTSIDE RECORDS SUMMARY | ~2019-01-22 | XMS | Encounter Summary ---
Demographics + + + | Address | [address] | | | [place] [address] | + + + | Home Phone | | + + + | Preferred Language | Unknown | + + + | Marital Status | | + + + | Sikhism Affiliation | 1041 | + + + [...] | [place] | | | | | [address] | | + + + + + Care Team Providers + +------+ + | Care Embroidery Finisher Name | Role | Phone | [...] | Lumbar | [place], | [address] | | | | | spondylosis | Lamont Bryan MD | [place], | | | | | Procedures | [address] | [place] | | | | | [place] INJ | [place] | [address] | | | | | DX/THER AGNT | [place] | Phone: | | | | | [place] | [address] | [phone] | | | | | [place]ET [place], | Phone: | Fax: | | | | | LUMBAR/SAC, | [phone] | [phone] | | | | | 1ST LEVEL | Fax: | | | | | | [place] | [phone] | | | | | | TRIAMCINOLON [...] + + | 06/17/ | Hospital | [facility] | Curtis, | 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
--- OUTSIDE RECORDS SUMMARY | ~2019-01-22 | XMS | Encounter Summary ---
Demographics + + + | Address | [address] | | | [place] [address] | + + + | Home Phone | | + + + | Preferred Language | Unknown | + + + | Marital Status | | + + + | Hindu Affiliation | 1041 | + + + | Race | Unknown | + + + | Ethnic Group | Unknown | + + + Author + + + | Author | [facility] | | | and [place] | + + + | Organization | [facility] | | | and [place] | + + + | Address | Unknown | + + + | Phone | Unavailable | + + + Support + + + + + | Name | Relationship | Address | Phone | + + + + + | Catrina Florez | ECON | [place] | | | | | [address] | | + + + + + Care Team Providers + +------+ + | Care Monkey Trainer Name | Role | Phone | + +------+ + | Tomas Cai DO | PCP | | + +------+ + Reason for Visit +--------+ + | Reason | Comments | +--------+ + | Apnea | | +--------+ + Encounter Details +--------+---------+ + + + | Date | Type | Department | Care Team | Description | +--------+---------+ + + + | 04/11/ | Office | [facility] | Boris Meza PA | DORA on CPAP (Primary | | 2013 | Visit | SLEEP DISORDER [address] | [address] | Dx) | | | | [address] [place] | [place] | | | | | [place] [address] | [address] | | | | | [phone] | | | +--------+---------+ + + + [...] + + + | Blood Pressure | 136/68 | 04/11/2013 11:24 AM | | | | | PST | | + + + + + | Pulse | 68 | 04/11/2013 11:24 AM | | | | | PST | | + + + + + | Temperature | - | - | | + + + + + | Respiratory Rate | 14 | 04/11/2013 11:24 AM | | | | | PST | | + + + + + | Oxygen Saturation | - | - | | + + + + + | Inhaled Oxygen | - | - | | | Concentration | | | | + + + + + | Weight | 77.6 kg (171 lb 1.6 | 04/11/2013 11:24 AM | | | | oz) | PST | | + + + + + | Height | - | - | | + + + + + | Body Mass Index | 25.27 | 01/13/2012 2:17 PM | | | | | PST | | + + + + + documented in this encounter Progress Notes Fina Isaac, Master of Arts - 04/11/2013 11:17 AM PSTFormatting of this note might be di fferent from the original. 04/11/13 1100 Fragoso Depression Inventory-II Depression Score 6 - Minimal depression Insomnia Severity Index Insomnia Severity Index 2 [place] Sleepiness Scale Sitting and reading 2 Watching TV 2 Sitting, inactive in a public place (e.g. [...] few minutes in traffic 0 Total score 9 SF-36v2 Score PF 40.2 RP 27.47 BP 29.15 GH 57.7 VT 36.48 SF 56.85 RE 48.1 MH 47.19 PCS 33.77 MCS 53.41 oram, FLORESITA Lau - 11:00 AM PST Subjective: Patient ID: Marianne Gomez is a 77 y.o. female. HPI last office visit was: 04/12/2012 date of split-night polysomnography: 02/01/2012 AHI: 19.9 RDI: 28.7 O2%: 65% with 6.4 minutes below 88% Machine type: ResMed S9 with nasal pillows obtained from: [facility] [place] pressure is: 5-10 cm 95%: 7.6 cm maxium: 8.6 cm CPAP download shows CPAP useage # nights: 360/365 average usage (all nights): 7:16 average usage (nights used): 7:22 AHI: 1.2 Marianne Zuñiga comes in for CPAP compliance. She is wearing it on a nightly basis for the durat ion of the night. She doesn't have any concerns with her CPAP, but she has been struggling with her recovery after total shoulder surgery in October,. She does not have any qu estions or concerns about her CPAP or her equipment. I have discussed the download and results of the paperwork in detail. She has declined in most categories due to her problems with her shoulder. The download shows that her sleep ap barron is well controlled, with an AHI of 1.2. It also shows that her leaks are well controlle d. Review of Systems Objective: Physical Exam Assessment: [...] appro piate paperwork. Fifteen minutes were spent [id number], with the majority of time spent i [...]
--- OUTSIDE RECORDS SUMMARY | ~2019-01-22 | XMS | Clinical Summary ---
Demographics + + + | Address | [address] | | | [place] [address] | + + + | Home Phone | | + + + | Preferred Language | Unknown | + + + | Marital Status | | + + + | Restoration Affiliation | 1041 | + + + | Race | Unknown | + + + | Ethnic Group | Unknown | + + + Author + + + | Author | [employer] (Historical as of | | | 10-15-18) | + + + | Organization | [facility] (Historical as of | | | 10-15-18) [...] [place], | | | | | [place] [address] | | + + + + + Care Team Providers + +------+ + | Care Senior Qa Analyst Name | Role | Phone | [...] Garner, | | | | | | /[address] | | MD | | | | | | 4050 | | | | | | | | /[address] | | | | | | | | 2 | + +------+------+ +--------+--------+--------+ | Global Lincoln Peg | | | | | 05/28/ | 113-42 | | GlenoidImplanted: Qty: 1 on | | | | | 2018 | -026 | | 11/22/2012 by Philip Garner, | | | | | | /[address]85 | | MD | | | | | | 026 | | | | | | | | /[address]16 | | | | | | | | 7 | + +------+------+ +--------+--------+--------+ | Global Eccentric | | | | | 06/28/ | 1128-5 | | HeadImplanted: Qty: 1 on | | | | | 2022 | 2-110 | | 11/22/2012 by Philip Garner, | | | | | | /[address] | | MD | | | | [...] | MA - GENERIC | MA-GEN | [id number] | Medica | | | | | [...] | | | | | | | [address] | + +--------+ +--------+ + +
--- OUTSIDE RECORDS SUMMARY | ~2019-01-22 | XMS | Encounter Summary ---
Demographics + + + | Address | [address] | | | [place] [address] | + + + | Home Phone | | + + + | Preferred Language | Unknown | + + + | Marital Status | | + + + | Jew Affiliation | 1041 | + + + | Race | Unknown | + + + | Ethnic Group | Unknown | + + + Author + + + | Author | [facility] | | | and [place] | + + + | Organization | [facility] | | | and [place] | + + + | Address | Unknown | + + + | Phone | Unavailable | + + + Support + + + + + | Name | Relationship | Address | Phone | + + + + + | Catrina Florez | ECON | [place] | | | | | [address] | | + + + + + Care Team Providers + +------+ + | Care Tape Librarian Name | Role | Phone | + [...] | Boris Meza | | | | Lvn / | Obstructive | DO Tomas | D, PA [address] | | | | Sleep | sleep apnea | [address] | [address] | | | | Medicine | (adult) | Florencio [address]le | [place], | | | | | (pediatric) | [address] | [place] [address] | | | | | 2 YR DIVINA | [place], | Phone: | | | | | [address] | [place] | [phone] | | | | | Procedures | [address] | Fax: | | | | | OFFICE | Phone: | [phone] | | | | | VISIT | [phone] | | | | | | EXTENDED | Fax: | | | | | | | [phone] | | +--------+--------+ + + + + Encounter Details +--------+---------+ + + + | Date | Type | Department | Care Team | Description | +--------+---------+ + + + | 06/09/ | Office | [facility] | Boris Meza PA | DORA on CPAP (Primary | | 2019 | Visit | SLEEP DISORDER [address] | [address] | Dx) | | | | [address] [place] | [place] | | | | | [place] [address] | [address] | | | | | [phone] | | | +--------+---------+ + + + [...] nasal pillows DME: [facility] [place] pressure: 5-10 cm Median: 5.8 cm 95%: [...] Exam Assessment: Problem #1: OBSTRUCTIVE SLEEP APNEA ([id number]-S93.33) This is controlled with CPAP. Her CPAP usage is going well. Plan: 1. She is to continue with CPAP indefinitely. 2. I have recommended that she touch base with her medical supplier twice per year to ensu re that her equipment is satisfactory. I will follow up again in 2 years, sooner prn. Fifteen minutes were spent [id number], wi th the majority of time spent [...]
--- OUTSIDE RECORDS SUMMARY | ~2019-01-22 | XMS | Encounter Summary ---
Demographics + + + | Address | [address] | | | [place] [address] | + + + | Home Phone | | + + + | Preferred Language | Unknown | + + + | Marital Status | Single | + + + | Mandaen Affiliation | Unknown | + + + [...] Providers + +------+ + | Care Machine Wedger Name | Role | Phone | + +------+ + PCP | Unavailable | + +------+ + Encounter Details +--------+ + + + + | Date | Type | Department | Care Team | Description | +--------+ + + + + | 03/09/ | Pharmacy | [facility] | | | | 2014 | Visit | [address] | | | | | | [address] | | | | | | [place] [address] | | | | | | [phone] | | | +--------+ + + + [...]
--- OUTSIDE RECORDS SUMMARY | ~2019-01-22 | XMS | Encounter Summary ---
Demographics + + + | Address | [address] | | | [place] [address] | + + + | Home Phone | | + + + | Preferred Language | Unknown | + + + | Marital Status | Single | + + + | Temple Affiliation | Unknown | + + + [...] Team Providers + +------+ + | Care Explosive Ordnance Disposal Technician Name | Role | Phone | + +------+ + PCP | Unavailable | + +------+ + Encounter Details +--------+ + + + + | Date | Type | Department | Care Team | Description | +--------+ + + + + | 04/14/ | Pharmacy | [facility] | | | | 2013 | Visit | [address] | | | | [address] | [address] | | | | | | [place] [address] | | | | | | [phone] | | | +--------+ + + + [...]
--- OUTSIDE RECORDS SUMMARY | ~2019-01-22 | XMS | Encounter Summary ---
Demographics + + + | Address | [address] | | | [place] [address] | + + + | Home Phone | | + + + | Preferred Language | Unknown | + + + | Marital Status | | + + + | Anabaptist Affiliation | 1041 | + + + | Race | Unknown | + + + | Ethnic Group | Unknown | + + + Author + + + | Author | [facility] | | | and [place] | + + + | Organization | [facility] | | | and [place] | + + + | Address | Unknown | + + + | Phone | Unavailable | + + + Support + + + + + | Name | Relationship | Address | Phone | + + + + + | Catrina Florez | ECON | [place] | | | | | [address] | | + + + + + Care Team Providers + +------+ + | Care Records And Information Manager Name | Role | Phone | [...] + + | 04/30/ | Office | [facility] | Lorri[place], | Chronic bilateral | | 2017 | Visit | PHYSIATRY [address] | [address] | low back pain with | | | | [place], | [address] [place], | right-sided sciatica | | | | [place] [address] | [place] [address] | (Primary Dx); | | | | [phone] | [phone] | Chronic left | | | | [...] sugars if you a re diabetic. senior care risk can lead to osteoporosis which is [...] of the procedure you must provide a route driver coin machines to take you home. For all procedur [...] (PRESERVISION AREDS 2) CAPS Take by mouth. [place]-3 Fatty Acids (FISH OIL) 1200 MG CAPS Take 1,200 mg by mouth Daily. [place]-3 Fatty Acids (RA FISH OIL EXTRA STRENGTH) [...] has no apparent deficits with short or medical terminologist memory. She has appropriate fund of knowledge [...] during the visit. Lumba r MRI from [facility] shows abnormal signal to the left [...] Gomez presents to the fluoroscopy suite | [facility] | | for a fluoroscopically guided left sacroiliac joint steroid [facility] | | injection as part of conservative [...] + + | Performing | Address | City/State/[facility] | Phone Number | | Organization | | | | + + + + + | [facility] | [address] 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
--- OUTSIDE RECORDS SUMMARY | ~2019-01-22 | XMS | Encounter Summary ---
Demographics + + + | Address | [address] | | | [place] [address] | + + + | Home Phone | | + + + | Preferred Language | Unknown | + + + | Marital Status | | + + + | Yazidism Affiliation | 1041 | + + + [...] | [place] | | | | | [address] | | + + + + + Care Team Providers + +------+ + | Care Medical Lead Name | Role | Phone | + [...] | Lumbar | [place], | [address] | | | | | radiculopath | Lamont Bryan MD | [place], | | | | | y | [address] | [place] | | | | | Procedures | [place] | [address] | | | | | [place] INJECT | [place], [place] | Phone: | | | | | ANES/STEROID | [address] | [phone] | | | | | FORAMEN | Phone: | Fax: | | | | | LUMBAR/SACRA | [phone] | [phone] | | | | | L W IMG | Fax: | | | | | | GUIDE ,1 | [phone] | | | | | | LEVEL [place] | | | | | | | [...] + + | 07/07/ | Hospital | [facility] | [place], | Left lumbar | | 2017 | Encounter | MED CTR XRAY [address] | [address] | radiculitis; Chronic | | | | [address] [place] | ECHO [place], | bilateral low back | | | | [place] [address] | [place] [address] | pain with | | | | [phone] | [phone] | right-sided sciatica | | | | | | | | | | | Tube LancerMonique | | +--------+ + + + + [...] + + + +---------+ + + | [place]-3 Fatty | Take 1,200 mg by | [...] to the fluoroscopy suite for a fluoroscopically-guided [facility] | | L5-S1 transforaminal epidural steroid [...] + + | Performing | Address | City/State/[facility] | Phone Number | | Organization | | | | + + + + + | [facility] | [address] | [place], [place] | [phone] | | [facility] | | [address] | | | - IMAGING | | [...]
--- OUTSIDE RECORDS SUMMARY | ~2019-01-22 | XMS | Encounter Summary ---
Demographics + + + | Address | [address] | | | [place] [address] | + + + | Home Phone [...] Author + + + | Author | [facility] | + + + | Organization | [facility] | + + + | Address | Unknown | + + + | Phone | Unavailable | + + + Care Team Providers + +------+ + | Care Experienced Truck Driver Name | Role | Phone | + +------+ + PCP | Unavailable | + +------+ + Encounter Details +--------+ + + + + | Date | Type | Department | Care Team | Description | +--------+ + + + + | 08/29/ | Pharmacy | [facility] | | | | 2013 | Visit | [address] | | | | [address] | [address] | | | | | | [place] [address] | | | | | | [phone] | | | +--------+ + + + [...]
--- OUTSIDE RECORDS SUMMARY | ~2019-01-22 | XMS | Encounter Summary ---
Demographics + + + | Address | [address] | | | [place] [address] | + + + | Home Phone | | + + + | Preferred Language | Unknown | + + + | Marital Status | Single | + + + | Yarsani Affiliation | Unknown | + + + | Race | Unknown | + + + | Ethnic Group | Other Race | + + + Author + + + | Author | [facility] | + + + | Organization | [facility] | + + + | Address | Unknown | + + + | Phone | Unavailable | + + + Care Team Providers + +------+ + | Care Mis Specialist Name | Role | Phone | + +------+ + PCP | Unavailable | + +------+ + Encounter Details +--------+ + + + + | Date | Type | Department | Care Team | Description | +--------+ + + + + | 01/06/ | Pharmacy | [facility] | | | | 2015 | Visit | [address] | | | | | | [address] | | | | | | [place] [address] | | | | | | [phone] | | | +--------+ + + + [...]
--- OUTSIDE RECORDS SUMMARY | ~2019-01-22 | XMS | Encounter Summary ---
Demographics + + + | Address | [address] | | | [place] [address] | + + + | Home Phone | | + + + | Preferred Language | Unknown | + + + | Marital Status | Single | + + + | Hoahaoism Affiliation | Unknown | + + + [...] Team Providers + +------+ + | Care Coconut Cooker Name | Role | Phone | + +------+ + PCP | Unavailable | + +------+ + Encounter Details +--------+ + + + + | Date | Type | Department | Care Team | Description | +--------+ + + + + | 10/20/ | Pharmacy | [facility] | | | | 2015 | Visit | [address] | | | | | | [address] | | | | | | [place] [address] | | | | | | [phone] | | | +--------+ + + + [...]
--- OUTSIDE RECORDS SUMMARY | ~2019-01-22 | XMS | Encounter Summary ---
Demographics + + + | Address | [address] | | | [place] [address] | + + + | Home Phone | | + + + | Preferred Language | Unknown | + + + | Marital Status | Single | + + + | Christian Affiliation | Unknown | + + + [...] Team Providers + +------+ + | Care Dye House Helper Name | Role | Phone | + +------+ + PCP | Unavailable | + +------+ + Encounter Details +--------+ + + + + | Date | Type | Department | Care Team | Description | +--------+ + + + + | 09/07/ | Pharmacy | [facility] | | | | 2014 | Visit | [address] | | | | | | [address] | | | | | | [place] [address] | | | | | | [phone] | | | +--------+ + + + [...]
--- OUTSIDE RECORDS SUMMARY | ~2019-01-22 | XMS | Encounter Summary ---
Demographics + + + | Address | [address] | | | [place] [address] | + + + | Home Phone | | + + + | Preferred Language | Unknown | + + + | Marital Status | | + + + | Anglican Affiliation | 1041 | + + + | Race | Unknown | + + + | Ethnic Group | Unknown | + + + Author + + + | Author | [facility] | | | and [place] | + + + | Organization | [facility] | | | and [place] | + + + | Address | Unknown | + + + | Phone | Unavailable | + + + Support + + + + + | Name | Relationship | Address | Phone | + + + + + | Catrina Florez | ECON | [place] | | | | | [address] | | + + + + + Care Team Providers + +------+ + | Care Ship Cleaner Name | Role | Phone | [...] + + | 06/18/ | Office | [facility] [place] | [place], | Left lumbar | | 2016 | Visit | [address]SIATRY [address] | [address] | radiculitis (Primary | | | | [place], | [address] [place], | Dx); Chronic | | | | [place] [address] | [place] [address] | bilateral low back | | | | [phone] | [phone] | pain with | | | | [...] of the procedure you must provide a concrete pile driver operator to take you home. For all procedur [...] 05/06/2016 and reports no im mediate or halfway improvement of her symptoms. Since the symptoms [...] (PRESERVISION AREDS 2) CAPS Take by mouth. [place]-3 Fatty Acids (FISH OIL) 1200 MG CAPS [...] has no apparent deficits with short or manager long term care memory. She has appropriate fund of [...] during the visit. Lumba r MRI from [facility] shows abnormal signal to the left [...] to the fluoroscopy suite for a fluoroscopically-guided [facility] | | L5-S1 transforaminal epidural [...] + + | Performing | Address | City/State/[facility] | Phone Number | | Organization | | | | + + + + + | [facility] | [address] | [place] | [phone] | | [facility] | | [address] | | | - IMAGING | | [...]
--- OUTSIDE RECORDS SUMMARY | ~2019-01-22 | XMS | Encounter Summary ---
Demographics + + + | Address | [address] | | | [place] [address] | + + + | Home Phone [...] [place] | | | | | [address] | | + + + + + Care Team Providers + +------+ + | Care Brood Station Manager Name | Role | Phone | [...] | 02/23/ | Refill | [facility] | Boris Meza PA | Medication Refill | | 2011 | | SLEEP DISORDER [address] | [address] | | | | | [address] [place] | [place] | | | | | [place] [address] | [id number] | | | | | [phone] | | | +--------+--------+ + + + [...]
--- OUTSIDE RECORDS SUMMARY | ~2019-01-22 | XMS | Encounter Summary ---
Demographics + + + | Address | [address] | | | [place] [address] | + + + | Home Phone [...] Team Providers + +------+ + | Care Microsoft Exchange Administrator Name | Role | Phone | + +------+ + PCP | Unavailable | + +------+ + Encounter Details +--------+ + + + + | Date | Type | Department | Care Team | Description | +--------+ + + + + | 10/02/ | Pharmacy | [facility] | | | | 2015 | Visit | [address] | [address] | | | | | | [place] [address] | | | | | | [phone] | | | +--------+ + + + [...]
--- OUTSIDE RECORDS SUMMARY | ~2019-01-22 | XMS | Encounter Summary ---
Demographics + + + | Address | [address] | | | [place] [address] | + + + | Home Phone [...] Author + + + | Author | [facility] | + + + | Organization | [facility] | + + + | Address | Unknown | + + + | Phone | Unavailable | + + + Care Team Providers + +------+ + | Care Biometrics Technician Name | Role | Phone | + +------+ + PCP | Unavailable | + +------+ + Encounter Details +--------+ + + + + | Date | Type | Department | Care Team | Description | +--------+ + + + + | 10/31/ | Pharmacy | [facility] | | | | 2012 | Visit | [address] | | | | | | [address] | | | | | | [place] [address] | | | | | | [phone] | | | +--------+ + + + [...]
--- OUTSIDE RECORDS SUMMARY | ~2019-01-22 | XMS | Encounter Summary ---
Demographics + + + | Address | [address] | | | [place] [address] | + + + | Home Phone [...] Team Providers + +------+ + | Care Advertising Dispatch Clerks Supervisor Name | Role | Phone | + +------+ + PCP | Unavailable | + +------+ + Encounter Details +--------+ + + + + | Date | Type | Department | Care Team | Description | +--------+ + + + + | 07/17/ | Pharmacy | [facility] | | | | 2013 | Visit | [address] | | | | | | [address] | | | | | | [place] [address] | | | | | | [phone] | | | +--------+ + + + [...]
--- OUTSIDE RECORDS SUMMARY | ~2019-01-22 | XMS | Encounter Summary ---
Demographics + + + | Address | [address] | | | [place] [address] | + + + | Home Phone [...] Author + + + | Author | [facility] | + + + | Organization | [facility] | + + + | Address | Unknown | + + + | Phone | Unavailable | + + + Care Team Providers + +------+ + | Care Netting Weaver Name | Role | Phone | + +------+ + PCP | Unavailable | + +------+ + Encounter Details +--------+ + + + + | Date | Type | Department | Care Team | Description | +--------+ + + + + | 01/11/ | Pharmacy | [facility] | | | | 2012 | Visit | [address] | | | | | | [address] | | | | | | [place] [address] | | | | | | [phone] | | | +--------+ + + + [...]
--- OUTSIDE RECORDS SUMMARY | ~2019-01-22 | XMS | Encounter Summary ---
Demographics + + + | Address | [address] | | | [place] [address] | + + + | Home Phone [...] Team Providers + +------+ + | Care Office Clerk Routine Name | Role | Phone | + +------+ + PCP | Unavailable | + +------+ + Encounter Details +--------+ + + + + | Date | Type | Department | Care Team | Description | +--------+ + + + + | 01/12/ | Pharmacy | [facility] | | | | 2012 | Visit | [address] | | | | | | [address] | | | | | | [place] [address] | | | | | | [phone] | | | +--------+ + + + [...]
--- OUTSIDE RECORDS SUMMARY | ~2019-01-22 | XMS | Encounter Summary ---
Demographics + + + | Address | [address] | | | [place] [address] | + + + | Home Phone [...] + + + | Author | [facility] | + + + | Organization | [facility] | + + + | Address | Unknown | + + + | Phone | Unavailable | + + + Care Team Providers + +------+ + | Care Academic Department Chair Name | Role | Phone | + +------+ + PCP | Unavailable | + +------+ + Encounter Details +--------+ + + + + | Date | Type | Department | Care Team | Description | +--------+ + + + + | 07/14/ | Pharmacy | [facility] | | | | 2013 | Visit | [address] | | | | | | [address] | | | | | | [place] [address] | | | | | | [phone] | | | +--------+ + + + [...]
--- OUTSIDE RECORDS SUMMARY | ~2019-01-22 | XMS | Encounter Summary ---
Demographics + + + | Address | [address] | | | [place] [address] | + + + | Home Phone [...] Team Providers + +------+ + | Care Mirror Department Supervisor Name | Role | Phone | + +------+ + PCP | Unavailable | + +------+ + Encounter Details +--------+ + + + + | Date | Type | Department | Care Team | Description | +--------+ + + + + | 11/20/ | Pharmacy | [facility] | | | | 2013 | Visit | [address] [facility] | | | | | | Place [address] | | | | | | [place] [address] | | | | | | [phone] | | | +--------+ + + + [...]
--- OUTSIDE RECORDS SUMMARY | ~2019-01-22 | XMS | Encounter Summary ---
Demographics + + + | Address | [address] | | | [place] [address] | + + + | Home Phone | | + + + | Preferred Language | Unknown | + + + | Marital Status | | + + + | Mormonism Affiliation | 1041 | + + + | Race | Unknown | + + + | Ethnic Group | Unknown | + + + Author + + + | Author | [facility] | | | and [place] | + + + | Organization | [facility] | | | and [place] | + + + | Address | Unknown | + + + | Phone | Unavailable | + + + Support + + + + + | Name | Relationship | Address | Phone | + + + + + | Catrina Florez | ECON | [place] | | | | | [address] | | + + + + + Care Team Providers + +------+ + | Care Fashion Model Name | Role | Phone | + [...] | | | Sally, | [address] | | | | | Sacroiliitis | Lamont Bryan MD | [place], | | | | | ([facility]) | [address] | [place] | | | | | Procedures | [place] | [address] | | | | | [place] INJECT SI | [place], [place] | Phone: | | | | | JOINT | [address] | [phone] | | | | | ARTHRGRPHY&/ | Phone: | Fax: | | | | | ANES/STEROID | [phone] | [phone] | | | | | W/IMAGE [place] | Fax: | | | | | | | [phone] | | | | | | TRIAMCINOLON [...] + + | 05/06/ | Hospital | [facility] | Curtis, | Chronic bilateral | | 2017 | Encounter | MED CTR XRAY [address] | [address] | low back pain with | | | | [address] [place] | [place], | right-sided | | | | [place] [address] | [place] [address] | sciatica; Chronic | | | | [phone] | [phone] | left sacroiliac pain | | | | | | | | | | | Manager StoreMonique | | +--------+ + + + + [...] + + + +---------+ + + | Crescent-3 Fatty | Take 1,200 mg by | [...] + + + +---------+ + + | Crescent-3 Fatty | Take 1 capsule by | [...] presents to the fluoroscopy suite | [facility] | | for a fluoroscopically guided left sacroiliac joint steroid [facility] | | injection as part of [...] + + | Performing | Address | City/State[facility] | Phone Number | | Organization | | | | + + + + + | [facility] | [address] | [place] | [phone] | | [facility] | | [address] | | | - IMAGING | | [...]
--- OUTSIDE RECORDS SUMMARY | ~2019-01-22 | XMS | Encounter Summary ---
Demographics + + + | Address | [address] | | | [place] [address] | + + + | Home Phone [...] Team Providers + +------+ + | Care Sales Secretary Name | Role | Phone | + +------+ + PCP | Unavailable | + +------+ + Encounter Details +--------+ + + + + | Date | Type | Department | Care Team | Description | +--------+ + + + + | 10/02/ | Pharmacy | [facility] | | | | 2015 | Visit | [address] | | | | | | Place [address] | | | | | | [place] [address] | | | | | | [phone] | | | +--------+ + + + [...]
--- OUTSIDE RECORDS SUMMARY | ~2019-01-22 | XMS | Encounter Summary ---
Demographics + + + | Address | [address] | | | [place] [address] | + + + | Home Phone | | + + + | Preferred Language | Unknown | + + + | Marital Status | | + + + | Uatsdin Affiliation | 1041 | + + + [...] [place] | | | | | [address] | | + + + + + Care Team Providers + +------+ + | Care Arm Rest Builder Name | Role | Phone | + [...] + + | 02/03/ | Office | [facility] [place] | Zac Wells | DORA (obstructive | | 2011 | Visit | SLEEP [address] | MD [address] | sleep apnea) | | | | [address] [place] | [address] [place] | (Primary Dx) | | | | [place] [address] | [place] [address] | | | | | [phone] | [phone] | | | | | | | [...]
--- OUTSIDE RECORDS SUMMARY | ~2019-01-22 | XMS | Encounter Summary ---
Demographics + + + | Address | [address] | | | [place] [address] | + + + | Home Phone | | + + + | Preferred Language | Unknown | + + + | Marital Status | Single | + + + | Restorationism Affiliation | Unknown | + + + | Race | Unknown | + + + | Ethnic Group | Other Race | + + + Author + + + | Author | [facility] | + + + | Organization | [facility] | + + + | Address | Unknown | + + + | Phone | Unavailable | + + + Care Team Providers + +------+ + | Care Liquor Stores And Agencies Supervisor Name | Role | Phone | + +------+ + PCP | Unavailable | + +------+ + Encounter Details +--------+ + + + + | Date | Type | Department | Care Team | Description | +--------+ + + + + | 06/14/ | Pharmacy | [facility] | | | | 2014 | Visit | [address] | | | | | | [address] | | | | | | [place] [address] | | | | | | [phone] | | | +--------+ + + + [...]
--- OUTSIDE RECORDS SUMMARY | ~2019-01-22 | XMS | Encounter Summary ---
Demographics + + + | Address | [address] | | | [place] [address] | + + + | Home Phone | | + + + | Preferred Language | Unknown | + + + | Marital Status | Single | + + + | Jehovah'S Witness Affiliation | Unknown | + + + | Race | Unknown | + + + | Ethnic Group | Other Race | + + + Author + + + | Author | [facility] | + + + | Organization | [facility] | + + + | Address | Unknown | + + + | Phone | Unavailable | + + + Care Team Providers + +------+ + | Care Advertising Rep Name | Role | Phone | + +------+ + PCP | Unavailable | + +------+ + Encounter Details +--------+ + + + + | Date | Type | Department | Care Team | Description | +--------+ + + + + | 10/29/ | Pharmacy | [facility] | | | | 2012 | Visit | [address] | | | | [address] | [address] | | | | | | [place] [address] | | | | | | [phone] | | | +--------+ + + + [...]
--- OUTSIDE RECORDS SUMMARY | ~2019-01-22 | XMS | Encounter Summary ---
Demographics + + + | Address | [address] | | | [place] [address] | + + + | Home Phone [...] Author + + + | Author | [facility] | + + + | Organization | [facility] | + + + | Address | Unknown | + + + | Phone | Unavailable | + + + Care Team Providers + +------+ + | Care Frame Assembler Name | Role | Phone | + +------+ + PCP | Unavailable | + +------+ + Encounter Details +--------+ + + + + | Date | Type | Department | Care Team | Description | +--------+ + + + + | 09/06/ | Pharmacy | [facility] | | | | 2014 | Visit | [address] | | | | | | [address] | | | | | | [place] [address] | | | | | | [phone] | | | +--------+ + + + [...]
--- OUTSIDE RECORDS SUMMARY | ~2019-01-22 | XMS | Encounter Summary ---
Demographics + + + | Address | [address] | | | [place] [address] | + + + | Home Phone [...] Team Providers + +------+ + | Care Finance Analyst Name | Role | Phone | + +------+ + PCP | Unavailable | + +------+ + Encounter Details +--------+ + + + + | Date | Type | Department | Care Team | Description | +--------+ + + + + | 12/31/ | Pharmacy | [facility] | | | | 2014 | Visit | [address] | | | | | | [address] | | | | | | [place] [address] | | | | | | [phone] | | | +--------+ + + + [...]
--- OUTSIDE RECORDS SUMMARY | ~2019-01-22 | XMS | Encounter Summary ---
Demographics + + + | Address | [address] | | | [place] [address] | + + + | Home Phone [...] Team Providers + +------+ + | Care Lithographing Machine Operator Name | Role | Phone | + +------+ + PCP | Unavailable | + +------+ + Encounter Details +--------+ + + + + | Date | Type | Department | Care Team | Description | +--------+ + + + + | 04/13/ | Pharmacy | [facility] | | | | 2013 | Visit | [address] | | | | | | [address] | | | | | | [place] [address] | | | | | | [phone] | | | +--------+ + + + [...]
--- OUTSIDE RECORDS SUMMARY | ~2019-01-22 | XMS | Encounter Summary ---
Demographics + + + | Address | [address] | | | [place] [address] | + + + | Home Phone | | + + + | Preferred Language | Unknown | + + + | Marital Status | Single | + + + | Holiness Affiliation | Unknown | + + + [...] Team Providers + +------+ + | Care Tobacco Packing Machine Operator Name | Role | Phone | + +------+ + PCP | Unavailable | + +------+ + Encounter Details +--------+ + + + + | Date | Type | Department | Care Team | Description | +--------+ + + + + | 03/03/ | Pharmacy | [facility] | | | | 2013 | Visit | [address] | | | | | | [address] | | | | | | [place] [address] | | | | | | [phone] | | | +--------+ + + + [...]
--- OUTSIDE RECORDS SUMMARY | ~2019-01-22 | XMS | Encounter Summary ---
Demographics + + + | Address | [address] | | | [place] [address] | + + + | Home Phone [...] | [place] | | | | | [address] | | + + + + + Care Team Providers + +------+ + | Care Industrial Engineering Technologist Name | Role | Phone [...] + + | 06/18/ | Office | [facility] [place] | Curtis, | Left lumbar | | 2016 | Visit | [address] | [address] | radiculitis (Primary | | | | [place], | [address] [place], | Dx); Chronic | | | | [place] [address] | [place] [address] | bilateral low back | | | | [phone] | [phone] | pain with | | | | [...] of the procedure you must provide a driver's license reviewing officer to take you home. For all procedur [...] into the left leg. She reports néstor knowels had this pain for over 20 years but it has always been intermittent. Her symptoms worsened after April of last year when she had a left total knee replacement. She has seen us in the past and under went a left SI joint injection, this was done 05/06/2016 and reports no im mediate or senior living improvement of her symptoms. Since the symptoms [...] (PRESERVISION AREDS 2) CAPS Take by mouth. [place]-3 Fatty Acids (FISH OIL) 1200 MG CAPS [...] no apparent deficits with short or intermediate card tender memory. She has appropriate fund of knowledge [...] during the visit. Lumba r MRI from [facility] shows abnormal signal to the left [...] to the fluoroscopy suite for a fluoroscopically-guided [facility] | | L5-S1 transforaminal epidural steroid injection [...] + + | Performing | Address | City/State[facility] | Phone Number | | Organization | | | | + + + + + | [facility] | [address] | [place] | [phone] | | [facility] | | [address] | | | - IMAGING | | [...]
--- OUTSIDE RECORDS SUMMARY | ~2019-01-22 | XMS | Encounter Summary ---
Demographics + + + | Address | [address] | | | [place] [address] | + + + | Home Phone | | + + + | Preferred Language | Unknown | + + + | Marital Status | | + + + | Catholic Affiliation | 1041 | + + + | Race | Unknown | + + + | Ethnic Group | Unknown | + + + Author + + + | Author | [facility] | | | and [place] | + + + | Organization | [facility] [...] [place] | | | | | [address] | | + + + + + Care Team Providers + +------+ + | Care Liquid Natural Gas Plant Operator Name | Role | Phone | [...] + + | 04/12/ | Office | [facility] | Boris Meza PA | DORA on CPAP (Primary | | 2012 | Visit | SLE[address] | [address] | Dx) | | | | [address] [place] | [place] | | | | | [place] [address] | [address] | | | | | [phone] | | | +--------+---------+ + + + [...] Insomnia Severity Index Insomnia Severity Index 6 [place] Sleepiness Scale Sitting and reading 1 Watching [...] pillows obtained from: [facility] [place] pressure is: 5-10 cm 95%: 8.3 cm [...] appro piate paperwork. Fifteen minutes were spent [id number], with the majority of time spent i [...]
--- OUTSIDE RECORDS SUMMARY | ~2019-01-22 | XMS | Encounter Summary ---
Demographics + + + | Address | [address] | | | [place] [address] | + + + | Home Phone [...] [place] | | | | | [address] | | + + + + + Care Team Providers + +------+ + | Care Sales Promotion Director Name | Role | Phone | [...] [address] | | | | | [place], | [place], | | | | | [place] [address] | [place] [address] | | | | | [phone] | [phone] | | | | | | | [...]
--- OUTSIDE RECORDS SUMMARY | ~2019-01-22 | XMS | Encounter Summary ---
Demographics + + + | Address | [address] | | | [place] [address] | + + + | Home Phone | | + + + | Preferred Language | Unknown | + + + | Marital Status | | + + + | Taoist Affiliation | 1041 | + + + [...] [place] | | | | | [address] | | + + + + + Care Team Providers + +------+ + | Care Director Of Cath Lab Name | Role | Phone | + [...] [address] | | | | | [place], | [place], | | | | | [place] [address] | [place] [address] | | | | | [phone] | [phone] | | | | | | | [...]
--- OUTSIDE RECORDS SUMMARY | ~2019-01-22 | XMS | Encounter Summary ---
Demographics + + + | Address | [address] | | | [place] [address] | + + + | Home Phone | | + + + | Preferred Language | Unknown | + + + | Marital Status | | + + + | Jain Affiliation | 1041 | + + + | Race | Unknown | + + + | Ethnic Group | Unknown | + + + Author + + + | Author | [facility] | | | and [place] | + + + | Organization | [facility] | | | and [place] | + + + | Address | Unknown | + + + | Phone | Unavailable | + + + Support + + + + + | Name | Relationship | Address | Phone | + + + + + | Catrina Florez | ECON | [place] | | | | | [address] | | + + + + + Care Team Providers + +------+ + | Care Drywall Taper Name | Role | Phone | + [...] [address] | | | | | [place], | [place], | | | | | [place] [address] | [place] [address] | | | | | [phone] | [phone] | | | | | | | [...]
--- OUTSIDE RECORDS SUMMARY | ~2019-01-22 | XMS | Encounter Summary ---
Demographics + + + | Address | [address] | | | [place] [address] | + + + | Home Phone | | + + + | Preferred Language | Unknown | + + + | Marital Status | | + + + | Temple Affiliation | 1041 | + + + [...] [place] | | | | | [address] | | + + + + + Care Team Providers + +------+ + | Care Wafer Polisher Name | Role | Phone | + [...] + + | 02/03/ | Office | [facility] [place] | Zac Wells | DORA (obstructive | | 2011 | Visit | [address] | MD [address] | sleep apnea) | | | | [address] [place] | [address] [place] | (Primary Dx) | | | | [place] [address] | [place] [address] | | | | | [phone] | [phone] | | | | | | | [...]
--- OUTSIDE RECORDS SUMMARY | ~2019-01-22 | XMS | Encounter Summary ---
Demographics + + + | Address | [address] | | | [place] [address] | + + + | Home Phone | | + + + | Preferred Language | Unknown | + + + | Marital Status | | + + + | Druze Affiliation | 1041 | + + + | Race | Unknown | + + + | Ethnic Group | Unknown | + + + Author + + + | Author | [facility] | | | and [place] | + + + | Organization | [facility] | | | and [place] | + + + | Address | Unknown | + + + | Phone | Unavailable | + + + Support + + + + + | Name | Relationship | Address | Phone | + + + + + | Catrina Florez | ECON | [place] | | | | | [address] | | + + + + + Care Team Providers + +------+ + | Care Interventional Technologist Name | Role | Phone | [...] + + | 04/17/ | Office | [facility] | Boris Meza PA | DORA on CPAP (Primary | | 2015 | Visit | [address] | [address] | Dx) | | | | [address] [place] | [place] | | | | | [place] [address] | [address] | | | | | [phone] | | | +--------+---------+ + + + [...] Insomnia Severity Index Insomnia Severity Index 0 [place] Sleepiness Scale Sitting and reading 2 Watching [...] pillows obtained from: [facility] [place] pressure is: 5-10 cm 95%: 7.4 cm [...] appr opiate paperwork. Fifteen minutes were spent [id number], with the majority of time spent in [...]
--- OUTSIDE RECORDS SUMMARY | ~2019-01-22 | XMS | Encounter Summary ---
Demographics + + + | Address | [address] | | | [place] [address] | + + + | Home Phone [...] Team Providers + +------+ + | Care Verifier Operator Name | Role | Phone | + +------+ + PCP | Unavailable | + +------+ + Encounter Details +--------+ + + + + | Date | Type | Department | Care Team | Description | +--------+ + + + + | 07/17/ | Pharmacy | [facility] | | | | 2013 | Visit | [address] | [address] | | | | | | [place] [address] | | | | | | [phone] | | | +--------+ + + + [...]
--- OUTSIDE RECORDS SUMMARY | ~2019-01-22 | XMS | Clinical Summary ---
Demographics + + + | Address | [address] | | | [place] [address] | + + + | Home Phone | | + + + | Preferred Language | Unknown | + + + | Marital Status | Single | + + + | Voodoo Affiliation | Unknown | + + + [...] Team Providers + +------+ + | Care Hydraulic Press Servicer Name | Role | Phone | + +------+ + PCP | Unavailable | + +------+ + Source Comments [facility] is fully live on both EpicCare Ambulatory and EpicCare InPatient.[facility] Allergies No Known Allergies Medications + + [...]
--- OUTSIDE RECORDS SUMMARY | ~2019-01-22 | XMS | Encounter Summary ---
Demographics + + + | Address | [address] | | | [place] [address] | + + + | Home Phone | | + + + | Preferred Language | Unknown | + + + | Marital Status | | + + + | Rastafarian Affiliation | 1041 | + + + | Race | Unknown | + + + | Ethnic Group | Unknown | + + + Author + + + | Author | [facility] | | | and [place] | + + + | Organization | [facility] | | | and [place] | + + + | Address | Unknown | + + + | Phone | Unavailable | + + + Support + + + + + | Name | Relationship | Address | Phone | + + + + + | Catrina Florez | ECON | [place] | | | | | [address] | | + + + + + Care Team Providers + +------+ + | Care Education And Development Manager Name | Role | Phone | [...] | | | | | Spondylosis | [address] | [address] | | | | | without | Phone: | Phone: | | | | | myelopathy | [phone] | [phone] | | | | | or | Fax: | Fax: | | | | | radiculopath | [phone] | [phone] | | | | | y, lumbar [...] + + | 09/09/ | Office | [facility] | Lamont Z[place]ala | Chronic bilateral | | 2016 | Visit | [address] | [address] | low back pain | | | | [place], | [place] | without sciatica; | | | | [place] [address] | [address] | Spondylosis without | | | | [phone] | | myelopathy or | | | [...] of the procedure you must provide a driver education road instructor to take you home. For all procedur [...] 05/06/2016. Unfortunately she reports no immediate or fdc improvement of her symptoms. She was se [...] (PRESERVISION AREDS 2) CAPS Take by mouth. [place]-3 Fatty Acids (FISH OIL) 1200 MG CAPS [...] has no apparent deficits with short or fdc memory. She has appropriate fund of knowledge [...] during the visit. Lumba r MRI from [facility] shows transitional lumbosacral anatomy with [...] repeat imaging to see how the lesions tire changer time. ASSESSMENT: 1. Chronic bilateral low back [...]
--- OUTSIDE RECORDS SUMMARY | ~2019-01-22 | XMS | Encounter Summary ---
Demographics + + + | Address | [address] | | | [place] [address] | + + + | Home Phone [...] Providers + +------+ + | Care Personnel Adviser Name | Role | Phone | + +------+ + PCP | Unavailable | + +------+ + Encounter Details +--------+ + + + + | Date | Type | Department | Care Team | Description | +--------+ + + + + | 01/11/ | Pharmacy | [facility] | | | | 2012 | Visit | [address] | | | | | | [address] | | | | | | [place] [address] | | | | | | [phone] | | | +--------+ + + + [...]
--- OUTSIDE RECORDS SUMMARY | ~2019-01-22 | XMS | Encounter Summary ---
Demographics + + + | Address | [address] | | | [place] [address] | + + + | Home Phone | | + + + | Preferred Language | Unknown | + + + | Marital Status | | + + + | Samaritan Affiliation | 1041 | + + + | Race | Unknown | + + + | Ethnic Group | Unknown | + + + Author + + + | Author | [facility] | | | and [place] | + + + | Organization | [facility] | | | and [place] | + + + | Address | Unknown | + + + | Phone | Unavailable | + + + Support + + + + + | Name | Relationship | Address | Phone | + + + + + | Catrina Florez | ECON | [place] | | | | | [address] | | + + + + + Care Team Providers + +------+ + | Care Mva Still Operator Name | Role | Phone | [...] + + | 04/11/ | [facility] | [facility] | Boris Meza PA | DORA on CPAP (Primary | | 2013 | Visit | SLEEP DISORDER 401 | [address] | Dx) | | | | [address] | [place] | | | | | [place] [address] | [address] | | | | | [phone] | | | +--------+---------+ + + + [...] Insomnia Severity Index Insomnia Severity Index 2 [place] Sleepiness Scale Sitting and reading 2 Watching [...] pillows obtained from: [facility] in [place] pressure is: 5-10 cm 95%: 7.6 cm [...] appro piate paperwork. Fifteen minutes were spent [id number], with the majority of time spent i [...]
--- OUTSIDE RECORDS SUMMARY | ~2019-01-22 | XMS | Encounter Summary ---
Demographics + + + | Address | [address] | | | [place] [address] | + + + | Home Phone [...] Team Providers + +------+ + | Care Ultrasound Coordinator Name | Role | Phone | + +------+ + PCP | Unavailable | + +------+ + Encounter Details +--------+ + + + + | Date | Type | Department | Care Team | Description | +--------+ + + + + | 04/04/ | Pharmacy | [facility] | | | | 2014 | Visit | [address] | | | | | | [address] | | | | | | [place] [address] | | | | | | [phone] | | | +--------+ + + + [...]
--- OUTSIDE RECORDS SUMMARY | ~2019-01-22 | XMS | Encounter Summary ---
Demographics + + + | Address | [address] | | | [place] [address] | + + + | Home Phone [...] Author | [facility] | + + + | Organization | [facility] | + + + | Address | Unknown | + + + | Phone | Unavailable | + + + Care Team Providers + +------+ + | Care Registered Vascular Technologist (Rvt) Name | Role | Phone | + +------+ + PCP | Unavailable | + +------+ + Encounter Details +--------+ + + + + | Date | Type | Department | Care Team | Description | +--------+ + + + + | 10/14/ | Pharmacy | [facility] | | | | 2016 | Visit | [address] | | | | | | [address] | | | | | | [place] [address] | | | | | | [phone] | | | +--------+ + + + [...]
--- OUTSIDE RECORDS SUMMARY | ~2019-01-22 | XMS | Encounter Summary ---
Demographics + + + | Address | [address] | | | [place] [address] | + + + | Home Phone [...] Author + + + | Author | [facility] | + + + | Organization | [facility] | + + + | Address | Unknown | + + + | Phone | Unavailable | + + + Care Team Providers + +------+ + | Care School Community Relations Coordinator Name | Role | Phone | + +------+ + PCP | Unavailable | + +------+ + Encounter Details +--------+ + + + + | Date | Type | Department | Care Team | Description | +--------+ + + + + | 09/30/ | Pharmacy | [facility] | | | | 2015 | Visit | [address] | | | | | | [address] | | | | | | [place] [address] | | | | | | [phone] | | | +--------+ + + + [...]
--- OUTSIDE RECORDS SUMMARY | ~2019-01-22 | XMS | Encounter Summary ---
Demographics + + + | Address | [address] | | | [place] [address] | + + + | Home Phone [...] Team Providers + +------+ + | Care Starter Cup Powder Mixer Name | Role | Phone | + +------+ + PCP | Unavailable | + +------+ + Encounter Details +--------+ + + + + | Date | Type | Department | Care Team | Description | +--------+ + + + + | 11/22/ | Pharmacy | [facility] | | | | 2013 | Visit | [address] | | | | | | [address] | | | | | | [place] [address] | | | | | | [phone] | | | +--------+ + + + [...]
--- OUTSIDE RECORDS SUMMARY | ~2019-01-22 | XMS | Encounter Summary ---
Demographics + + + | Address | [address] | | | [place] [address] | + + + | Home Phone | | + + + | Preferred Language | Unknown | + + + | Marital Status | | + + + | Sabianist Affiliation | 1041 | + + + | Race | Unknown | + + + | Ethnic Group | Unknown | + + + Author + + + | Author | [facility] | | | and [place] | + + + | Organization | [facility] | | | and [place] | + + + | Address | Unknown | + + + | Phone | Unavailable | + + + Support + + + + + | Name | Relationship | Address | Phone | + + + + + | Catrina Florez | ECON | [place] | | | | | [address] | | + + + + + Care Team Providers + +------+ + | Care Metal Flow Coordinator Name | Role | Phone | [...] (Primary Dx); Facet | | | | [place], | [facility], | arthritis of lumbar | | | | [place] [address] | [place] [address] | region ([facility]); | | | | [phone] | [phone] | Chronic right-sided | | | | [...] of blood sugars if you are diabetic. custodial risk can lead to osteoporosis which is [...] of the procedure you must provide a motor pool driver to take you home. For all [...] activity. She participated in physical therapy at [facility] in [place] and [facility] this actually worsened her pain, she [...] (PRESERVISION AREDS 2) CAPS Take by mouth. [place]-3 Fatty Acids (FISH OIL) 1200 MG CAPS [...] has no apparent deficits with short or alf memory. She has appropriate fund of knowledge [...] during the visit. Lumba r MRI from [facility] shows transitional lumbosacral anatomy with what [...] repeat imaging to see how the lesions spinning frame changer time. ASSESSMENT: 1. Lumbar radiculopathy 2. Facet arthritis of lumbar region (HCC) 3. Chronic right-sided low back pain without sciatica PLAN: 1. 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 Unfortunately she frida nues to have significant [...]
--- OUTSIDE RECORDS SUMMARY | ~2019-01-22 | XMS | Encounter Summary ---
Demographics + + + | Address | [address] | | | [place] [address] | + + + | Home Phone [...] [place] | | | | | [address] | | + + + + + Care Team Providers + +------+ + | Care Caregiver Services Home Name | Role | Phone | + [...] [place] | | | | | | [place], | [address] Phone: | | | | | | [place] | [phone] | | | | | | [address] | Fax: | | | | | | Phone: | [phone] | | | | | | [phone] | | | | | | | Fax: | | | | | | | [phone] | | +--------+--------+ + + + + [...] back pain with | | | | [place], | [address], | left-sided sciatica | | | | [place] [address] | [place] [address] | (Primary Dx) | | | | [phone] | [phone] | | | | | | | [...] PDT1) Lumbar xray and MRI done at [facility] 2) Depending on what images show, [...] of blood sugars if you are diabetic. halfway risk can lead to osteoporosis [...] (PRESERVISION AREDS 2) CAPS Take by mouth. [place]-3 Fatty Acids (FISH OIL) 1200 MG CAPS Take 1,200 mg by mouth Daily. [place]-3 Fatty Acids (RA FISH OIL EXTRA STRENGTH) [...] has no apparent deficits with short or longterm memory. She has appropriate fund of knowledge [...] xray and MRI to be done at [facility]. 2. We discussed possible treatment options [...]
[~2019-01-22 10:43] MED LIST changes: +OXYCODONE HCL5 MG PO
--- OUTSIDE RECORDS SUMMARY | 2019-01-22 10:46 | XMS ---
PreManage Notification: JAGDEEP GIRARD Security Feather Maker Events No recent Security Events currently on file CRITERIA MET - [facility] - 2 Visits in 30 Days CARE PROVIDERS There are no care providers on record at this time. Lulu has no Care Guidelines for this patient. [facility] MO[facility] NOTE: Visits indicate total known visits. ED/C VISIT TRACKING (12 MO.) 01/22/2019 10:[address] [facility] [place] TYPE: Emergency COMPLAINT: - POSS SEIZURE 01/19/2019 16:35 [facility] [place] TYPE: Emergency COMPLAINT: - FALL/SHOULDER PAIN INPATIENT VISIT TRACKING (12 MO.) No inpatient visits to display in this time frame [email or web address]
--- NOTE | 2019-01-23 07:42 | EKG ---
[facility] [address] [facility] [address] [place] [address] Signed Sinus rhythm with 1st degree AV block Left ventricular hypertrophy with QRS widening Nonspecific ST abnormality Abnormal ECG When compared with ECG of 14-APR-2016 13:17, NV interval has increased Left anterior fascicular block is no longer present Confirmed by VERNON RAHMAN MD ([id number]) on 01/23/2019 7:42:38 AM Electronically Signed By: VERNON RAHMAN MD 01/23/19 0742 PATIENT NAME: JAGDEEP GIRARD Electrocardiogram DATE OF : 33 PHYSICIAN: VERNON RAHMAN MD REPORT #: [id number] REPORT IS CONFIDENTIAL AND NOT TO BE RELEASED WITHOUT AUTHORIZATION
== END 2019-01-22 15:04 | disposition home or self-care (01) ==
LOC: ED 10:43
DX: R55 Syncope and collapse (principal); Z79.899 Other long term (current) drug therapy
CPT/HCPCS: 70450; 71045; 80053; 81001; 84484; 85025; 93005; 93010; 99284-25

== ENCOUNTER 2022-11-16 14:33 | Emergency (ER) | payer MEDICARE ==
[~2022-11-16] VITALS: Ht 177.8 cm; Wt 78.9 kg
[2022-11-16] MEDS ORDERED: CALCIUM500 M1 (14:45)
[2022-11-16] MEDS ORDERED: NEURONTIN300 MG (14:46)
[2022-11-16 14:55] LABS: BASOPHILS 0.4 % (0-2); EOSINOPHILS 0.3 % (0-6); HEMATOCRIT 40.5 % (35.0-50.0); HEMOGLOBIN 13.1 g/dL (12.0-18.0); LYMPHOCYTES 10.3 % (24-44); MCH 30.6 (27-36); MCHC 32.4 g/dl (30-36); MCV 94.4 fl (81-99); MONOCYTES 15.3 % (0-12); NEUTROPHILS 73.7 % (39-80); PLATELET COUNT 210 K/uL (140-440); RDW 14.9 (10.5-15.0)
[2022-11-16 15:13] LABS: ALBUMIN 3.7 g/dL (3.4-5.0); ALBUMIN/GLOBULIN RATIO 0.95 (1.1-2.4); ANION GAP 13.1 (7-21); BILIRUBIN, TOTAL 0.7 ng/dL (0.2-1.0); BUN/CREATININE RATIO 15.88 (6.0-28.6); CALCIUM 9.7 mg/dL (8.5-10.1); CREATININE, SERUM 1.07 mg/dL (0.55-1.02); MAGNESIUM 1.6 mg/dL (1.8-2.4); POTASSIUM 4.1 mmol/L (3.5-5.1); PROTEIN, TOTAL 7.6 g/dL (6.4-8.2)
[2022-11-16 16:12] LABS: INFLUENZA B NAA NEGATIVE (NEGATIVE); RESPIRATORY SYNCYTIAL VIR NAA NEGATIVE (NEGATIVE)
[2022-11-16] MEDS ORDERED: TOPROL XL25 MG PO (18:27)
[2022-11-16 19:22] VITALS: BP 116/63
--- NOTE | 2022-11-16 21:22 | EKG ---
[facility] [address] [place] [address] Signed Atrial flutter with variable AV block Left axis deviation Left bundle branch block Abnormal ECG When compared with ECG of 22-JAN-2019 11:17, Atrial flutter has replaced Sinus rhythm Vent. rate has increased BY 30 BPM Left bundle branch block is now present Confirmed by Lidya Wade MD () on 11/16/2022 9:22:02 PM Electronically Signed By: LIDYA WADE MD 11/16/222121 PATIENT NAME: JAGDEEP GIRARD Electrocardiogram DATE OF : 33 PHYSICIAN: LIDYA WADE MD REPORT #: [id number] REPORT IS CONFIDENTIAL AND NOT TO BE RELEASED WITHOUT AUTHORIZATION
== END 2022-11-16 19:22 | disposition home or self-care (01) ==
LOC: ED 14:33
PROVIDERS: Emergency Medicine
DX: I48.91 Unspecified atrial fibrillation (principal); R07.89 Other chest pain; I44.7 Left bundle-branch block, unspecified; I48.92 Unspecified atrial flutter; R79.1 Abnormal coagulation profile; I10 Essential (primary) hypertension; Z20.822 Contact with and (suspected) exposure to COVID-19; Z79.899 Other long term (current) drug therapy
CPT/HCPCS: 36415; 71045; 71260; 80053; 83735; 84484; 85025; 85379; 87502; 93005; 93010; 96375; 99285-25; A9270; C9803; J1885; J2270; J2405; J3475; J7040; Q9967; U0002

== ENCOUNTER 2024-02-02 08:40 | Inpatient (IN) | payer MEDICARE ==
[~2024-02-02] VITALS: Ht 177.8 cm; Wt 71.4 kg
[~2024-02-02 08:40] MED LIST changes: +CALCIUM500 M1 PO; -DITROPAN XL15 MG PO; -FISH OIL 1,2001 EACH PO; +FISH OIL 1,201200 MG PO; +HYDROCODON-ACE1 EA10 PO; +NEURONTIN300 MG PO; +TOPROL XL25 MG PO
[2024-02-02] MEDS ORDERED: ELIQUIS2.5 MG PO (08:53)
[2024-02-02 09:02] LABS: BASOPHILS 1.6 % (0-2); EOSINOPHILS 2.7 % (0-6); HEMATOCRIT 45.8 % (35.0-50.0); HEMOGLOBIN 14.9 g/dL (12.0-18.0); LYMPHOCYTES 20.8 % (24-44); MCH 29.7 (27-36); MCHC 32.6 g/dl (30-36); MCV 91.2 fl (81-99); MONOCYTES 11.3 % (0-12); NEUTROPHILS 63.6 % (39-80); PLATELET COUNT 251 K/uL (140-440); RBC 5.02 M/ul (4.3-5.7); RDW 16.8 (10.5-15.0)
[2024-02-02 09:25] LABS: ALBUMIN 3.4 g/dL (3.4-5.0); ALBUMIN/GLOBULIN RATIO 0.87 (1.1-2.4); ANION GAP 12.7 (7-21); BUN/CREATININE RATIO 20.17 (6.0-28.6); CALCIUM 9.6 mg/dL (8.5-10.1); CREATININE, SERUM 1.14 mg/dL (0.55-1.02); MAGNESIUM 1.8 mg/dL (1.8-2.4); POTASSIUM 4.7 mmol/L (3.5-5.1); PROTEIN, TOTAL 7.3 g/dL (6.4-8.2)
[2024-02-02] MEDS ORDERED: FUROSEMIDE 40 MG/4 ML VIAL IV ONE (09:30)
[2024-02-02] MEDS ORDERED: METOPROLOL TARTRATE 50 MG TAB PO ONE (10:45)
[2024-02-02] MEDS ORDERED: AZITHROMYCIN 250 MG TAB PO SCH (12:43)
[2024-02-02] MEDS ORDERED: CEFTRIAXONE/SODIUM CHLORIDE 1 GM/100 ML PIGGYBACK IV SCH (12:45)
[2024-02-02] MEDS ORDERED: MIRABEGRON ER50 MG PO (13:20)
[2024-02-02] MEDS ORDERED: ELIQUIS5 MG PO (13:22)
[2024-02-02 13:31] LABS: INFLUENZA B NAA NEGATIVE (NEGATIVE); RESPIRATORY SYNCYTIAL VIR NAA NEGATIVE (NEGATIVE)
[2024-02-02] MEDS ORDERED: OXYBUTYNIN CHLO15 MG PO (13:35)
[2024-02-02] MEDS ORDERED: OXYBUTYNIN CHLOR5 MG PO (13:36)
[2024-02-02] MEDS ORDERED: LIDOCAINE1 EACH TOP (13:42)
[2024-02-02] MEDS ORDERED: LIDOCAINE HCL 4% 1 EACH PATCH TD SCH (13:58)
[2024-02-02 13:59] VITALS: BP 124/92
[2024-02-02] MEDS ORDERED: ACETAMINOPHEN 325 MG TAB PO PRN (15:15)
[2024-02-02] MEDS ORDERED: ondansetron HCL 4 MG/2 ML VIAL IV PRN (15:15)
[2024-02-02 16:08] VITALS: BP 124/92
[2024-02-02 18:07] LABS: BILIRUBIN, URINE NEGATIVE (negative); BLOOD/HGB, URINE TRACE-I (Negative); KETONE, URINE NEGATIVE (Negative); LEUK ESTERASE, URINE MODERATE (negative); NITRITE, URINE POSITIVE (negative)
[2024-02-02 18:14] LABS: RED BLOOD CELLS, URINE 0-1 /hpf (0-5)
[2024-02-02 18:15] LABS: BACTERIA, URINE 2+ /hpf (negative); CASTS, URINE NONE SEEN \\lpf; COLLECTION TYPE, URINE CLEAN CATCH; CRYSTALS, URINE NONE SEEN (0-1+); REFLEX CULTURE, URINE Yes (No)
[2024-02-02 18:57] VITALS: BP 128/70
[2024-02-02 19:26] VITALS: BP 128/70
[2024-02-02 20:14] VITALS: BP 130/86
[2024-02-02] MEDS ORDERED: MELATONIN 3 MG TAB PO PRN (21:00)
[2024-02-02] MEDS ORDERED: APIXABAN 5 MG TAB PO SCH (21:00)
[2024-02-02] MEDS ORDERED: GABAPENTIN 300 MG CAP PO SCH (21:00)
[2024-02-02] MEDS ORDERED: LIDOCAINE PATCH REMOVAL 1 EA TD SCH (21:00)
[2024-02-03] VITALS (12 sets, daily range): BP systolic 124–139; BP diastolic 62–98
[2024-02-03 05:39] LABS: EOSINOPHILS 3.4 % (0-6); HEMATOCRIT 40.8 % (35.0-50.0); HEMOGLOBIN 13.7 g/dL (12.0-18.0); LYMPHOCYTES 14.9 % (24-44); MCH 30.1 (27-36); MCHC 33.5 g/dl (30-36); MCV 89.9 fl (81-99); MONOCYTES 13.2 % (0-12); NEUTROPHILS 67.5 % (39-80); PLATELET COUNT 208 K/uL (140-440); RBC 4.55 M/ul (4.3-5.7); RDW 16.5 (10.5-15.0)
[2024-02-03 05:49] LABS: BUN/CREATININE RATIO 24.29 (6.0-28.6); CALCIUM 9.2 mg/dL (8.5-10.1); CREATININE, SERUM 1.07 mg/dL (0.55-1.02); MAGNESIUM 1.6 mg/dL (1.8-2.4)
[2024-02-03] MEDS ORDERED: HYDROXYZINE HCL25 MG PO (08:57)
[2024-02-03] MEDS ORDERED: AZELASTINE137 MCG/0. NAS (08:58)
[2024-02-03] MEDS ORDERED: MAGNESIUM SULFATE 2 GM/50 ML BAG IV SCH (09:00)
[2024-02-03] MEDS ORDERED: lisinopriL 20 MG TAB PO SCH (09:00)
[2024-02-03] MEDS ORDERED: FUROSEMIDE 40 MG/4 ML VIAL IV SCH (09:00)
[2024-02-03] MEDS ORDERED: METOPROLOL SUCCINATE 25 MG TABCR PO SCH (09:00)
[2024-02-03] MEDS ORDERED: PHARMACY RENAL DOSE ADJUSTMENT 1 DOSE MISC PO SCH (12:00)
[2024-02-03] MEDS ORDERED: IBUPROFEN 400 MG TAB PO PRN (13:15)
[2024-02-03] MEDS ORDERED: ALENDRONATE SOD70 MG PO (14:47)
--- NOTE | 2024-02-03 19:30 | EKG ---
[facility] [address] [place] [address] Signed Atrial fibrillation Left axis deviation Left ventricular hypertrophy with QRS widening ( Cristhian product , Romhilt-Arana ) Cannot rule out Septal infarct , age undetermined ST \T\ T wave abnormality, consider lateral ischemia Abnormal ECG When compared with ECG of 16-NOV-2022 14:34, Atrial fibrillation has replaced Atrial flutter Left bundle branch block is no longer present Minimal criteria for Septal infarct are now present Confirmed by Kobe Haskins MD ([id number]) on 02/03/2024 7:30:23 PM Electronically Signed By: KOBE HAKSINS MD 02/03/241929 PATIENT NAME: JAGDEEP GIRARD Electrocardiogram DATE OF : 33 PHYSICIAN: KOBE HASKINS MD REPORT #: [id number] REPORT IS CONFIDENTIAL AND NOT TO BE RELEASED WITHOUT AUTHORIZATION
[2024-02-04] VITALS (10 sets, daily range): BP systolic 102–135; BP diastolic 64–87
[2024-02-04 05:29] LABS: BASOPHILS 0.9 % (0-2); EOSINOPHILS 5.2 % (0-6); HEMATOCRIT 42.3 % (35.0-50.0); HEMOGLOBIN 14.1 g/dL (12.0-18.0); LYMPHOCYTES 14.4 % (24-44); MCH 29.9 (27-36); MCHC 33.3 g/dl (30-36); MCV 89.7 fl (81-99); MONOCYTES 11.9 % (0-12); NEUTROPHILS 67.6 % (39-80); PLATELET COUNT 215 K/uL (140-440); RBC 4.71 M/ul (4.3-5.7); RDW 16.4 (10.5-15.0)
[2024-02-04 05:40] LABS: ANION GAP 9.8 (7-21); BUN/CREATININE RATIO 24.32 (6.0-28.6); CALCIUM 9.5 mg/dL (8.5-10.1); CREATININE, SERUM 1.11 mg/dL (0.55-1.02); MAGNESIUM 1.9 mg/dL (1.8-2.4); POTASSIUM 3.8 mmol/L (3.5-5.1)
[2024-02-05] VITALS (9 sets, daily range): BP systolic 106–137; BP diastolic 64–87
[2024-02-05 05:23] LABS: EOSINOPHILS 5.5 % (0-6); HEMATOCRIT 41.4 % (35.0-50.0); HEMOGLOBIN 13.8 g/dL (12.0-18.0); LYMPHOCYTES 22.9 % (24-44); MCH 29.6 (27-36); MCHC 33.2 g/dl (30-36); MCV 89.2 fl (81-99); MONOCYTES 14.1 % (0-12); NEUTROPHILS 56.5 % (39-80); PLATELET COUNT 222 K/uL (140-440); RBC 4.65 M/ul (4.3-5.7); RDW 16.5 (10.5-15.0)
[2024-02-05 05:28] LABS: ANION GAP 11.8 (7-21); BUN/CREATININE RATIO 31.57 (6.0-28.6); CALCIUM 8.9 mg/dL (8.5-10.1); CREATININE, SERUM 0.95 mg/dL (0.55-1.02); MAGNESIUM 1.7 mg/dL (1.8-2.4); POTASSIUM 3.8 mmol/L (3.5-5.1)
[2024-02-05] MEDS ORDERED: MAGNESIUM SULFATE 2 GM/50 ML BAG IV ONE (09:00)
[2024-02-05] MEDS ORDERED: SENNOSIDES/DOCUSATE 1 EA TAB PO SCH (09:35)
[2024-02-05] MEDS ORDERED: POLYETHYLENE GLYCOL 3350 1 PACKET PT ONE (09:45)
[2024-02-06] VITALS (7 sets, daily range): BP systolic 114–130; BP diastolic 60–83
[2024-02-06 05:14] LABS: HEMATOCRIT 42.5 % (35.0-50.0); LYMPHOCYTES 21.2 % (24-44); MCH 29.5 (27-36); MCV 89.5 fl (81-99); MONOCYTES 16.6 % (0-12); NEUTROPHILS 55.2 % (39-80); PLATELET COUNT 226 K/uL (140-440); RBC 4.75 M/ul (4.3-5.7); RDW 16.7 (10.5-15.0)
[2024-02-06 05:23] LABS: BUN/CREATININE RATIO 29.66 (6.0-28.6); CALCIUM 9.4 mg/dL (8.5-10.1); CREATININE, SERUM 1.18 mg/dL (0.55-1.02); MAGNESIUM 2.1 mg/dL (1.8-2.4)
[2024-02-06] MEDS ORDERED: PIPERACILLIN/TAZOBACTAM 3.375 GM in DEXTROSE 5% 100 ML IV SCH (14:00)
[2024-02-06] MEDS ORDERED: LIDOCAINE HCL 4% 1 EACH PATCH TD ONE (15:11)
[2024-02-06] MEDS ORDERED: LIDOCAINE PATCH REMOVAL 1 EA TD SCH (21:00)
[2024-02-06] MEDS ORDERED: POLYMYXIN B TOP SCH (21:00)
[2024-02-06] MEDS ORDERED: BACITRACIN TOP SCH (21:00)
[2024-02-07] VITALS (9 sets, daily range): BP systolic 108–148; BP diastolic 67–91
[2024-02-07 05:20] LABS: EOSINOPHILS 6.3 % (0-6); HEMATOCRIT 43.4 % (35.0-50.0); HEMOGLOBIN 14.5 g/dL (12.0-18.0); LYMPHOCYTES 23.9 % (24-44); MCH 29.9 (27-36); MCHC 33.3 g/dl (30-36); MCV 89.7 fl (81-99); MONOCYTES 14.8 % (0-12); PLATELET COUNT 215 K/uL (140-440); RBC 4.84 M/ul (4.3-5.7); RDW 16.8 (10.5-15.0)
[2024-02-07 05:31] LABS: ANION GAP 9.3 (7-21); BUN/CREATININE RATIO 29.46 (6.0-28.6); CALCIUM 9.5 mg/dL (8.5-10.1); CREATININE, SERUM 1.12 mg/dL (0.55-1.02); POTASSIUM 4.3 mmol/L (3.5-5.1)
[2024-02-07] MEDS ORDERED: LIDOCAINE HCL 4% 1 EACH PATCH TD SCH (09:00)
[2024-02-07] MEDS ORDERED: MORPHINE SULFATE 4 MG/ML VIAL IV PRN (15:45)
[2024-02-08] VITALS (9 sets, daily range): BP systolic 111–143; BP diastolic 72–98
[2024-02-08 05:34] LABS: BASOPHILS 1.1 % (0-2); EOSINOPHILS 7.3 % (0-6); HEMATOCRIT 42.5 % (35.0-50.0); LYMPHOCYTES 22.3 % (24-44); MCH 29.6 (27-36); MCV 89.7 fl (81-99); NEUTROPHILS 52.3 % (39-80); PLATELET COUNT 202 K/uL (140-440); RBC 4.74 M/ul (4.3-5.7); RDW 16.7 (10.5-15.0)
[2024-02-08 05:46] LABS: ANION GAP 9.3 (7-21); BUN/CREATININE RATIO 29.12 (6.0-28.6); CALCIUM 9.1 mg/dL (8.5-10.1); CREATININE, SERUM 1.03 mg/dL (0.55-1.02); POTASSIUM 4.3 mmol/L (3.5-5.1)
[2024-02-08] MEDS ORDERED: SPIRONOLACTONE 25 MG TAB PO SCH (15:15)
[2024-02-08] MEDS ORDERED: LIDOCAINE PATCH REMOVAL 1 EA TD SCH (21:00)
[2024-02-09 05:42] LABS: BASOPHILS 1.5 % (0-2); EOSINOPHILS 7.2 % (0-6); HEMATOCRIT 41.5 % (35.0-50.0); HEMOGLOBIN 13.8 g/dL (12.0-18.0); MCH 29.8 (27-36); MCHC 33.3 g/dl (30-36); MCV 89.6 fl (81-99); MONOCYTES 17.3 % (0-12); PLATELET COUNT 207 K/uL (140-440); RBC 4.63 M/ul (4.3-5.7); RDW 16.3 (10.5-15.0)
[2024-02-09 05:53] LABS: ANION GAP 8.3 (7-21); BUN/CREATININE RATIO 29.2 (6.0-28.6); CALCIUM 9.5 mg/dL (8.5-10.1); CREATININE, SERUM 1.13 mg/dL (0.55-1.02); POTASSIUM 4.3 mmol/L (3.5-5.1)
[2024-02-09 06:27] VITALS: BP 128/82
[2024-02-09 06:35] VITALS: BP 128/82
[2024-02-09 08:55] VITALS: BP 124/71
[2024-02-09] MEDS ORDERED: EMPAGLIFLOZIN 10 MG TAB PO SCH (09:00)
[2024-02-09] MEDS ORDERED: NITROFURANTOIN100 MG PO (10:13)
[2024-02-09] MEDS ORDERED: SPIRONOLACTONE25 MG PO (10:14)
[2024-02-09] MEDS ORDERED: JARDIANCE10 MG PO (10:14)
[2024-02-09] MEDS ORDERED: [UNRECOGNIZED DRUG - MIXTURE] TOP (10:16)
[2024-02-09 10:52] VITALS: BP 124/71
== END 2024-02-09 13:20 | disposition home or self-care (01) | DRG 193 ==
LOC: ED 08:40 → MS 12:41
PROVIDERS: Emergency Medicine; Family Medicine; ADMIT Student in an Organized Health Care Education/Training Program; ATTEND Student in an Organized Health Care Education/Training Program
DX: J18.9 Pneumonia, unspecified organism (principal); I50.21 Acute systolic (congestive) heart failure; J96.01 Acute respiratory failure with hypoxia; N39.0 Urinary tract infection, site not specified; I11.0 Hypertensive heart disease with heart failure; I48.91 Unspecified atrial fibrillation; K59.00 Constipation, unspecified; R07.81 Pleurodynia; G89.29 Other chronic pain; Z66 Do not resuscitate; Z96.653 Presence of artificial knee joint, bilateral; Z98.890 Other specified postprocedural states; Z90.89 Acquired absence of other organs; Z79.899 Other long term (current) drug therapy; Z79.01 Long term (current) use of anticoagulants
CPT/HCPCS: 36415; 51798; 71045; 71046; 80048; 80053; 81001; 83735; 83880; 84484; 85025; 85060; 85379; 87077; 87088; 87186; 87502; 93005; 93010; 93306; 93970; 94660; 94667; 94668; 94761; 94762; 96374; 97110; 97161; 97165; 97530; 99285-25; A9270; J0696; J1940; J2543; J3475; U0002